=== PATIENT | male | born 1950 | race Caucasian/White ===

== ENCOUNTER 2021-01-26 03:56 | Inpatient (IN) | payer MEDICARE ==
[~2021-01-26] VITALS: Ht 182.9 cm; Wt 85.7 kg
[~2021-01-26 03:56] MED LIST: AMLO-187 PO; ASPI-886 PO; ASPI325T8 PO; ATOR20TA58 PO; ATOR40TA PO; CARV6.2511 PO; CLOP75TA PO; DILT120C99 PO; FLUO20CA20 PO; FURO-68 PO; FURO40TA4 PO; HYDR-2868 PO; INSU100V13 SQ; ISOS30TA19 PO; OMEP20CA16 PO; POTA10TA12 PO; TAMS0.4C97 PO
[2021-01-26 04:24] LABS: BASO % 0 % (0-3); EOS # 0.1 x10^3/uL (0.0-0.7); EOS % 1 % (0-3); HEMATOCRIT 28.5 % (39.0-53.0); HEMOGLOBIN 9.8 g/dL (13.0-17.5); LYMPH # 1.1 x10^3/uL (1.0-4.8); LYMPH % 15 % (24-48); MEAN CORPUSCULAR HEMOGLOBIN 31 pg (25-35); MEAN CORPUSCULAR HGB CONC 34 g/dL (31-37); MEAN CORPUSCULAR VOLUME 89 fL (79-100); MONO # 0.8 x10^3/uL (0.0-1.1); MONO % 11 % (0-9); NEUT # 5.4 x10^3/uL (1.8-7.7); NEUT % 73 % (31-73); PLATELET COUNT 211 x10^3/uL (140-400); RED BLOOD COUNT 3.19 x10^6/uL (4.30-5.70); RED CELL DISTRIBUTION WIDTH 13.6 % (11.5-14.5); WHITE BLOOD COUNT 7.4 x10^3/uL (4.0-11.0)
--- NOTE | 2021-01-26 04:26 | PHYS DOC ---
Past Medical History Past Medical History: Anxiety, Arrhythmia, CAD, Depression, Diabetes-Type II, GERD, High Cholesterol, Hypertension, CO, Other Additional Past Medical Histor: L BKA, DIALYSIS, PERIPHERAL NEUROPATHY, BPH, AND PULMONARY EDEMA Past Surgical History: Appendectomy, Tonsillectomy Additional Past Surgical Histo: HEART STENTS, L BKA, AND CATARACT Smoking Status: Never Smoker Alcohol Use: None Adult General Chief Complaint Chief Complaint: SHORTNESS OF BREATH HPI HPI Patient is a 70 year ol D male with an extensive past medical history which includes hypertension, hyperlipidemia, prior CO, diabetes, recent removal of a cranial skin tumor now presents emergency department complaining of new onset of shortness of breath. Patient states he woke this morning and felt that he was feeling like he had fluid to the lungs and today he was having difficulty ca tching his breath. States this is resolved before ambulance arrived. Denies any recent fever, chills, dizziness or lightheadedness. Review of Systems Review of Systems Constitutional: Denies fever or chills [] Eyes: Denies change in visual acuity, redness, or eye pain [] HENT: Denies nasal congestion or sore throat [] Respiratory: Denies cough or shortness of breath [] Cardiovascular: No additional information not addressed in HPI [] GI: Denies abdominal pain, nausea, vomiting, bloody stools or diarrhea [] : Denies dysuria or hematuria [] Musculoskeletal: Denies back pain or joint pain [] Integument: Denies rash or skin lesions [] Neurologic: Denies headache, focal weakness or sensory changes [] Endocrine: Denies polyuria or polydipsia [] All other systems were reviewed and found to be within normal limits, except as documented in this note. Current Medications Current Medications Current Medications Medications (Trade) Dose Ordered Sig/Ruddy Start Time Stop Time Status Last Admin Dose Admin Furosemide (Lasix) 80 mg 1X ONCE 01/26/21 06:15 01/26/21 06:18 DC Ondansetron HCl (Zofran) 4 mg PRN Q8HRS PRN 01/26/21 06:15 01/27/21 06:14 Allergies Allergies Allergies Coded Allergies Type Severity Reaction Last Updated Verified No Known Drug Allergies 06/28/20 No Physical Exam Physical Exam Constitutional: Well developed, well nourished, no acute distress, non-toxic appearance. [] HENT: Normocephalic, atraumatic, bilateral external ears normal, oropharynx moist, no oral exudates, nose normal. [] Eyes: PERRLA, EOMI, conjunctiva normal, no discharge. [] Neck: Normal range of motion, no tenderness, supple, no stridor. [] Cardiovascular:Heart rate regular rhythm, no murmur [] Lungs & Thorax: Bilateral breath sounds clear to auscultation [] Abdomen: Bowel sounds normal, soft, no tenderness, no masses, no pulsatile masses. [] Skin: Warm, dry, no erythema, no rash. [] Back: No tenderness, no CVA tenderness. [] Extremities: No tenderness, no cyanosis, no clubbing, ROM intact, no edema. [] Neurologic: Alert and oriented X 3, normal motor function, normal sensory function, no focal deficits noted. [] Psychologic: Affect normal, judgement normal, mood normal. [] Current Patient Data Vital Signs Vital Signs Date Time Temp Pulse Resp B/P (MAP) Pulse Ox O2 Delivery O2 Flow Rate FiO2 01/26/21 05:35 64 14 140/68 (92) 94 Nasal Cannula 2.0 01/26/21 03:57 97.9 97.9 Lab Values Laboratory Tests Test 01/26/21 04:15 01/26/21 04:30 White Blood Count 7.4 x10^3/uL (4.0-11.0) Red Blood Count 3.19 x10^6/uL (4.30-5.70) L Hemoglobin 9.8 g/dL (13.0-17.5) L Hematocrit 28.5 % (39.0-53.0) L Mean Corpuscular Volume 89 fL (79-100) Mean Corpuscular Hemoglobin 31 pg (25-35) Mean Corpuscular Hemoglobin Concent 34 g/dL (31-37) Red Cell Distribution Width 13.6 % (11.5-14.5) Platelet Count 211 x10^3/uL (140-400) Neutrophils (%) (Auto) 73 % (31-73) Lymphocytes (%) (Auto) 15 % (24-48) L Monocytes (%) (Auto) 11 % (0-9) H Eosinophils (%) (Auto) 1 % (0-3) Basophils (%) (Auto) 0 % (0-3) Neutrophils # (Auto) 5.4 x10^3/uL (1.8-7.7) Lymphocytes # (Auto) 1.1 x10^3/uL (1.0-4.8) Monocytes # (Auto) 0.8 x10^3/uL (0.0-1.1) Eosinophils # (Auto) 0.1 x10^3/uL (0.0-0.7) Basophils # (Auto) 0.0 x10^3/uL (0.0-0.2) Sodium Level 139 mmol/L (136-145) Potassium Level 3.7 mmol/L (3.5-5.1) Chloride Level 103 mmol/L (98-107) Carbon Dioxide Level 31 mmol/L (21-32) Anion Gap 5 (6-14) L Blood Urea Nitrogen 39 mg/dL (8-26) H Creatinine 2.0 mg/dL (0.7-1.3) H Estimated GFR (Cockcroft-Gault) 33.1 BUN/Creatinine Ratio 20 (6-20) Glucose Level 141 mg/dL (70-99) H Calcium Level 8.4 mg/dL (8.5-10.1) L Total Bilirubin 0.5 mg/dL (0.2-1.0) Aspartate Amino Transferase (AST) 43 U/L (15-37) H Alanine Aminotransferase (ALT) 18 U/L (16-63) Alkaline Phosphatase 86 U/L (46-116) Creatine Kinase 187 U/L (39-308) OO-Kmu-B-Type Natriuretic Peptide 04549 pg/mL (0-124) H Total Protein 6.5 g/dL (6.4-8.2) Albumin 2.7 g/dL (3.4-5.0) L Albumin/Globulin Ratio 0.7 (1.0-1.7) L Influenza Type A Antigen Negative (NEGATIVE) Influenza Type B Antigen Negative (NEGATIVE) SARS-CoV-2 Antigen (Rapid) Negative (NEGATIVE) Laboratory Tests 01/26/21 04:15 Laboratory Tests 01/26/21 04:15 EKG EKG [] Radiology/Procedures Radiology/Procedures [] Course & Med Decision Making Course & Med Decision Making Pertinent Labs and Imaging studies reviewed. (See chart for details) 70M emergency department complaining new onset of shortness of breath most consistent with acute CHF exacerbation. Labs were obtained which demonstrates an extremely elevated BNP consistent with this diagnosis. Will provide the patient Lasix and plan for admission to the inpatient service with cardiology consultation for Amrik Disclaimer Amrik Disclaimer This electronic medical record was generated, in whole or in part, using a voice recognition dictation system. Departure Departure Impression: Primary Impression: CHF exacerbation Disposition: ADMITTED INPATIENT Condition: GUARDED Referrals: YANNICK BAR MD (PCP) SHARONA IRWIN MD Jan 26, 2021 04:26
--- NOTE | 2021-01-26 04:28 | RAD ---
XR CHEST 1V Clinical History: Reason: sob / Spl. Instructions: / History: Technique: AP view of the chest was obtained at 01/26/2021 4:11 AM. Comparison: December 15, 2020. Findings: The heart is mildly enlarged. The pulmonary vessels are somewhat cephalized. There is mild patchy opa city in the left lung base and blunting of left costophrenic angle. Impression: Mild left effusion and left basal infiltrate likely secondary to CHF. Electronically signed by: Iban Moctezuma III, MD (01/26/2021 4:25 AM) [facility]ENTERJAMES
[2021-01-26 04:33] LABS: CALCIUM 8.4 mg/dL (8.5-10.1); GFR 33.1; POTASSIUM 3.7 mmol/L (3.5-5.1)
[2021-01-26 04:40] LABS: ALBUMIN 2.7 g/dL (3.4-5.0); ALBUMIN/GLOBULIN RATIO 0.7 (1.0-1.7); TOTAL BILIRUBIN 0.5 mg/dL (0.2-1.0); TOTAL PROTEIN 6.5 g/dL (6.4-8.2)
--- NOTE | 2021-01-26 04:51 | EKG ---
[facility] [address] [place] [address] Test Date: 2021-01-26 Test Time: 04:07:49 Pat Name: JOVANNI SOLIS Department: Room: Gender: M Programming Manager: : 1950 Requested By: SHARONA IRWIN Order Number: [id number] Reading MD: Measurements Intervals [place] Rate: 71 P: -67 LA: 230 QRS: -25 QRSD: 102 T: 57 QT: 398 QTc: 437 Interpretive Statements SINUS RHYTHM VENTRICULAR PREMATURE COMPLEX(ES) PROLONGED LA INTERVAL LEFTWARD AXIS R-S TRANSITION ZONE IN V LEADS DISPLACED TO THE LEFT LOW LIMB LEAD VOLTAGE ABNORMAL ECG RI6.02 No previous ECG available for comparison
[2021-01-26 05:00] LABS: INFLUENZA A PATIENT NEGATIVE (NEGATIVE); INFLUENZA B PATIENT NEGATIVE (NEGATIVE)
[2021-01-26] MEDS ORDERED: FUROSEMIDE 40 MG/4 ML VIAL. IVP ONE (06:15)
[2021-01-26] MEDS ORDERED: FUROSEMIDE 40 MG TABLET. PO ONE (06:15)
[2021-01-26] MEDS ORDERED: ONDANSETRON PF 4 MG/2 ML VIAL. IV PRN (06:15)
[2021-01-26] MEDS ORDERED: FUROSEMIDE 40 MG TABLET. PO SCH (07:30)
[2021-01-26] MEDS ORDERED: MAG HYDROX/ALUMINUM HYD/SIMETH 30 ML ORAL.SUSP PO PRN (07:45)
[2021-01-26] MEDS ORDERED: MAGNESIUM HYDROXIDE 2,400 MG/30 ML ORAL.SUSP. PO PRN (07:45)
[2021-01-26] MEDS ORDERED: BISACODYL 10 MG SUPP.RECT. PR PRN (07:45)
[2021-01-26] MEDS ORDERED: ACETAMINOPHEN 325 MG TABLET. PO PRN (07:45)
[2021-01-26] MEDS ORDERED: HYDROcodone/APAP 5/325MG 1 TAB TABLET PO PRN (07:45)
[2021-01-26] MEDS ORDERED: ONDANSETRON PF 4 MG/2 ML VIAL. IVP PRN (07:45)
[2021-01-26] MEDS ORDERED: CALCIUM CARBONATE 500 MG TAB.CHEW PO PRN (07:45)
[2021-01-26] MEDS ORDERED: DEXTROSE 50% 25 GM / 50ML DISP.SYRIN. IV PRN (08:00)
[2021-01-26] MEDS ORDERED: IV DEXTROSE 5% 250 ML BAG. IV PRN (08:00)
--- NOTE | 2021-01-26 08:12 | PDOC1 ---
History and Physical Date of Admission Date of Admission DATE: 01/26/21 TIME: 07:52 Identification/Chief Complaint Chief Complaint Shortness of breath Source Source: Chart review, Patient History of Present Illness History of Present Illness Patient is 70-year-old male with past medical history CHF, DM 2, skin cancer with recent surgical removal, who presents to the ED with complaints of worsening shortness of breath that began this morning. Patient states he woke up feeling like "it's my CHF". Upon EMS arrival he was saturating 70% on 2 L O2, he was placed on 6 L nasal cannula with improvement to 94%. He received Lasix diuresis in ED with improvement. States he has been taking his Lasix as prescribed and denies missing any doses. Will admit patient for further medical management. Past Medical History Cardiovascular: CAD, HTN, Hyperlipidemia Pulmonary: Other CENTRAL NERVOUS SYSTEM: Periperal neuropathy GI: GERD Heme/Onc: No pertinent hx Hepatobiliary: No pertinent hx Psych: Depression Rheumatologic: No pertinent hx Infectious disease: Other Renal/: Benign prostatic enlarg. Endocrine: Diabetes Past Surgical History Past Surgical History: Cataract Removal, Tonsillectomy, Other Family History Family History: Diabetes Social History Smoke: No ALCOHOL: none Drugs: None Current Problem List Problem List Problems Medical Problems: (1) CHF exacerbation Status: Acute Current Medications Current Medications Current Medications Furosemide (Lasix) 40 mg 1X ONCE PO Last administered on 01/26/21at 06:32; Start 01/26/21 at 06:15; Stop 01/26/21 at 06:16; Status DC Ondansetron HCl (Zofran) 4 mg PRN Q8HRS PRN IV NAUSEA/VOMITING; Start 01/26/21 at 06:15; Stop 01/27/21 at 06:14 Furosemide (Lasix) 80 mg 1X ONCE IVP Last administered on 01/26/21at 06:33; Start 01/26/21 at 06:15; Stop 01/26/21 at 06:18; Status DC Amlodipine Besylate (Norvasc) 10 mg DAILY PO ; Start 01/26/21 at 09:00; Status UNV Aspirin (Ecotrin) 81 mg DAILY PO ; Start 01/26/21 at 09:00; Status UNV Atorvastatin Calcium (Lipitor) 40 mg QHS PO ; Start 01/26/21 at 21:00; Status UNV Carvedilol (Coreg) 6.25 mg BIDWMEALS PO ; Start 01/26/21 at 08:00; Status UNV Clopidogrel Bisulfate (Plavix) 75 mg DAILY PO ; Start 01/26/21 at 09:00; Status UNV Furosemide (Lasix) 40 mg QD PO ; Start 01/26/21 at 07:30; Status UNV Hydralazine HCl (Apresoline) 75 mg BID PO ; Start 01/26/21 at 09:00; Status UNV Potassium Chloride (Klor-Con) 10 meq DAILY PO ; Start 01/26/21 at 09:00; Status UNV Tamsulosin HCl (Flomax) 0.4 mg DAILY PO ; Start 01/26/21 at 09:00; Status UNV Active Scripts Active Furosemide 40 Mg Tablet 40 Mg PO QD Hydralazine Hcl 25 Mg Tablet 75 Mg PO BID 30 Days Klor-Con 10 (Potassium Chloride) 10 Meq Tablet.er 1 Tab PO DAILY 30 Days Lipitor (Atorvastatin Calcium) 40 Mg Tablet 1 Tab PO QHS 30 Days Fluoxetine Hcl 20 Mg Capsule 20 Mg PO DAILY 30 Days Carvedilol (Carvedilol) 6.25 Mg Tablet 6.25 Mg PO BIDWMEALS 30 Days Clopidogrel (Clopidogrel Bisulfate) 75 Mg Tablet 1 Tab PO DAILY 30 Days Reported Levemir (Insulin Detemir) 100 Unit/1 Ml Vial 10 Unit SQ BID Isosorbide Dinitrate 30 Mg Tablet 2 Tab PO DAILY 30 Days Amlodipine Besylate 10 Mg Tablet 10 Mg PO DAILY Aspirin Ec (Aspirin) 81 Mg Tablet.dr 1 Tab PO DAILY Omeprazole 20 Mg Capsule.dr 20 Mg PO DAILY Flomax (Tamsulosin Hcl) 0.4 Mg Cap.er.24h 0.4 Mg PO DAILY Allergies Allergies: Coded Allergies: No Known Drug Allergies (Unverified , 06/28/20) ROS Review of System GENERAL: No history of weight change, weakness or fevers. SKIN: No bruising, hair changes or rashes. EYES: No blurred, double or loss of vision. NOSE AND THROAT: No history of nosebleeds, hoarseness or sore throat. HEART: Denies chest pain, denies palpitations. LUNGS: Shortness of breath. Denies cough, hemoptysis, or wheezing. GASTROINTESTINAL: Denies nausea, vomiting, abdominal pain. GENITOURINARY: Denies dysuria, frequency, urgency, hematuria. NEUROLOGIC: Denies history of numbness, tingling, tremor or weakness. PSYCHIATRIC: Denies anxiety, denies depression. ENDOCRINE: No history of heat or cold intolerance, polyuria or polydipsia. EXTREMITIES: Denies muscle weakness, joint pain, pain on walking or stiffness. Physical Exam Physical Exam General: Alert, Oriented X3, Cooperative, mild distress HEENT: Head is wrapped and bandaged. PERRLA, EOMI Lungs: Bibasilar Rales, Normal air movement Heart: RRR, no murmurs Cardiovascular: S1, S2 Abdomen: Normal bowel sounds, Soft, No tenderness Extremities: Left BKA. No clubbing, No cyanosis Skin: No rashes, No significant lesion Neuro: Normal speech, Normal tone, Sensation intact Psych/Mental Status: Mental status NL, Mood NL Vitals Vitals Vital Signs Date Time Temp Pulse Resp B/P (MAP) Pulse Ox O2 Delivery O2 Flow Rate FiO2 01/26/21 05:35 64 14 140/68 (92) 94 Nasal Cannula 2.0 01/26/21 03:57 97.9 97.9 Labs Labs Laboratory Tests Test 01/26/21 04:15 01/26/21 04:30 White Blood Count 7.4 x10^3/uL (4.0-11.0) Red Blood Count 3.19 x10^6/uL (4.30-5.70) Hemoglobin 9.8 g/dL (13.0-17.5) Hematocrit 28.5 % (39.0-53.0) Mean Corpuscular Volume 89 fL (79-100) Mean Corpuscular Hemoglobin 31 pg (25-35) Mean Corpuscular Hemoglobin Concent 34 g/dL (31-37) Red Cell Distribution Width 13.6 % (11.5-14.5) Platelet Count 211 x10^3/uL (140-400) Neutrophils (%) (Auto) 73 % (31-73) Lymphocytes (%) (Auto) 15 % (24-48) Monocytes (%) (Auto) 11 % (0-9) Eosinophils (%) (Auto) 1 % (0-3) Basophils (%) (Auto) 0 % (0-3) Neutrophils # (Auto) 5.4 x10^3/uL (1.8-7.7) Lymphocytes # (Auto) 1.1 x10^3/uL (1.0-4.8) Monocytes # (Auto) 0.8 x10^3/uL (0.0-1.1) Eosinophils # (Auto) 0.1 x10^3/uL (0.0-0.7) Basophils # (Auto) 0.0 x10^3/uL (0.0-0.2) Sodium Level 139 mmol/L (136-145) Potassium Level 3.7 mmol/L (3.5-5.1) Chloride Level 103 mmol/L (98-107) Carbon Dioxide Level 31 mmol/L (21-32) Anion Gap 5 (6-14) Blood Urea Nitrogen 39 mg/dL (8-26) Creatinine 2.0 mg/dL (0.7-1.3) Estimated GFR (Cockcroft-Gault) 33.1 BUN/Creatinine Ratio 20 (6-20) Glucose Level 141 mg/dL (70-99) Calcium Level 8.4 mg/dL (8.5-10.1) Total Bilirubin 0.5 mg/dL (0.2-1.0) Aspartate Amino Transf (AST/SGOT) 43 U/L (15-37) Alanine Aminotransferase (ALT/SGPT) 18 U/L (16-63) Alkaline Phosphatase 86 U/L (46-116) Creatine Kinase 187 U/L (39-308) OX-Qfm-L-Type Natriuretic Peptide 89203 pg/mL (0-124) Total Protein 6.5 g/dL (6.4-8.2) Albumin 2.7 g/dL (3.4-5.0) Albumin/Globulin Ratio 0.7 (1.0-1.7) Influenza Type A Antigen Negative (NEGATIVE) Influenza Type B Antigen Negative (NEGATIVE) SARS-CoV-2 Antigen (Rapid) Negative (NEGATIVE) Laboratory Tests Test 01/26/21 04:15 01/26/21 04:30 White Blood Count 7.4 x10^3/uL (4.0-11.0) Red Blood Count 3.19 x10^6/uL (4.30-5.70) Hemoglobin 9.8 g/dL (13.0-17.5) Hematocrit 28.5 % (39.0-53.0) Mean Corpuscular Volume 89 fL (79-100) Mean Corpuscular Hemoglobin 31 pg (25-35) Mean Corpuscular Hemoglobin Concent 34 g/dL (31-37) Red Cell Distribution Width 13.6 % (11.5-14.5) Platelet Count 211 x10^3/uL (140-400) Neutrophils (%) (Auto) 73 % (31-73) Lymphocytes (%) (Auto) 15 % (24-48) Monocytes (%) (Auto) 11 % (0-9) Eosinophils (%) (Auto) 1 % (0-3) Basophils (%) (Auto) 0 % (0-3) Neutrophils # (Auto) 5.4 x10^3/uL (1.8-7.7) Lymphocytes # (Auto) 1.1 x10^3/uL (1.0-4.8) Monocytes # (Auto) 0.8 x10^3/uL (0.0-1.1) Eosinophils # (Auto) 0.1 x10^3/uL (0.0-0.7) Basophils # (Auto) 0.0 x10^3/uL (0.0-0.2) Sodium Level 139 mmol/L (136-145) Potassium Level 3.7 mmol/L (3.5-5.1) Chloride Level 103 mmol/L (98-107) Carbon Dioxide Level 31 mmol/L (21-32) Anion Gap 5 (6-14) Blood Urea Nitrogen 39 mg/dL (8-26) Creatinine 2.0 mg/dL (0.7-1.3) Estimated GFR (Cockcroft-Gault) 33.1 BUN/Creatinine Ratio 20 (6-20) Glucose Level 141 mg/dL (70-99) Calcium Level 8.4 mg/dL (8.5-10.1) Total Bilirubin 0.5 mg/dL (0.2-1.0) Aspartate Amino Transf (AST/SGOT) 43 U/L (15-37) Alanine Aminotransferase (ALT/SGPT) 18 U/L (16-63) Alkaline Phosphatase 86 U/L (46-116) Creatine Kinase 187 U/L (39-308) ZU-Dee-W-Type Natriuretic Peptide 51533 pg/mL (0-124) Total Protein 6.5 g/dL (6.4-8.2) Albumin 2.7 g/dL (3.4-5.0) Albumin/Globulin Ratio 0.7 (1.0-1.7) Influenza Type A Antigen Negative (NEGATIVE) Influenza Type B Antigen Negative (NEGATIVE) SARS-CoV-2 Antigen (Rapid) Negative (NEGATIVE) Images Images PORTABLE CHEST 1V XR CHEST 1V Clinical History: Reason: sob / Spl. Instructions: / History: Technique: AP view of the chest was obtained at 01/26/2021 4:11 AM. Comparison: December 15, 2020. Findings: The heart is mildly enlarged. The pulmonary vessels are somewhat cephalized. There is mild patchy opacity in the left lung base and blunting of left costophrenic angle. Impression: Mild left effusion and left basal infiltrate likely secondary to CHF. VTE Prophylaxis Ordered VTE Prophylaxis Devices: No VTE Pharmacological Prophylaxi: Yes Assessment/Plan Assessment/Plan Acute respiratory failure with hypoxia Acute CHF exacerbation CKD DM2 Skin cancer Severe malnutrition Plan: Consult cardiology Received Lasix diuresis in the ED with improvement Continue diuresis with home Lasix Will monitor kidney function Consult placed to wound care for skin cancer removal site on scalp Resume home medications FEN - Cardiac diet PPX - Heparin FULL CODE Dispo - inpatient for above; patient names daughter as surrogate decision-maker. Justifications for Admission Other Justification Acute hypoxic respiratory failure, acute CHF exacerbation SARAH COLLINS MD Jan 26, 2021 08:12
[2021-01-26] MEDS: CARVEDILOL 6.25 MG TABLET. PO SCH ×2 (08:55→17:20)
[2021-01-26] MEDS: HEPARIN for SUB-Q USE 5,000 UNIT/ML VIAL. SQ SCH ×3 (08:57→21:31)
[2021-01-26] MEDS: INSULIN LISPRO 300 UNITS/3 ML VIAL. SQ SCH ×3 (09:12→17:00)
[2021-01-26] MEDS: INSULIN GLARGINE SYRINGE. SQ SCH ×2 (09:13→21:30)
[2021-01-26] MEDS: hydrALAZINE 25 MG TABLET PO SCH ×2 (09:44→21:26)
[2021-01-26] MEDS: amLODIPine BESYLATE 10 MG TABLET PO SCH (09:45)
[2021-01-26] MEDS: CLOPIDOGREL BISULFATE 75 MG TABLET PO SCH (09:45)
[2021-01-26] MEDS: ASPIRIN ENTERIC COATED 81 MG TABLET.DR. PO SCH (09:45)
[2021-01-26] MEDS: TAMSULOSIN 0.4 MG CAP.ER.24H. PO SCH (09:46)
[2021-01-26] MEDS: POTASSIUM CHLORIDE 10 MEQ TABLET.ER. PO SCH (09:46)
--- NOTE | 2021-01-26 09:50 | PDOC2 ---
CHAVA BUCHANAN DIGESTER OPERATOR 01/26/21 0950: CARDIAC CONSULT DATE OF CONSULT Date of Consult DATE: 01/26/21 TIME: 09:42 REASON FOR CONSULT Reason for Consult: CHF Exacerbation REFERRING PHYSICIAN Referring Physician: Dr. Hidalgo SOURCE Source: Chart review, Patient HISTORY OF PRESENT ILLNESS HISTORY OF PRESENT ILLNESS This is a 70 yo male who presented secondary to shortness of breath. Patient reports he has been short of breath since yesterday morning. Worsened throughout the day and night so he came to the ED for further evaluation and treatment. He denies any chest pain, palpitations, dizziness, diaphoresis, or nausea/vomiting. No recent illness/fevers. Reports compliance with meds including diuretic ther apy PAST MEDICAL HISTORY Past Medical History Cardiovascular: HTN, Hyperlipidemia, CAD Pulmonary: Other (CHERISE), COPD CENTRAL NERVOUS SYSTEM: Peripheral neuropathy GI: GERD Heme/Onc: anemia Hepatobiliary: No pertinent hx Psych: Depression Musculoskeletal: Osteoarthritis Rheumatologic: No pertinent hx Infectious disease: Other (MRSA) ENT: Other (cataract) Renal/: Chronic renal insuff (past HD), Benign prostatic enlarg. Endocrine: Diabetes (2) Dermatology: No pertinent hx PAST SURGICAL HISTORY Past Surgical History Cataract Removal, Tonsillectomy, Other (LBKA due to gangrene) FAMILY HISTORY Family History: Diabetes SOCIAL HISTORY Social History Smoke: No ALCOHOL: none Drugs: None Lives: with Family CURRENT MEDICATIONS CURRENT MEDICATIONS Current Medications Medications (Trade) Dose Ordered Sig/Ruddy Route PRN Reason Start Time Stop Time Status Last Admin Dose Admin Furosemide (Lasix) 40 mg 1X ONCE PO 01/26/21 06:15 01/26/21 06:16 DC 01/26/21 06:32 Furosemide (Lasix) 80 mg 1X ONCE IVP 01/26/21 06:15 01/26/21 06:18 DC 01/26/21 06:33 Carvedilol (Coreg) 6.25 mg BIDWMEALS PO 01/26/21 08:00 01/26/21 08:55 Heparin Sodium (Porcine) (Heparin Sodium) 5,000 unit Q8HRS SQ 01/26/21 08:15 01/26/21 08:57 Insulin Glargine (Lantus Syringe) 10 unit BID SQ 01/26/21 09:00 01/26/21 09:13 Insulin Human Lispro (HumaLOG) 0-7 UNITS TIDWMEALS SQ 01/26/21 08:00 01/26/21 09:12 ALLERGIES ALLERGIES: Coded Allergies: No Known Drug Allergies (Unverified , 06/28/20) ROS Review of System 14 point ROS conducted with pertinent positives noted above in HPI PHYSICAL EXAM PHYSICAL EXAM General: Alert, Oriented X3, Cooperative, No acute distress HEENT: Atraumatic, Mucous membr. moist/pink Lungs: Other (diminished bases) Heart: Regular rate (SR), Normal S1, Normal S2, No murmurs Abdomen: Soft, No tenderness Extremities: No cyanosis, Other (1+ RLE edema, LBKA Skin: No breakdown, No significant lesion Neuro: Normal speech, Sensation intact Psych/Mental Status: Mental status NL, Mood NL MUSCULOSKELETAL: Osteoarthritic changes both hands VITALS/I&O VITALS/I&O: Vital Signs Date Time Temp Pulse Resp B/P (MAP) Pulse Ox O2 Delivery O2 Flow Rate FiO2 01/26/21 09:06 74 20 98 Nasal Cannula 4.0 01/26/21 03:57 97.9 97.9 LABS Lab: Laboratory Tests Test 01/26/21 04:15 01/26/21 04:30 01/26/21 08:28 White Blood Count 7.4 x10^3/uL (4.0-11.0) Red Blood Count 3.19 x10^6/uL (4.30-5.70) L Hemoglobin 9.8 g/dL (13.0-17.5) L Hematocrit 28.5 % (39.0-53.0) L Mean Corpuscular Volume 89 fL (79-100) Mean Corpuscular Hemoglobin 31 pg (25-35) Mean Corpuscular Hemoglobin Concent 34 g/dL (31-37) Red Cell Distribution Width 13.6 % (11.5-14.5) Platelet Count 211 x10^3/uL (140-400) Neutrophils (%) (Auto) 73 % (31-73) Lymphocytes (%) (Auto) 15 % (24-48) L Monocytes (%) (Auto) 11 % (0-9) H Eosinophils (%) (Auto) 1 % (0-3) Basophils (%) (Auto) 0 % (0-3) Neutrophils # (Auto) 5.4 x10^3/uL (1.8-7.7) Lymphocytes # (Auto) 1.1 x10^3/uL (1.0-4.8) Monocytes # (Auto) 0.8 x10^3/uL (0.0-1.1) Eosinophils # (Auto) 0.1 x10^3/uL (0.0-0.7) Basophils # (Auto) 0.0 x10^3/uL (0.0-0.2) Sodium Level 139 mmol/L (136-145) Potassium Level 3.7 mmol/L (3.5-5.1) Chloride Level 103 mmol/L (98-107) Carbon Dioxide Level 31 mmol/L (21-32) Anion Gap 5 (6-14) L Blood Urea Nitrogen 39 mg/dL (8-26) H Creatinine 2.0 mg/dL (0.7-1.3) H Estimated GFR (Cockcroft-Gault) 33.1 BUN/Creatinine Ratio 20 (6-20) Glucose Level 141 mg/dL (70-99) H Calcium Level 8.4 mg/dL (8.5-10.1) L Total Bilirubin 0.5 mg/dL (0.2-1.0) Aspartate Amino Transferase (AST) 43 U/L (15-37) H Alanine Aminotransferase (ALT) 18 U/L (16-63) Alkaline Phosphatase 86 U/L (46-116) Creatine Kinase 187 U/L (39-308) XS-Luc-A-Type Natriuretic Peptide 89417 pg/mL (0-124) H Total Protein 6.5 g/dL (6.4-8.2) Albumin 2.7 g/dL (3.4-5.0) L Albumin/Globulin Ratio 0.7 (1.0-1.7) L Influenza Type A Antigen Negative (NEGATIVE) Influenza Type B Antigen Negative (NEGATIVE) SARS-CoV-2 RNA (CAITY) Negative (Negative) SARS-CoV-2 Antigen (Rapid) Negative (NEGATIVE) Glucose (Fingerstick) 156 mg/dL (70-99) H Laboratory Tests 01/26/21 04:15 Laboratory Tests 01/26/21 04:15 ECHOCARDIOGRAM ECHOCARDIOGRAM <Conclusion> The left ventricular systolic function is normal. The Ejection Fraction is 55-60%. There is normal LV segmental wall motion. Trace tricuspid valve regurgitation. There is no evidence of significant pericardial effusion. DATE: 06/29/20 1525 HEART CATH HEART CATH Conclusion 1. Severe three-vessel coronary artery disease without any significant changes from previous angiogram 2. Widely patent proximal LAD and proximal RCA stents 3. Known 50% stenosis in the mid LAD stented due to underexpansion from heavy calcific disease and external compression despite prior orbital atherectomy. Poor distal LAD flow due to known severe small vessel disease. Recommendations 1. Continue current medical therapy. DATE: 07/10/20 1522 Conclusion 1. Mildly elevated left-sided filling pressures with an LVEDP of 18 2. Severe three-vessel calcific coronary artery disease 3. Successful PCI of the LAD with implantation of a 3.0 x 38 mm resolute drug- eluting stent in the proximal segment, and the distal LAD was stented with a 2.5 x 38 mm drug-eluting stent. Recommendations 1. Aspirin 81 mg daily 2. Plavix 75 mg daily 3. Continue aggressive risk factor modification. Supportive care. DATE: 07/03/20 1509 ASSESSMENT/PLAN ASSESSMENT/PLAN 1. Acute on chronic diastolic CHF; Echo 07/02 with preserved LV systolic function. improved with diuresis 2. SOPHIE on CKD 3. CAD: 3VD, recent PCI/ELLEN to the proximal and distal LAD, clinically stable 4. Hypertension; controlled 5. Diabetes, II 6 CHERISE 6. BPH Recommendations Diuresis with monitoring or renal function Continue secondary prevention measures; ASA/plavix, statin, and antianginals 2Gm Na diet. 2000cc FR Monitor I and O Supportive care PEARL CARDOZA MD 01/27/21 0805: CARDIAC CONSULT ASSESSMENT/PLAN ASSESSMENT/PLAN Late entry for 01/26/21 Pt. seen and examined. 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 He was completely flat on his back in bed w/o dyspnea, he has no leg edema. I have low suspicion for sign HF. Diuresis overnight and anticipate DC in a.m, if having significant trouble will consider RHC on friday. CHAVA BCUHANAN APRN Jan 26, 2021 09:50 PEARL CARDOZA MD Jan 27, 2021 08:05
[2021-01-26 11:37] VITALS: BP 141/97
[2021-01-26 14:34] VITALS: BP 144/76
[2021-01-26 17:16] VITALS: BP 124/63
--- NOTE | 2021-01-26 17:19 | NUR ---
Wound Care: Patient seen per wound care consult for a left ear. There is no open wound to left ear. patient has incision with sutures to left lateral head that is very well approximated and clean. Wound care will sign off at this time. Please re consult regarding any changes per wound care.
[2021-01-26 19:00] VITALS: BP 124/65
[2021-01-26] MEDS: ATORVASTATIN CALCIUM 40 MG TABLET. PO SCH (21:26)
[2021-01-26 23:13] VITALS: BP 123/69
[2021-01-27 03:14] VITALS: BP 138/64
[2021-01-27] MEDS: HEPARIN for SUB-Q USE 5,000 UNIT/ML VIAL. SQ SCH ×3 (06:29→23:09)
[2021-01-27 07:00] VITALS: BP 161/78
[2021-01-27 07:54] LABS: BASO # 0.1 x10^3/uL (0.0-0.2); BASO % 1 % (0-3); EOS # 0.1 x10^3/uL (0.0-0.7); EOS % 2 % (0-3); HEMATOCRIT 30.7 % (39.0-53.0); HEMOGLOBIN 10.5 g/dL (13.0-17.5); LYMPH % 27 % (24-48); MEAN CORPUSCULAR HEMOGLOBIN 31 pg (25-35); MEAN CORPUSCULAR HGB CONC 34 g/dL (31-37); MEAN CORPUSCULAR VOLUME 90 fL (79-100); MONO # 0.7 x10^3/uL (0.0-1.1); MONO % 9 % (0-9); NEUT # 4.5 x10^3/uL (1.8-7.7); NEUT % 61 % (31-73); PLATELET COUNT 259 x10^3/uL (140-400); RED CELL DISTRIBUTION WIDTH 13.7 % (11.5-14.5); WHITE BLOOD COUNT 7.3 x10^3/uL (4.0-11.0)
[2021-01-27] MEDS: FUROSEMIDE 40 MG/4 ML VIAL. IVP SCH (07:58)
[2021-01-27] MEDS: INSULIN LISPRO 300 UNITS/3 ML VIAL. SQ SCH ×3 (08:00→17:00)
[2021-01-27] MEDS: IPRATRPIUM/ALBUTEROL 0.5/2.5MG 3 ML NEBU. NEB SCH ×4 (08:10→20:30)
[2021-01-27 08:22] LABS: CALCIUM 8.7 mg/dL (8.5-10.1); CREATININE 1.9 mg/dL (0.7-1.3); GFR 35.1; POTASSIUM 3.5 mmol/L (3.5-5.1)
--- NOTE | 2021-01-27 09:05 | PDOC ---
PROGRESS NOTES Date of Service: DATE: 01/27/21 TIME: 09:04 Chief Complaint Chief Complaint VTE Prophylaxis Ordered VTE Prophylaxis Devices: No VTE Pharmacological Prophylaxi: Yes Assessment/Plan Assessment/Plan Acute respiratory failure with hypoxia Acute CHF exacerbation CKD DM2 Skin cancer Severe malnutrition Acute COPD exacerbation: Wheezing and bilateral expiratory rhonchi consistent with acute COPD exacerbation. Consider nebulizers. Plan: Consult cardiology Received Lasix diuresis in the ED with improvement Continue diuresis with home Lasix Will monitor kidney function Consult placed to wound care for skin cancer removal site on scalp Resume home medications FEN - Cardiac diet CONSULT PULMONARY PPX - Heparin FULL CODE Dispo - inpatient for above; patient names daughter as surrogate decision-maker. D/W FAMILY IN ROOM Justifications for Admission Justifications for Admission Other Justification Acute hypoxic respiratory failure, acute CHF exacerbation History of Present Illness History of Present Illness Identification/Chief Complaint Chief Complaint Shortness of breath Source Source: Chart review, Patient History of Present Illness History of Present Illness Patient is 70-year-old male with past medical history CHF, DM 2, skin cancer with recent surgical removal, who presents to the ED with complaints of worsening shortness of breath that began this morning. Patient states he woke up feeling like "it's my CHF". Upon EMS arrival he was saturating 70% on 2 L O2, he was placed on 6 L nasal cannula with improvement to 94%. He received La six diuresis in ED with improvement. States he has been taking his Lasix as prescribed and denies missing any doses. Will admit patient for further medical management. Past Medical History Cardiovascular: CAD, HTN, Hyperlipidemia Pulmonary: Other CENTRAL NERVOUS SYSTEM: Periperal neuropathy GI: GERD Heme/Onc: No pertinent hx Hepatobiliary: No pertinent hx Psych: Depression Rheumatologic: No pertinent hx Infectious disease: Other Renal/: Benign prostatic enlarg. Endocrine: Diabetes Past Surgical History Past Surgical History: Cataract Removal, Tonsillectomy, Other Family History Family History: Diabetes Social History Smoke: No ALCOHOL: none Drugs: None Current Problem List Problem List Problems Medical Problems: (1) CHF exacerbation Status: Acute Current Medications Current Medications Current Medications Furosemide (Lasix) 40 mg 1X ONCE PO Last administered on 01/26/21at 06:32; Start 01/26/21 at 06:15; Stop 01/26/21 at 06:16; Status DC Ondansetron HCl (Zofran) 4 mg PRN Q8HRS PRN IV NAUSEA/VOMITING; Start 01/26/21 at 06:15; Stop 01/27/21 at 06:14 Furosemide (Lasix) 80 mg 1X ONCE IVP Last administered on 01/26/21at 06:33; Start 01/26/21 at 06:15; Stop 01/26/21 at 06:18; Status DC Amlodipine Besylate (Norvasc) 10 mg DAILY PO ; Start 01/26/21 at 09:00; Status UNV Aspirin (Ecotrin) 81 mg DAILY PO ; Start 01/26/21 at 09:00; Status UNV Atorvastatin Calcium (Lipitor) 40 mg QHS PO ; Start 01/26/21 at 21:00; Status UNV Carvedilol (Coreg) 6.25 mg BIDWMEALS PO ; Start 01/26/21 at 08:00; Status UNV Clopidogrel Bisulfate (Plavix) 75 mg DAILY PO ; Start 01/26/21 at 09:00; Status UNV Furosemide (Lasix) 40 mg QD PO ; Start 01/26/21 at 07:30; Status UNV Hydralazine HCl (Apresoline) 75 mg BID PO ; Start 01/26/21 at 09:00; Status UNV Potassium Chloride (Klor-Con) 10 meq DAILY PO ; Start 01/26/21 at 09:00; Status UNV Tamsulosin HCl (Flomax) 0.4 mg DAILY PO ; Start 01/26/21 at 09:00; Status UNV Active Scripts Active Furosemide 40 Mg Tablet 40 Mg PO QD Hydralazine Hcl 25 Mg Tablet 75 Mg PO BID 30 Days Klor-Con 10 (Potassium Chloride) 10 Meq Tablet.er 1 Tab PO DAILY 30 Days Lipitor (Atorvastatin Calcium) 40 Mg Tablet 1 Tab PO QHS 30 Days Fluoxetine Hcl 20 Mg Capsule 20 Mg PO DAILY 30 Days Carvedilol (Carvedilol) 6.25 Mg Tablet 6.25 Mg PO BIDWMEALS 30 Days Clopidogrel (Clopidogrel Bisulfate) 75 Mg Tablet 1 Tab PO DAILY 30 Days Reported Levemir (Insulin Detemir) 100 Unit/1 Ml Vial 10 Unit SQ BID Isosorbide Dinitrate 30 Mg Tablet 2 Tab PO DAILY 30 Days Amlodipine Besylate 10 Mg Tablet 10 Mg PO DAILY Aspirin Ec (Aspirin) 81 Mg Tablet.dr 1 Tab PO DAILY Omeprazole 20 Mg Capsule.dr 20 Mg PO DAILY Flomax (Tamsulosin Hcl) 0.4 Mg Cap.er.24h 0.4 Mg PO DAILY Allergies Allergies: Coded Allergies: No Known Drug Allergies (Unverified , 06/28/20) ROS Review of System GENERAL: No history of weight change, weakness or fevers. SKIN: No bruising, hair changes or rashes. EYES: No blurred, double or loss of vision. NOSE AND THROAT: No history of nosebleeds, hoarseness or sore throat. HEART: Denies chest pain, denies palpitations. LUNGS: Shortness of breath. Denies cough, hemoptysis, or wheezing. GASTROINTESTINAL: Denies nausea, vomiting, abdominal pain. GENITOURINARY: Denies dysuria, frequency, urgency, hematuria. NEUROLOGIC: Denies history of numbness, tingling, tremor or weakness. PSYCHIATRIC: Denies anxiety, denies depression. ENDOCRINE: No history of heat or cold intolerance, polyuria or polydipsia. EXTREMITIES: Denies muscle weakness, joint pain, pain on walking or stiffness. Vitals Vitals Vital Signs Date Time Temp Pulse Resp B/P (MAP) Pulse Ox O2 Delivery O2 Flow Rate FiO2 01/27/21 08:11 83 Venturi Mask 15.0 01/27/21 07:00 97.8 101 17 161/78 (105) 97.8 Physical Exam Physical Exam Physical Exam Physical Exam General: Alert, Oriented X3, Cooperative, mild distress HEENT: Head is wrapped and bandaged. PERRLA, EOMI Lungs: Bibasilar Rales, Normal air movement Heart: RRR, no murmurs Cardiovascular: S1, S2 Abdomen: Normal bowel sounds, Soft, No tenderness Extremities: Left BKA. No clubbing, No cyanosis Skin: No rashes, No significant lesion Neuro: Normal speech, Normal tone, Sensation intact Psych/Mental Status: Mental status NL, Mood NL General: Alert, Oriented X3, Cooperative, No acute distress Heart: Regular rate Lungs: Clear, Wheezing Abdomen: Normal bowel sounds, Soft, No tenderness Extremities: No cyanosis Labs LABS Laboratory Tests Test 01/26/21 11:20 01/26/21 16:14 01/26/21 20:18 01/27/21 07:20 Glucose (Fingerstick) 125 mg/dL (70-99) 106 mg/dL (70-99) 188 mg/dL (70-99) White Blood Count 7.3 x10^3/uL (4.0-11.0) Red Blood Count 3.40 x10^6/uL (4.30-5.70) Hemoglobin 10.5 g/dL (13.0-17.5) Hematocrit 30.7 % (39.0-53.0) Mean Corpuscular Volume 90 fL (79-100) Mean Corpuscular Hemoglobin 31 pg (25-35) Mean Corpuscular Hemoglobin Concent 34 g/dL (31-37) Red Cell Distribution Width 13.7 % (11.5-14.5) Platelet Count 259 x10^3/uL (140-400) Neutrophils (%) (Auto) 61 % (31-73) Lymphocytes (%) (Auto) 27 % (24-48) Monocytes (%) (Auto) 9 % (0-9) Eosinophils (%) (Auto) 2 % (0-3) Basophils (%) (Auto) 1 % (0-3) Neutrophils # (Auto) 4.5 x10^3/uL (1.8-7.7) Lymphocytes # (Auto) 2.0 x10^3/uL (1.0-4.8) Monocytes # (Auto) 0.7 x10^3/uL (0.0-1.1) Eosinophils # (Auto) 0.1 x10^3/uL (0.0-0.7) Basophils # (Auto) 0.1 x10^3/uL (0.0-0.2) Sodium Level 144 mmol/L (136-145) Potassium Level 3.5 mmol/L (3.5-5.1) Chloride Level 103 mmol/L (98-107) Carbon Dioxide Level 30 mmol/L (21-32) Anion Gap 11 (6-14) Blood Urea Nitrogen 38 mg/dL (8-26) Creatinine 1.9 mg/dL (0.7-1.3) Estimated GFR (Cockcroft-Gault) 35.1 Glucose Level 92 mg/dL (70-99) Calcium Level 8.7 mg/dL (8.5-10.1) Test 01/27/21 07:42 Glucose (Fingerstick) 123 mg/dL (70-99) Assessment and Plan Assessmemt and Plan Problems Medical Problems: (1) CHF exacerbation Status: Acute Comment Review of Relevant I have reviewed the following items coral (where applicable) has been applied. Labs Laboratory Tests Test 01/26/21 04:15 01/26/21 04:30 01/26/21 08:28 01/26/21 11:20 White Blood Count 7.4 x10^3/uL (4.0-11.0) Red Blood Count 3.19 x10^6/uL (4.30-5.70) Hemoglobin 9.8 g/dL (13.0-17.5) Hematocrit 28.5 % (39.0-53.0) Mean Corpuscular Volume 89 fL (79-100) Mean Corpuscular Hemoglobin 31 pg (25-35) Mean Corpuscular Hemoglobin Concent 34 g/dL (31-37) Red Cell Distribution Width 13.6 % (11.5-14.5) Platelet Count 211 x10^3/uL (140-400) Neutrophils (%) (Auto) 73 % (31-73) Lymphocytes (%) (Auto) 15 % (24-48) Monocytes (%) (Auto) 11 % (0-9) Eosinophils (%) (Auto) 1 % (0-3) Basophils (%) (Auto) 0 % (0-3) Neutrophils # (Auto) 5.4 x10^3/uL (1.8-7.7) Lymphocytes # (Auto) 1.1 x10^3/uL (1.0-4.8) Monocytes # (Auto) 0.8 x10^3/uL (0.0-1.1) Eosinophils # (Auto) 0.1 x10^3/uL (0.0-0.7) Basophils # (Auto) 0.0 x10^3/uL (0.0-0.2) Sodium Level 139 mmol/L (136-145) Potassium Level 3.7 mmol/L (3.5-5.1) Chloride Level 103 mmol/L (98-107) Carbon Dioxide Level 31 mmol/L (21-32) Anion Gap 5 (6-14) Blood Urea Nitrogen 39 mg/dL (8-26) Creatinine 2.0 mg/dL (0.7-1.3) Estimated GFR (Cockcroft-Gault) 33.1 BUN/Creatinine Ratio 20 (6-20) Glucose Level 141 mg/dL (70-99) Calcium Level 8.4 mg/dL (8.5-10.1) Total Bilirubin 0.5 mg/dL (0.2-1.0) Aspartate Amino Transf (AST/SGOT) 43 U/L (15-37) Alanine Aminotransferase (ALT/SGPT) 18 U/L (16-63) Alkaline Phosphatase 86 U/L (46-116) Creatine Kinase 187 U/L (39-308) CE-Rug-O-Type Natriuretic Peptide 87379 pg/mL (0-124) Total Protein 6.5 g/dL (6.4-8.2) Albumin 2.7 g/dL (3.4-5.0) Albumin/Globulin Ratio 0.7 (1.0-1.7) Influenza Type A Antigen Negative (NEGATIVE) Influenza Type B Antigen Negative (NEGATIVE) SARS-CoV-2 RNA (CAITY) Negative (Negative) SARS-CoV-2 Antigen (Rapid) Negative (NEGATIVE) Glucose (Fingerstick) 156 mg/dL (70-99) 125 mg/dL (70-99) Test 01/26/21 16:14 01/26/21 20:18 01/27/21 07:20 01/27/21 07:42 Glucose (Fingerstick) 106 mg/dL (70-99) 188 mg/dL (70-99) 123 mg/dL (70-99) White Blood Count 7.3 x10^3/uL (4.0-11.0) Red Blood Count 3.40 x10^6/uL (4.30-5.70) Hemoglobin 10.5 g/dL (13.0-17.5) Hematocrit 30.7 % (39.0-53.0) Mean Corpuscular Volume 90 fL (79-100) Mean Corpuscular Hemoglobin 31 pg (25-35) Mean Corpuscular Hemoglobin Concent 34 g/dL (31-37) Red Cell Distribution Width 13.7 % (11.5-14.5) Platelet Count 259 x10^3/uL (140-400) Neutrophils (%) (Auto) 61 % (31-73) Lymphocytes (%) (Auto) 27 % (24-48) Monocytes (%) (Auto) 9 % (0-9) Eosinophils (%) (Auto) 2 % (0-3) Basophils (%) (Auto) 1 % (0-3) Neutrophils # (Auto) 4.5 x10^3/uL (1.8-7.7) Lymphocytes # (Auto) 2.0 x10^3/uL (1.0-4.8) Monocytes # (Auto) 0.7 x10^3/uL (0.0-1.1) Eosinophils # (Auto) 0.1 x10^3/uL (0.0-0.7) Basophils # (Auto) 0.1 x10^3/uL (0.0-0.2) Sodium Level 144 mmol/L (136-145) Potassium Level 3.5 mmol/L (3.5-5.1) Chloride Level 103 mmol/L (98-107) Carbon Dioxide Level 30 mmol/L (21-32) Anion Gap 11 (6-14) Blood Urea Nitrogen 38 mg/dL (8-26) Creatinine 1.9 mg/dL (0.7-1.3) Estimated GFR (Cockcroft-Gault) 35.1 Glucose Level 92 mg/dL (70-99) Calcium Level 8.7 mg/dL (8.5-10.1) Laboratory Tests Test 01/26/21 11:20 01/26/21 16:14 01/26/21 20:18 01/27/21 07:20 Glucose (Fingerstick) 125 mg/dL (70-99) 106 mg/dL (70-99) 188 mg/dL (70-99) White Blood Count 7.3 x10^3/uL (4.0-11.0) Red Blood Count 3.40 x10^6/uL (4.30-5.70) Hemoglobin 10.5 g/dL (13.0-17.5) Hematocrit 30.7 % (39.0-53.0) Mean Corpuscular Volume 90 fL (79-100) Mean Corpuscular Hemoglobin 31 pg (25-35) Mean Corpuscular Hemoglobin Concent 34 g/dL (31-37) Red Cell Distribution Width 13.7 % (11.5-14.5) Platelet Count 259 x10^3/uL (140-400) Neutrophils (%) (Auto) 61 % (31-73) Lymphocytes (%) (Auto) 27 % (24-48) Monocytes (%) (Auto) 9 % (0-9) Eosinophils (%) (Auto) 2 % (0-3) Basophils (%) (Auto) 1 % (0-3) Neutrophils # (Auto) 4.5 x10^3/uL (1.8-7.7) Lymphocytes # (Auto) 2.0 x10^3/uL (1.0-4.8) Monocytes # (Auto) 0.7 x10^3/uL (0.0-1.1) Eosinophils # (Auto) 0.1 x10^3/uL (0.0-0.7) Basophils # (Auto) 0.1 x10^3/uL (0.0-0.2) Sodium Level 144 mmol/L (136-145) Potassium Level 3.5 mmol/L (3.5-5.1) Chloride Level 103 mmol/L (98-107) Carbon Dioxide Level 30 mmol/L (21-32) Anion Gap 11 (6-14) Blood Urea Nitrogen 38 mg/dL (8-26) Creatinine 1.9 mg/dL (0.7-1.3) Estimated GFR (Cockcroft-Gault) 35.1 Glucose Level 92 mg/dL (70-99) Calcium Level 8.7 mg/dL (8.5-10.1) Test 01/27/21 07:42 Glucose (Fingerstick) 123 mg/dL (70-99) Medications Current Medications Furosemide (Lasix) 40 mg 1X ONCE PO Last administered on 01/26/21at 06:32; Start 01/26/21 at 06:15; Stop 01/26/21 at 06:16; Status DC Ondansetron HCl (Zofran) 4 mg PRN Q8HRS PRN IV NAUSEA/VOMITING; Start 01/26/21 at 06:15; Stop 01/27/21 at 06:14; Status DC Furosemide (Lasix) 80 mg 1X ONCE IVP Last administered on 01/26/21at 06:33; Start 01/26/21 at 06:15; Stop 01/26/21 at 06:18; Status DC Amlodipine Besylate (Norvasc) 10 mg DAILY PO Last administered on 01/26/21at 09:45; Start 01/26/21 at 09:00 Aspirin (Ecotrin) 81 mg DAILY PO Last administered on 01/26/21 09:45; Start 01/26/21 at 09:00 Atorvastatin Calcium (Lipitor) 40 mg QHS PO Last administered on 01/26/21 21:26; Start 01/26/21 at 21:00 Carvedilol (Coreg) 6.25 mg BIDWMEALS PO Last administered on 01/26/21 17:20; Start 01/26/21 at 08:00 Clopidogrel Bisulfate (Plavix) 75 mg DAILY PO Last administered on 01/26/21 09:45; Start 01/26/21 at 09:00 Furosemide (Lasix) 40 mg DAILY PO ; Start 01/26/21 at 07:30; Stop 01/26/21 at 08:16; Status DC Hydralazine HCl (Apresoline) 75 mg BID PO Last administered on 01/26/21 21:26; Start 01/26/21 at 09:00 Potassium Chloride (Klor-Con) 10 meq DAILY PO Last administered on 01/26/21at 09:46; Start 01/26/21 at 09:00 Tamsulosin HCl (Flomax) 0.4 mg DAILY PO Last administered on 01/26/21 09:46; Start 01/26/21 at 09:00 Ondansetron HCl (Zofran) 4 mg PRN Q6HRS PRN IVP NAUSEA/VOMITING; Start 01/26/21 at 07:45 Al Hydroxide/Mg Hydroxide (Mylanta Plus Xs) 30 ml PRN Q3HRS PRN PO HEARTBURN / GAS; Start 01/26/21 at 07:45 Calcium Carbonate/ Glycine (Tums) 500 mg PRN Q3HRS PRN PO UPSET STOMACH; Start 01/26/21 at 07:45 Acetaminophen/ Hydrocodone Bitart (Lortab 5/325) 1 tab PRN Q4HRS PRN PO MILD PAIN 1-3; Start 01/26/21 at 07:45 Acetaminophen (Tylenol) 650 mg PRN Q6HRS PRN PO Headaches, Temp > 101.5F; Start 01/26/21 at 07:45 Magnesium Hydroxide (Milk Of Magnesia) 2,400 mg PRN Q12HR PRN PO CONSTIPATION; Start 01/26/21 at 07:45 Bisacodyl (Dulcolax Supp) 10 mg PRN DAILY PRN [place] CONSTIPATION; Start 01/26/21 at 07:45 Heparin Sodium (Porcine) (Heparin Sodium) 5,000 unit Q8HRS SQ Last administered on 01/27/21at 06:29; Start 01/26/21 at 08:15 Insulin Glargine (Lantus Syringe) 10 unit BID SQ Last administered on 01/26/21at 21:30; Start 01/26/21 at 09:00 Insulin Human Lispro (HumaLOG) 0-7 UNITS TIDWMEALS SQ Last administered on 01/26/21at 09:12; Start 01/26/21 at 08:00 Dextrose (Dextrose 50%-Water Syringe) 12.5 gm PRN Q15MIN PRN IV SEE COMMENTS; Start 01/26/21 at 08:00 Dextrose (Iv Dextrose 5%) 250 ml PRN Q15MIN PRN IV SEE COMMENTS; Start 01/26/21 at 08:00 Furosemide (Lasix) 40 mg DAILY IVP Last administered on 01/27/21at 07:58; Start 01/27/21 at 09:00 Albuterol/ Ipratropium (Duoneb) 3 ml RTQID NEB Last administered on 01/27/21at 08:10; Start 01/27/21 at 08:00 Active Scripts Active Furosemide 40 Mg Tablet 40 Mg PO QD Hydralazine Hcl 25 Mg Tablet 75 Mg PO BID 30 Days Klor-Con 10 (Potassium Chloride) 10 Meq Tablet.er 1 Tab PO DAILY 30 Days Lipitor (Atorvastatin Calcium) 40 Mg Tablet 1 Tab PO QHS 30 Days Fluoxetine Hcl 20 Mg Capsule 20 Mg PO DAILY 30 Days Carvedilol (Carvedilol) 6.25 Mg Tablet 6.25 Mg PO BIDWMEALS 30 Days Clopidogrel (Clopidogrel Bisulfate) 75 Mg Tablet 1 Tab PO DAILY 30 Days Reported Levemir (Insulin Detemir) 100 Unit/1 Ml Vial 12 Unit SQ BID Isosorbide Dinitrate 30 Mg Tablet 2 Tab PO DAILY 30 Days Amlodipine Besylate 10 Mg Tablet 10 Mg PO DAILY Aspirin Ec (Aspirin) 81 Mg Tablet.dr 1 Tab PO DAILY Omeprazole 20 Mg Capsule.dr 20 Mg PO DAILY Flomax (Tamsulosin Hcl) 0.4 Mg Cap.er.24h 0.4 Mg PO DAILY Vitals/I & O Vital Sign - Last 24 Hours 01/26/21 01/26/21 01/26/21 01/26/21 09:06 09:30 09:44 09:45 Pulse 74 71 70 Resp 20 18 B/P (MAP) 140/71 (94) 140/71 140/71 Pulse Ox 98 97 O2 Delivery Nasal Cannula Nasal Cannula O2 Flow Rate 4.0 3.0 01/26/21 01/26/21 01/26/21 01/26/21 10:00 11:30 11:37 14:34 Temp 97.9 98.3 97.9 98.3 Pulse 70 65 79 Resp 18 18 B/P (MAP) 141/97 (112) 144/76 (98) Pulse Ox 99 93 96 O2 Delivery Nasal Cannula Nasal Cannula Room Air Room Air O2 Flow Rate 3.0 2.0 01/26/21 01/26/21 01/26/21 01/26/21 17:16 17:20 19:00 19:16 Temp 97.8 97.8 Pulse 86 86 67 Resp 17 B/P (MAP) 124/63 (83) 124/63 124/65 (84) Pulse Ox 94 96 O2 Delivery Nasal Cannula Room Air Nasal Cannula O2 Flow Rate 3.0 3.0 01/26/21 01/26/21 01/27/21 01/27/21 21:26 23:13 03:14 07:00 Temp 98.0 97.7 97.8 98.0 97.7 97.8 Pulse 67 70 70 101 Resp 17 17 17 B/P (MAP) 124/65 123/69 (87) 138/64 (88) 161/78 (105) Pulse Ox 97 92 86 O2 Delivery Room Air Nasal Cannula Nasal Cannula O2 Flow Rate 3.0 3.0 01/27/21 08:11 Pulse Ox 83 O2 Delivery Venturi Mask O2 Flow Rate 15.0 Intake and Output 01/26/21 01/26/21 01/27/21 15:00 23:00 07:00 Intake Total 0 ml 100 ml 200 ml Output Total 150 ml 300 ml Balance -150 ml 100 ml -100 ml Justicifation of Admission Dx: Justifications for Admission: Justification of Admission Dx: Yes MARGARITO CABEZAS MD Jan 27, 2021 09:05
--- NOTE | 2021-01-27 09:33 | PDOC ---
PROGRESS NOTES Date of Service: DATE: 01/27/21 TIME: 09:30 Subjective Subjective Patient complained of shortness of breath Objective Objective Vital Signs Date Time Temp Pulse Resp B/P (MAP) Pulse Ox O2 Delivery O2 Flow Rate FiO2 01/27/21 08:11 83 Venturi Mask 15.0 01/27/21 07:00 97.8 101 17 161/78 (105) 97.8 Intake and Output 01/27/21 07:00 Intake Total 300 ml Output Total 450 ml Balance -150 ml Intake Oral 300 ml Output Urine Total 450 ml # Voids 1 Physical Exam Abdomen: Soft Heart: Regular rate, No murmurs Extremities: No edema General: mild distress Lungs: Other (Bilateral expiratory rhonchi) Neck: Supple Psych/Mental Status: Mood NL Assessment Assessment 1. Acute on chronic diastolic CHF; Echo 07/02 with preserved LV systolic function. improved with diuresis 2. SOPHIE on CKD. Monitor BUNs/creatinine closely 3. CAD: 3VD, recent PCI/ELLEN to the proximal and distal LAD, clinically stable and chest pain-free. Continue current secondary prevention measures. 4. Hypertension; well controlled overall with elevated blood pressure this morning probably secondary to respiratory distress. Continue to monitor 5. Diabetes, II: Per IM 6. Acute COPD exacerbation: Wheezing and bilateral expiratory rhonchi consistent with acute COPD exacerbation. Consider nebulizers. Plan Plan of Care Problems Medical Problems: (1) CHF exacerbation Status: Acute Comment Review of Relevant I have reviewed the following items coral (where applicable) has been applied. Labs Laboratory Tests Test 01/26/21 11:20 01/26/21 16:14 01/26/21 20:18 01/27/21 07:20 Glucose (Fingerstick) 125 mg/dL (70-99) 106 mg/dL (70-99) 188 mg/dL (70-99) White Blood Count 7.3 x10^3/uL (4.0-11.0) Red Blood Count 3.40 x10^6/uL (4.30-5.70) Hemoglobin 10.5 g/dL (13.0-17.5) Hematocrit 30.7 % (39.0-53.0) Mean Corpuscular Volume 90 fL (79-100) Mean Corpuscular Hemoglobin 31 pg (25-35) Mean Corpuscular Hemoglobin Concent 34 g/dL (31-37) Red Cell Distribution Width 13.7 % (11.5-14.5) Platelet Count 259 x10^3/uL (140-400) Neutrophils (%) (Auto) 61 % (31-73) Lymphocytes (%) (Auto) 27 % (24-48) Monocytes (%) (Auto) 9 % (0-9) Eosinophils (%) (Auto) 2 % (0-3) Basophils (%) (Auto) 1 % (0-3) Neutrophils # (Auto) 4.5 x10^3/uL (1.8-7.7) Lymphocytes # (Auto) 2.0 x10^3/uL (1.0-4.8) Monocytes # (Auto) 0.7 x10^3/uL (0.0-1.1) Eosinophils # (Auto) 0.1 x10^3/uL (0.0-0.7) Basophils # (Auto) 0.1 x10^3/uL (0.0-0.2) Sodium Level 144 mmol/L (136-145) Potassium Level 3.5 mmol/L (3.5-5.1) Chloride Level 103 mmol/L (98-107) Carbon Dioxide Level 30 mmol/L (21-32) Anion Gap 11 (6-14) Blood Urea Nitrogen 38 mg/dL (8-26) Creatinine 1.9 mg/dL (0.7-1.3) Estimated GFR (Cockcroft-Gault) 35.1 Glucose Level 92 mg/dL (70-99) Calcium Level 8.7 mg/dL (8.5-10.1) Test 01/27/21 07:42 Glucose (Fingerstick) 123 mg/dL (70-99) Medications Current Medications Albuterol/ Ipratropium (Duoneb) 3 ml RTQID NEB Last administered on 01/27/21at 08:10; Start 01/27/21 at 08:00 Atorvastatin Calcium (Lipitor) 40 mg QHS PO Last administered on 01/26/21at 21:26; Start 01/26/21 at 21:00 Furosemide (Lasix) 40 mg DAILY IVP Last administered on 01/27/21at 07:58; Start 01/27/21 at 09:00 Vitals/I & O Vital Sign - Last 24 Hours 401/26/21 01/26/21 01/26/21 09:44 09:45 10:00 11:30 Pulse 71 70 70 B/P (MAP) 140/71 140/71 Pulse Ox 99 O2 Delivery Nasal Cannula Nasal Cannula O2 Flow Rate 3.0 2.0 01/26/21 01/26/21 01/26/21 01/26/21 11:37 14:34 17:16 17:20 Temp 97.9 98.3 97.9 98.3 Pulse 65 79 86 86 Resp 18 18 B/P (MAP) 141/97 (112) 144/76 (98) 124/63 (83) 124/63 Pulse Ox 93 96 94 O2 Delivery Room Air Room Air Nasal Cannula O2 Flow Rate 3.0 01/26/21 01/26/21 01/26/21 01/26/21 19:00 19:16 21:26 23:13 Temp 97.8 98.0 97.8 98.0 Pulse 67 67 70 Resp 17 B/P (MAP) 124/65 (84) 124/65 123/69 (87) Pulse Ox 96 97 O2 Delivery Room Air Nasal Cannula Room Air O2 Flow Rate 3.0 01/27/21 01/27/21 01/27/21 03:14 07:00 08:11 Temp 97.7 97.8 97.7 97.8 Pulse 70 101 Resp 17 B/P (MAP) 138/64 (88) 161/78 (105) Pulse Ox 92 86 83 O2 Delivery Nasal Cannula Nasal Cannula Venturi Mask O2 Flow Rate 3.0 3.0 15.0 Intake and Output 01/26/21 01/26/21 01/27/21 15:00 23:00 07:00 Intake Total 0 ml 100 ml 200 ml Output Total 150 ml 300 ml Balance -150 ml 100 ml -100 ml BARBRA EVANS MD Jan 27, 2021 09:33
[2021-01-27] MEDS: TAMSULOSIN 0.4 MG CAP.ER.24H. PO SCH (10:06)
[2021-01-27] MEDS: POTASSIUM CHLORIDE 10 MEQ TABLET.ER. PO SCH (10:06)
[2021-01-27] MEDS: amLODIPine BESYLATE 10 MG TABLET PO SCH (10:06)
[2021-01-27] MEDS: CARVEDILOL 6.25 MG TABLET. PO SCH ×2 (10:07→17:28)
[2021-01-27] MEDS: ASPIRIN ENTERIC COATED 81 MG TABLET.DR. PO SCH (10:07)
[2021-01-27] MEDS: hydrALAZINE 25 MG TABLET PO SCH ×2 (10:07→23:01)
[2021-01-27] MEDS: CLOPIDOGREL BISULFATE 75 MG TABLET PO SCH (10:07)
[2021-01-27] MEDS: INSULIN GLARGINE SYRINGE. SQ SCH ×2 (10:15→23:10)
[2021-01-27 11:38] VITALS: BP 118/88
--- NOTE | 2021-01-27 11:40 | CONS ---
DATE OF CONSULTATION: 01/27/2021 I was asked to see this 70-year-old gentleman for acute on chronic respiratory failure. HISTORY OF PRESENT ILLNESS: The patient is a lifelong nonsmoker, but has asthma and COPD. He does have snoring and excessive daytime sleepiness and was told and he says sleep study has never been done. He is on oxygen 2 liters per minute via nasal cannula. He presented to the Emergency Room for increased shortness of breath. He denies cough or sputum production, fever or chills. He denies chest pain. Earlier this morning his O2 saturation was in 70s and he was put on 15 liters of oxygen. Currently, his O2 saturation is 99%. I changed him back to 2 liters per minute and his oxygen saturation now is 96%. PAST MEDICAL HISTORY: COPD, 3-vessel coronary artery disease, status post PCI/ELLEN to the proximal and distal LAD; diastolic congestive heart failure; diabetes mellitus and hypertension. 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 ALLERGIES: No known drug allergies. MEDICATIONS: Currently, he is on Lasix 40 mg IV daily, DuoNeb, Lipitor, insulin, Flomax, KCl, hydralazine, Plavix, aspirin, Norvasc, heparin subQ 5000 units every 8 hours, Coreg. SOCIAL HISTORY: He is a lifelong nonsmoker. FAMILY HISTORY: Hypertension. REVIEW OF SYSTEMS: As mentioned as above, other systems otherwise negative. PHYSICAL EXAMINATION: GENERAL: This is an overweight gentleman. VITAL SIGNS: His O2 saturation on 2 liters of oxygen now is 96%, respiratory rate 18, heart rate 100, blood pressure 161/78, temperature 97.8. HEENT: Normocephalic, atraumatic. Pupils equal, round, reactive to light. Nose is clear. There is shallow oropharynx. NECK: Short and thick. There is no lymphadenopathy or thyromegaly. CARDIOVASCULAR: Regular rate and rhythm. Distant heart sounds. CHEST: Inspection is normal. LUNGS: There is bilateral diminished breath sounds. ABDOMEN: Soft and obese. Bowel sounds are good. EXTREMITIES: There is a left below-knee amputation. There is no edema. LYMPHATICS: There is no lymphadenopathy. NEUROLOGIC: Alert and oriented. LABORATORY DATA: I reviewed the following lab data: Chest x-ray shows increased vascular marking, blunting of left costophrenic angle. WBC 7.3, hemoglobin 10.5, platelets 259. Influenza A and B and COVID-19 negative. Sodium 144, potassium 3.5, chloride 103, CO2 of 30, BUN 38, creatinine 1.9. BNP 18,359. IMPRESSION: 1. Acute on chronic respiratory failure secondary to acute diastolic congestive heart failure, chronic obstructive pulmonary disease with mild exacerbation, untreated veronika. 2. Abnormal chest x-ray. 3. Obesity and snoring and excessive daytime sleepiness and highly suspect he has obstructive sleep apnea-hypopnea syndrome. 4. Acute diastolic congestive heart failure. 5. Chronic obstructive pulmonary disease with mild acute exacerbation. 6. Diabetes mellitus. 7. Hypertension. 8. Chronic kidney disease. PLAN AND RECOMMENDATIONS: 1. Titrate FiO2 to keep O2 saturation 90%. 2. I suspect his hypoxemia earlier this morning was secondary to his sleep apnea, now his oxygen saturation on 2 liters of oxygen is 96%. 3. Continue Lasix. Monitor potassium and creatinine. 4. 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 He would require a sleep study as an outpatient. 5. Heparin for DVT prophylaxis. 6. Advised him to lose weight and exercise. 7. I will start incentive spirometer to use multiple times an hour. The findings and recommendations were discussed with the patient and RN. I have answered all of the patient's questions. He understood and agreed to proceed with the plan. JORGE JAMES M.D. DR: MURIEL/saurav JOB#: [id number] / [id number] CARLOS MANUEL
[2021-01-27 15:00] VITALS: BP 130/64
--- NOTE | 2021-01-27 16:42 | NUR ---
This AM, I was called to this patient's room at approximately 0745 while TREMAYNE Case was taking his vitals. Upon entering the room, the patient's SpO2 was 77% on 4 L NC and on auscultation, patient's lung sounds were very crackly and wheezy. This RN turned the patient's O2 up to 6L NC and got his scheduled lasix while FLORIDALMA Pastrana went to get a venturi mask. Patient was placed on 15L venturi mask and given 40 mg lasix IVP. Pulmonology consulted, O2 titrated down to 2L NC as pt tolerated. Now, Patient on room air satting 96%. Patient says he feels a lot better.
[2021-01-27 19:17] VITALS: BP 135/66
[2021-01-27 22:53] VITALS: BP 127/62
[2021-01-27] MEDS: ATORVASTATIN CALCIUM 40 MG TABLET. PO SCH (23:01)
[2021-01-28 03:18] VITALS: BP 147/51
[2021-01-28 07:00] VITALS: BP 148/80
[2021-01-28] MEDS: HEPARIN for SUB-Q USE 5,000 UNIT/ML VIAL. SQ SCH ×3 (07:48→21:17)
[2021-01-28] MEDS: INSULIN LISPRO 300 UNITS/3 ML VIAL. SQ SCH ×3 (08:00→17:00)
[2021-01-28] MEDS: IPRATRPIUM/ALBUTEROL 0.5/2.5MG 3 ML NEBU. NEB SCH ×4 (08:01→19:57)
--- NOTE | 2021-01-28 08:09 | PDOC ---
PULMONARY PROGRESS NOTES DATE: 01/28/21 TIME: 08:08 Subjective on 02 sob better, has occ cough Vitals Vital Signs Date Time Temp Pulse Resp B/P (MAP) Pulse Ox O2 Delivery O2 Flow Rate FiO2 01/28/21 08:02 94 Nasal Cannula 2.0 01/28/21 03:18 98.1 66 22 147/51 (83) 98.1 ROS: No Nausea General: Alert, Oriented X4 Lungs: Crackles Cardiovascular: S1, S2 Abdomen: Soft, Non-tender Neuro Exam: Alert Extremities: No Edema, Other (l bka) Skin: Warm Labs Laboratory Tests Test 01/26/21 08:28 01/26/21 11:20 01/26/21 16:14 01/26/21 20:18 Glucose (Fingerstick) 156 mg/dL (70-99) 125 mg/dL (70-99) 106 mg/dL (70-99) 188 mg/dL (70-99) Test 01/27/21 07:20 01/27/21 07:42 01/27/21 11:15 01/27/21 17:01 White Blood Count 7.3 x10^3/uL (4.0-11.0) Red Blood Count 3.40 x10^6/uL (4.30-5.70) Hemoglobin 10.5 g/dL (13.0-17.5) Hematocrit 30.7 % (39.0-53.0) Mean Corpuscular Volume 90 fL (79-100) Mean Corpuscular Hemoglobin 31 pg (25-35) Mean Corpuscular Hemoglobin Concent 34 g/dL (31-37) Red Cell Distribution Width 13.7 % (11.5-14.5) Platelet Count 259 x10^3/uL (140-400) Neutrophils (%) (Auto) 61 % (31-73) Lymphocytes (%) (Auto) 27 % (24-48) Monocytes (%) (Auto) 9 % (0-9) Eosinophils (%) (Auto) 2 % (0-3) Basophils (%) (Auto) 1 % (0-3) Neutrophils # (Auto) 4.5 x10^3/uL (1.8-7.7) Lymphocytes # (Auto) 2.0 x10^3/uL (1.0-4.8) Monocytes # (Auto) 0.7 x10^3/uL (0.0-1.1) Eosinophils # (Auto) 0.1 x10^3/uL (0.0-0.7) Basophils # (Auto) 0.1 x10^3/uL (0.0-0.2) Sodium Level 144 mmol/L (136-145) Potassium Level 3.5 mmol/L (3.5-5.1) Chloride Level 103 mmol/L (98-107) Carbon Dioxide Level 30 mmol/L (21-32) Anion Gap 11 (6-14) Blood Urea Nitrogen 38 mg/dL (8-26) Creatinine 1.9 mg/dL (0.7-1.3) Estimated GFR (Cockcroft-Gault) 35.1 Glucose Level 92 mg/dL (70-99) Calcium Level 8.7 mg/dL (8.5-10.1) Glucose (Fingerstick) 123 mg/dL (70-99) 112 mg/dL (70-99) 110 mg/dL (70-99) Test 01/27/21 20:19 01/28/21 07:59 Glucose (Fingerstick) 143 mg/dL (70-99) 97 mg/dL (70-99) Laboratory Tests Test 01/27/21 11:15 01/27/21 17:01 01/27/21 20:19 01/28/21 07:59 Glucose (Fingerstick) 112 mg/dL (70-99) 110 mg/dL (70-99) 143 mg/dL (70-99) 97 mg/dL (70-99) Medications Active Scripts Medications Dose Route/Sig Max Daily Dose Days Date Category Furosemide 40 Mg Tablet 40 Mg PO QD 12/17/20 Rx Levemir (Insulin Detemir) 100 Unit/1 Ml Vial 12 Unit SQ BID 07/18/20 Reported Hydralazine Hcl 25 Mg Tablet 75 Mg PO BID 30 07/17/20 Rx Klor-Con 10 (Potassium Chloride) 10 Meq Tablet.er 1 Tab PO DAILY 07/11/20 Rx Lipitor (Atorvastatin Calcium) 40 Mg Tablet 1 Tab PO QHS 30 07/04/20 Rx Fluoxetine Hcl 20 Mg Capsule 20 Mg PO DAILY 30 07/04/20 Rx Carvedilol (Carvedilol) 6.25 Mg Tablet 6.25 Mg PO BIDWMEALS 30 07/04/20 Rx Clopidogrel (Clopidogrel Bisulfate) 75 Mg Tablet 1 Tab PO DAILY 30 07/04/20 Rx Isosorbide Dinitrate 30 Mg Tablet 2 Tab PO DAILY 30 07/04/20 Reported Amlodipine Besylate 10 Mg Tablet 10 Mg PO DAILY 07/04/20 Reported Aspirin Ec (Aspirin) 81 Mg Tablet.dr 1 Tab PO DAILY 07/04/20 Reported Omeprazole 20 Mg Capsule.dr 20 Mg PO DAILY 06/28/20 Reported Flomax (Tamsulosin Hcl) 0.4 Mg Cap.er.24h 0.4 Mg PO DAILY 06/28/20 Reported Impression . IMPRESSION: 1. Acute on chronic respiratory failure secondary to acute diastolic congestive heart failure, chronic obstructive pulmonary disease with mild exacerbation, untreated veronika. 2. Abnormal chest x-ray. 3. Obesity and snoring and excessive daytime sleepiness and highly suspect he has obstructive sleep apnea-hypopnea syndrome. 4. Acute diastolic congestive heart failure. 5. Chronic obstructive pulmonary disease with mild acute exacerbation. 6. Diabetes mellitus. 7. Hypertension. 8. Chronic kidney disease. Plan . PLAN AND RECOMMENDATIONS: 1. Titrate FiO2 to keep O2 saturation 90%. 2. IS, BD ICS 3. Continue Lasix. Monitor potassium and creatinine. 4. 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 He would require a sleep study as an outpatient. 5. Heparin for DVT prophylaxis. 6. Advised him to lose weight and exercise. 7. discussed w JORGE Smyth pt, MD Jan 28, 2021 08:09
[2021-01-28] MEDS: hydrALAZINE 25 MG TABLET PO SCH ×2 (08:28→21:16)
[2021-01-28] MEDS: CLOPIDOGREL BISULFATE 75 MG TABLET PO SCH (08:28)
--- NOTE | 2021-01-28 08:28 | PDOC ---
PROGRESS NOTES Date of Service: DATE: 01/28/21 TIME: 08:28 Subjective Subjective Dyspnea improved after initiating nebulizers Objective Objective Vital Signs Date Time Temp Pulse Resp B/P (MAP) Pulse Ox O2 Delivery O2 Flow Rate FiO2 01/28/21 08:02 94 Nasal Cannula 2.0 01/28/21 03:18 98.1 66 22 147/51 (83) 98.1 Intake and Output 01/28/21 07:00 Intake Total 620 ml Output Total 1900 ml Balance -1280 ml Intake Oral 620 ml Output Urine Total 1900 ml # Bowel Movements 1 Physical Exam Abdomen: Normal bowel sounds, Soft, No tenderness Heart: Regular rate Extremities: No cyanosis General: Alert, Cooperative, No acute distress Lungs: Clear to auscultation Neck: Supple Psych/Mental Status: Mood NL Assessment Assessment 1. Acute on chronic diastolic CHF; Echo 07/02 with preserved LV systolic function. improved with diuresis. Change Lasix to p.o. 2. SOPHIE on CKD. Monitor BUN/creatinine closely 3. CAD: 3VD, recent PCI/ELLEN to the proximal and distal LAD, clinically stable and chest pain-free. Continue current secondary prevention measures. 4. Hypertension; better controlled 5. Diabetes, II: Per IM 6. Acute COPD exacerbation: Improved after initiating nebulizers Plan Plan of Care Problems Medical Problems: (1) CHF exacerbation Status: Acute Comment Review of Relevant I have reviewed the following items coral (where applicable) has been applied. Labs Laboratory Tests Test 01/27/21 11:15 01/27/21 17:01 01/27/21 20:19 01/28/21 07:59 Glucose (Fingerstick) 112 mg/dL (70-99) 110 mg/dL (70-99) 143 mg/dL (70-99) 97 mg/dL (70-99) Medications Current Medications Furosemide (Lasix) 40 mg DAILY IVP Last administered on 01/27/21at 07:58; Start 01/27/21 at 09:00 Vitals/I & O Vital Sign - Last 24 Hours 01/27/21 01/27/21 01/27/21 01/27/21 10:06 10:07 10:07 11:38 Temp 97.7 97.7 Pulse 101 101 101 77 B/P (MAP) 161/78 161/78 161/78 118/88 (98) Pulse Ox 95 O2 Delivery Nasal Cannula O2 Flow Rate 3.0 01/27/21 01/27/21 01/27/21 01/27/21 12:29 15:00 16:02 17:28 Temp 97.6 97.6 Pulse 79 79 B/P (MAP) 130/64 (86) 130/64 Pulse Ox 96 94 96 O2 Delivery Nasal Cannula Nasal Cannula Nasal Cannula O2 Flow Rate 2.0 3.0 2.0 01/27/21 01/27/21 01/27/21 01/27/21 19:17 20:00 20:31 22:53 Temp 98.2 98.9 98.2 98.9 Pulse 73 70 Resp 16 20 B/P (MAP) 135/66 (89) 127/62 (83) Pulse Ox 94 92 93 O2 Delivery Nasal Cannula Nasal Cannula Nasal Cannula Nasal Cannula O2 Flow Rate 3.0 2.0 2.0 3.0 01/27/21 01/28/21 01/28/21 23:01 03:18 08:02 Temp 98.1 98.1 Pulse 70 66 Resp 22 B/P (MAP) 127/62 147/51 (83) Pulse Ox 96 94 O2 Delivery Nasal Cannula Nasal Cannula O2 Flow Rate 3.0 2.0 Intake and Output 01/27/21 01/27/21 01/28/21 15:00 23:00 07:00 Intake Total 120 ml 500 ml 0 ml Output Total 100 ml 1800 ml Balance 20 ml -1300 ml 0 ml BARBRA EVANS MD Jan 28, 2021 08:28
[2021-01-28] MEDS: ASPIRIN ENTERIC COATED 81 MG TABLET.DR. PO SCH (08:29)
[2021-01-28] MEDS: amLODIPine BESYLATE 10 MG TABLET PO SCH (08:29)
[2021-01-28] MEDS: TAMSULOSIN 0.4 MG CAP.ER.24H. PO SCH (08:29)
[2021-01-28] MEDS: CARVEDILOL 6.25 MG TABLET. PO SCH ×2 (08:30→17:39)
[2021-01-28] MEDS: POTASSIUM CHLORIDE 10 MEQ TABLET.ER. PO SCH (08:33)
[2021-01-28] MEDS: FUROSEMIDE 40 MG/4 ML VIAL. IVP SCH (08:34)
[2021-01-28] MEDS: INSULIN GLARGINE SYRINGE. SQ SCH ×2 (08:42→21:17)
[2021-01-28 11:00] VITALS: BP 144/72
--- NOTE | 2021-01-28 11:11 | PDOC ---
PROGRESS NOTES Date of Service: DATE: 01/28/21 TIME: 11:11 Chief Complaint Chief Complaint VTE Prophylaxis Ordered VTE Prophylaxis Devices: No VTE Pharmacological Prophylaxi: Yes Assessment/Plan Assessment/Plan Acute respiratory failure with hypoxia Acute CHF exacerbation 07-02 ECHO Ejection Fraction is 55-60%. CKD DM2 Skin cancer Severe malnutrition Acute COPD exacerbation: Wheezing and bilateral expiratory rhonchi consistent with acute COPD exacerbation. CONT nebulizers. Successful PCI of the LAD with implantation of a 3.0 x 38 mm resolute drug- eluting stent in the proximal segment, and the distal LAD was stented with a 2.5 x 38 mm drug-eluting stent. 07-02 Plan: CVC BED Consult cardiology Received Lasix diuresis in the ED with improvement Continue diuresis with home Lasix Heparin for DVT prophylaxis. Will monitor kidney function Consult placed to wound care for skin cancer removal site on scalp Resume home medications FEN - Cardiac diet CONSULT PULMONARY PPX - Heparin FULL CODE Dispo - inpatient for above; patient names daughter as surrogate decision-maker. D/W FAMILY IN ROOM Justifications for Admission Justifications for Admission Other Justification Acute hypoxic respiratory failure, acute CHF exacerbation History of Present Illness History of Present Illness Identification/Chief Complaint Chief Complaint Shortness of breath Source Source: Chart review, Patient History of Present Illness History of Present Illness Patient is 70-year-old male with past medical history CHF, DM 2, skin cancer with recent surgical removal, who presents to the ED with complaints of worsening shortness of breath that began this morning. Patient states he woke up feeling like "it's my CHF". Upon EMS arrival he was saturating 70% on 2 L O2, he was placed on 6 L nasal cannula with improvement to 94%. He received Lasix diuresis in ED with improvement. States he has been taking his Lasix as prescribed and denies missing any doses. Will admit patient for further medical management. Past Medical History Cardiovascular: CAD, HTN, Hyperlipidemia Pulmonary: Other CENTRAL NERVOUS SYSTEM: Periperal neuropathy GI: GERD Heme/Onc: No pertinent hx Hepatobiliary: No pertinent hx Psych: Depression Rheumatologic: No pertinent hx Infectious disease: Other Renal/: Benign prostatic enlarg. Endocrine: Diabetes Past Surgical History Past Surgical History: Cataract Removal, Tonsillectomy, Other Family History Family History: Diabetes Social History Smoke: No ALCOHOL: none Drugs: None Current Problem List Problem List Problems Medical Problems: (1) CHF exacerbation Status: Acute Current Medications Current Medications Current Medications Furosemide (Lasix) 40 mg 1X ONCE PO Last administered on 01/26/21at 06:32; Start 01/26/21 at 06:15; Stop 01/26/21 at 06:16; Status DC Ondansetron HCl (Zofran) 4 mg PRN Q8HRS PRN IV NAUSEA/VOMITING; Start 01/26/21 at 06:15; Stop 01/27/21 at 06:14 Furosemide (Lasix) 80 mg 1X ONCE IVP Last administered on 01/26/21at 06:33; Start 01/26/21 at 06:15; Stop 01/26/21 at 06:18; Status DC Amlodipine Besylate (Norvasc) 10 mg DAILY PO ; Start 01/26/21 at 09:00; Status UNV Aspirin (Ecotrin) 81 mg DAILY PO ; Start 01/26/21 at 09:00; Status UNV Atorvastatin Calcium (Lipitor) 40 mg QHS PO ; Start 01/26/21 at 21:00; Status UNV Carvedilol (Coreg) 6.25 mg BIDWMEALS PO ; Start 01/26/21 at 08:00; Status UNV Clopidogrel Bisulfate (Plavix) 75 mg DAILY PO ; Start 01/26/21 at 09:00; Status UNV Furosemide (Lasix) 40 mg QD PO ; Start 01/26/21 at 07:30; Status UNV Hydralazine HCl (Apresoline) 75 mg BID PO ; Start 01/26/21 at 09:00; Status UNV Potassium Chloride (Klor-Con) 10 meq DAILY PO ; Start 01/26/21 at 09:00; Status UNV Tamsulosin HCl (Flomax) 0.4 mg DAILY PO ; Start 01/26/21 at 09:00; Status UNV Active Scripts Active Furosemide 40 Mg Tablet 40 Mg PO QD Hydralazine Hcl 25 Mg Tablet 75 Mg PO BID 30 Days Klor-Con 10 (Potassium Chloride) 10 Meq Tablet.er 1 Tab PO DAILY 30 Days Lipitor (Atorvastatin Calcium) 40 Mg Tablet 1 Tab PO QHS 30 Days Fluoxetine Hcl 20 Mg Capsule 20 Mg PO DAILY 30 Days Carvedilol (Carvedilol) 6.25 Mg Tablet 6.25 Mg PO BIDWMEALS 30 Days Clopidogrel (Clopidogrel Bisulfate) 75 Mg Tablet 1 Tab PO DAILY 30 Days Reported Levemir (Insulin Detemir) 100 Unit/1 Ml Vial 10 Unit SQ BID Isosorbide Dinitrate 30 Mg Tablet 2 Tab PO DAILY 30 Days Amlodipine Besylate 10 Mg Tablet 10 Mg PO DAILY Aspirin Ec (Aspirin) 81 Mg Tablet.dr 1 Tab PO DAILY Omeprazole 20 Mg Capsule.dr 20 Mg PO DAILY Flomax (Tamsulosin Hcl) 0.4 Mg Cap.er.24h 0.4 Mg PO DAILY Allergies Allergies: Coded Allergies: No Known Drug Allergies (Unverified , 06/28/20) ROS Review of System GENERAL: No history of weight change, weakness or fevers. SKIN: No bruising, hair changes or rashes. EYES: No blurred, double or loss of vision. NOSE AND THROAT: No history of nosebleeds, hoarseness or sore throat. HEART: Denies chest pain, denies palpitations. LUNGS: Shortness of breath. Denies cough, hemoptysis, or wheezing. GASTROINTESTINAL: Denies nausea, vomiting, abdominal pain. GENITOURINARY: Denies dysuria, frequency, urgency, hematuria. NEUROLOGIC: Denies history of numbness, tingling, tremor or weakness. PSYCHIATRIC: Denies anxiety, denies depression. ENDOCRINE: No history of heat or cold intolerance, polyuria or polydipsia. EXTREMITIES: Denies muscle weakness, joint pain, pain on walking or stiffness. 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 Cont nebulizers. CR 1.9 CONSULT NEPHROLOGY , AM LABS Successful PCI of the LAD with implantation of a 3.0 x 38 mm resolute drug- eluting stent in the proximal segment, and the distal LAD was stented with a 2.5 x 38 mm drug-eluting stent. 920 Vitals Vitals Vital Signs Date Time Temp Pulse Resp B/P (MAP) Pulse Ox O2 Delivery O2 Flow Rate FiO2 01/28/21 08:30 82 148/80 01/28/21 08:02 94 Nasal Cannula 2.0 01/28/21 07:00 98.0 22 98.0 Physical Exam Physical Exam Physical Exam Physical Exam General: Alert, Oriented X3, Cooperative, mild distress HEENT: Head is wrapped and bandaged. PERRLA, EOMI Lungs: Bibasilar Rales, Normal air movement Heart: RRR, no murmurs Cardiovascular: S1, S2 Abdomen: Normal bowel sounds, Soft, No tenderness Extremities: Left BKA. No clubbing, No cyanosis Skin: No rashes, No significant lesion Neuro: Normal speech, Normal tone, Sensation intact Psych/Mental Status: Mental status NL, Mood NL General: Alert, Oriented X3, Cooperative, No acute distress Heart: Regular rate, Normal S1, Normal S2 Lungs: Clear, Wheezing Abdomen: Normal bowel sounds, Soft, No tenderness Extremities: No cyanosis Labs LABS Aortic Valve AoV Peak Lazaro. 120.1cm/s AoV VTI 21.8cm AO Peak GR. 5.8mmHg LVOT VTI 15.89cm AO Mean GR. 3mmHg KWESI (VTI) 3.10cm2 Mitral Valve MV E Velocity 108.4cm/s MV DECEL TIME 149ms MV A Velocity 102.9cm/s E/A Ratio 1.1 TDI Lateral E' P. V 6.11cm/s Medial E' P. V 6.11cm/s E/Lateral E' 17.7 E/Medial E' 17.7 LEFT VENTRICLE The left ventricle is normal size. There is normal left ventricular wall thickness. The left ventricular systolic function is normal. The Ejection Fraction is 55-60%. There is normal LV segmental wall motion. Transmitral Doppler flow pattern is Grade I-abnormal relaxation pattern. RIGHT VENTRICLE The right ventricle is normal size. The right ventricular systolic function is normal. ATRIA The left atrium is moderately dilated. The right atrium size is normal. The interatrial septum is intact with no evidence for an atrial septal defect or patent foramen ovale as noted on 2-D or Doppler imaging. AORTIC VALVE The aortic valve is calcified but opens well. Doppler and Color Flow revealed trace aortic regurgitation. There is no significant aortic valvular stenosis. MITRAL VALVE The mitral valve is calcified but opens well. There is no evidence of mitral valve prolapse. There is no mitral valve stenosis. Doppler and Color Flow revealed no mitral valve regurgitation noted. TRICUSPID VALVE The tricuspid valve is normal in structure and function. Doppler and Color Flow revealed trace tricuspid valve regurgitation. There is no tricuspid valve stenosis. PULMONIC VALVE The pulmonic valve is not well visualized. Doppler and Color Flow revealed no pulmonic valvular regurgitation. There is no pulmonic valvular stenosis. GREAT VESSELS The aortic root is normal in size. The ascending aorta is not well seen. The IVC is normal in size and collapses >50% with inspiration. PERICARDIAL EFFUSION There is small pleural effusion. There is no evidence of significant pericardial effusion. Critical Notification Critical Value: No <Conclusion> The left ventricular systolic function is normal. The Ejection Fraction is 55-60%. Aortic Valve AoV Peak Lazaro. 120.1cm/s AoV VTI 21.8cm AO Peak GR. 5.8mmHg LVOT VTI 15.89cm AO Mean GR. 3mmHg KWESI (VTI) 3.10cm2 Mitral Valve MV E Velocity 108.4cm/s MV DECEL TIME 149ms MV A Velocity 102.9cm/s E/A Ratio 1.1 TDI Lateral E' P. V 6.11cm/s Medial E' P. V 6.11cm/s E/Lateral E' 17.7 E/Medial E' 17.7 LEFT VENTRICLE The left ventricle is normal size. There is normal left ventricular wall thickness. The left ventricular systolic function is normal. The Ejection Fraction is 55-60%. There is normal LV segmental wall motion. Transmitral Dopp ler flow pattern is Grade I-abnormal relaxation pattern. RIGHT VENTRICLE The right ventricle is normal size. The right ventricular systolic function is normal. ATRIA The left atrium is moderately dilated. The right atrium size is normal. The interatrial septum is intact with no evidence for an atrial septal defect or patent foramen ovale as noted on 2-D or Doppler imaging. AORTIC VALVE The aortic valve is calcified but opens well. Doppler and Color Flow revealed trace aortic regurgitation. There is no significant aortic valvular stenosis. MITRAL VALVE The mitral valve is calcified but opens well. There is no evidence of mitral valve prolapse. There is no mitral valve stenosis. Doppler and Color Flow revealed no mitral valve regurgitation noted. TRICUSPID VALVE The tricuspid valve is normal in structure and function. Doppler and Color Flow revealed trace tricuspid valve regurgitation. There is no tricuspid valve stenosis. PULMONIC VALVE The pulmonic valve is not well visualized. Doppler and Color Flow revealed no pulmonic valvular regurgitation. There is no pulmonic valvular stenosis. GREAT VESSELS The aortic root is normal in size. The ascending aorta is not well seen. The IVC is normal in size and collapses >50% with inspiration. PERICARDIAL EFFUSION There is small pleural effusion. There is no evidence of significant pericardial effusion. Critical Notification Critical Value: No <Conclusion> The left ventricular systolic function is normal. The Ejection Fraction is 55-60%. There is normal LV segmental wall motion. Trace tricuspid valve regurgitation. There is no evidence of significant pericardial effusion. Signed by : Barbra Ruano, Electronically Approved : 06/30/2020 09:15:17 DICTATED and SIGNED BY: BARBRA RUANO MD DATE: 06/29/201524 There is normal LV segmental wall motion. Trace tricuspid valve regurgitation. There is no evidence of significant pericardial effusion. Signed by : Barbra Ruano, Electronically Approved : 06/30/2020 09:15:17 DICTATED and SIGNED BY: BARBRA RUANO MD DATE: 06/29/201524 Examination: Ultrasound kidneys HISTORY: History of renal failure COMPARISON: None available. FINDINGS: The right kidney measures 12.1 x 5.5 x 5.0 cm. The left kidney measures 13.2 x 5.7 x 5.9 cm. Urinary bladder is mildly distended. Partially visualized left pleural effusion. IMPRESSION: 1. No evidence of hydronephrosis. Electronically signed by: El Fagan MD (06/30/2020 2:24 AM) [id number] DICTATED and SIGNED BY: EL FAGAN MD DATE: 06/30/20 0224 Laboratory Tests Test 01/27/21 11:15 01/27/21 17:01 01/27/21 20:19 01/28/21 07:59 Glucose (Fingerstick) 112 mg/dL (70-99) 110 mg/dL (70-99) 143 mg/dL (70-99) 97 mg/dL (70-99) Assessment and Plan Assessmemt and Plan Problems Medical Problems: (1) CHF exacerbation Status: Acute Comment Review of Relevant I have reviewed the following items coral (where applicable) has been applied. Labs Laboratory Tests Test 01/26/21 11:20 01/26/21 16:14 01/26/21 20:18 01/27/21 07:20 Glucose (Fingerstick) 125 mg/dL (70-99) 106 mg/dL (70-99) 188 mg/dL (70-99) White Blood Count 7.3 x10^3/uL (4.0-11.0) Red Blood Count 3.40 x10^6/uL (4.30-5.70) Hemoglobin 10.5 g/dL (13.0-17.5) Hematocrit 30.7 % (39.0-53.0) Mean Corpuscular Volume 90 fL (79-100) Mean Corpuscular Hemoglobin 31 pg (25-35) Mean Corpuscular Hemoglobin Concent 34 g/dL (31-37) Red Cell Distribution Width 13.7 % (11.5-14.5) Platelet Count 259 x10^3/uL (140-400) Neutrophils (%) (Auto) 61 % (31-73) Lymphocytes (%) (Auto) 27 % (24-48) Monocytes (%) (Auto) 9 % (0-9) Eosinophils (%) (Auto) 2 % (0-3) Basophils (%) (Auto) 1 % (0-3) Neutrophils # (Auto) 4.5 x10^3/uL (1.8-7.7) Lymphocytes # (Auto) 2.0 x10^3/uL (1.0-4.8) Monocytes # (Auto) 0.7 x10^3/uL (0.0-1.1) Eosinophils # (Auto) 0.1 x10^3/uL (0.0-0.7) Basophils # (Auto) 0.1 x10^3/uL (0.0-0.2) Sodium Level 144 mmol/L (136-145) Potassium Level 3.5 mmol/L (3.5-5.1) Chloride Level 103 mmol/L (98-107) Carbon Dioxide Level 30 mmol/L (21-32) Anion Gap 11 (6-14) Blood Urea Nitrogen 38 mg/dL (8-26) Creatinine 1.9 mg/dL (0.7-1.3) Estimated GFR (Cockcroft-Gault) 35.1 Glucose Level 92 mg/dL (70-99) Calcium Level 8.7 mg/dL (8.5-10.1) Test 01/27/21 07:42 01/27/21 11:15 01/27/21 17:01 01/27/21 20:19 Glucose (Fingerstick) 123 mg/dL (70-99) 112 mg/dL (70-99) 110 mg/dL (70-99) 143 mg/dL (70-99) Test 01/28/21 07:59 Glucose (Fingerstick) 97 mg/dL (70-99) Laboratory Tests Test 01/27/21 11:15 01/27/21 17:01 01/27/21 20:19 01/28/21 07:59 Glucose (Fingerstick) 112 mg/dL (70-99) 110 mg/dL (70-99) 143 mg/dL (70-99) 97 mg/dL (70-99) Medications Current Medications Furosemide (Lasix) 40 mg 1X ONCE PO Last administered on 01/26/21at 06:32; Start 01/26/21 at 06:15; Stop 01/26/21 at 06:16; Status DC Ondansetron HCl (Zofran) 4 mg PRN Q8HRS PRN IV NAUSEA/VOMITING; Start 01/26/21 at 06:15; Stop 01/27/21 at 06:14; Status DC Furosemide (Lasix) 80 mg 1X ONCE IVP Last administered on 01/26/21at 06:33; Start 01/26/21 at 06:15; Stop 01/26/21 at 06:18; Status DC Amlodipine Besylate (Norvasc) 10 mg DAILY PO Last administered on 01/28/21at 08:29; Start 01/26/21 at 09:00 Aspirin (Ecotrin) 81 mg DAILY PO Last administered on 01/28/21at 08:29; Start 01/26/21 at 09:00 Atorvastatin Calcium (Lipitor) 40 mg QHS PO Last administered on 01/27/21at 23:01; Start 01/26/21 at 21:00 Carvedilol (Coreg) 6.25 mg BIDWMEALS PO Last administered on 01/28/21at 08:30; Start 01/26/21 at 08:00 Clopidogrel Bisulfate (Plavix) 75 mg DAILY PO Last administered on 01/28/21at 08 :28; Start 01/26/21 at 09:00 Furosemide (Lasix) 40 mg DAILY PO ; Start 01/26/21 at 07:30; Stop 01/26/21 at 08:16; Status DC Hydralazine HCl (Apresoline) 75 mg BID PO Last administered on 01/28/21at 08:28; Start 01/26/21 at 09:00 Potassium Chloride (Klor-Con) 10 meq DAILY PO Last administered on 01/28/21at 08:33; Start 01/26/21 at 09:00 Tamsulosin HCl (Flomax) 0.4 mg DAILY PO Last administered on 01/28/21at 08:29; Start 01/26/21 at 09:00 Ondansetron HCl (Zofran) 4 mg PRN Q6HRS PRN IVP NAUSEA/VOMITING; Start 01/26/21 at 07:45 Al Hydroxide/Mg Hydroxide (Mylanta Plus Xs) 30 ml PRN Q3HRS PRN PO HEARTBURN / GAS; Start 01/26/21 at 07:45 Calcium Carbonate/ Glycine (Tums) 500 mg PRN Q3HRS PRN PO UPSET STOMACH; Start 01/26/21 at 07:45 Acetaminophen/ Hydrocodone Bitart (Lortab 5/325) 1 tab PRN Q4HRS PRN PO MILD PAIN 1-3; Start 01/26/21 at 07:45 Acetaminophen (Tylenol) 650 mg PRN Q6HRS PRN PO Headaches, Temp > 101.5F; Start 01/26/21 at 07:45 Magnesium Hydroxide (Milk Of Magnesia) 2,400 mg PRN Q12HR PRN PO CONSTIPATION; Start 01/26/21 at 07:45 Bisacodyl (Dulcolax Supp) 10 mg PRN DAILY PRN [place] CONSTIPATION; Start 01/26/21 at 07:45 Heparin Sodium (Porcine) (Heparin Sodium) 5,000 unit Q8HRS SQ Last administered on 01/28/21at 07:48; Start 01/26/21 at 08:15 Insulin Glargine (Lantus Syringe) 10 unit BID SQ Last administered on 01/28/21at 08:42; Start 01/26/21 at 09:00 Insulin Human Lispro (HumaLOG) 0-7 UNITS TIDWMEALS SQ Last administered on 01/26/21at 09:12; Start 01/26/21 at 08:00 Dextrose (Dextrose 50%-Water Syringe) 12.5 gm PRN Q15MIN PRN IV SEE COMMENTS; Start 01/26/21 at 08:00 Dextrose (Iv Dextrose 5%) 250 ml PRN Q15MIN PRN IV SEE COMMENTS; Start 01/26/21 at 08:00; Stop 01/27/21 at 09:59; Status DC Furosemide (Lasix) 40 mg DAILY IVP Last administered on 01/28/21at 08:34; Start 01/27/21 at 09:00; Stop 01/28/21 at 09:47; Status DC Albuterol/ Ipratropium (Duoneb) 3 ml RTQID NEB Last administered on 01/28/21at 08:01; Start 01/27/21 at 08:00 Furosemide (Lasix) 40 mg DAILY PO ; Start 01/29/21 at 09:00 Active Scripts Active Furosemide 40 Mg Tablet 40 Mg PO QD Hydralazine Hcl 25 Mg Tablet 75 Mg PO BID 30 Days Klor-Con 10 (Potassium Chloride) 10 Meq Tablet.er 1 Tab PO DAILY 30 Days Lipitor (Atorvastatin Calcium) 40 Mg Tablet 1 Tab PO QHS 30 Days Fluoxetine Hcl 20 Mg Capsule 20 Mg PO DAILY 30 Days Carvedilol (Carvedilol) 6.25 Mg Tablet 6.25 Mg PO BIDWMEALS 30 Days Clopidogrel (Clopidogrel Bisulfate) 75 Mg Tablet 1 Tab PO DAILY 30 Days Reported Levemir (Insulin Detemir) 100 Unit/1 Ml Vial 12 Unit SQ BID Isosorbide Dinitrate 30 Mg Tablet 2 Tab PO DAILY 30 Days Amlodipine Besylate 10 Mg Tablet 10 Mg PO DAILY Aspirin Ec (Aspirin) 81 Mg Tablet.dr 1 Tab PO DAILY Omeprazole 20 Mg Capsule.dr 20 Mg PO DAILY Flomax (Tamsulosin Hcl) 0.4 Mg Cap.er.24h 0.4 Mg PO DAILY Vitals/I & O Vital Sign - Last 24 Hours 01/27/21 01/27/21 01/27/21 01/27/21 11:38 12:29 15:00 16:02 Temp 97.7 97.6 97.7 97.6 Pulse 77 79 B/P (MAP) 118/88 (98) 130/64 (86) Pulse Ox 95 96 94 96 O2 Delivery Nasal Cannula Nasal Cannula Nasal Cannula Nasal Cannula O2 Flow Rate 3.0 2.0 3.0 2.0 01/27/21 01/27/21 01/27/21 01/27/21 17:28 19:17 20:00 20:31 Temp 98.2 98.2 Pulse 79 73 Resp 16 B/P (MAP) 130/64 135/66 (89) Pulse Ox 94 92 O2 Delivery Nasal Cannula Nasal Cannula Nasal Cannula O2 Flow Rate 3.0 2.0 2.0 01/27/21 01/27/21 01/28/21 01/28/21 22:53 23:01 03:18 07:00 Temp 98.9 98.1 98.0 98.9 98.1 98.0 Pulse 70 70 66 82 Resp 20 22 22 B/P (MAP) 127/62 (83) 127/62 147/51 (83) 148/80 (102) Pulse Ox 93 96 93 O2 Delivery Nasal Cannula Nasal Cannula Nasal Cannula O2 Flow Rate 3.0 3.0 3.0 01/28/21 01/28/21 01/28/21 01/28/21 08:00 08:02 08:28 08:29 Pulse 82 82 B/P (MAP) 148/80 148/80 Pulse Ox 94 O2 Delivery Nasal Cannula Nasal Cannula O2 Flow Rate 2.0 2.0 01/28/21 08:30 Pulse 82 B/P (MAP) 148/80 Intake and Output 01/27/21 01/27/21 01/28/21 15:00 23:00 07:00 Intake Total 120 ml 500 ml 0 ml Output Total 100 ml 1800 ml Balance 20 ml -1300 ml 0 ml Justicifation of Admission Dx: Justifications for Admission: Justification of Admission Dx: Yes MARGARITO CABEZAS MD Jan 28, 2021 11:11
[2021-01-28 15:00] VITALS: BP 135/67
[2021-01-28 18:55] VITALS: BP 124/69
[2021-01-28] MEDS: ATORVASTATIN CALCIUM 40 MG TABLET. PO SCH (21:15)
[2021-01-28 23:56] VITALS: BP 118/48
[2021-01-29 03:12] VITALS: BP 115/60
[2021-01-29] MEDS: HEPARIN for SUB-Q USE 5,000 UNIT/ML VIAL. SQ SCH ×3 (06:49→21:15)
[2021-01-29] MEDS: IPRATRPIUM/ALBUTEROL 0.5/2.5MG 3 ML NEBU. NEB SCH ×4 (07:30→20:18)
[2021-01-29 07:42] LABS: CALCIUM 8.3 mg/dL (8.5-10.1); CREATININE 1.8 mg/dL (0.7-1.3); GFR 37.4; POTASSIUM 3.2 mmol/L (3.5-5.1)
[2021-01-29 07:48] LABS: BASO % 1 % (0-3); EOS # 0.2 x10^3/uL (0.0-0.7); EOS % 3 % (0-3); HEMATOCRIT 26.4 % (39.0-53.0); HEMOGLOBIN 9.1 g/dL (13.0-17.5); LYMPH % 17 % (24-48); MEAN CORPUSCULAR HEMOGLOBIN 31 pg (25-35); MEAN CORPUSCULAR HGB CONC 35 g/dL (31-37); MEAN CORPUSCULAR VOLUME 89 fL (79-100); MONO # 0.7 x10^3/uL (0.0-1.1); MONO % 12 % (0-9); NEUT # 4.1 x10^3/uL (1.8-7.7); NEUT % 68 % (31-73); PLATELET COUNT 241 x10^3/uL (140-400); RED BLOOD COUNT 2.96 x10^6/uL (4.30-5.70)
[2021-01-29 07:56] VITALS: BP 130/58
[2021-01-29] MEDS: INSULIN LISPRO 300 UNITS/3 ML VIAL. SQ SCH ×3 (08:00→17:00)
--- NOTE | 2021-01-29 08:29 | PDOC ---
PULMONARY PROGRESS NOTES DATE: 01/29/21 TIME: 08:29 Subjective Patient now more short of air, weak, normally utilizes a wheelchair secondary to previous BKA Vitals Vital Signs Date Time Temp Pulse Resp B/P (MAP) Pulse Ox O2 Delivery O2 Flow Rate FiO2 01/29/21 07:56 97.9 72 18 130/58 (82) 96 Nasal Cannula 2.0 97.9 ROS: No Nausea General: Alert, Oriented X4 Lungs: Crackles Cardiovascular: S1, S2 Abdomen: Soft, Non-tender Neuro Exam: Alert Extremities: No Edema, Other (l bka) Skin: Warm Labs Laboratory Tests Test 01/27/21 11:15 01/27/21 17:01 01/27/21 20:19 01/28/21 07:59 Glucose (Fingerstick) 112 mg/dL (70-99) 110 mg/dL (70-99) 143 mg/dL (70-99) 97 mg/dL (70-99) Test 01/28/21 11:39 01/28/21 16:47 01/28/21 20:37 01/29/21 05:05 Glucose (Fingerstick) 123 mg/dL (70-99) 125 mg/dL (70-99) 193 mg/dL (70-99) White Blood Count 6.0 x10^3/uL (4.0-11.0) Red Blood Count 2.96 x10^6/uL (4.30-5.70) Hemoglobin 9.1 g/dL (13.0-17.5) Hematocrit 26.4 % (39.0-53.0) Mean Corpuscular Volume 89 fL (79-100) Mean Corpuscular Hemoglobin 31 pg (25-35) Mean Corpuscular Hemoglobin Concent 35 g/dL (31-37) Red Cell Distribution Width 14.0 % (11.5-14.5) Platelet Count 241 x10^3/uL (140-400) Neutrophils (%) (Auto) 68 % (31-73) Lymphocytes (%) (Auto) 17 % (24-48) Monocytes (%) (Auto) 12 % (0-9) Eosinophils (%) (Auto) 3 % (0-3) Basophils (%) (Auto) 1 % (0-3) Neutrophils # (Auto) 4.1 x10^3/uL (1.8-7.7) Lymphocytes # (Auto) 1.0 x10^3/uL (1.0-4.8) Monocytes # (Auto) 0.7 x10^3/uL (0.0-1.1) Eosinophils # (Auto) 0.2 x10^3/uL (0.0-0.7) Basophils # (Auto) 0.0 x10^3/uL (0.0-0.2) Sodium Level 141 mmol/L (136-145) Potassium Level 3.2 mmol/L (3.5-5.1) Chloride Level 104 mmol/L (98-107) Carbon Dioxide Level 29 mmol/L (21-32) Anion Gap 8 (6-14) Blood Urea Nitrogen 36 mg/dL (8-26) Creatinine 1.8 mg/dL (0.7-1.3) Estimated GFR (Cockcroft-Gault) 37.4 Glucose Level 110 mg/dL (70-99) Calcium Level 8.3 mg/dL (8.5-10.1) Test 01/29/21 08:20 Glucose (Fingerstick) 107 mg/dL (70-99) Laboratory Tests Test 01/28/21 11:39 01/28/21 16:47 01/28/21 20:37 01/29/21 05:05 Glucose (Fingerstick) 123 mg/dL (70-99) 125 mg/dL (70-99) 193 mg/dL (70-99) White Blood Count 6.0 x10^3/uL (4.0-11.0) Red Blood Count 2.96 x10^6/uL (4.30-5.70) Hemoglobin 9.1 g/dL (13.0-17.5) Hematocrit 26.4 % (39.0-53.0) Mean Corpuscular Volume 89 fL (79-100) Mean Corpuscular Hemoglobin 31 pg (25-35) Mean Corpuscular Hemoglobin Concent 35 g/dL (31-37) Red Cell Distribution Width 14.0 % (11.5-14.5) Platelet Count 241 x10^3/uL (140-400) Neutrophils (%) (Auto) 68 % (31-73) Lymphocytes (%) (Auto) 17 % (24-48) Monocytes (%) (Auto) 12 % (0-9) Eosinophils (%) (Auto) 3 % (0-3) Basophils (%) (Auto) 1 % (0-3) Neutrophils # (Auto) 4.1 x10^3/uL (1.8-7.7) Lymphocytes # (Auto) 1.0 x10^3/uL (1.0-4.8) Monocytes # (Auto) 0.7 x10^3/uL (0.0-1.1) Eosinophils # (Auto) 0.2 x10^3/uL (0.0-0.7) Basophils # (Auto) 0.0 x10^3/uL (0.0-0.2) Sodium Level 141 mmol/L (136-145) Potassium Level 3.2 mmol/L (3.5-5.1) Chloride Level 104 mmol/L (98-107) Carbon Dioxide Level 29 mmol/L (21-32) Anion Gap 8 (6-14) Blood Urea Nitrogen 36 mg/dL (8-26) Creatinine 1.8 mg/dL (0.7-1.3) Estimated GFR (Cockcroft-Gault) 37.4 Glucose Level 110 mg/dL (70-99) Calcium Level 8.3 mg/dL (8.5-10.1) Test 01/29/21 08:20 Glucose (Fingerstick) 107 mg/dL (70-99) Medications Active Scripts Medications Dose Route/Sig Max Daily Dose Days Date Category Furosemide 40 Mg Tablet 40 Mg PO QD 12/17/20 Rx Levemir (Insulin Detemir) 100 Unit/1 Ml Vial 12 Unit SQ BID 07/18/20 Reported Hydralazine Hcl 25 Mg Tablet 75 Mg PO BID 30 07/17/20 Rx Klor-Con 10 (Potassium Chloride) 10 Meq Tablet.er 1 Tab PO DAILY 30 07/11/20 Rx Lipitor (Atorvastatin Calcium) 40 Mg Tablet 1 Tab PO QHS 07/04/20 Rx Fluoxetine Hcl 20 Mg Capsule 20 Mg PO DAILY 07/04/20 Rx Carvedilol (Carvedilol) 6.25 Mg Tablet 6.25 Mg PO BIDWMEALS 07/04/20 Rx Clopidogrel (Clopidogrel Bisulfate) 75 Mg Tablet 1 Tab PO DAILY 30 07/04/20 Rx Isosorbide Dinitrate 30 Mg Tablet 2 Tab PO DAILY 30 07/04/20 Reported Amlodipine Besylate 10 Mg Tablet 10 Mg PO DAILY 07/04/20 Reported Aspirin Ec (Aspirin) 81 Mg Tablet.dr 1 Tab PO DAILY 07/04/20 Reported Omeprazole 20 Mg Capsule.dr 20 Mg PO DAILY 06/28/20 Reported Flomax (Tamsulosin Hcl) 0.4 Mg Cap.er.24h 0.4 Mg PO DAILY 06/28/20 Reported Impression . IMPRESSION: 1. Acute on chronic respiratory failure secondary to acute diastolic congestive heart failure, chronic obstructive pulmonary disease with mild exacerbation, untreated veronika. 2. Abnormal chest x-ray. 3. Obesity and snoring and excessive daytime sleepiness and highly suspect he has obstructive sleep apnea-hypopnea syndrome. 4. Acute diastolic congestive heart failure. 5. Chronic obstructive pulmonary disease with mild acute exacerbation. 6. Diabetes mellitus. 7. Hypertension. 8. Chronic kidney disease. 9. Status post left BKA Plan . Updated 01/29 Continue to diuresis PT OT Oxygen supplementation Possible outpatient polysomnogram PLAN AND RECOMMENDATIONS: 1. Titrate FiO2 to keep O2 saturation 90%. 2. IS, BD ICS 3. Continue Lasix. Monitor potassium and creatinine. 4. I have discussed obstructive sleep apnea-hypopnea syndrome, the importance of diagnosis and treatment, if untreated increased cardiovascular and [employer] morbidity or mortality. He would require a sleep study as an outpatient. 5. Heparin for DVT prophylaxis. 6. Advised him to lose weight and exercise. 7. discussed w rn pt CAMILA MONTANO MD Jan 29, 2021 08:29
[2021-01-29] MEDS: TAMSULOSIN 0.4 MG CAP.ER.24H. PO SCH (08:49)
[2021-01-29] MEDS: ASPIRIN ENTERIC COATED 81 MG TABLET.DR. PO SCH (08:49)
[2021-01-29] MEDS: hydrALAZINE 25 MG TABLET PO SCH ×2 (08:49→21:13)
[2021-01-29] MEDS: POTASSIUM CHLORIDE 10 MEQ TABLET.ER. PO SCH (08:50)
[2021-01-29] MEDS: FUROSEMIDE 40 MG TABLET. PO SCH (08:50)
[2021-01-29] MEDS: CLOPIDOGREL BISULFATE 75 MG TABLET PO SCH (08:51)
[2021-01-29] MEDS: CARVEDILOL 6.25 MG TABLET. PO SCH ×2 (08:51→17:18)
[2021-01-29] MEDS: amLODIPine BESYLATE 10 MG TABLET PO SCH (08:51)
[2021-01-29] MEDS: INSULIN GLARGINE SYRINGE. SQ SCH ×2 (09:00→21:14)
--- NOTE | 2021-01-29 09:27 | PDOC2 ---
CONSULT Date of Consult Date of Consult DATE: 01/29/21 TIME: 09:27 Reason for Consult Reason for Consult: CKD Referring Physician Referring Physician: Dr. Rea Identification/Chief Complaint Chief Complaint Poor historian Source Source: Chart review History of Present Illness Reason for Visit: Patient is 70-year-old CM with past medical history CHF, DM 2, skin cancer with recent surgical removal, who presents to the ED with complaints of worsening shortness of breath that began on the morning of admission Patient states he woke up feeling like "it's my CHF". Upon EMS arrival he was saturating 70% on 2 L O2, he was placed on 6 L nasal cannula with improvement to 94%. He received Lasix diuresis in ED with improvement. States he has been taking his Lasix as prescribed and denies missing any doses. Currently he denies any complaints. No N/V/D. No F/C. No CP. Denies any urinary complaints. States has not seen Nephrology (recommended at his last hospitalization) Past Medical History Cardiovascular: CAD, HTN, Hyperlipidemia Pulmonary: Other CENTRAL NERVOUS SYSTEM: Periperal neuropathy GI: GERD Heme/Onc: No pertinent hx Hepatobiliary: No pertinent hx Psych: Depression Rheumatologic: No pertinent hx Infectious disease: Other Renal/: Benign prostatic enlarg. Endocrine: Diabetes Past Surgical History Past Surgical History: Cataract Removal, Tonsillectomy, Other Family History Family History: Diabetes Social History No ALCOHOL: none Drugs: None Lives: with Family Current Problem List Problem List Problems Medical Problems: (1) CHF exacerbation Status: Acute Current Medications Current Medications Current Medications Furosemide (Lasix) 40 mg 1X ONCE PO Last administered on 01/26/21at 06:32; Start 01/26/21 at 06:15; Stop 01/26/21 at 06:16; Status DC Ondansetron HCl (Zofran) 4 mg PRN Q8HRS PRN IV NAUSEA/VOMITING; Start 01/26/21 at 06:15; Stop 01/27/21 at 06:14; Status DC Furosemide (Lasix) 80 mg 1X ONCE IVP Last administered on 01/26/21at 06:33; Start 01/26/21 at 06:15; Stop 01/26/21 at 06:18; Status DC Amlodipine Besylate (Norvasc) 10 mg DAILY PO Last administered on 01/29/21at 08:51; Start 01/26/21 at 09:00 Aspirin (Ecotrin) 81 mg DAILY PO Last administered on 01/29/21at 08:49; Start 01/26/21 at 09:00 Atorvastatin Calcium (Lipitor) 40 mg QHS PO Last administered on 01/28/21at 21:15; Start 01/26/21 at 21:00 Carvedilol (Coreg) 6.25 mg BIDWMEALS PO Last administered on 01/29/21at 08:51; Start 01/26/21 at 08:00 Clopidogrel Bisulfate (Plavix) 75 mg DAILY PO Last administered on 01/29/21at 08:51; Start 01/26/21 at 09:00 Furosemide (Lasix) 40 mg DAILY PO ; Start 01/26/21 at 07:30; Stop 01/26/21 at 08:16; Status DC Hydralazine HCl (Apresoline) 75 mg BID PO Last administered on 01/29/21at 08:49; Start 01/26/21 at 09:00 Potassium Chloride (Klor-Con) 10 meq DAILY PO Last administered on 01/29/21at 08:50; Start 01/26/21 at 09:00 Tamsulosin HCl (Flomax) 0.4 mg DAILY PO Last administered on 01/29/21at 08:49; Start 01/26/21 at 09:00 Ondansetron HCl (Zofran) 4 mg PRN Q6HRS PRN IVP NAUSEA/VOMITING; Start 01/26/21 at 07:45 Al Hydroxide/Mg Hydroxide (Mylanta Plus Xs) 30 ml PRN Q3HRS PRN PO HEARTBURN / GAS; Start 01/26/21 at 07:45 Calcium Carbonate/ Glycine (Tums) 500 mg PRN Q3HRS PRN PO UPSET STOMACH; Start 01/26/21 at 07:45 Acetaminophen/ Hydrocodone Bitart (Lortab 5/325) 1 tab PRN Q4HRS PRN PO MILD PAIN 1-3; Start 01/26/21 at 07:45 Acetaminophen (Tylenol) 650 mg PRN Q6HRS PRN PO Headaches, Temp > 101.5F; Start 01/26/21 at 07:45 Magnesium Hydroxide (Milk Of Magnesia) 2,400 mg PRN Q12HR PRN PO CONSTIPATION; Start 01/26/21 at 07:45 Bisacodyl (Dulcolax Supp) 10 mg PRN DAILY PRN [place] CONSTIPATION; Start 01/26/21 at 07:45 Heparin Sodium (Porcine) (Heparin Sodium) 5,000 unit Q8HRS SQ Last administered on 01/29/21at 06:49; Start 01/26/21 at 08:15 Insulin Glargine (Lantus Syringe) 10 unit BID SQ Last administered on 01/29/21at 09:00; Start 01/26/21 at 09:00 Insulin Human Lispro (HumaLOG) 0-7 UNITS TIDWMEALS SQ Last administered on 01/26/21at 09:12; Start 01/26/21 at 08:00 Dextrose (Dextrose 50%-Water Syringe) 12.5 gm PRN Q15MIN PRN IV SEE COMMENTS; Start 01/26/21 at 08:00 Dextrose (Iv Dextrose 5%) 250 ml PRN Q15MIN PRN IV SEE COMMENTS; Start 01/26/21 at 08:00; Stop 01/27/21 at 09:59; Status DC Furosemide (Lasix) 40 mg DAILY IVP Last administered on 01/28/21at 08:34; Start 01/27/21 at 09:00; Stop 01/28/21 at 09:47; Status DC Albuterol/ Ipratropium (Duoneb) 3 ml RTQID NEB Last administered on 01/29/21at 07:30; Start 01/27/21 at 08:00 Furosemide (Lasix) 40 mg DAILY PO Last administered on 01/29/21at 08:50; Start 01/29/21 at 09:00 Active Scripts Active Furosemide 40 Mg Tablet 40 Mg PO QD Hydralazine Hcl 25 Mg Tablet 75 Mg PO BID 30 Days Klor-Con 10 (Potassium Chloride) 10 Meq Tablet.er 1 Tab PO DAILY 30 Days Lipitor (Atorvastatin Calcium) 40 Mg Tablet 1 Tab PO QHS 30 Days Fluoxetine Hcl 20 Mg Capsule 20 Mg PO DAILY 30 Days Carvedilol (Carvedilol) 6.25 Mg Tablet 6.25 Mg PO BIDWMEALS 30 Days Clopidogrel (Clopidogrel Bisulfate) 75 Mg Tablet 1 Tab PO DAILY 30 Days Reported Levemir (Insulin Detemir) 100 Unit/1 Ml Vial 12 Unit SQ BID Isosorbide Dinitrate 30 Mg Tablet 2 Tab PO DAILY 30 Days Amlodipine Besylate 10 Mg Tablet 10 Mg PO DAILY Aspirin Ec (Aspirin) 81 Mg Tablet.dr 1 Tab PO DAILY Omeprazole 20 Mg Capsule.dr 20 Mg PO DAILY Flomax (Tamsulosin Hcl) 0.4 Mg Cap.er.24h 0.4 Mg PO DAILY Allergies Allergies: Coded Allergies: No Known Drug Allergies (Unverified , 06/28/20) ROS Review of System As per HPI, rest of the ros is negative Physical Exam Physical Exam General: Alert, Oriented X3, Cooperative, No acute distress HEENT: OM moist, Neck supple Lungs: Clear to auscultation,decreased at bases, Non labored Heart: Regular rate Abdomen: Normal bowel sounds, Soft, No tenderness Extremities: No cyanosis, no edema , Lt BKA Skin: No breakdown , no rash Neuro: Normal speech, Cranial nerves 3-12 NL No pope . No SP or CVA tenderness Psych Mood stable Vital Signs Vital Signs Date Time Temp Pulse Resp B/P (MAP) Pulse Ox O2 Delivery O2 Flow Rate FiO2 01/29/21 08:51 72 130/58 01/29/21 07:56 97.9 18 96 Nasal Cannula 2.0 97.9 Assessment & Plan SOPHIE cardiorenal, mild increase in Cr from his baseline at presentation, Improved close to his baseline .Supportive care, avoid nephrotoxins CKD stage 3- Baseline Cr 1.7-2.1 , Renal US 06/2020 unremarkable ,Pt reported at his previous hospitalization that he required dialysis in the past (has been many years), No fu with Renal, he is followed by Dr. Jha, his pcp Supportive care, avoid nephrotoxins Acute on chronic diastolic CHF; Echo 07/02 with preserved LV systolic function. improved with diuresis. appears compensated CAD: 3VD, recent PCI/ELLEN to the proximal and distal LAD, clinically stable and chest pain-free. Hypertension; controlled Diabetes, II Acute COPD exacerbation: Improved after initiating nebulizers Arrhythmia; 14-beat NSVT noted this am on tele Proteinuria , Non Nephrotic, 1.7 gm (in 06/2020)No micr hematuria. Likely 2/2 DM /HTN Labs Labs Laboratory Tests Test 01/27/21 11:15 01/27/21 17:01 01/27/21 20:19 01/28/21 07:59 Glucose (Fingerstick) 112 mg/dL (70-99) 110 mg/dL (70-99) 143 mg/dL (70-99) 97 mg/dL (70-99) Test 01/28/21 11:39 01/28/21 16:47 01/28/21 20:37 01/29/21 05:05 Glucose (Fingerstick) 123 mg/dL (70-99) 125 mg/dL (70-99) 193 mg/dL (70-99) White Blood Count 6.0 x10^3/uL (4.0-11.0) Red Blood Count 2.96 x10^6/uL (4.30-5.70) Hemoglobin 9.1 g/dL (13.0-17.5) Hematocrit 26.4 % (39.0-53.0) Mean Corpuscular Volume 89 fL (79-100) Mean Corpuscular Hemoglobin 31 pg (25-35) Mean Corpuscular Hemoglobin Concent 35 g/dL (31-37) Red Cell Distribution Width 14.0 % (11.5-14.5) Platelet Count 241 x10^3/uL (140-400) Neutrophils (%) (Auto) 68 % (31-73) Lymphocytes (%) (Auto) 17 % (24-48) Monocytes (%) (Auto) 12 % (0-9) Eosinophils (%) (Auto) 3 % (0-3) Basophils (%) (Auto) 1 % (0-3) Neutrophils # (Auto) 4.1 x10^3/uL (1.8-7.7) Lymphocytes # (Auto) 1.0 x10^3/uL (1.0-4.8) Monocytes # (Auto) 0.7 x10^3/uL (0.0-1.1) Eosinophils # (Auto) 0.2 x10^3/uL (0.0-0.7) Basophils # (Auto) 0.0 x10^3/uL (0.0-0.2) Sodium Level 141 mmol/L (136-145) Potassium Level 3.2 mmol/L (3.5-5.1) Chloride Level 104 mmol/L (98-107) Carbon Dioxide Level 29 mmol/L (21-32) Anion Gap 8 (6-14) Blood Urea Nitrogen 36 mg/dL (8-26) Creatinine 1.8 mg/dL (0.7-1.3) Estimated GFR (Cockcroft-Gault) 37.4 Glucose Level 110 mg/dL (70-99) Calcium Level 8.3 mg/dL (8.5-10.1) Test 01/29/21 08:20 Glucose (Fingerstick) 107 mg/dL (70-99) Laboratory Tests Test 01/28/21 11:39 01/28/21 16:47 01/28/21 20:37 01/29/21 05:05 Glucose (Fingerstick) 123 mg/dL (70-99) 125 mg/dL (70-99) 193 mg/dL (70-99) White Blood Count 6.0 x10^3/uL (4.0-11.0) Red Blood Count 2.96 x10^6/uL (4.30-5.70) Hemoglobin 9.1 g/dL (13.0-17.5) Hematocrit 26.4 % (39.0-53.0) Mean Corpuscular Volume 89 fL (79-100) Mean Corpuscular Hemoglobin 31 pg (25-35) Mean Corpuscular Hemoglobin Concent 35 g/dL (31-37) Red Cell Distribution Width 14.0 % (11.5-14.5) Platelet Count 241 x10^3/uL (140-400) Neutrophils (%) (Auto) 68 % (31-73) Lymphocytes (%) (Auto) 17 % (24-48) Monocytes (%) (Auto) 12 % (0-9) Eosinophils (%) (Auto) 3 % (0-3) Basophils (%) (Auto) 1 % (0-3) Neutrophils # (Auto) 4.1 x10^3/uL (1.8-7.7) Lymphocytes # (Auto) 1.0 x10^3/uL (1.0-4.8) Monocytes # (Auto) 0.7 x10^3/uL (0.0-1.1) Eosinophils # (Auto) 0.2 x10^3/uL (0.0-0.7) Basophils # (Auto) 0.0 x10^3/uL (0.0-0.2) Sodium Level 141 mmol/L (136-145) Potassium Level 3.2 mmol/L (3.5-5.1) Chloride Level 104 mmol/L (98-107) Carbon Dioxide Level 29 mmol/L (21-32) Anion Gap 8 (6-14) Blood Urea Nitrogen 36 mg/dL (8-26) Creatinine 1.8 mg/dL (0.7-1.3) Estimated GFR (Cockcroft-Gault) 37.4 Glucose Level 110 mg/dL (70-99) Calcium Level 8.3 mg/dL (8.5-10.1) Test 01/29/21 08:20 Glucose (Fingerstick) 107 mg/dL (70-99) Review All relevant outside records, renal labs, imaging studies, telemetry/EKG's were reviewed. Images Images Cxr The heart is mildly enlarged. The pulmonary vessels are somewhat cephalized. There is mild patchy opacity in the left lung base and blunting of left costophrenic angle. Impression: Mild left effusion and left basal infiltrate likely secondary to CHF. ELLIOTT SANDERS MD Jan 29, 2021 09:27
[2021-01-29 10:31] VITALS: BP 131/65
--- NOTE | 2021-01-29 12:10 | PDOC ---
[employer] PROGRESS NOTE Date of Service DOS: DATE: 01/29/21 TIME: 12:04 Chief Complaint Chief Complaint Shortness of breath History of Present Illness History of Present Illness 01/29 Patient seen and examined. Spoke with nursing and caseworker protective services. He is doing okay and does not feel like his belly has fluid in it, which was a concern raised by nursing. He showed me the incision on his head for removal of a skin lesion. History of Present Illness Patient is 70-year-old male with past medical history CHF, DM 2, skin cancer with recent surgical removal, who presents to the ED with complaints of worsening shortness of breath that began this morning. Patient states he woke up feeling like "it's my CHF". Upon EMS arrival he was saturating 70% on 2 L O2, he was placed on 6 L nasal cannula with improvement to 94%. He received Lasix diuresis in ED with improvement. States he has been taking his Lasix as prescribed and denies missing any doses. Will admit patient for further medical management. Vitals/I&O Vitals/I&O: Vital Signs Date Time Temp Pulse Resp B/P (MAP) Pulse Ox O2 Delivery O2 Flow Rate FiO2 01/29/21 11:29 Nasal Cannula 2.0 01/29/21 10:31 98.2 73 18 131/65 (87) 97 98.2 I & O 01/28/21 01/28/21 01/29/21 15:00 23:00 07:00 Intake Total 180 ml 200 ml Output Total 200 ml 100 ml Balance -20 ml 100 ml Physical Exam Physical Exam: Physical Exam Physical Exam General: Alert, Oriented X3, Cooperative, mild distress HEENT: Head is wrapped and bandaged. PERRLA, EOMI Lungs: Bibasilar Rales, Normal air movement Heart: RRR, no murmurs Cardiovascular: S1, S2 Abdomen: Normal bowel sounds, Soft, No tenderness Extremities: Left BKA. No clubbing, No cyanosis Skin: No rashes, No significant lesion Neuro: Normal speech, Normal tone, Sensation intact Psych/Mental Status: Mental status NL, Mood NL General: Alert, Oriented X3, Cooperative, No acute distress Heart: Regular rate Lungs: Crackles Abdomen: Soft, No tenderness Extremities: No cyanosis, Other (Left below knee amputation) Skin: Other (Scalp: Large, clean, dry, closed incision on scalp. ) Labs Labs: Laboratory Tests Test 01/28/21 16:47 01/28/21 20:37 01/29/21 05:05 01/29/21 08:20 Glucose (Fingerstick) 125 mg/dL (70-99) 193 mg/dL (70-99) 107 mg/dL (70-99) White Blood Count 6.0 x10^3/uL (4.0-11.0) Red Blood Count 2.96 x10^6/uL (4.30-5.70) Hemoglobin 9.1 g/dL (13.0-17.5) Hematocrit 26.4 % (39.0-53.0) Mean Corpuscular Volume 89 fL (79-100) Mean Corpuscular Hemoglobin 31 pg (25-35) Mean Corpuscular Hemoglobin Concent 35 g/dL (31-37) Red Cell Distribution Width 14.0 % (11.5-14.5) Platelet Count 241 x10^3/uL (140-400) Neutrophils (%) (Auto) 68 % (31-73) Lymphocytes (%) (Auto) 17 % (24-48) Monocytes (%) (Auto) 12 % (0-9) Eosinophils (%) (Auto) 3 % (0-3) Basophils (%) (Auto) 1 % (0-3) Neutrophils # (Auto) 4.1 x10^3/uL (1.8-7.7) Lymphocytes # (Auto) 1.0 x10^3/uL (1.0-4.8) Monocytes # (Auto) 0.7 x10^3/uL (0.0-1.1) Eosinophils # (Auto) 0.2 x10^3/uL (0.0-0.7) Basophils # (Auto) 0.0 x10^3/uL (0.0-0.2) Sodium Level 141 mmol/L (136-145) Potassium Level 3.2 mmol/L (3.5-5.1) Chloride Level 104 mmol/L (98-107) Carbon Dioxide Level 29 mmol/L (21-32) Anion Gap 8 (6-14) Blood Urea Nitrogen 36 mg/dL (8-26) Creatinine 1.8 mg/dL (0.7-1.3) Estimated GFR (Cockcroft-Gault) 37.4 Glucose Level 110 mg/dL (70-99) Calcium Level 8.3 mg/dL (8.5-10.1) Assessment and Plan Assessmemt and Plan Problems Medical Problems: (1) CHF exacerbation Status: Acute Assessment Ventricular tachycardia Acute respiratory failure with hypoxia Acute CHF exacerbation CKD DM2 Skin cancer Hypokalemia Plan: Order new vitals today Trend labs, replace potassium if hypokalemia worsens Continue diuresis per cardiology Heparin for DVT prophylaxis. PT/OT Home meds Continue monitoring kidney function Wound care taking care of incision on scalp Full code Goals of Care: Advance Care Planning: Total time spent [id number] with patient greater than 16 minutes in discussion with goals of care, comfort care, end-of-life care, pain management, code status Comment Review of Relevant I have reviewed the following items coral (where applicable) has been applied. Medications: Current Medications Medications (Trade) Dose Ordered Sig/Ruddy Route PRN Reason Start Time Stop Time Status Last Admin Dose Admin Furosemide (Lasix) 40 mg DAILY PO 01/29/21 09:00 01/29/21 08:50 Justifications for Admission Other Justification Acute hypoxic respiratory failure, acute CHF exacerbation KING DYKES III DO Jan 29, 2021 12:10
--- NOTE | 2021-01-29 12:41 | PDOC ---
CHAVA BUCHANAN [employer] 01/29/21 1241: CARDIO Progress Notes Date and Time Date of Service 01/29/21 Time of Evaluation 1230 Subjective Subjective: No Chest Pain, No shortness of breath, No Palpitations Vitals Vitals Vital Signs Date Time Temp Pulse Resp B/P (MAP) Pulse Ox O2 Delivery O2 Flow Rate FiO2 01/29/21 11:29 Nasal Cannula 2.0 01/29/21 10:31 98.2 73 18 131/65 (87) 97 98.2 Weight Weight [ ] Input and Output Intake and Output Intake and Output 01/29/21 07:00 Intake Total 380 ml Output Total 300 ml Balance 80 ml Intake Oral 380 ml Output Urine Total 300 ml Laboratory Labs Laboratory Tests Test 01/28/21 16:47 01/28/21 20:37 01/29/21 05:05 01/29/21 08:20 Glucose (Fingerstick) 125 mg/dL (70-99) 193 mg/dL (70-99) 107 mg/dL (70-99) White Blood Count 6.0 x10^3/uL (4.0-11.0) Red Blood Count 2.96 x10^6/uL (4.30-5.70) Hemoglobin 9.1 g/dL (13.0-17.5) Hematocrit 26.4 % (39.0-53.0) Mean Corpuscular Volume 89 fL (79-100) Mean Corpuscular Hemoglobin 31 pg (25-35) Mean Corpuscular Hemoglobin Concent 35 g/dL (31-37) Red Cell Distribution Width 14.0 % (11.5-14.5) Platelet Count 241 x10^3/uL (140-400) Neutrophils (%) (Auto) 68 % (31-73) Lymphocytes (%) (Auto) 17 % (24-48) Monocytes (%) (Auto) 12 % (0-9) Eosinophils (%) (Auto) 3 % (0-3) Basophils (%) (Auto) 1 % (0-3) Neutrophils # (Auto) 4.1 x10^3/uL (1.8-7.7) Lymphocytes # (Auto) 1.0 x10^3/uL (1.0-4.8) Monocytes # (Auto) 0.7 x10^3/uL (0.0-1.1) Eosinophils # (Auto) 0.2 x10^3/uL (0.0-0.7) Basophils # (Auto) 0.0 x10^3/uL (0.0-0.2) Sodium Level 141 mmol/L (136-145) Potassium Level 3.2 mmol/L (3.5-5.1) Chloride Level 104 mmol/L (98-107) Carbon Dioxide Level 29 mmol/L (21-32) Anion Gap 8 (6-14) Blood Urea Nitrogen 36 mg/dL (8-26) Creatinine 1.8 mg/dL (0.7-1.3) Estimated GFR (Cockcroft-Gault) 37.4 Glucose Level 110 mg/dL (70-99) Calcium Level 8.3 mg/dL (8.5-10.1) Test 01/29/21 12:28 Glucose (Fingerstick) 119 mg/dL (70-99) Physical Exam HEENT: Neck Supple W Full Motion Chest: Symmetric LUNGS: Clear to Auscultation Heart: RRR Abdomen: Soft N/T Extremities: No Edema, Other (left BKA) Neurology: alert, oriented, follow commands Assessment Assessment 1. Acute on chronic diastolic CHF; Echo 07/02 with preserved LV systolic function. improved with diuresis. appears compensated 2. SOPHIE on CKD. Cr stable 3. CAD: 3VD, recent PCI/ELLEN to the proximal and distal LAD, clinically stable and chest pain-free. 4. Hypertension; controlled 5. Diabetes, II 6. Acute COPD exacerbation: Improved after initiating nebulizers 7. Arrhythmia; 14-beat NSVT noted this am on tele 8. Hypokalemia Recommendations Oral Lasix Replace K Check Mg and replace as warranted Continue BB Secondary prevention measures. Supportive care Justicifation of Admission Dx: Justifications for Admission: Justification of Admission Dx: Yes PEARL CARDOZA MD 01/30/21 0831: CARDIO Progress Notes Plan Plan Late entry for 01/29/2021 Patient seen and examined. Agree with above nurse practitioner note. Plan for a right heart catheterization to determine his volume status to help plan for diuretic therapy on an outpatient basis. CHAVA BUCHANAN APRN Jan 29, 2021 12:41 PEARL CARDOZA MD Jan 30, 2021 08:31
[2021-01-29] MEDS ORDERED: POTASSIUM CHLORIDE 20 MEQ TABLET.ER. PO ONE (13:15)
[2021-01-29 14:28] LABS: BILIRUBIN,URINE NEGATIVE (NEG); CLARITY,URINE CLEAR; COLOR,URINE YELLOW; NITRITE,URINE NEGATIVE (NEG); PROTEIN,URINE >=300 mg/dL (NEG-TRACE)
[2021-01-29 14:39] LABS: BACTERIA,URINE 0 /HPF (0-FEW); GRANULAR CASTS,URINE FEW /HPF; HYALINE CASTS, URINE FEW /HPF
[2021-01-29 15:16] VITALS: BP 121/61
--- NOTE | 2021-01-29 15:29 | NUR ---
SS following for discharge planning. SS reviewed pt chart and discussed with pt RN. Pt is from home and is currently requiring oxygen at two liters nasal canula. Pt has home oxygen. Potassium low today. COVID19 negative. Discharge plan is to home when medically ready. SS will continue to follow for discharge planning.
[2021-01-29 19:50] VITALS: BP 138/60
[2021-01-29] MEDS: ATORVASTATIN CALCIUM 40 MG TABLET. PO SCH (21:11)
[2021-01-29 23:00] VITALS: BP 132/70
[2021-01-30] VITALS (16 sets, daily range): BP systolic 101–159; BP diastolic 56–86
[2021-01-30 07:53] LABS: CALCIUM 8.4 mg/dL (8.5-10.1); CREATININE 1.7 mg/dL (0.7-1.3); GFR 39.9; POTASSIUM 3.8 mmol/L (3.5-5.1)
[2021-01-30] MEDS: INSULIN LISPRO 300 UNITS/3 ML VIAL. SQ SCH ×3 (07:55→17:29)
[2021-01-30] MEDS: IPRATRPIUM/ALBUTEROL 0.5/2.5MG 3 ML NEBU. NEB SCH ×4 (08:03→19:54)
[2021-01-30] MEDS: INSULIN GLARGINE SYRINGE. SQ SCH ×2 (09:00→22:12)
--- NOTE | 2021-01-30 09:16 | PDOC ---
PULMONARY PROGRESS NOTES DATE: 01/30/21 TIME: 09:16 Subjective Patient remains on 2 liters NC now S/P RHC Vitals Vital Signs Date Time Temp Pulse Resp B/P (MAP) Pulse Ox O2 Delivery O2 Flow Rate FiO2 01/30/21 08:03 100 Nasal Cannula 2.0 01/30/21 07:00 98.1 67 18 149/56 (87) 98.1 General: Alert, Oriented X4 Lungs: Crackles Cardiovascular: S1, S2 Abdomen: Soft, Non-tender Neuro Exam: Alert Extremities: No Edema, Other (left BKA ) Skin: Warm, Dry Labs Laboratory Tests Test 01/28/21 11:39 01/28/21 16:47 01/28/21 20:37 01/29/21 05:05 Glucose (Fingerstick) 123 mg/dL (70-99) 125 mg/dL (70-99) 193 mg/dL (70-99) White Blood Count 6.0 x10^3/uL (4.0-11.0) Red Blood Count 2.96 x10^6/uL (4.30-5.70) Hemoglobin 9.1 g/dL (13.0-17.5) Hematocrit 26.4 % (39.0-53.0) Mean Corpuscular Volume 89 fL (79-100) Mean Corpuscular Hemoglobin 31 pg (25-35) Mean Corpuscular Hemoglobin Concent 35 g/dL (31-37) Red Cell Distribution Width 14.0 % (11.5-14.5) Platelet Count 241 x10^3/uL (140-400) Neutrophils (%) (Auto) 68 % (31-73) Lymphocytes (%) (Auto) 17 % (24-48) Monocytes (%) (Auto) 12 % (0-9) Eosinophils (%) (Auto) 3 % (0-3) Basophils (%) (Auto) 1 % (0-3) Neutrophils # (Auto) 4.1 x10^3/uL (1.8-7.7) Lymphocytes # (Auto) 1.0 x10^3/uL (1.0-4.8) Monocytes # (Auto) 0.7 x10^3/uL (0.0-1.1) Eosinophils # (Auto) 0.2 x10^3/uL (0.0-0.7) Basophils # (Auto) 0.0 x10^3/uL (0.0-0.2) Sodium Level 141 mmol/L (136-145) Potassium Level 3.2 mmol/L (3.5-5.1) Chloride Level 104 mmol/L (98-107) Carbon Dioxide Level 29 mmol/L (21-32) Anion Gap 8 (6-14) Blood Urea Nitrogen 36 mg/dL (8-26) Creatinine 1.8 mg/dL (0.7-1.3) Estimated GFR (Cockcroft-Gault) 37.4 Glucose Level 110 mg/dL (70-99) Calcium Level 8.3 mg/dL (8.5-10.1) Magnesium Level 1.7 mg/dL (1.8-2.4) Test 01/29/21 08:20 01/29/21 12:28 01/29/21 14:10 01/29/21 20:53 Glucose (Fingerstick) 107 mg/dL (70-99) 119 mg/dL (70-99) 140 mg/dL (70-99) Urine Collection Type Unknown Urine Color Yellow Urine Clarity Clear Urine pH 6.0 (<5.0-8.0) Urine Specific [place] 1.015 (1.000-1.030) Urine Protein >=300 mg/dL (NEG-TRACE) Urine Glucose (UA) Negative mg/dL (NEG) Urine Ketones (Stick) Negative mg/dL (NEG) Urine Blood Negative (NEG) Urine Nitrite Negative (NEG) Urine Bilirubin Negative (NEG) Urine Urobilinogen Dipstick 1.0 mg/dL (0.2 mg/dL) Urine Leukocyte Esterase Negative (NEG) Urine RBC 1-2 /HPF (0-2) Urine WBC 1-4 /HPF (0-4) Urine Squamous Epithelial Cells Few /LPF Urine Bacteria 0 /HPF (0-FEW) Urine Hyaline Casts Few /HPF Urine Granular Casts Few /HPF Test 01/30/21 06:15 01/30/21 07:20 Sodium Level 141 mmol/L (136-145) Potassium Level 3.8 mmol/L (3.5-5.1) Chloride Level 105 mmol/L (98-107) Carbon Dioxide Level 29 mmol/L (21-32) Anion Gap 7 (6-14) Blood Urea Nitrogen 31 mg/dL (8-26) Creatinine 1.7 mg/dL (0.7-1.3) Estimated GFR (Cockcroft-Gault) 39.9 Glucose Level 110 mg/dL (70-99) Calcium Level 8.4 mg/dL (8.5-10.1) Glucose (Fingerstick) 112 mg/dL (70-99) Laboratory Tests Test 01/29/21 12:28 01/29/21 14:10 01/29/21 20:53 01/30/21 06:15 Glucose (Fingerstick) 119 mg/dL (70-99) 140 mg/dL (70-99) Urine Collection Type Unknown Urine Color Yellow Urine Clarity Clear Urine pH 6.0 (<5.0-8.0) Urine Specific [place] 1.015 (1.000-1.030) Urine Protein >=300 mg/dL (NEG-TRACE) Urine Glucose (UA) Negative mg/dL (NEG) Urine Ketones (Stick) Negative mg/dL (NEG) Urine Blood Negative (NEG) Urine Nitrite Negative (NEG) Urine Bilirubin Negative (NEG) Urine Urobilinogen Dipstick 1.0 mg/dL (0.2 mg/dL) Urine Leukocyte Esterase Negative (NEG) Urine RBC 1-2 /HPF (0-2) Urine WBC 1-4 /HPF (0-4) Urine Squamous Epithelial Cells Few /LPF Urine Bacteria 0 /HPF (0-FEW) Urine Hyaline Casts Few /HPF Urine Granular Casts Few /HPF Sodium Level 141 mmol/L (136-145) Potassium Level 3.8 mmol/L (3.5-5.1) Chloride Level 105 mmol/L (98-107) Carbon Dioxide Level 29 mmol/L (21-32) Anion Gap 7 (6-14) Blood Urea Nitrogen 31 mg/dL (8-26) Creatinine 1.7 mg/dL (0.7-1.3) Estimated GFR (Cockcroft-Gault) 39.9 Glucose Level 110 mg/dL (70-99) Calcium Level 8.4 mg/dL (8.5-10.1) Test 01/30/21 07:20 Glucose (Fingerstick) 112 mg/dL (70-99) Medications Active Scripts Medications Dose Route/Sig Max Daily Dose Days Date Category Furosemide 40 Mg Tablet 40 Mg PO QD 12/17/20 Rx Levemir (Insulin Detemir) 100 Unit/1 Ml Vial 12 Unit SQ BID 07/18/20 Reported Hydralazine Hcl 25 Mg Tablet 75 Mg PO BID 30 07/17/20 Rx Klor-Con 10 (Potassium Chloride) 10 Meq Tablet.er 1 Tab PO DAILY 30 07/11/20 Rx Lipitor (Atorvastatin Calcium) 40 Mg Tablet 1 Tab PO QHS 30 07/04/20 Rx Fluoxetine Hcl 20 Mg Capsule 20 Mg PO DAILY 30 07/04/20 Rx Carvedilol (Carvedilol) 6.25 Mg Tablet 6.25 Mg PO BIDWMEALS 30 07/04/20 Rx Clopidogrel (Clopidogrel Bisulfate) 75 Mg Tablet 1 Tab PO DAILY 30 07/04/20 Rx Isosorbide Dinitrate 30 Mg Tablet 2 Tab PO DAILY 30 07/04/20 Reported Amlodipine Besylate 10 Mg Tablet 10 Mg PO DAILY 07/04/20 Reported Aspirin Ec (Aspirin) 81 Mg Tablet.dr 1 Tab PO DAILY 07/04/20 Reported Omeprazole 20 Mg Capsule.dr 20 Mg PO DAILY 06/28/20 Reported Flomax (Tamsulosin Hcl) 0.4 Mg Cap.er.24h 0.4 Mg PO DAILY 06/28/20 Reported Comments CXR Impression: Mild left effusion and left basal infiltrate likely secondary to CHF. Impression . IMPRESSION: 1. Acute on chronic respiratory failure secondary to acute diastolic congestive heart failure, chronic obstructive pulmonary disease with mild exacerbation, untreated veronika. 2. Abnormal chest x-ray. 3. Obesity and snoring and excessive daytime sleepiness and highly suspect he has obstructive sleep apnea-hypopnea syndrome. 4. Acute diastolic congestive heart failure. 5. Chronic obstructive pulmonary disease with mild acute exacerbation. 6. Diabetes mellitus. 7. Hypertension. 8. Chronic kidney disease. 9. Status post left BKA Plan . Updated 01/30 Continue oxygen supplemental as needed, currently on 2 liters NC Continue to diuresis Follow cardiology recs-- now S/P RHC- awaiting report Follow Nephrology recs Previous ECHO 07/02-- LV preserved PT OT Possible outpatient polysomnogram DVT/GI PPX D/W RN Updated 01/29 Continue to diuresis PT OT Oxygen supplementation Possible outpatient polysomnogram PLAN AND RECOMMENDATIONS: 1. Titrate FiO2 to keep O2 saturation 90%. 2. IS, BD ICS 3. Continue Lasix. Monitor potassium and creatinine. 4. 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 He would require a sleep study as an outpatient. 5. Heparin for DVT prophylaxis. 6. Advised him to lose weight and exercise. 7. discussed w rn pt CAMILA MONTANO MD Jan 30, 2021 09:16
[2021-01-30] MEDS: CLOPIDOGREL BISULFATE 75 MG TABLET PO SCH (09:30)
[2021-01-30] MEDS: hydrALAZINE 25 MG TABLET PO SCH ×2 (09:30→22:11)
[2021-01-30] MEDS: CARVEDILOL 6.25 MG TABLET. PO SCH ×2 (09:31→17:21)
[2021-01-30] MEDS: amLODIPine BESYLATE 10 MG TABLET PO SCH (09:32)
[2021-01-30] MEDS: ASPIRIN ENTERIC COATED 81 MG TABLET.DR. PO SCH (09:34)
--- NOTE | 2021-01-30 09:43 | PDOC ---
DATE OF SERVICE DATE: 01/30/21 TIME: 09:41 SUBJECTIVE ROS states feeling much better. Reports breathing is better, he is n 2 Lt o2 by NC at home OBJECTIVE Vital Signs Vital Signs Date Time Temp Pulse Resp B/P (MAP) Pulse Ox O2 Delivery O2 Flow Rate FiO2 01/30/21 09:32 67 149/56 01/30/21 08:03 100 Nasal Cannula 2.0 01/30/21 07:00 98.1 18 98.1 I & 0 Intake and Output 01/30/21 07:00 Intake Total 1000 ml Output Total 250 ml Balance 750 ml Intake Oral 1000 ml Output Urine Total 250 ml PHYSICAL EXAM Physical Exam General: Alert, Oriented X3, Cooperative, No acute distress HEENT: OM moist, Neck supple Lungs: Clear to auscultation,decreased at bases, Non labored Heart: Regular rate Abdomen: Normal bowel sounds, Soft, No tenderness Extremities: No cyanosis, no edema , Lt BKA Skin: No breakdown , no rash Neuro: Normal speech, Cranial nerves 3-12 NL No pope . No SP or CVA tenderness DIAGNOSIS/ASSESSMENT Assessment & Plan SOPHIE cardiorenal, mild increase in Cr from his baseline at presentation, renal function back to his baseline .Supportive care, avoid nephrotoxins CKD stage 3- Baseline Cr 1.7-2.1 , Renal US 06/2020 unremarkable ,Pt reported at his previous hospitalization that he required dialysis in the past (has been many years), No fu with Renal, he is followed by Dr. Jha, his pcp Supportive care, avoid nephrotoxins Acute on chronic diastolic CHF; Echo 07/02 with preserved LV systolic function. improved with diuresis. appears compensated CAD: 3VD, recent PCI/ELLEN to the proximal and distal LAD, clinically stable and chest pain-free. Hypertension; controlled Diabetes, II Acute COPD exacerbation: Improved after initiating nebulizers Arrhythmia; 14-beat NSVT noted this am on tele Proteinuria , Non Nephrotic, 1.7 gm (in 06/2020)No micr hematuria. Likely 2/2 DM /HTN COMMENT/RELEVANT DATA Meds Current Medications Medications (Trade) Dose Ordered Sig/Ruddy Start Time Stop Time Status Last Admin Dose Admin Acetaminophen (Tylenol) 650 mg PRN Q6HRS PRN 01/26/21 07:45 Acetaminophen/ Hydrocodone Bitart (Lortab 5/325) 1 tab PRN Q4HRS PRN 01/26/21 07:45 Al Hydroxide/Mg Hydroxide (Mylanta Plus Xs) 30 ml PRN Q3HRS PRN 01/26/21 07:45 Albuterol/ Ipratropium (Duoneb) 3 ml RTQID 01/27/21 08:00 01/30/21 08:03 3 ML Amlodipine Besylate (Norvasc) 10 mg DAILY 01/26/21 09:00 01/30/21 09:32 10 MG Aspirin (Ecotrin) 81 mg DAILY 01/26/21 09:00 01/30/21 09:34 81 MG Atorvastatin Calcium (Lipitor) 40 mg QHS 01/26/21 21:00 01/29/21 21:11 40 MG Bisacodyl (Dulcolax Supp) 10 mg PRN DAILY PRN 01/26/21 07:45 Calcium Carbonate/ Glycine (Tums) 500 mg PRN Q3HRS PRN 01/26/21 07:45 Carvedilol (Coreg) 6.25 mg BIDWMEALS 01/26/21 08:00 01/30/21 09:31 6.25 MG Clopidogrel Bisulfate (Plavix) 75 mg DAILY 01/26/21 09:00 01/30/21 09:30 75 MG Dextrose (Dextrose 50%-Water Syringe) 12.5 gm PRN Q15MIN PRN 01/26/21 08:00 Dextrose (Iv Dextrose 5%) 250 ml PRN Q15MIN PRN 01/26/21 08:00 01/27/21 09:59 DC Fluoxetine HCl (PROzac) 20 mg DAILY 01/31/21 09:00 UNV Furosemide (Lasix) 40 mg DAILY 01/29/21 09:00 01/29/21 08:50 40 MG Heparin Sodium (Porcine) (Heparin Sodium) 5,000 unit Q8HRS 01/26/21 08:15 01/29/21 21:15 5,000 UNIT Hydralazine HCl (Apresoline) 75 mg BID 01/26/21 09:00 01/30/21 09:30 75 MG Insulin Glargine (Lantus Syringe) 10 unit BID 01/26/21 09:00 01/29/21 21:14 10 UNIT Insulin Human Lispro (HumaLOG) 0-7 UNITS TIDWMEALS 01/26/21 08:00 01/26/21 09:12 3 UNITS Magnesium Hydroxide (Milk Of Magnesia) 2,400 mg PRN Q12HR PRN 01/26/21 07:45 Ondansetron HCl (Zofran) 4 mg PRN Q6HRS PRN 01/26/21 07:45 Potassium Chloride (Klor-Con) 40 meq 1X ONCE 01/29/21 13:15 01/29/21 13:16 DC 01/29/21 15:32 40 MEQ Tamsulosin HCl (Flomax) 0.4 mg DAILY 01/26/21 09:00 01/29/21 08:49 0.4 MG Lab Laboratory Tests Test 01/29/21 12:28 01/29/21 14:10 01/29/21 20:53 01/30/21 06:15 Glucose (Fingerstick) 119 mg/dL (70-99) 140 mg/dL (70-99) Urine Collection Type Unknown Urine Color Yellow Urine Clarity Clear Urine pH 6.0 (<5.0-8.0) Urine Specific [place] 1.015 (1.000-1.030) Urine Protein >=300 mg/dL (NEG-TRACE) Urine Glucose (UA) Negative mg/dL (NEG) Urine Ketones (Stick) Negative mg/dL (NEG) Urine Blood Negative (NEG) Urine Nitrite Negative (NEG) Urine Bilirubin Negative (NEG) Urine Urobilinogen Dipstick 1.0 mg/dL (0.2 mg/dL) Urine Leukocyte Esterase Negative (NEG) Urine RBC 1-2 /HPF (0-2) Urine WBC 1-4 /HPF (0-4) Urine Squamous Epithelial Cells Few /LPF Urine Bacteria 0 /HPF (0-FEW) Urine Hyaline Casts Few /HPF Urine Granular Casts Few /HPF Sodium Level 141 mmol/L (136-145) Potassium Level 3.8 mmol/L (3.5-5.1) Chloride Level 105 mmol/L (98-107) Carbon Dioxide Level 29 mmol/L (21-32) Anion Gap 7 (6-14) Blood Urea Nitrogen 31 mg/dL (8-26) Creatinine 1.7 mg/dL (0.7-1.3) Estimated GFR (Cockcroft-Gault) 39.9 Glucose Level 110 mg/dL (70-99) Calcium Level 8.4 mg/dL (8.5-10.1) Test 01/30/21 07:20 Glucose (Fingerstick) 112 mg/dL (70-99) Results All relevant outside records, renal labs, imaging studies, telemetry/EKG's were reviewed. Justicifation of Admission Dx: Justifications for Admission: Justification of Admission Dx: Yes ELLIOTT SANDERS MD Jan 30, 2021 09:43
[2021-01-30] MEDS ORDERED: LIDOCAINE 1% Multi-Dose 20 ML VIAL. ONE (11:20)
[2021-01-30] MEDS ORDERED: fentaNYL PF VIAL 100 MCG/2 ML VIAL ONE (11:26)
[2021-01-30] MEDS ORDERED: MIDAZOLAM HCL/PF 2 MG/2 ML VIAL. ONE (11:27)
[2021-01-30] MEDS ORDERED: fentaNYL PF VIAL 100 MCG/2 ML VIAL IV ONE (12:00)
[2021-01-30] MEDS ORDERED: LIDOCAINE 1% Multi-Dose 20 ML VIAL. INJ ONE (12:00)
[2021-01-30] MEDS ORDERED: MIDAZOLAM HCL/PF 2 MG/2 ML VIAL. IV ONE (12:00)
[2021-01-30] MEDS ORDERED: IODIXANOL 320 MG/ML 100 ML VIAL. IART ONE (12:00)
--- NOTE | 2021-01-30 12:21 | PDOC ---
[facility] PROGRESS NOTE Date of Service DOS: DATE: 01/30/21 TIME: 12:17 Chief Complaint Chief Complaint Shortness of breath History of Present Illness History of Present Illness 01/31/20 Patient seen and examined. Spoke with nursing and director of casework. Patient was talkative today and seems to be doing well. I spoke with nursing to make sure he is still taking his duloxetine while in the hospital. 01/30/20 Patient seen and examined. Spoke with nursing and director of casework. He is doing okay and does not feel like his belly has fluid in it, which was a concern raised by nursing. He showed me the incision on his head for removal of a skin lesion. History of Present Illness Patient is 70-year-old male with past medical history CHF, DM 2, skin cancer with recent surgical removal, who presents to the ED with complaints of worsening shortness of breath that began this morning. Patient states he woke up feeling like "it's my CHF". Upon EMS arrival he was saturating 70% on 2 L O2, he was placed on 6 L nasal cannula with improvement to 94%. He received Lasix diuresis in ED with improvement. States he has been taking his Lasix as prescribed and denies missing any doses. Will admit patient for further medical management. Vitals/I&O Vitals/I&O: Vital Signs Date Time Temp Pulse Resp B/P (MAP) Pulse Ox O2 Delivery O2 Flow Rate FiO2 01/30/21 10:34 98.2 67 18 147/61 (89) 97 Nasal Cannula 2.0 98.2 I & O 01/29/21 01/29/21 01/30/21 15:00 23:00 07:00 Intake Total 600 ml 400 ml Output Total 250 ml Balance 600 ml 400 ml -250 ml Physical Exam Physical Exam: Physical Exam Physical Exam General: Alert, Oriented X3, Cooperative, mild distress HEENT: Head is wrapped and bandaged. PERRLA, EOMI Lungs: Bibasilar Rales, Normal air movement Heart: RRR, no murmurs Cardiovascular: S1, S2 Abdomen: Normal bowel sounds, Soft, No tenderness Extremities: Left BKA. No clubbing, No cyanosis Skin: No rashes, No significant lesion Neuro: Normal speech, Normal tone, Sensation intact Psych/Mental Status: Mental status NL, Mood NL General: Alert, Oriented X3, Cooperative, No acute distress Heart: Regular rate Lungs: Crackles Abdomen: Soft, No tenderness Extremities: No cyanosis, Other (Left below knee amputation) Skin: Other (Scalp: Large, clean, dry, closed incision on scalp. ) Labs Labs: Laboratory Tests Test 01/29/21 12:28 01/29/21 14:10 01/29/21 20:53 01/30/21 06:15 Glucose (Fingerstick) 119 mg/dL (70-99) 140 mg/dL (70-99) Urine Collection Type Unknown Urine Color Yellow Urine Clarity Clear Urine pH 6.0 (<5.0-8.0) Urine Specific [place] 1.015 (1.000-1.030) Urine Protein >=300 mg/dL (NEG-TRACE) Urine Glucose (UA) Negative mg/dL (NEG) Urine Ketones (Stick) Negative mg/dL (NEG) Urine Blood Negative (NEG) Urine Nitrite Negative (NEG) Urine Bilirubin Negative (NEG) Urine Urobilinogen Dipstick 1.0 mg/dL (0.2 mg/dL) Urine Leukocyte Esterase Negative (NEG) Urine RBC 1-2 /HPF (0-2) Urine WBC 1-4 /HPF (0-4) Urine Squamous Epithelial Cells Few /LPF Urine Bacteria 0 /HPF (0-FEW) Urine Hyaline Casts Few /HPF Urine Granular Casts Few /HPF Sodium Level 141 mmol/L (136-145) Potassium Level 3.8 mmol/L (3.5-5.1) Chloride Level 105 mmol/L (98-107) Carbon Dioxide Level 29 mmol/L (21-32) Anion Gap 7 (6-14) Blood Urea Nitrogen 31 mg/dL (8-26) Creatinine 1.7 mg/dL (0.7-1.3) Estimated GFR (Cockcroft-Gault) 39.9 Glucose Level 110 mg/dL (70-99) Calcium Level 8.4 mg/dL (8.5-10.1) Test 01/30/21 07:20 01/30/21 11:16 Glucose (Fingerstick) 112 mg/dL (70-99) 107 mg/dL (70-99) Assessment and Plan Assessmemt and Plan Problems Medical Problems: (1) CHF exacerbation Status: Acute Assessment Ventricular tachycardia Acute respiratory failure with hypoxia Acute CHF exacerbation CKD DM2 Skin cancer Hypokalemia - resolved Plan: Cardiac cath today. Continue diuresis per cardiology Heparin for DVT prophylaxis. PT/OT Home meds Continue monitoring kidney function Wound care taking care of incision on scalp Full code Hope to discharge to home health tomorrow morning Comment Review of Relevant I have reviewed the following items coral (where applicable) has been applied. Medications: Current Medications Medications (Trade) Dose Ordered Sig/Ruddy Route PRN Reason Start Time Stop Time Status Last Admin Dose Admin Potassium Chloride (Klor-Con) 40 meq 1X ONCE PO 01/29/21 13:15 01/29/21 13:16 DC 01/29/21 15:32 Justifications for Admission Other Justification Acute hypoxic respiratory failure, acute CHF exacerbation KING DYKES III DO Jan 30, 2021 12:21
[2021-01-30] MEDS: FUROSEMIDE 40 MG TABLET. PO SCH (13:33)
[2021-01-30] MEDS: POTASSIUM CHLORIDE 10 MEQ TABLET.ER. PO SCH (13:33)
[2021-01-30] MEDS: FLUoxetine HCL 20 MG CAPSULE PO SCH (13:33)
[2021-01-30] MEDS: TAMSULOSIN 0.4 MG CAP.ER.24H. PO SCH (13:36)
--- NOTE | 2021-01-30 13:41 | NUR ---
SS following up with discharge planning. SS reviewed pt chart and discussed with pt RN. Pt is currently requiring oxygen at two liters nasal canula. COVID19 negative. Pt had right heart cath today. Pt has home oxygen. PT/OT recommended home. SS will continue to follow for discharge planning.
[2021-01-30] MEDS: HEPARIN for SUB-Q USE 5,000 UNIT/ML VIAL. SQ SCH ×2 (15:06→22:13)
[2021-01-30] MEDS ORDERED: MAGNESIUM SULFATE 2GM 50 ML IV ONE (15:45)
--- NOTE | 2021-01-30 17:34 | CARD ---
MR#: [id number] Date of Study: 01/30/2021 Ordering Physician: PEARL MELO, Referring Physician: PEARL MELO, Tech: RT Carlos(R) APPROVED REPORT Technologist: Leeanna Joy RT(R) Nurse: Gretta Mistry RN Procedure(s) performed: Sedation Time: 14 Minutes Fluoro Time: 0.1 Minutes Dose: 0.13 Gycm2 RHC CASE TECHNIQUE IV conscious sedation was used throughout procedure with appropriate monitoring and was performed in the presence of a registered nurse who was an independent trained observer other than the physician p erforming the procedure. During this case, Fluoroscopy and no contrast were used for imaging. Specime n(s) Removed: N/A Estimated Blood loss: 15 cc's. PROCEDURE NARRATIVE After appropriate informed consent the right neck was prepped and draped in usual sterile fashion. U nder 1% lidocaine local anesthesia a 5 [place] sheath was placed in the right internal jugular vein vi a ultrasound guidance. Next, a 5 [place] PA catheter was advanced to the right heart chambers and pre ssures and saturations were obtained. At case completion the PA catheter was removed and hemostasis was achieved with manual compression. Findings: RA 3 RV 41/0/3 PA 39/12/23 [place] 11 [place] cardiac output 6.5 L/min PA saturation 67, FA saturation 96% Conclusion 1. Normal biventricular filling pressures 2. No evidence of pulmonary hypertension 3. Normal cardiac output Recommendations 1. No further aggressive diuresis needed. Maintain current weight. Continue treatment of pulmonary issues. Supportive care. Signed by : Pearl Melo, Electronically Approved : 01/30/2021 17:33:58
[2021-01-30] MEDS: ATORVASTATIN CALCIUM 40 MG TABLET. PO SCH (22:11)
[2021-01-31 02:49] VITALS: BP 136/70
[2021-01-31] MEDS: HEPARIN for SUB-Q USE 5,000 UNIT/ML VIAL. SQ SCH (06:08)
[2021-01-31 07:32] VITALS: BP 148/75
[2021-01-31] MEDS: IPRATRPIUM/ALBUTEROL 0.5/2.5MG 3 ML NEBU. NEB SCH ×2 (07:41→11:15)
[2021-01-31] MEDS: hydrALAZINE 25 MG TABLET PO SCH (08:36)
[2021-01-31] MEDS: TAMSULOSIN 0.4 MG CAP.ER.24H. PO SCH (08:36)
[2021-01-31] MEDS: FLUoxetine HCL 20 MG CAPSULE PO SCH (08:37)
[2021-01-31] MEDS: POTASSIUM CHLORIDE 10 MEQ TABLET.ER. PO SCH (08:37)
[2021-01-31] MEDS: amLODIPine BESYLATE 10 MG TABLET PO SCH (08:37)
[2021-01-31] MEDS: FUROSEMIDE 40 MG TABLET. PO SCH (08:37)
[2021-01-31] MEDS: CLOPIDOGREL BISULFATE 75 MG TABLET PO SCH (08:37)
[2021-01-31] MEDS: ASPIRIN ENTERIC COATED 81 MG TABLET.DR. PO SCH (08:37)
[2021-01-31] MEDS: CARVEDILOL 6.25 MG TABLET. PO SCH (08:38)
[2021-01-31] MEDS: INSULIN GLARGINE SYRINGE. SQ SCH (08:42)
[2021-01-31] MEDS: INSULIN LISPRO 300 UNITS/3 ML VIAL. SQ SCH ×2 (08:43→12:00)
--- NOTE | 2021-01-31 09:18 | PDOC ---
PULMONARY PROGRESS NOTES DATE: 01/31/21 TIME: 09:18 Subjective 2 L of oxygen supplementation Vitals Vital Signs Date Time Temp Pulse Resp B/P (MAP) Pulse Ox O2 Delivery O2 Flow Rate FiO2 01/31/21 08:38 80 148/75 01/31/21 07:43 97 Nasal Cannula 2.0 01/31/21 07:32 98.1 20 98.1 General: Alert, Oriented X4 Lungs: Crackles Cardiovascular: S1, S2 Abdomen: Soft, Non-tender Neuro Exam: Alert Extremities: No Edema, Other Skin: Warm, Dry Labs Laboratory Tests Test 01/29/21 12:28 01/29/21 14:10 01/29/21 20:53 01/30/21 06:15 Glucose (Fingerstick) 119 mg/dL (70-99) 140 mg/dL (70-99) Urine Collection Type Unknown Urine Color Yellow Urine Clarity Clear Urine pH 6.0 (<5.0-8.0) Urine Specific [place] 1.015 (1.000-1.030) Urine Protein >=300 mg/dL (NEG-TRACE) Urine Glucose (UA) Negative mg/dL (NEG) Urine Ketones (Stick) Negative mg/dL (NEG) Urine Blood Negative (NEG) Urine Nitrite Negative (NEG) Urine Bilirubin Negative (NEG) Urine Urobilinogen Dipstick 1.0 mg/dL (0.2 mg/dL) Urine Leukocyte Esterase Negative (NEG) Urine RBC 1-2 /HPF (0-2) Urine WBC 1-4 /HPF (0-4) Urine Squamous Epithelial Cells Few /LPF Urine Bacteria 0 /HPF (0-FEW) Urine Hyaline Casts Few /HPF Urine Granular Casts Few /HPF Sodium Level 141 mmol/L (136-145) Potassium Level 3.8 mmol/L (3.5-5.1) Chloride Level 105 mmol/L (98-107) Carbon Dioxide Level 29 mmol/L (21-32) Anion Gap 7 (6-14) Blood Urea Nitrogen 31 mg/dL (8-26) Creatinine 1.7 mg/dL (0.7-1.3) Estimated GFR (Cockcroft-Gault) 39.9 Glucose Level 110 mg/dL (70-99) Calcium Level 8.4 mg/dL (8.5-10.1) Test 01/30/21 07:20 01/30/21 11:16 01/30/21 16:15 01/30/21 20:35 Glucose (Fingerstick) 112 mg/dL (70-99) 107 mg/dL (70-99) 179 mg/dL (70-99) 193 mg/dL (70-99) Test 01/31/21 07:05 Glucose (Fingerstick) 186 mg/dL (70-99) Laboratory Tests Test 01/30/21 11:16 01/30/21 16:15 01/30/21 20:35 01/31/21 07:05 Glucose (Fingerstick) 107 mg/dL (70-99) 179 mg/dL (70-99) 193 mg/dL (70-99) 186 mg/dL (70-99) Medications Active Scripts Medications Dose Route/Sig Max Daily Dose Days Date Category Furosemide 40 Mg Tablet 40 Mg PO QD 12/17/20 Rx Levemir (Insulin Detemir) 100 Unit/1 Ml Vial 12 Unit SQ BID 07/18/20 Reported Hydralazine Hcl 25 Mg Tablet 75 Mg PO BID 30 07/17/20 Rx Klor-Con 10 (Potassium Chloride) 10 Meq Tablet.er 1 Tab PO DAILY 30 07/11/20 Rx Lipitor (Atorvastatin Calcium) 40 Mg Tablet 1 Tab PO QHS 30 07/04/20 Rx Fluoxetine Hcl 20 Mg Capsule 20 Mg PO DAILY 30 07/04/20 Rx Carvedilol (Carvedilol) 6.25 Mg Tablet 6.25 Mg PO BIDWMEALS 07/04/20 Rx Clopidogrel (Clopidogrel Bisulfate) 75 Mg Tablet 1 Tab PO DAILY 30 07/04/20 Rx Isosorbide Dinitrate 30 Mg Tablet 2 Tab PO DAILY 30 07/04/20 Reported Amlodipine Besylate 10 Mg Tablet 10 Mg PO DAILY 07/04/20 Reported Aspirin Ec (Aspirin) 81 Mg Tablet.dr 1 Tab PO DAILY 07/04/20 Reported Omeprazole 20 Mg Capsule.dr 20 Mg PO DAILY 06/28/20 Reported Flomax (Tamsulosin Hcl) 0.4 Mg Cap.er.24h 0.4 Mg PO DAILY 06/28/20 Reported Comments CXR Impression: Mild left effusion and left basal infiltrate likely secondary to CHF. Impression . IMPRESSION: 1. Acute on chronic respiratory failure secondary to acute diastolic congestive heart failure, chronic obstructive pulmonary disease with mild exacerbation, untreated veronika. 2. Abnormal chest x-ray. 3. Obesity and snoring and excessive daytime sleepiness and highly suspect he has obstructive sleep apnea-hypopnea syndrome. 4. Acute diastolic congestive heart failure. 5. Chronic obstructive pulmonary disease with mild acute exacerbation. 6. Diabetes mellitus. 7. Hypertension. 8. Chronic kidney disease. 9. Status post left BKA Findings: RA 3 RV 41/0/3 PA 39/12/23 Wedge 11 [place] cardiac output 6.5 L/min PA saturation 67, FA saturation 96% Conclusion 1. Normal biventricular filling pressures 2. No evidence of pulmonary hypertension 3. Normal cardiac output Recommendations 1. No further aggressive diuresis needed. Maintain current weight. Continue treatment of pulmonary issues. Supportive care. Plan . Updated 01/31 Reviewed findings of right heart catheterization normal filling pressures Proceed with aggressive treatment of COPD Outpatient pulmonary function testing Discussed with daughters at the bedside, patient is to walk on a daily basis he does have a prosthesis Updated 01/30 Continue oxygen supplemental as needed, currently on 2 liters NC Continue to diuresis Follow cardiology recs-- now S/P RHC- awaiting report Follow Nephrology recs Previous ECHO 07/02-- LV preserved PT OT Possible outpatient polysomnogram DVT/GI PPX D/W CAMILA ALSTON MD Jan 31, 2021 09:18
--- NOTE | 2021-01-31 09:56 | PDOC ---
DATE OF SERVICE DATE: 01/31/21 TIME: 09:55 SUBJECTIVE ROS Stable, No complaints OBJECTIVE Vital Signs Vital Signs Date Time Temp Pulse Resp B/P (MAP) Pulse Ox O2 Delivery O2 Flow Rate FiO2 01/31/21 08:38 80 148/75 01/31/21 07:43 97 Nasal Cannula 2.0 01/31/21 07:32 98.1 20 98.1 I & 0 Intake and Output 01/31/21 07:00 Intake Total 250 ml Output Total 450 ml Balance -200 ml Intake Oral 250 ml Output Urine Total 450 ml PHYSICAL EXAM Physical Exam General: Alert, Oriented X3, Cooperative, No acute distress HEENT: OM moist, Neck supple Lungs: Clear to auscultation,decreased at bases, Non labored Heart: Regular rate Abdomen: Normal bowel sounds, Soft, No tenderness Extremities: No cyanosis, no edema , Lt BKA Skin: No breakdown , no rash Neuro: Normal speech, Cranial nerves 3-12 NL No pope . No SP or CVA tenderness DIAGNOSIS/ASSESSMENT Assessment & Plan SOPHIE cardiorenal, mild increase in Cr from his baseline at presentation, renal function back to his baseline .Supportive care, avoid nephrotoxins CKD stage 3- Baseline Cr 1.7-2.1 , Renal US 06/2020 unremarkable ,Pt reported at his previous hospitalization that he required dialysis in the past (has been many years), Doesnt follow with nephrology , he is followed by Dr. Jha, his pcp Recommend follow up with me as OP (Non Urgent ) , dw Pt and nursing Acute on chronic diastolic CHF; Echo 07/02 with preserved LV systolic function. improved with diuresis. appears compensated CAD: 3VD, recent PCI/ELLEN to the proximal and distal LAD, clinically stable and chest pain-free. Hypertension; controlled Diabetes, II Acute COPD exacerbation: Improved after initiating nebulizers Arrhythmia; 14-beat NSVT noted this am on tele Proteinuria , Non Nephrotic, 1.7 gm (in 06/2020)No micr hematuria. Likely 2/2 DM /HTN COMMENT/RELEVANT DATA Meds Current Medications Medications (Trade) Dose Ordered Sig/Ruddy Start Time Stop Time Status Last Admin Dose Admin Acetaminophen (Tylenol) 650 mg PRN Q6HRS PRN 01/26/21 07:45 Acetaminophen/ Hydrocodone Bitart (Lortab 5/325) 1 tab PRN Q4HRS PRN 01/26/21 07:45 Al Hydroxide/Mg Hydroxide (Mylanta Plus Xs) 30 ml PRN Q3HRS PRN 01/26/21 07:45 Albuterol/ Ipratropium (Duoneb) 3 ml RTQID 01/27/21 08:00 01/31/21 07:41 3 ML Amlodipine Besylate (Norvasc) 10 mg DAILY 01/26/21 09:00 01/31/21 08:37 10 MG Aspirin (Ecotrin) 81 mg DAILY 01/26/21 09:00 01/31/21 08:37 81 MG Atorvastatin Calcium (Lipitor) 40 mg QHS 01/26/21 21:00 01/30/21 22:11 40 MG Bisacodyl (Dulcolax Supp) 10 mg PRN DAILY PRN 01/26/21 07:45 Calcium Carbonate/ Glycine (Tums) 500 mg PRN Q3HRS PRN 01/26/21 07:45 Carvedilol (Coreg) 6.25 mg BIDWMEALS 01/26/21 08:00 01/31/21 08:38 6.25 MG Clopidogrel Bisulfate (Plavix) 75 mg DAILY 01/26/21 09:00 01/31/21 08:37 75 MG Dextrose (Dextrose 50%-Water Syringe) 12.5 gm PRN Q15MIN PRN 01/26/21 08:00 Dextrose (Iv Dextrose 5%) 250 ml PRN Q15MIN PRN 01/26/21 08:00 01/27/21 09:59 DC Fentanyl Citrate (Fentanyl 2ml Vial) 100 mcg 1X ONCE 01/30/21 12:00 01/30/21 12:03 DC 01/30/21 12:10 50 MCG Fluoxetine HCl (PROzac) 20 mg DAILY 01/30/21 10:00 01/31/21 08:37 20 MG Furosemide (Lasix) 40 mg DAILY 01/29/21 09:00 01/31/21 08:37 40 MG Heparin Sodium (Porcine) (Heparin Sodium) 5,000 unit Q8HRS 01/26/21 08:15 01/31/21 06:08 5,000 UNIT Heparin Sodium/ Sodium Chloride (HEPARIN for ARTERIAL LINE FLUSH) 1,000 unit 1X ONCE 01/30/21 12:00 01/30/21 12:03 DC 01/30/21 12:00 1,000 UNIT Hydralazine HCl (Apresoline) 75 mg BID 01/26/21 09:00 01/31/21 08:36 75 MG Insulin Glargine (Lantus Syringe) 10 unit BID 01/26/21 09:00 01/31/21 08:42 10 UNIT Insulin Human Lispro (HumaLOG) 0-7 UNITS TIDWMEALS 01/26/21 08:00 01/31/21 08:43 3 UNITS Iodixanol (Visipaque 320) 100 ml 1X ONCE 01/30/21 12:00 01/30/21 12:03 DC Lidocaine HCl (Lidocaine 1% 20ml Vial) 20 ml 1X ONCE 01/30/21 12:00 01/30/21 12:03 DC 01/30/21 12:00 8 ML Magnesium Hydroxide (Milk Of Magnesia) 2,400 mg PRN Q12HR PRN 01/26/21 07:45 Magnesium Sulfate 50 ml @ 25 mls/hr 1X ONCE 01/30/21 15:45 01/30/21 17:44 DC 01/30/21 17:20 25 MLS/HR Midazolam HCl (Versed) 2 mg 1X ONCE 01/30/21 12:00 01/30/21 12:03 DC 01/30/21 12:00 1 MG Ondansetron HCl (Zofran) 4 mg PRN Q6HRS PRN 01/26/21 07:45 Potassium Chloride (Klor-Con) 40 meq 1X ONCE 01/29/21 13:15 01/29/21 13:16 DC 01/29/21 15:32 40 MEQ Tamsulosin HCl (Flomax) 0.4 mg DAILY 01/26/21 09:00 01/31/21 08:36 0.4 MG Lab Laboratory Tests Test 01/30/21 11:16 01/30/21 16:15 01/30/21 20:35 01/31/21 07:05 Glucose (Fingerstick) 107 mg/dL (70-99) 179 mg/dL (70-99) 193 mg/dL (70-99) 186 mg/dL (70-99) Results All relevant outside records, renal labs, imaging studies, telemetry/EKG's were reviewed. Justicifation of Admission Dx: Justifications for Admission: Justification of Admission Dx: Yes ELLIOTT SANDERS MD Jan 31, 2021 09:55
--- NOTE | 2021-01-31 10:00 | PDOC ---
[facility] [facility] PROGRESS NOTE Date of Service DOS: DATE: 01/31/21 TIME: 09:59 Chief Complaint Chief Complaint Shortness of breath History of Present Illness History of Present Illness 01/31/21 Patient seen and examined. Spoke with nursing and heel caser. Cardiac cath unremarkable per cardiology 01/30/21 Patient seen and examined. Spoke with nursing and heel caser. Patient was talkative today and seems to be doing well. I spoke with nursing to make sure he is still taking his duloxetine while in the hospital. 01/29/21 Patient seen and examined. Spoke with nursing and heel caser. He is doing okay and does not feel like his belly has fluid in it, which was a concern raised by nursing. He showed me the incision on his head for removal of a skin lesion. History of Present Illness Patient is 70-year-old male with past medical history CHF, DM 2, skin cancer with recent surgical removal, who presents to the ED with complaints of worsening shortness of breath that began this morning. Patient states he woke up feeling like "it's my CHF". Upon EMS arrival he was saturating 70% on 2 L O2, he was placed on 6 L nasal cannula with improvement to 94%. He received Lasix diuresis in ED with improvement. States he has been taking his Lasix as prescribed and denies missing any doses. Will admit patient for further medical management. Vitals/I&O Vitals/I&O: Vital Signs Date Time Temp Pulse Resp B/P (MAP) Pulse Ox O2 Delivery O2 Flow Rate FiO2 01/31/21 08:38 80 148/75 01/31/21 07:43 97 Nasal Cannula 2.0 01/31/21 07:32 98.1 20 98.1 I & O 01/30/21 01/30/21 01/31/21 15:00 23:00 07:00 Intake Total 250 ml Output Total 450 ml Balance -450 ml 250 ml Physical Exam Physical Exam: Physical Exam Physical Exam General: Alert, Oriented X3, Cooperative, mild distress HEENT: Head is wrapped and bandaged. PERRLA, EOMI Lungs: Bibasilar Rales, Normal air movement Heart: RRR, no murmurs Cardiovascular: S1, S2 Abdomen: Normal bowel sounds, Soft, No tenderness Extremities: Left BKA. No clubbing, No cyanosis Skin: No rashes, No significant lesion Neuro: Normal speech, Normal tone, Sensation intact Psych/Mental Status: Mental status NL, Mood NL General: Alert, Oriented X3, Cooperative, No acute distress Heart: Regular rate Lungs: Clear Abdomen: Soft, No tenderness Extremities: No cyanosis, Other (Left below knee amputation) Skin: Other (Scalp: Large, clean, dry, closed incision on scalp. ) Labs Labs: Laboratory Tests Test 01/30/21 11:16 01/30/21 16:15 01/30/21 20:35 01/31/21 07:05 Glucose (Fingerstick) 107 mg/dL (70-99) 179 mg/dL (70-99) 193 mg/dL (70-99) 186 mg/dL (70-99) Assessment and Plan Assessmemt and Plan Problems Medical Problems: (1) CHF exacerbation Status: Acute Assessment Ventricular tachycardia Acute respiratory failure with hypoxia Acute CHF exacerbation CKD DM2 Skin cancer Plan: Discharge today to self-care or home health, pending heel caser conversation with patient. In the meantime: DVT prophylaxis. PT/OT Home meds Full code Comment Review of Relevant I have reviewed the following items coral (where applicable) has been applied. Medications: Current Medications Medications (Trade) Dose Ordered Sig/Ruddy Route PRN Reason Start Time Stop Time Status Last Admin Dose Admin Fluoxetine HCl (PROzac) 20 mg DAILY PO 01/30/21 10:00 01/31/21 08:37 Heparin Sodium/ Sodium Chloride (HEPARIN for ARTERIAL LINE FLUSH) 1,000 unit 1X ONCE IART 01/30/21 12:00 01/30/21 12:03 DC 01/30/21 12:00 Midazolam HCl (Versed) 2 mg 1X ONCE IV 01/30/21 12:00 01/30/21 12:03 DC 01/30/21 12:00 Fentanyl Citrate (Fentanyl 2ml Vial) 100 mcg 1X ONCE IV 01/30/21 12:00 01/30/21 12:03 DC 01/30/21 12:10 Lidocaine HCl (Lidocaine 1% 20ml Vial) 20 ml 1X ONCE INJ 01/30/21 12:00 01/30/21 12:03 DC 01/30/21 12:00 Magnesium Sulfate 50 ml @ 25 mls/hr 1X ONCE IV 01/30/21 15:45 01/30/21 17:44 DC 01/30/21 17:20 Justifications for Admission Other Justification Acute hypoxic respiratory failure, acute CHF exacerbation KING DYKES III DO Jan 31, 2021 10:00
[2021-01-31 10:42] VITALS: BP 146/68
--- NOTE | 2021-01-31 11:52 | PDOC ---
CARDIO Progress Notes Date and Time Date of Service 01/31/21 Time of Evaluation 1120 Subjective Subjective: No Chest Pain, No shortness of breath, No Palpitations Vitals Vitals Vital Signs Date Time Temp Pulse Resp B/P (MAP) Pulse Ox O2 Delivery O2 Flow Rate FiO2 01/31/21 11:16 100 Nasal Cannula 2.0 01/31/21 10:42 97.9 67 20 146/68 (94) 97.9 Weight Weight [ ] Input and Output Intake and Output Intake and Output 01/31/21 07:00 Intake Total 250 ml Output Total 450 ml Balance -200 ml Intake Oral 250 ml Output Urine Total 450 ml Laboratory Labs Laboratory Tests Test 01/30/21 16:15 01/30/21 20:35 01/31/21 07:05 01/31/21 11:09 Glucose (Fingerstick) 179 mg/dL (70-99) 193 mg/dL (70-99) 186 mg/dL (70-99) 134 mg/dL (70-99) Physical Exam HEENT: Neck Supple W Full Motion Chest: Symmetric LUNGS: Clear to Auscultation Heart: RRR Abdomen: Soft N/T Extremities: No Edema, Other (left BKA) Neurology: alert, oriented, follow commands Assessment Assessment 1. Acute on chronic diastolic CHF; Echo 07/02 with preserved LV systolic function. improved with diuresis. RHC with normal biventricular filling pressures and CO 2. SOPHIE on CKD. Cr stable 3. CAD: 3VD, recent PCI/ELLEN to the proximal and distal LAD, clinically stable and chest pain-free. 4. Hypertension; controlled 5. Diabetes, II 6. Acute COPD exacerbation: Improved after initiating nebulizers 7. Arrhythmia; 14-beat NSVT noted this am on tele 8. Hypokalemia Recommendations Continue oral Lasix therapy Daily weight monitor 2Gma Na diet and 2000cc FR Continue BB Secondary prevention measures. Supportive care Okay to discharge from a CV standpoint Follow up in our office with Dr. Melo as scheduled Justicifation of Admission Dx: Justifications for Admission: Justification of Admission Dx: Yes CHAVA BUCHANAN APRN Jan 31, 2021 11:52
[2021-01-31] MEDS ORDERED: ISOS60TA55 PO (12:08)
--- NOTE | 2021-01-31 12:15 | SNU/HH DC ---
DISCHARGE WITH HOME HEALTH DISCHARGE INFORMATION: Final Diagnosis: Problems Medical Problems: (1) CHF exacerbation Status: Acute Condition on Discharge: Stable CODE STATUS: Code Status: Full HOME HEALTH: Face to Face: I certify this patient is under my care and that I, or a nurse practitioner or physician's nursing assistant working with me, had a face to face encounter that meets the physician face to face encounter requirements with this patient on []. Medical Complications: CHF Senior Living For: Assess Cardiopulm Status RN For Eval/Treatment: Yes Physical Therapy For: Evalulation/Treatment Occupational Therapy For: Evaluation/Treatment Home Health Aide For: Self-care WAFER FABRICATION OPERATOR For: Community Resources Pt Meets Homebound Status: Poor coordination w/ amb. POST DISCHARGE ORDERS: Activity Instructions for Disc: Activity as tolerated Weight Bearing Status after Di: No restrictions Bathing Instructions: No Tub Bath until see Dr. PATEL AFTER DISCHARGE: Cardiac Wound/Incision Care: No wound care needed CHECKS AFTER DISCHARGE: Checks after discharge: Check blood press - daily, Check blood sugar, ac/hs, Check your Temp as needed, Weigh Yourself Daily TREATMENT/EQUIPMENT ORDERS: Adaptive Equipment Issued: Cane, Commode, Walker Discharge Respiratory Equipmen: Oxygen CERTIFICATION STATEMENT: Certification Statement: Certification Statement: Based on the above finding, I certify that this patient is confined to the home and needs intermittent fci care, physical therapy and/or speech therapy, or continues to need occupational therapy.~ This patient is under my care, and I have initiated the establishment of the plan of care.~ This patient will be followed by myself or a community physician who will periodically review the plan of care. Home Meds Active Scripts Isosorbide Mononitrate (ISOSORBIDE MONONITRATE ER) 60 Mg Tab.er.24h, 1 TAB PO DAILY for coronary artery disease for 30 Days, #30 TAB 2 Refills Prov:CHAVA BUCHANAN APRN 01/31/21 Furosemide (FUROSEMIDE) 40 Mg Tablet, 40 MG PO QD for diuretic, #30 TAB 1 Refill Prov:SARAH COLLINS MD 12/17/20 Hydralazine Hcl (HYDRALAZINE HCL) 25 Mg Tablet, 75 MG PO BID for BLOOD PRESSURE for 30 Days, #180 TAB Prov:MARGARITO CABEZAS MD 07/17/20 Potassium Chloride (KLOR-CON 10) 10 Meq Tablet.er, 1 TAB PO DAILY for potassium supplement for 30 Days, #30 TAB 2 Refills Prov:SARAH COLLINS MD 07/11/20 Atorvastatin Calcium (LIPITOR) 40 Mg Tablet, 1 TAB PO QHS for cholesterol, CAD for 30 Days, #30 TAB 2 Refills Prov:CHAVA BUCHANAN DISMANTLER 07/04/20 Fluoxetine Hcl (FLUOXETINE HCL) 20 Mg Capsule, 20 MG PO DAILY for depression for 30 Days, #30 CAP Prov:RENETTA DUTTON MD 07/04/20 Carvedilol (CARVEDILOL ) 6.25 Mg Tablet, 6.25 MG PO BIDWMEALS for chf for 30 Days, #60 TAB Prov:RENETTA DUTTON MD 07/04/20 Clopidogrel Bisulfate (CLOPIDOGREL) 75 Mg Tablet, 1 TAB PO DAILY for blood thinner for 30 Days, #30 TAB 1 Refill Prov:RENETTA DUTTON MD 07/04/20 Reported Medications Insulin Detemir (LEVEMIR) 100 Unit/1 Ml Vial, 12 UNIT SQ BID for blood sugar, VIAL 07/18/20 Isosorbide Dinitrate (ISOSORBIDE DINITRATE) 30 Mg Tablet, 2 TAB PO DAILY for chest pain for 30 Days, #60 TAB 0 Refills 07/04/20 Amlodipine Besylate (AMLODIPINE BESYLATE) 10 Mg Tablet, 10 MG PO DAILY for heart/blood pressure, TAB 07/04/20 Aspirin (ASPIRIN EC) 81 Mg Tablet.dr, 1 TAB PO DAILY for blood thinner, #30 TAB 3 Refills 07/04/20 Omeprazole (OMEPRAZOLE) 20 Mg Capsule.dr, 20 MG PO DAILY for gerd, CAP 06/28/20 Tamsulosin Hcl (FLOMAX) 0.4 Mg Cap.er.24h, 0.4 MG PO DAILY for retention, TAB 06/28/20 KING DYKES III DO Jan 31, 2021 12:15
--- NOTE | 2021-01-31 13:55 | NUR ---
Discharge Note: JOVANNI SOLIS Discharge instructions and discharge home medications reviewed with Patient and a copy given. All questions have been answered and understanding verbalized. The following instructions and handouts were given: discharge instructions, follow up appointment, nebulizer instructions, Discontinued lines and drains: Peripheral IV intact. Patient discharged to home with home health with Family Member via Wheelchair
== END 2021-01-31 13:45 | disposition home health service (06) | DRG 286 ==
LOC: ER 03:56 → ED HOLD 07:38 → 2 NORTH 11:02
PROVIDERS: ADMIT Family Medicine; ATTEND Family Medicine
PROC: 4A023N6 Measurement of Cardiac Sampling and Pressure, Right Heart, Percutaneous Approach (ICD-10-PCS; principal; 2021-01-30)
DX: I13.0 Hypertensive heart and chronic kidney disease with heart failure and stage 1 through stage 4 chronic kidney disease, or unspecified chronic kidney disease (principal); I50.33 Acute on chronic diastolic (congestive) heart failure; J96.21 Acute and chronic respiratory failure with hypoxia; E43 Unspecified severe protein-calorie malnutrition; J44.1 Chronic obstructive pulmonary disease with (acute) exacerbation; N17.9 Acute kidney failure, unspecified; I47.2 Ventricular tachycardia; E87.6 Hypokalemia; Z20.822 Contact with and (suspected) exposure to COVID-19; E11.22 Type 2 diabetes mellitus with diabetic chronic kidney disease; E66.9 Obesity, unspecified; E78.00 Pure hypercholesterolemia, unspecified; G47.33 Obstructive sleep apnea (adult) (pediatric); I25.10 Atherosclerotic heart disease of native coronary artery without angina pectoris; F32.9 Major depressive disorder, single episode, unspecified; F41.9 Anxiety disorder, unspecified; E11.42 Type 2 diabetes mellitus with diabetic polyneuropathy; N18.9 Chronic kidney disease, unspecified; K21.9 Gastro-esophageal reflux disease without esophagitis; I07.1 Rheumatic tricuspid insufficiency; M19.90 Unspecified osteoarthritis, unspecified site; N40.0 Benign prostatic hyperplasia without lower urinary tract symptoms; E78.5 Hyperlipidemia, unspecified; I25.2 Old myocardial infarction; Z68.25 Body mass index [BMI] 25.0-25.9, adult; Z79.02 Long term (current) use of antithrombotics/antiplatelets; Z79.4 Long term (current) use of insulin; Z79.82 Long term (current) use of aspirin; Z79.899 Other long term (current) drug therapy; Z82.49 Family history of ischemic heart disease and other diseases of the circulatory system; Z83.3 Family history of diabetes mellitus; Z85.828 Personal history of other malignant neoplasm of skin; Z90.49 Acquired absence of other specified parts of digestive tract; Z95.5 Presence of coronary angioplasty implant and graft; Z89.512 Acquired absence of left leg below knee; Z98.49 Cataract extraction status, unspecified eye; Z86.018 Personal history of other benign neoplasm
CPT/HCPCS: 36415; 71045; 80048; 80053; 81001; 82550; 82962; 83735; 83880; 85025; 87426; 87804; 93005; 93451; 94640; 94760; 96374; 99152; 99285; C1773; C1892; J1644; J1815; J1940; J2250; J3010; J3475; J3490; U0003; U0005; G0378

== ENCOUNTER 2021-02-02 09:58 | Inpatient (IN) | payer MEDICARE ==
[~2021-02-02] VITALS: Ht 182.9 cm; Wt 82.1 kg
[~2021-02-02 09:58] MED LIST changes: +ISOS60TA55 PO
--- NOTE | 2021-02-02 10:33 | ED.ADGEN ---
Past Medical History Past Medical History: Anxiety, Arrhythmia, CAD, Depression, Diabetes-Type II, GERD, High Cholesterol, Hypertension, DE, Other Additional Past Medical Histor: L BKA, DIALYSIS, PERIPHERAL NEUROPATHY, BPH, AND PULMONARY EDEMA Past Surgical History: Appendectomy, Tonsillectomy Additional Past Surgical Histo: HEART STENTS, L BKA, AND CATARACT Smoking Status: Never Smoker Alcohol Use: None General Adult EDM: Chief Complaint: SHORTNESS OF BREATH HPI: HPI: Patient is a 70-year-old male who arrives via EMS with reported difficulty breathing. Patient has a known history of congestive heart failure was evaluated in this hospital 2 days previously and offered admission for symptoms. At that time the patient declined admission and decided to go home. Since that time the patient has experienced increased difficulty breathing. Patient reports considerable effort with breathing at this time despite taking his medications. He denies chest pain. He further denies any fevers. He further states he has not had the coronavirus vaccine series yet. He is awake, alert and in significant respiratory distress. Review of Systems: Review of Systems: Constitutional: Denies fever or chills. [] Eyes: Denies change in visual acuity. [] HENT: Denies nasal congestion or sore throat. [] Respiratory: Reports shortness of air. Denies cough. [] Cardiovascular: Denies chest pain or edema. [] GI: Denies abdominal pain, nausea, vomiting, bloody stools or diarrhea. [] : Denies dysuria. [] Musculoskeletal: Denies back pain or joint pain. [] Integument: Denies rash. [] Neurologic: Denies headache, focal weakness or sensory changes. [] Endocrine: Denies polyuria or polydipsia. [] Lymphatic: Denies swollen glands. [] Psychiatric: Denies depression or anxiety. [] Current Medications: Current Medications Medications (Trade) Dose Ordered Sig/Ruddy Start Time Stop Time Status Last Admin Dose Admin Furosemide (Lasix) 40 mg 1X ONCE 02/02/21 11:30 02/02/21 11:31 Ondansetron HCl (Zofran) 4 mg PRN Q8HRS PRN 02/02/21 11:15 02/03/21 11:14 Allergies: Allergies: Allergies Coded Allergies Type Severity Reaction Last Updated Verified No Known Drug Allergies 06/28/20 No Physical Exam: PE: Constitutional: Uncomfortable appearing. Well developed, well nourished, non- toxic appearance. [] HENT: Normocephalic, atraumatic, bilateral external ears normal, oropharynx moist, no oral exudates, nose normal. [] Eyes: PERRLA, EOMI, conjunctiva normal, no discharge. [] Neck: Normal range of motion, no tenderness, supple, no stridor. [] Cardiovascular:Heart rate regular rhythm, no murmur [] Lungs & Thorax: Patient has rhonchi bilaterally with moderate respiratory distress. [] Abdomen: Bowel sounds normal, soft, no tenderness, no masses, no pulsatile masses. [] Skin: Warm, dry, no erythema, no rash. [] Back: No tenderness, no CVA tenderness. [] Extremities: No tenderness, no cyanosis, no clubbing, ROM intact, no edema. [] Neurologic: Alert and oriented X 3, normal motor function, normal sensory function, no focal deficits noted. [] Psychologic: Affect normal, judgement normal, mood normal. [] Current Patient Data: Labs: Laboratory Tests Test 02/02/21 10:20 White Blood Count 8.1 x10^3/uL (4.0-11.0) Red Blood Count 2.84 x10^6/uL (4.30-5.70) L Hemoglobin 8.9 g/dL (13.0-17.5) L Hematocrit 25.5 % (39.0-53.0) L Mean Corpuscular Volume 90 fL (79-100) Mean Corpuscular Hemoglobin 31 pg (25-35) Mean Corpuscular Hemoglobin Concent 35 g/dL (31-37) Red Cell Distribution Width 13.9 % (11.5-14.5) Platelet Count 301 x10^3/uL (140-400) Neutrophils (%) (Auto) 84 % (31-73) H Lymphocytes (%) (Auto) 8 % (24-48) L Monocytes (%) (Auto) 6 % (0-9) Eosinophils (%) (Auto) 1 % (0-3) Basophils (%) (Auto) 1 % (0-3) Neutrophils # (Auto) 6.8 x10^3/uL (1.8-7.7) Lymphocytes # (Auto) 0.6 x10^3/uL (1.0-4.8) L Monocytes # (Auto) 0.5 x10^3/uL (0.0-1.1) Eosinophils # (Auto) 0.1 x10^3/uL (0.0-0.7) Basophils # (Auto) 0.1 x10^3/uL (0.0-0.2) Sodium Level 141 mmol/L (136-145) Potassium Level 4.6 mmol/L (3.5-5.1) Chloride Level 104 mmol/L (98-107) Carbon Dioxide Level 27 mmol/L (21-32) Anion Gap 10 (6-14) Blood Urea Nitrogen 39 mg/dL (8-26) H Creatinine 1.9 mg/dL (0.7-1.3) H Estimated GFR (Cockcroft-Gault) 35.1 BUN/Creatinine Ratio 21 (6-20) H Glucose Level 191 mg/dL (70-99) H Lactic Acid Level 0.8 mmol/L (0.4-2.0) Calcium Level 8.4 mg/dL (8.5-10.1) L Total Bilirubin 0.4 mg/dL (0.2-1.0) Aspartate Amino Transferase (AST) 22 U/L (15-37) Alanine Aminotransferase (ALT) 22 U/L (16-63) Alkaline Phosphatase 93 U/L (46-116) Troponin I Quantitative 1.607 ng/mL (0.000-0.055) JB-Kcg-C-Type Natriuretic Peptide 63470 pg/mL (0-124) H Total Protein 6.6 g/dL (6.4-8.2) Albumin 2.7 g/dL (3.4-5.0) L Albumin/Globulin Ratio 0.7 (1.0-1.7) L Laboratory Tests 02/02/21 10:20 Laboratory Tests 02/02/21 10:20 Vital Signs: Vital Signs Date Time Temp Pulse Resp B/P (MAP) Pulse Ox O2 Delivery O2 Flow Rate FiO2 02/02/21 10:31 97.4 74 32 139/80 (99) 97 NonRebreather Mask 15.0 97.4 EKG: EKG: [] EKG was obtained at 10:06 AM and revealed a normal sinus rhythm with a ventricular rate of 74 bpm. The patient demonstrates left axis deviation without acute ST/T wave changes to denote ischemia. Heart Score: C/O Chest Pain: No Risk Factors: Risk Factors: DM, Current or recent (<one month) smoker, HTN, HLP, family history of CAD, obesity. Risk Scores: Score 0 - 3: 2.5% MACE over next 6 weeks - Discharge Home Score 4 - 6: 20.3% MACE over next 6 weeks - Admit for Clinical Observation Score 7 - 10: 72.7% MACE over next 6 weeks - Early Invasive Strategies Radiology/Procedures: Radiology/Procedures: [] Impression: [facility] [address] [place] [address] IMAGING REPORT Signed PATIENT: JOVANNI SOLIS ACCOUNT: [id number] : 1950 LOCATION: ER AGE: 70 SEX: M EXAM STATUS: PRE ER ORD. PHYSICIAN: STEPHANIE LOO DO REASON: Shortness of air PROCEDURE: PORTABLE CHEST 1V EXAM: Chest, single view. HISTORY: Shortness of air. COMPARISON: 01/26/2021 FINDINGS: A frontal view of the chest is obtained. There is slight increased diffuse central predominant interstitial infiltrate. There is a stable small left pleural effusion. There is a stable prominent cardiac silhouette. There is no pneumothorax. IMPRESSION: Slight interval increase in diffuse central predominant interstitial infiltrate. Stable small left pleural effusion and prominent cardiac silhouette. Electronically signed by: Kristan Holcomb MD (02/02/2021 10:30 AM) [id number] DICTATED and SIGNED BY: KRISTAN HOLCOMB MD DATE: 02/02/21 [id number] Course & Med Decision Making: Course & Med Decision Making Pertinent Labs and Imaging studies reviewed. (See chart for details) [] Dragon Disclaimer: Dragon Disclaimer: This electronic medical record was generated, in whole or in part, using a voice recognition dictation system. Departure Departure Impression: Primary Impression: CHF (congestive heart failure) Additional Impressions: Elevated troponin I level Renal insufficiency Disposition: ADMITTED INPATIENT Admitting Physician: TRUDI Condition: GUARDED Referrals: YANNICK BAR MD (PCP) Problem Qualifiers STEPHANIE LOO DO Feb 02, 2021 10:33
--- NOTE | 2021-02-02 10:33 | RAD ---
EXAM: Chest, single view. HISTORY: Shortness of air. COMPARISON: 01/26/2021 FINDINGS: A frontal view of the chest is obtained. There is slight increased diffuse central predomin ant interstitial infiltrate. There is a stable small left pleural effusion. There is a stable promine nt cardiac silhouette. There is no pneumothorax. IMPRESSION: Slight interval increase in diffuse central predominant interstitial infiltrate. Stable s mall left pleural effusion and prominent cardiac silhouette. Electronically signed by: Kristan John MD (02/02/2021 10:30 AM) [id number]
[2021-02-02 10:44] LABS: BASO # 0.1 x10^3/uL (0.0-0.2); BASO % 1 % (0-3); EOS # 0.1 x10^3/uL (0.0-0.7); EOS % 1 % (0-3); HEMATOCRIT 25.5 % (39.0-53.0); HEMOGLOBIN 8.9 g/dL (13.0-17.5); LYMPH # 0.6 x10^3/uL (1.0-4.8); LYMPH % 8 % (24-48); MEAN CORPUSCULAR HEMOGLOBIN 31 pg (25-35); MEAN CORPUSCULAR HGB CONC 35 g/dL (31-37); MEAN CORPUSCULAR VOLUME 90 fL (79-100); MONO # 0.5 x10^3/uL (0.0-1.1); MONO % 6 % (0-9); NEUT # 6.8 x10^3/uL (1.8-7.7); NEUT % 84 % (31-73); PLATELET COUNT 301 x10^3/uL (140-400); RED BLOOD COUNT 2.84 x10^6/uL (4.30-5.70); RED CELL DISTRIBUTION WIDTH 13.9 % (11.5-14.5); WHITE BLOOD COUNT 8.1 x10^3/uL (4.0-11.0)
--- NOTE | 2021-02-02 10:46 | EKG ---
[facility] [address] [place] [address] Test Date: 2021-02-02 Test Time: 10:06:19 Pat Name: JOVANNI SOLIS Department: Room: Gender: M Building Code Inspector: : 1950 Requested By: STEPHANIE LOO Order Number: [id number] Reading MD: Derrek Melo MD Measurements Intervals [place] Rate: 74 P: 40 [place]: 302 QRS: 0 QRSD: 88 T: 59 QT: 392 QTc: 440 Interpretive Statements SINUS RHYTHM 1st DEGREE AVB NON-SPECIFIC ST/T CHANGES Electronically Signed On 02-03-2021 10:29:22 CDT by Derrek Melo MD
[2021-02-02 10:47] LABS: CALCIUM 8.4 mg/dL (8.5-10.1); CREATININE 1.9 mg/dL (0.7-1.3); GFR 35.1; POTASSIUM 4.6 mmol/L (3.5-5.1)
[2021-02-02 10:53] LABS: ALBUMIN 2.7 g/dL (3.4-5.0); ALBUMIN/GLOBULIN RATIO 0.7 (1.0-1.7); TOTAL BILIRUBIN 0.4 mg/dL (0.2-1.0); TOTAL PROTEIN 6.6 g/dL (6.4-8.2)
[2021-02-02] MEDS ORDERED: ONDANSETRON PF 4 MG/2 ML VIAL. IV PRN (11:15)
[2021-02-02] MEDS ORDERED: FUROSEMIDE 40 MG/4 ML VIAL. IVP ONE (11:30)
--- NOTE | 2021-02-02 12:01 | HP ---
ADMIT DATE: 02/02/2021 CHIEF COMPLAINT: Shortness of breath. HISTORY OF PRESENT ILLNESS: The patient is a pleasant elderly male who was just sent home a few days ago. Once again, he presents with heart failure. He is short of breath. He was hypoxic with a sat in the 88% range. He states he has been following his diet and he increased his home meds but that did not work. His symptoms are worse with moving, better with sitting still, rated at 9/10. It makes him very anxious. I discussed the case with ER physician. We have placed him on BiPAP. We have also given him 40 of IV Lasix. We are also consulting Cardiology. The patient is quite ill. PAST MEDICAL HISTORY: CHF, arrhythmia, anxiety, depression, CAD, diabetes, hypertension, hyperlipidemia, myocardial infarction, left BKA, BPH, pulmonary edema, neuropathy. PAST SURGICAL HISTORY: Tonsillectomy, coronary stents, cataract surgery. ALLERGIES: None. FAMILY HISTORY: Diabetes. SOCIAL HISTORY: He does not drink, smoke or take drugs. He is . He is very depressed over that. MEDICATIONS: Reviewed. Please refer to the MRAD. REVIEW OF SYSTEMS: GENERAL: He complains of weakness. SKIN: No bruising, hair changes or rashes. EYES: No blurred, double or loss of vision. NOSE AND THROAT: No history of nosebleeds, hoarseness or sore throat. HEART: No history of palpitations, chest pain or shortness of breath on exertion. LUNGS: He complains of shortness of breath. GASTROINTESTINAL: Denies changes in appetite, nausea, vomiting, diarrhea or constipation. GENITOURINARY: No history of frequency, urgency, hesitancy or nocturia. neurologic: Denies history of numbness, tingling, tremor or weakness. PSYCHIATRIC: He complains of depression. ENDOCRINE: No history of heat or cold intolerance, polyuria or polydipsia. EXTREMITIES: Denies muscle weakness, joint pain, pain on walking or stiffness. PHYSICAL EXAMINATION: VITAL SIGNS: Within normal limits and are stable. GENERAL: He is depressed. HEENT: He has BiPAP on. EYES: Extraocular muscles are intact, pupils are equally round and reactive to light and accommodation. MUSCULOSKELETAL: Well developed, well nourished, good range of motion. ENDOCRINE: No thyromegaly was palpated. LYMPHATICS: No cervical chain or axillary nodes were noted. HEMATOPOIETIC: No bruising. NECK: Supple, no JVD, no thyromegaly was noted. LUNGS: He has bibasilar crackles. HEART: RRR, S1, S2 present. Peripheral pulses intact, no obvious murmurs were noted. ABDOMEN: Soft, nontender. Positive bowel sounds no organomegaly, normal bowel sounds. EXTREMITIES: Without any cyanosis, clubbing, or edema. Pedal pulses intact, Homans sign is negative. NEUROLOGIC: Normal speech, normal tone. A and O x 3, moves all extremities, no obvious focal deficits. PSYCHIATRIC: He is depressed. SKIN: No ulcerations or rashes, good skin turgor, no jaundice. VASCULAR: Good capillary refill, neurovascular bundle appears to be intact. LABORATORY DATA: Electrolytes are normal except for a BUN of 39, creatinine 1.9, glucose is 191. BNP 12,794. Troponin 1.6.: White count 8, hemoglobin 8.9, platelets 301. Chest x-ray shows vascular congestion. Albumin 2.7. ASSESSMENT AND PLAN: Respiratory failure with acute on chronic systolic, diastolic heart failure, elevated troponin, suspect possible acute myocardial infarction, anemia, azotemia and severe protein-calorie malnutrition. The patient has been admitted. We will check serial enzymes, serial EKGs. Continue BiPAP, home meds. DVT prophylaxis. Consult Cardiology. We will give him a dose of IV Lasix, suspect he will need more, p.r.n. Zofran. Prognosis extremely guarded. CC time 31 minutes. REAL/[facility] [place] DR: REAL/saurav TID: [id number]
[2021-02-02 12:15] VITALS: BP 140/65
[2021-02-02 15:00] VITALS: BP 126/59
[2021-02-02] MEDS ORDERED: HYDROcodone/APAP 5/325MG 1 TAB TABLET PO PRN (19:15)
[2021-02-02 19:40] VITALS: BP 136/63
[2021-02-02] MEDS: ATORVASTATIN CALCIUM 40 MG TABLET. PO SCH (20:07)
[2021-02-02] MEDS: hydrALAZINE 25 MG TABLET PO SCH (20:07)
[2021-02-02] MEDS: INSULIN GLARGINE SYRINGE. SQ SCH (21:00)
[2021-02-02 22:45] VITALS: BP 125/60
[2021-02-03 03:35] VITALS: BP 132/63
[2021-02-03 07:00] VITALS: BP 156/73
[2021-02-03] MEDS: IPRATRPIUM/ALBUTEROL 0.5/2.5MG 3 ML NEBU. NEB SCH ×4 (08:30→20:30)
[2021-02-03] MEDS ORDERED: FUROSEMIDE 40 MG/4 ML VIAL. IVP ONE (09:00)
[2021-02-03] MEDS: INSULIN GLARGINE SYRINGE. SQ SCH ×2 (09:00→21:11)
--- NOTE | 2021-02-03 09:30 | PDOC ---
CARDIOLOGY PROGRESS NOTE SUBJECTIVE: Simone is a 70 yo male on day 1 of admission in hospital for SOB. Pt was discharged from [facility] on after 5 day admission for SOB. Pt is alert but distressed on visit with him this morning. Pt says breathing is worse today. Interview was limited due to his difficulty communicating under current health condition. OBJECTIVE: Vital Signs/I&O: Vital Signs Date Time Temp Pulse Resp B/P (MAP) Pulse Ox O2 Delivery O2 Flow Rate FiO2 02/03/21 07:00 98.0 84 22 156/73 (100) 94 Nasal Cannula 3.0 98.0 I & O 02/02/21 02/02/21 02/03/21 15:00 23:00 07:00 Intake Total 100 ml 100 ml Balance 100 ml 100 ml Objective: Gen: appears stated age, diaphoretic Heart: Regular rate, sinus rhythm, no murmur. +2/4 radial pulses b/l Lungs: Tachypnic. Rales ausculated at anterior lung posts b/l MSK: no LE edema b/l CURRENT MEDICATIONS: Current Medications Medications (Trade) Dose Ordered Sig/Ruddy Route PRN Reason Start Time Stop Time Status Last Admin Dose Admin Furosemide (Lasix) 40 mg 1X ONCE IVP 02/02/21 11:30 02/02/21 11:31 DC 02/02/21 11:55 Atorvastatin Calcium (Lipitor) 40 mg QHS PO 02/02/21 21:00 02/02/21 20:07 Hydralazine HCl (Apresoline) 75 mg BID PO 02/02/21 21:00 02/02/21 20:07 Insulin Glargine (Lantus Syringe) 12 unit BID SQ 02/02/21 21:00 02/02/21 21:00 Furosemide (Lasix) 40 mg 1X ONCE IVP 02/03/21 09:00 02/03/21 09:01 DC 02/03/21 08:35 DIAGNOSTIC TESTING: Labs: Laboratory Tests 02/02/21 10:20 Laboratory Tests Test 02/02/21 10:20 02/02/21 20:55 02/03/21 07:47 White Blood Count 8.1 x10^3/uL (4.0-11.0) Red Blood Count 2.84 x10^6/uL (4.30-5.70) L Hemoglobin 8.9 g/dL (13.0-17.5) L Hematocrit 25.5 % (39.0-53.0) L Mean Corpuscular Volume 90 fL (79-100) Mean Corpuscular Hemoglobin 31 pg (25-35) Mean Corpuscular Hemoglobin Concent 35 g/dL (31-37) Red Cell Distribution Width 13.9 % (11.5-14.5) Platelet Count 301 x10^3/uL (140-400) Neutrophils (%) (Auto) 84 % (31-73) H Lymphocytes (%) (Auto) 8 % (24-48) L Monocytes (%) (Auto) 6 % (0-9) Eosinophils (%) (Auto) 1 % (0-3) Basophils (%) (Auto) 1 % (0-3) Neutrophils # (Auto) 6.8 x10^3/uL (1.8-7.7) Lymphocytes # (Auto) 0.6 x10^3/uL (1.0-4.8) L Monocytes # (Auto) 0.5 x10^3/uL (0.0-1.1) Eosinophils # (Auto) 0.1 x10^3/uL (0.0-0.7) Basophils # (Auto) 0.1 x10^3/uL (0.0-0.2) Sodium Level 141 mmol/L (136-145) Potassium Level 4.6 mmol/L (3.5-5.1) Chloride Level 104 mmol/L (98-107) Carbon Dioxide Level 27 mmol/L (21-32) Anion Gap 10 (6-14) Blood Urea Nitrogen 39 mg/dL (8-26) H Creatinine 1.9 mg/dL (0.7-1.3) H Estimated GFR (Cockcroft-Gault) 35.1 BUN/Creatinine Ratio 21 (6-20) H Glucose Level 191 mg/dL (70-99) H Lactic Acid Level 0.8 mmol/L (0.4-2.0) Calcium Level 8.4 mg/dL (8.5-10.1) L Total Bilirubin 0.4 mg/dL (0.2-1.0) Aspartate Amino Transf (AST/SGOT) 22 U/L (15-37) Alkaline Phosphatase 93 U/L (46-116) Total Protein 6.6 g/dL (6.4-8.2) Albumin 2.7 g/dL (3.4-5.0) L Albumin/Globulin Ratio 0.7 (1.0-1.7) L Glucose (Fingerstick) 130 mg/dL (70-99) H 131 mg/dL (70-99) H ASSESSMENT: 1. Acute on chronic resp failure - Etiology of resp failure is unclear. Patient's CXR does not demonstrate any clear PNA or heart failure. He was hypoxic per nursing reports. He did not have significant HTN to account for any acute diastolic load. His recent RHC prior to DC revealed normal filling pressures and cardiac output. 2. Acute on chronic systolic and diastolic HF 3. 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 4. HTN 5. Dyslipidemia Problems: (1) Pulmonary edema (2) Acute respiratory failure with hypoxia (3) CHF (congestive heart failure) (4) Renal insufficiency PLAN: 1. Continue lasix. 2. Continue home BP meds. 3. BiPAP for support and will discuss with family regarding repeat left heart catheterization to evaluate coronary anatomy but I suspect this is more related to COPD. Check ABG. Will follow along with you on this complex case. Justicifation of Admission Dx: Justifications for Admission: Justification of Admission Dx: Yes PEARL CARDOZA MD Feb 03, 2021 09:30
--- NOTE | 2021-02-03 10:48 | PDOC ---
[facility] [facility] PROGRESS NOTE Date of Service DOS: DATE: 02/03/21 TIME: 10:40 Chief Complaint Chief Complaint Acute hypoxic respiratory failure Acute on chronic CHF exacerbation Acute volume overload SOPHIE due to vasomotor nephropathy, possible cardiorenal syndrome Elevated troponins suggestive of demand ischemia History of pulmonary arterial hypertension Anemia of chronic disease Severe protein malnutrition Admit to medicine for further management Continue BiPAP as needed Cardiology consult appreciated recommendationsLasix IV twice daily continue BiPAP Strict I's and O's Salt and fluid restriction to less than 2 g and less than 2 L/day, respectively History of Present Illness History of Present Illness 02/03/2021 No acute events overnight. Patient was placed on BiPAP. Lasix IV was given. Evaluated by cardiology and will increase his IV Lasix to 40 mg twice daily. Patient's chart, labs, images were reviewed and discussed with RN A total of 33 minutes of critical care time was spent in reviewing chart, labs, and images. Discussed with RN and SW. elderly male who was just sent home a few days ago. Once again, he presents with heart failure. He is short of breath. He was hypoxic with a sat in the 88% range. He states he has been following his diet and he increased his home meds but that did not work. His symptoms are worse with moving, better with sitting still, rated at 9/10. It makes him very anxious. I discussed the case with ER physician. We have placed him on BiPAP. We have also given him 40 of IV Lasix. We are also consulting Cardiology. The patient is quite ill. Vitals/I&O Vitals/I&O: Vital Signs Date Time Temp Pulse Resp B/P (MAP) Pulse Ox O2 Delivery O2 Flow Rate FiO2 02/03/21 08:30 97 BiPAP/CPAP 02/03/21 07:00 98.0 84 22 156/73 (100) 3.0 98.0 I & O 02/02/21 02/02/21 02/03/21 15:00 23:00 07:00 Intake Total 100 ml 100 ml Balance 100 ml 100 ml Physical Exam General: Alert, Oriented X3 Heart: No murmurs Lungs: Clear Abdomen: No tenderness Extremities: Other (Pedal edema) Labs Labs: Laboratory Tests Test 02/02/21 20:55 02/03/21 07:47 Glucose (Fingerstick) 130 mg/dL (70-99) 131 mg/dL (70-99) Assessment and Plan Assessmemt and Plan Problems Medical Problems: (1) CHF (congestive heart failure) Status: Acute (2) Elevated troponin I level Status: Acute (3) Renal insufficiency Status: Acute Comment Review of Relevant I have reviewed the following items coral (where applicable) has been applied. Medications: Current Medications Medications (Trade) Dose Ordered Sig/Ruddy Route PRN Reason Start Time Stop Time Status Last Admin Dose Admin Furosemide (Lasix) 40 mg 1X ONCE IVP 02/02/21 11:30 02/02/21 11:31 DC 02/02/21 11:55 Atorvastatin Calcium (Lipitor) 40 mg QHS PO 02/02/21 21:00 02/02/21 20:07 Hydralazine HCl (Apresoline) 75 mg BID PO 02/02/21 21:00 02/02/21 20:07 Insulin Glargine (Lantus Syringe) 12 unit BID SQ 02/02/21 21:00 02/02/21 21:00 Furosemide (Lasix) 40 mg 1X ONCE IVP 02/03/21 09:00 02/03/21 09:01 DC 02/03/21 08:35 Justifications for Admission Other Justification Acute hypoxic respiratory failure, acute CHF exacerbation RENETTA DUTTON MD Feb 03, 2021 10:48
[2021-02-03] MEDS: ALPRAZolam 0.25 MG TABLET PO PRN ×2 (10:54→21:08)
[2021-02-03] MEDS: ASPIRIN ENTERIC COATED 81 MG TABLET.DR. PO SCH (10:54)
[2021-02-03] MEDS: PANTOPRAZOLE 40 MG TABLET.DR. PO SCH (10:54)
[2021-02-03] MEDS: ISOSORBIDE MONONITRATE ER 30 MG TAB.ER.24H PO SCH (10:55)
[2021-02-03] MEDS: TAMSULOSIN 0.4 MG CAP.ER.24H. PO SCH (10:55)
[2021-02-03] MEDS: FUROSEMIDE 40 MG TABLET. PO SCH (10:55)
[2021-02-03] MEDS: CLOPIDOGREL BISULFATE 75 MG TABLET PO SCH (10:55)
[2021-02-03] MEDS: hydrALAZINE 25 MG TABLET PO SCH ×2 (10:56→21:05)
[2021-02-03] MEDS: POTASSIUM CHLORIDE 10 MEQ TABLET.ER. PO SCH (10:56)
[2021-02-03] MEDS: CARVEDILOL 6.25 MG TABLET. PO SCH ×2 (10:57→17:38)
[2021-02-03] MEDS: FLUoxetine HCL 20 MG CAPSULE PO SCH (10:59)
[2021-02-03 11:00] VITALS: BP 151/72
--- NOTE | 2021-02-03 11:06 | RAD ---
EXAM: Chest, single view. HISTORY: Congestive heart failure. COMPARISON: 02/02/2021 FINDINGS: A frontal view of the chest is obtained. There is stable diffuse central and lower lobe pre dominant interstitial infiltrate with small pleural effusions. There is a stable cardiac silhouette. There is no pneumothorax. IMPRESSION: Stable central and lower lobe predominant infiltrate and small pleural effusions. Electronically signed by: Kristan John MD (02/03/2021 11:04 AM) [id number]
[2021-02-03 15:00] VITALS: BP 115/59
[2021-02-03 20:00] VITALS: BP 117/60
[2021-02-03] MEDS: ATORVASTATIN CALCIUM 40 MG TABLET. PO SCH (21:05)
[2021-02-03 23:04] VITALS: BP 123/58
[2021-02-04 03:30] VITALS: BP 125/64
[2021-02-04 07:00] VITALS: BP 127/67
[2021-02-04] MEDS: IPRATRPIUM/ALBUTEROL 0.5/2.5MG 3 ML NEBU. NEB SCH ×4 (07:41→20:28)
[2021-02-04] MEDS: CLOPIDOGREL BISULFATE 75 MG TABLET PO SCH (09:22)
[2021-02-04] MEDS: FUROSEMIDE 40 MG TABLET. PO SCH (09:22)
[2021-02-04] MEDS: ASPIRIN ENTERIC COATED 81 MG TABLET.DR. PO SCH (09:22)
[2021-02-04] MEDS: PANTOPRAZOLE 40 MG TABLET.DR. PO SCH (09:22)
[2021-02-04] MEDS: TAMSULOSIN 0.4 MG CAP.ER.24H. PO SCH (09:22)
[2021-02-04] MEDS: POTASSIUM CHLORIDE 10 MEQ TABLET.ER. PO SCH (09:22)
[2021-02-04] MEDS: ALPRAZolam 0.25 MG TABLET PO PRN ×2 (09:22→21:05)
[2021-02-04] MEDS: FLUoxetine HCL 20 MG CAPSULE PO SCH (09:22)
[2021-02-04] MEDS: ISOSORBIDE MONONITRATE ER 30 MG TAB.ER.24H PO SCH (09:23)
[2021-02-04] MEDS: hydrALAZINE 25 MG TABLET PO SCH ×2 (09:24→21:05)
[2021-02-04] MEDS: CARVEDILOL 6.25 MG TABLET. PO SCH ×2 (09:24→17:40)
[2021-02-04] MEDS: INSULIN GLARGINE SYRINGE. SQ SCH ×2 (09:38→21:11)
[2021-02-04 09:50] LABS: BASE EXCESS ABG 4 mmol/L (-3-3); HCO3 ABG 29 mmol/L (21-28); PCO2 ABG 43 mmHg (35-46); PO2 ABG 59 mmHg (65-108); SAT O2 ABG 90 % (92-99)
[2021-02-04 09:54] LABS: FIO2 ABG 32/3L NC
[2021-02-04 10:49] LABS: CALCIUM 8.6 mg/dL (8.5-10.1); CREATININE 2.2 mg/dL (0.7-1.3); GFR 29.7; MAGNESIUM 1.7 mg/dL (1.8-2.4); POTASSIUM 4.2 mmol/L (3.5-5.1)
--- NOTE | 2021-02-04 10:51 | PDOC ---
[facility] [facility] PROGRESS NOTE Date of Service DOS: DATE: 02/04/21 TIME: 10:50 Chief Complaint Chief Complaint Acute hypoxic respiratory failure Acute on chronic CHF exacerbation Acute volume overload SOPHIE due to vasomotor nephropathy, possible cardiorenal syndrome Elevated troponins suggestive of demand ischemia History of pulmonary arterial hypertension Anemia of chronic disease Severe protein malnutrition Admit to medicine for further management Continue BiPAP as needed Cardiology consult appreciated recommendationsLasix IV daily continue BiPAP Strict I's and O's Salt and fluid restriction to less than 2 g and less than 2 L/day, respectively History of Present Illness History of Present Illness 02/04/2021 No acute events overnight. Patient currently saturating 97% on 3 L nasal cannula. Taken off of BiPAP. We will continue BiPAP as needed. Appreciate cardiology recommendation for possible left heart cath. Patient's chart, labs, images were reviewed and discussed with RN 02/03/2021 No acute events overnight. Patient was placed on BiPAP. Lasix IV was given. Evaluated by cardiology and will increase his IV Lasix to 40 mg twice daily. Patient's chart, labs, images were reviewed and discussed with RN A total of 33 minutes of critical care time was spent in reviewing chart, labs, and images. Discussed with RN and SW. elderly male who was just sent home a few days ago. Once again, he presents with heart failure. He is short of breath. He was hypoxic with a sat in the 88% range. He states he has been following his diet and he increased his home meds but that did not work. His symptoms are worse with moving, better with sitting still, rated at 9/10. It makes him very anxious. I discussed the case with ER physician. We have placed him on BiPAP. We have also given him 40 of IV Lasix. We are also consulting Cardiology. The patient is quite ill. Vitals/I&O Vitals/I&O: Vital Signs Date Time Temp Pulse Resp B/P (MAP) Pulse Ox O2 Delivery O2 Flow Rate FiO2 02/04/21 09:24 64 127/67 02/04/21 07:38 94 BiPAP/CPAP 02/04/21 07:00 97.6 18 3.0 97.6 I & O 02/03/21 02/03/21 02/04/21 15:00 23:00 07:00 Intake Total 200 ml 400 ml 0 ml Output Total 300 ml 450 ml Balance 200 ml 100 ml -450 ml Physical Exam General: Alert, Oriented X3 Heart: No murmurs Lungs: Clear Abdomen: No tenderness Extremities: Other (Pedal edema) Labs Labs: Laboratory Tests Test 02/03/21 13:11 02/03/21 14:25 02/03/21 17:14 02/03/21 21:14 Glucose (Fingerstick) 146 mg/dL (70-99) 149 mg/dL (70-99) 194 mg/dL (70-99) Troponin I Quantitative 1.143 ng/mL (0.000-0.055) Test 02/04/21 08:27 02/04/21 09:40 Glucose (Fingerstick) 144 mg/dL (70-99) O2 Saturation 90 % (92-99) Arterial Blood pH 7.44 (7.35-7.45) Arterial Blood pCO2 at Patient Temp 43 mmHg (35-46) Arterial Blood pO2 at Patient Temp 59 mmHg (65-108) Arterial Blood HCO3 29 mmol/L (21-28) Arterial Blood Base Excess 4 mmol/L (-3-3) FiO2 32/3l id Assessment and Plan Assessmemt and Plan Problems Medical Problems: (1) CHF (congestive heart failure) Status: Acute (2) Elevated troponin I level Status: Acute (3) Renal insufficiency Status: Acute Comment Review of Relevant I have reviewed the following items coral (where applicable) has been applied. Justifications for Admission Other Justification Acute hypoxic respiratory failure, acute CHF exacerbation RENETTA DUTTON MD Feb 04, 2021 10:51
[2021-02-04 11:00] VITALS: BP 119/56
[2021-02-04 11:09] LABS: BASO % 1 % (0-3); EOS # 0.1 x10^3/uL (0.0-0.7); EOS % 1 % (0-3); HEMATOCRIT 27.1 % (39.0-53.0); HEMOGLOBIN 9.3 g/dL (13.0-17.5); LYMPH # 1.1 x10^3/uL (1.0-4.8); LYMPH % 14 % (24-48); MEAN CORPUSCULAR HEMOGLOBIN 31 pg (25-35); MEAN CORPUSCULAR HGB CONC 34 g/dL (31-37); MEAN CORPUSCULAR VOLUME 90 fL (79-100); MONO # 0.7 x10^3/uL (0.0-1.1); MONO % 9 % (0-9); NEUT # 5.7 x10^3/uL (1.8-7.7); NEUT % 75 % (31-73); PLATELET COUNT 314 x10^3/uL (140-400); RED CELL DISTRIBUTION WIDTH 14.1 % (11.5-14.5); WHITE BLOOD COUNT 7.6 x10^3/uL (4.0-11.0)
--- NOTE | 2021-02-04 11:31 | PDOC ---
CARDIOLOGY PROGRESS NOTE SUBJECTIVE: No new events. OBJECTIVE: Vital Signs/I&O: Vital Signs Date Time Temp Pulse Resp B/P (MAP) Pulse Ox O2 Delivery O2 Flow Rate FiO2 02/04/21 09:24 64 127/67 02/04/21 07:38 94 BiPAP/CPAP 02/04/21 07:00 97.6 18 3.0 97.6 I & O 02/03/21 02/03/21 02/04/21 14:52 22:52 06:52 Intake Total 200 ml 400 ml 0 ml Output Total 300 ml 450 ml Balance 200 ml 100 ml -450 ml Objective: No new changes. CURRENT MEDICATIONS: as noted above. DIAGNOSTIC TESTING: labs reviewed. ABG reviewed Labs: Laboratory Tests 02/04/21 10:10 Laboratory Tests Test 02/03/21 13:11 02/03/21 17:14 02/03/21 21:14 02/04/21 08:27 Glucose (Fingerstick) 146 mg/dL (70-99) H 149 mg/dL (70-99) H 194 mg/dL (70-99) H 144 mg/dL (70-99) H Test 02/04/21 09:40 02/04/21 10:10 O2 Saturation 90 % (92-99) L Arterial Blood pH 7.44 (7.35-7.45) Arterial Blood pCO2 at Patient Temp 43 mmHg (35-46) Arterial Blood pO2 at Patient Temp 59 mmHg (65-108) L Arterial Blood HCO3 29 mmol/L (21-28) H Arterial Blood Base Excess 4 mmol/L (-3-3) H FiO2 32/3l nc White Blood Count 7.6 x10^3/uL (4.0-11.0) Red Blood Count 3.00 x10^6/uL (4.30-5.70) L Hemoglobin 9.3 g/dL (13.0-17.5) L Hematocrit 27.1 % (39.0-53.0) L Mean Corpuscular Volume 90 fL (79-100) Mean Corpuscular Hemoglobin 31 pg (25-35) Mean Corpuscular Hemoglobin Concent 34 g/dL (31-37) Red Cell Distribution Width 14.1 % (11.5-14.5) Platelet Count 314 x10^3/uL (140-400) Neutrophils (%) (Auto) 75 % (31-73) H Lymphocytes (%) (Auto) 14 % (24-48) L Monocytes (%) (Auto) 9 % (0-9) Eosinophils (%) (Auto) 1 % (0-3) Basophils (%) (Auto) 1 % (0-3) Neutrophils # (Auto) 5.7 x10^3/uL (1.8-7.7) Lymphocytes # (Auto) 1.1 x10^3/uL (1.0-4.8) Monocytes # (Auto) 0.7 x10^3/uL (0.0-1.1) Eosinophils # (Auto) 0.1 x10^3/uL (0.0-0.7) Basophils # (Auto) 0.0 x10^3/uL (0.0-0.2) Sodium Level 139 mmol/L (136-145) Potassium Level 4.2 mmol/L (3.5-5.1) Chloride Level 102 mmol/L (98-107) Carbon Dioxide Level 30 mmol/L (21-32) Anion Gap 7 (6-14) Blood Urea Nitrogen 43 mg/dL (8-26) H Creatinine 2.2 mg/dL (0.7-1.3) H Estimated GFR (Cockcroft-Gault) 29.7 Glucose Level 172 mg/dL (70-99) H Calcium Level 8.6 mg/dL (8.5-10.1) ASSESSMENT: 1. Acute on chronic hypoxic resp failure. 2. Acute on chronic systolic and diastolic HF 3. CKD 4. Anxiety 5. Probable COPD. PLAN: 1. RHC last week revealed normal filling pressures. At this time, no clear indication for another RHC 2. His Cr has increased with diuresis and his dyspnea has improved with O2 and bipap. ABG suggestive of hypoxic resp failure, therefore would consult pulmonary and discuss further evaluation. 3. Troponin elevation likely type 2. W/o active angina and EKG changes, given his known severe diffuse disease and CKD, risk of cath outweights benefits at this time. Continue excellent medical therapy with ASA, Plavix, Imdur, Coreg, Hydralazine, Atorvastatin and daily furosemide. Justicifation of Admission Dx: Justifications for Admission: Justification of Admission Dx: Yes PEARL CARDOZA MD Feb 04, 2021 11:31
[2021-02-04] MEDS ORDERED: MAGNESIUM SULFATE 2GM 50 ML IV ONE (14:00)
[2021-02-04 15:00] VITALS: BP 129/65
[2021-02-04 19:49] VITALS: BP 140/69
[2021-02-04] MEDS: ATORVASTATIN CALCIUM 40 MG TABLET. PO SCH (21:05)
[2021-02-04 23:17] VITALS: BP 124/64
--- NOTE | 2021-02-04 23:47 | CARD ---
MR#: [id number] Date of Study: 02/04/2021 Ordering Physician: PEARL CARDOZA, Referring Physician: PEARL CARDOZA, Tech: Ca Burgos RDCS APPROVED REPORT EXAM: LIMITED Two-dimensional echocardiogram. Evaluation of Ejection Fraction only. Other Information Quality : GoodHR: 63bpm Rhythm : NSR INDICATION Congestive Heart Failure 2D DIMENSIONS IVSd1.2 (0.7-1.1cm)LVDd4.6 (3.9-5.9cm) PWd1.2 (0.7-1.1cm)LVDs3.8 (2.5-4.0cm) FS (%) 18.0 %SV36.3 ml LVEF(%)37.4 (>50%) LEFT VENTRICLE The left ventricle is normal size. There is borderline to mild concentric left ventricular hypertroph y. Left ventricle systolic function is severely impaired. The Ejection Fraction is 25%. The mid to di stal half of the LV is severely hypokinetic. GREAT VESSELS The aortic root is normal in size. PERICARDIAL EFFUSION There is no evidence of significant pericardial effusion. Critical Notification Critical Value: No <Conclusion> Left ventricle systolic function is severely impaired. The Ejection Fraction is 25%. The mid to distal half of the LV is severely hypokinetic. Limited TTE for EF only. Signed by : Pearl Cardoza, Electronically Approved : 02/04/2021 23:46:57
[2021-02-05] VITALS (17 sets, daily range): BP systolic 116–151; BP diastolic 55–78
--- NOTE | 2021-02-05 07:13 | PDOC ---
[facility] PROGRESS NOTE Date of Service DOS: DATE: 02/05/21 TIME: 07:05 Chief Complaint Chief Complaint Acute hypoxic respiratory failure Acute on chronic CHF exacerbation Acute volume overload SOPHIE due to vasomotor nephropathy, possible cardiorenal syndrome Elevated troponins suggestive of demand ischemia History of pulmonary arterial hypertension Anemia of chronic disease Severe protein malnutrition Admit to medicine for further management Continue BiPAP as needed Cardiology consult appreciated recommendationsLasix IV daily continue BiPAP Strict I's and O's Salt and fluid restriction to less than 2 g and less than 2 L/day, respectively History of Present Illness History of Present Illness 02/05/2021 Afebrile, currently breathing on BiPAP. Weight fluctuating, but roughly 565 mL urine off overnight. Pulmonology has been consulted due to probable COPD. Continue duo nebs and Lasix. Continue to monitor kidney function. 02/04/2021 No acute events overnight. Patient currently saturating 97% on 3 L nasal cannula. Taken off of BiPAP. We will continue BiPAP as needed. Appreciate cardiology recommendation for possible left heart cath. Patient's chart, labs, images were reviewed and discussed with RN 02/03/2021 No acute events overnight. Patient was placed on BiPAP. Lasix IV was given. Evaluated by cardiology and will increase his IV Lasix to 40 mg twice daily. Patient's chart, labs, images were reviewed and discussed with RN A total of 33 minutes of critical care time was spent in reviewing chart, labs, and images. Discussed with RN and SW. elderly male who was just sent home a few days ago. Once again, he presents with heart failure. He is short of breath. He was hypoxic with a sat in the 88% range. He states he has been following his diet and he increased his home meds but that did not work. His symptoms are worse with moving, better with sitting still, rated at 9/10. It makes him very anxious. I discussed the case with ER physician. We have placed him on BiPAP. We have also given him 40 of IV Lasix. We are also consulting Cardiology. The patient is quite ill. Vitals/I&O Vitals/I&O: Vital Signs Date Time Temp Pulse Resp B/P (MAP) Pulse Ox O2 Delivery O2 Flow Rate FiO2 02/05/21 05:23 99 BiPAP/CPAP 02/05/21 03:07 98.2 60 16 127/64 (85) 3.0 98.2 I & O 02/04/21 02/04/21 02/05/21 15:00 23:00 07:00 Intake Total 460 ml 200 ml 0 ml Output Total 775 ml 450 ml Balance 460 ml -575 ml -450 ml Physical Exam General: Alert, Oriented X3 Heart: No murmurs Lungs: Clear Abdomen: No tenderness Extremities: Other (Pedal edema) Skin: No rashes, No breakdown Labs Labs: Laboratory Tests Test 02/04/21 08:27 02/04/21 09:40 02/04/21 10:10 02/04/21 12:33 Glucose (Fingerstick) 144 mg/dL (70-99) 146 mg/dL (70-99) O2 Saturation 90 % (92-99) Arterial Blood pH 7.44 (7.35-7.45) Arterial Blood pCO2 at Patient Temp 43 mmHg (35-46) Arterial Blood pO2 at Patient Temp 59 mmHg (65-108) Arterial Blood HCO3 29 mmol/L (21-28) Arterial Blood Base Excess 4 mmol/L (-3-3) FiO2 32/3l nc White Blood Count 7.6 x10^3/uL (4.0-11.0) Red Blood Count 3.00 x10^6/uL (4.30-5.70) Hemoglobin 9.3 g/dL (13.0-17.5) Hematocrit 27.1 % (39.0-53.0) Mean Corpuscular Volume 90 fL (79-100) Mean Corpuscular Hemoglobin 31 pg (25-35) Mean Corpuscular Hemoglobin Concent 34 g/dL (31-37) Red Cell Distribution Width 14.1 % (11.5-14.5) Platelet Count 314 x10^3/uL (140-400) Neutrophils (%) (Auto) 75 % (31-73) Lymphocytes (%) (Auto) 14 % (24-48) Monocytes (%) (Auto) 9 % (0-9) Eosinophils (%) (Auto) 1 % (0-3) Basophils (%) (Auto) 1 % (0-3) Neutrophils # (Auto) 5.7 x10^3/uL (1.8-7.7) Lymphocytes # (Auto) 1.1 x10^3/uL (1.0-4.8) Monocytes # (Auto) 0.7 x10^3/uL (0.0-1.1) Eosinophils # (Auto) 0.1 x10^3/uL (0.0-0.7) Basophils # (Auto) 0.0 x10^3/uL (0.0-0.2) Sodium Level 139 mmol/L (136-145) Potassium Level 4.2 mmol/L (3.5-5.1) Chloride Level 102 mmol/L (98-107) Carbon Dioxide Level 30 mmol/L (21-32) Anion Gap 7 (6-14) Blood Urea Nitrogen 43 mg/dL (8-26) Creatinine 2.2 mg/dL (0.7-1.3) Estimated GFR (Cockcroft-Gault) 29.7 Glucose Level 172 mg/dL (70-99) Calcium Level 8.6 mg/dL (8.5-10.1) Magnesium Level 1.7 mg/dL (1.8-2.4) Test 02/04/21 17:20 02/04/21 20:49 Glucose (Fingerstick) 253 mg/dL (70-99) 200 mg/dL (70-99) Assessment and Plan Assessmemt and Plan Problems Medical Problems: (1) CHF (congestive heart failure) Status: Acute (2) Elevated troponin I level Status: Acute (3) Renal insufficiency Status: Acute Comment Review of Relevant I have reviewed the following items coral (where applicable) has been applied. Medications: Current Medications Medications (Trade) Dose Ordered Sig/Ruddy Route PRN Reason Start Time Stop Time Status Last Admin Dose Admin Magnesium Sulfate 50 ml @ 25 mls/hr 1X ONCE IV 02/04/21 14:00 02/04/21 15:59 DC 02/04/21 14:18 Justifications for Admission Other Justification Acute hypoxic respiratory failure, acute CHF exacerbation SARAH COLLINS MD Feb 05, 2021 07:13
[2021-02-05] MEDS: IPRATRPIUM/ALBUTEROL 0.5/2.5MG 3 ML NEBU. NEB SCH ×4 (07:42→20:19)
[2021-02-05] MEDS: PANTOPRAZOLE 40 MG TABLET.DR. PO SCH (08:51)
[2021-02-05] MEDS: TAMSULOSIN 0.4 MG CAP.ER.24H. PO SCH (08:51)
[2021-02-05] MEDS: ALPRAZolam 0.25 MG TABLET PO PRN (08:51)
[2021-02-05] MEDS: CLOPIDOGREL BISULFATE 75 MG TABLET PO SCH (08:51)
[2021-02-05] MEDS: POTASSIUM CHLORIDE 10 MEQ TABLET.ER. PO SCH (08:51)
[2021-02-05] MEDS: FLUoxetine HCL 20 MG CAPSULE PO SCH (08:51)
[2021-02-05] MEDS: ASPIRIN ENTERIC COATED 81 MG TABLET.DR. PO SCH (08:51)
[2021-02-05] MEDS: CARVEDILOL 6.25 MG TABLET. PO SCH ×2 (08:52→17:04)
[2021-02-05] MEDS: FUROSEMIDE 40 MG TABLET. PO SCH (08:52)
[2021-02-05] MEDS: hydrALAZINE 25 MG TABLET PO SCH ×2 (08:53→22:05)
[2021-02-05] MEDS: ISOSORBIDE MONONITRATE ER 30 MG TAB.ER.24H PO SCH (08:53)
[2021-02-05] MEDS: INSULIN GLARGINE SYRINGE. SQ SCH ×2 (09:02→22:11)
[2021-02-05] MEDS: BUDESONIDE 0.5 MG/2 ML NEBU. NEB SCH ×2 (12:00→20:19)
[2021-02-05 12:13] LABS: CALCIUM 8.7 mg/dL (8.5-10.1); CREATININE 2.1 mg/dL (0.7-1.3); GFR 31.3; POTASSIUM 4.1 mmol/L (3.5-5.1)
--- NOTE | 2021-02-05 12:37 | RAD ---
Single AP view of the chest. Comparison: 02/03/2021. Indication: Ingested heart failure Findings: The heart is enlarged but stable. No pneumothorax. Decreasing pulmonary vascular congestion. Possible trace left costophrenic angle effusion. Impression: 1. Resolving but persistent signs of CHF. Electronically signed by: David Dale MD (02/05/2021 12:35 PM) [id number]
--- NOTE | 2021-02-05 14:18 | CONS ---
DATE OF CONSULTATION: 02/05/2021 PULMONARY CONSULTATION ATTENDING PHYSICIAN: Dr. Song. REASON FOR CONSULTATION: Dyspnea. HISTORY OF PRESENT ILLNESS: The patient is known to us from his previous hospitalization. He is a 70-year-old male who has a history of severe 3-vessel coronary artery disease. He has an ejection fraction of 25%, suggestive of severe cardiomyopathy. The patient was last admitted a week ago and had a right heart catheterization on 01/30/1931 with normal pressures. He said he became progressively short of breath and was brought into the hospital with dyspnea. Normally uses oxygen at 2 liters, now requiring 3 liters. His chest x-rays were reviewed. There are bilateral infiltrates suggestive of congestive heart failure. His chest x-ray were reviewed from 02/02/2021 and 02/03/2021. The patient states that he does not have any history of tobacco use. No history of deep vein thrombosis or pulmonary embolism. Denies any significant cough. No fever, no chills, no chest pain. Consultation requested for further evaluation and management. PAST MEDICAL HISTORY: History of severe 3-vessel coronary artery disease, history of severe cardiomyopathy with an EF of 25%. History of depression, CAD, diabetes, hypertension, OR. PAST SURGICAL HISTORY: Tonsillectomy, left BKA, coronary stents. ALLERGIES: None. MEDICATIONS: Reviewed as listed in the MRAD and including furosemide orally and DuoNebs. REVIEW OF SYSTEMS: A of systems obtained. Pertinent positives discussed in my presence illness, otherwise noncontributory. All systems that were negative were reviewed as well. SOCIAL HISTORY: Nonsmoker. FAMILY HISTORY: Hypertension. PHYSICAL EXAMINATION: VITAL SIGNS: Reviewed. Blood pressure 149/72, pulse ox is 98% on 3 liters. NECK: Supple. LUNGS: With bilateral expiratory wheezes. HEART: With a regular rate. ABDOMEN: Soft. EXTREMITIES: With left BKA. LABORATORY DATA: Reviewed. ABG showed a pH of 7.4, pCO2 of 43 and a pO2 of 59 on 32% FIO2. BUN and creatinine 43 and 2.2. IMPRESSION: 1. Acute on chronic hypoxic respiratory failure secondary to acute on chronic systolic congestive heart failure. cxr c/w CHF 2. Severe cardiomyopathy with an EF of 25% and the previous cardiac catheterization with severe 3-vessel coronary artery disease. He has severe hypokinesis of left ventricle, based on the recent echo. 3. No significant tobacco history. 4. Bilateral wheezing, likely cardiac wheezing. 5. Left BKA. 6. SOPHIE on CKD, likely contributed by diuresis. RECOMMENDATIONS: 1. Continue present oxygen. His renal function has mildly declined with diuresis. We will continue to closely, watch his renal function while on oral Lasix. 2. Followup chest x-ray. 3. His clinical and radiographic presentation is suggestive of cardiac etiology. He has cardiac wheezing. 4. Continue DuoNeb. I will also add a steroid inhaler. 5. Follow up Cardiology recommendations. 6. May consider needing inotropic agent. 7. Discussed with PCP.and Dr Melo. Plans to repeat Cath LORA/GABRIEL DR: Pierce TID: [id number] MTDD
[2021-02-05] MEDS ORDERED: LIDOCAINE 1% Multi-Dose 20 ML VIAL. ONE (14:50)
[2021-02-05] MEDS ORDERED: IODIXANOL 320 MG/ML 100 ML VIAL. ONE ×2 (14:50→15:35)
[2021-02-05] MEDS ORDERED: fentaNYL PF VIAL 100 MCG/2 ML VIAL ONE (15:19)
[2021-02-05] MEDS ORDERED: MIDAZOLAM HCL/PF 2 MG/2 ML VIAL. ONE (15:19)
[2021-02-05] MEDS ORDERED: HEPARIN for IV BOLUS 10,000 UNIT/10 ML VIAL. ONE (15:35)
[2021-02-05] MEDS ORDERED: CONTRAST GIVEN. MC PRN (15:45)
[2021-02-05] MEDS ORDERED: HEPARIN for IV BOLUS 10,000 UNIT/10 ML VIAL. IV ONE (15:45)
[2021-02-05] MEDS ORDERED: LIDOCAINE 1% Multi-Dose 20 ML VIAL. INJ ONE (15:45)
[2021-02-05] MEDS ORDERED: fentaNYL PF VIAL 100 MCG/2 ML VIAL IV ONE (15:45)
[2021-02-05] MEDS ORDERED: MIDAZOLAM HCL/PF 2 MG/2 ML VIAL. IV ONE (15:45)
[2021-02-05] MEDS ORDERED: IODIXANOL 320 MG/ML 100 ML VIAL. IART ONE (15:45)
--- NOTE | 2021-02-05 15:53 | NUR ---
SW following. Discussed with RN, pt from home with family, has home oxygen, ada diet. PT/OT recommending home. Pulmonology following. RN advised no SW needs at this time. SW will continue to follow.
[2021-02-05] MEDS ORDERED: NITROGLYCERIN 200 MCG/2 ML SYRINGE FOR CATH/VASC LAB. ONE (15:58)
[2021-02-05] MEDS ORDERED: CLOPIDOGREL BISULFATE 75 MG TABLET ONE (16:10)
[2021-02-05] MEDS ORDERED: NITROGLYCERIN 200 MCG/2 ML SYRINGE FOR CATH/VASC LAB. ICAR ONE (16:15)
[2021-02-05] MEDS ORDERED: CLOPIDOGREL BISULFATE 75 MG TABLET PO ONE (16:15)
--- NOTE | 2021-02-05 16:55 | CARD ---
MR#: [id number] Date of Study: 02/05/2021 Ordering Physician: PEARL MELO, Referring Physician: PEARL MELO, Tech: RT Carlos(R) APPROVED REPORT Technologist: Leeanna Joy RT(R) Nurse: Erika Moore RN Procedure(s) performed: MODERATE SEDATION TIME: 64 MINS FLUORO TIME: 11.5 MIN DOSE: 91.3 GYCM2 CONTRAST: 120CC VISI C, Coronary angiography, PCI of the LAD [facility] Clinical Frailty Scale [facility] Clinical Frailty Scale: Severely Frail Heart Failure Heart Failure: Yes If Yes, Newly Diagnosed: No If Yes, HF Type: Diastolic Systolic If Yes, NYHA Class: Class III CASE TECHNIQUE IV conscious sedation was used throughout procedure with appropriate monitoring and was performed in the presence of a registered nurse who was an independent trained observer other than the physician p erforming the procedure. During this case, Fluoroscopy and low osmolar contrast were used for imaging . Specimen(s) Removed: N/A Estimated Blood loss: 15 cc's. PROCEDURE NARRATIVE Clinical information: 70-year-old man who presents to the hospital in the setting of recurrent shortness of breath and ches t pain with heart failure symptoms. Recent right heart catheterization revealed normal filling press ures. Therefore he was brought to the catheterization laboratory for further evaluation of his coron valentin anatomy. Procedure details: After appropriate informed consent the right groin was prepped and draped in usual sterile fashion. A 5 Turkmen sheath was inserted in the right common femoral artery via the modified Seldinger techniqu e. Next, diagnostic angiography was performed with a 5 Turkmen JR4 and JL4 catheters. Left ventricul ar end-diastolic pressure was obtained with a JR4 catheter and a pullback was performed. Findings: Aorta 150/80 LVEDP 25 mmHg at peak end expiration, otherwise 12 mmHg No LV to aortic pullback gradient Coronary angiography: Left main is a large-caliber vessel with a distal 10% stenosis LAD is a moderate caliber heavily calcified severely diffusely diseased vessel. There is a 90% in-st ent restenosis involving the proximal LAD stent. There is a 95% in-stent restenosis involving the di stal LAD stent. The apical distal LAD is heavily calcified and severely diffusely diseased and is of less than 1.5 mm in caliber Circumflex is a moderate caliber nondominant vessel with a proximal 30% stenosis. RCA is a large caliber dominant vessel with a mid 60% stenosis unchanged from prior. Interventional technique: Heparin was used for anticoagulation. Through a 6 Turkmen EBU 4 guide catheter a 0.014 inch Prowater wire was placed in the distal LAD. Balloon angioplasty was performed of the proximal LAD with a 3 mm noncompliant balloon at 18 gema in the distal LAD with a 2.5 mm noncompliant balloon at 14 gema. Harriett l angiography demonstrated 0% residual stenosis in the proximal LAD stent and approximately 30% in-st ent restenosis involving the distal LAD stent. Of note the distal AV stent despite prior atherectomy had significant recoil at initial deployment. No acute guidewire related complications noted. At bronson e completion hemostasis was achieved with an Angio-Seal device. No acute complications noted JESSICA Flow JESSICA Flow (Pre-Intervention): JESSICA-3 JESSICA Flow (Post-Intervention): JESSICA-3 Conclusion 1. Acute on chronic systolic and diastolic heart failure. LVEDP 25 at end expiration, 12 mean 2. Two-vessel coronary artery disease with severe in-stent restenosis of the proximal LAD and distal LAD stents 3. Successful balloon angioplasty of the proximal and distal LAD stents Recommendations 1. Aspirin 81 g daily 2. Plavix 75 mg daily 3. Withhold further diuresis given contrast load today and near normal mean left ventricular end-benny stolic pressure. 4. Aggressive medical therapy including cardiac rehabilitation as tolerated. Signed by : Pearl Melo, Electronically Approved : 02/05/2021 16:55:27
[2021-02-05] MEDS: ATORVASTATIN CALCIUM 40 MG TABLET. PO SCH (22:04)
[2021-02-06 03:10] VITALS: BP 128/58
[2021-02-06 05:47] LABS: BASO # 0.1 x10^3/uL (0.0-0.2); BASO % 1 % (0-3); EOS # 0.2 x10^3/uL (0.0-0.7); EOS % 3 % (0-3); HEMATOCRIT 25.3 % (39.0-53.0); HEMOGLOBIN 8.6 g/dL (13.0-17.5); LYMPH # 0.9 x10^3/uL (1.0-4.8); LYMPH % 16 % (24-48); MEAN CORPUSCULAR HEMOGLOBIN 31 pg (25-35); MEAN CORPUSCULAR HGB CONC 34 g/dL (31-37); MEAN CORPUSCULAR VOLUME 91 fL (79-100); MONO # 0.6 x10^3/uL (0.0-1.1); MONO % 10 % (0-9); NEUT # 4.1 x10^3/uL (1.8-7.7); NEUT % 70 % (31-73); PLATELET COUNT 302 x10^3/uL (140-400); RED CELL DISTRIBUTION WIDTH 14.1 % (11.5-14.5); WHITE BLOOD COUNT 5.9 x10^3/uL (4.0-11.0)
[2021-02-06] MEDS: PANTOPRAZOLE 40 MG TABLET.DR. PO SCH (06:10)
[2021-02-06 06:13] LABS: CALCIUM 8.5 mg/dL (8.5-10.1); CREATININE 1.9 mg/dL (0.7-1.3); GFR 35.1; POTASSIUM 3.6 mmol/L (3.5-5.1)
[2021-02-06 07:00] VITALS: BP 146/67
--- NOTE | 2021-02-06 07:35 | PDOC ---
[facility] PROGRESS NOTE Date of Service DOS: DATE: 02/06/21 TIME: 07:25 Chief Complaint Chief Complaint Acute hypoxic respiratory failure Acute on chronic CHF exacerbation Acute volume overload SOPHIE due to vasomotor nephropathy, possible cardiorenal syndrome Elevated troponins suggestive of demand ischemia History of pulmonary arterial hypertension Anemia of chronic disease Severe protein malnutrition Admit to medicine for further management Continue BiPAP as needed Cardiology consult appreciated recommendationsLasix IV daily continue BiPAP Strict I's and O's Salt and fluid restriction to less than 2 g and less than 2 L/day, respectively History of Present Illness History of Present Illness 02/06/2021 Afebrile. Breathing on BiPAP overnight, currently on 3 L nasal cannula. States BiPAP really helps him at night. 1120 mL net fluid output overnight. Kidney function slightly improved today, still consistent with CKD 3b. Left heart cath yesterday with findings of acute on chronic systolic and diastolic heart failure, two-vessel coronary artery disease with severe in-stent restenosis of the proximal LAD and distal LAD stents, and successful balloon angioplasty of the proximal and distal LAD stents. Recommended to continue aspirin and Plavix. Continue to DuoNebs as needed and inhaled steroid. 02/05/2021 Afebrile, currently breathing on BiPAP. Weight fluctuating, but roughly 565 mL urine off overnight. Pulmonology has been consulted due to probable COPD. Continue duo nebs and Lasix. Continue to monitor kidney function. 02/04/2021 No acute events overnight. Patient currently saturating 97% on 3 L nasal cannula. Taken off of BiPAP. We will continue BiPAP as needed. Appreciate cardiology recommendation for possible left heart cath. Patient's chart, labs, images were reviewed and discussed with RN 02/03/2021 No acute events overnight. Patient was placed on BiPAP. Lasix IV was given. Evaluated by cardiology and will increase his IV Lasix to 40 mg twice daily. Patient's chart, labs, images were reviewed and discussed with RN A total of 33 minutes of critical care time was spent in reviewing chart, labs, and images. Discussed with RN and HERACLIO. elderly male who was just sent home a few days ago. Once again, he presents with heart failure. He is short of breath. He was hypoxic with a sat in the 88% range. He states he has been following his diet and he increased his home meds but that did not work. His symptoms are worse with moving, better with sitting still, rated at 9/10. It makes him very anxious. I discussed the case with ER physician. We have placed him on BiPAP. We have also given him 40 of IV Lasix. We are also consulting Cardiology. The patient is quite ill. Vitals/I&O Vitals/I&O: Vital Signs Date Time Temp Pulse Resp B/P (MAP) Pulse Ox O2 Delivery O2 Flow Rate FiO2 02/06/21 05:02 99 BiPAP/CPAP 02/06/21 03:10 98.2 55 18 128/58 (81) 3.0 98.2 I & O 02/05/21 02/05/21 02/06/21 15:00 23:00 07:00 Intake Total 180 ml 100 ml 0 ml Output Total 800 ml 600 ml Balance 180 ml -700 ml -600 ml Physical Exam General: Alert, Oriented X3 Heart: No murmurs Lungs: Clear Abdomen: No tenderness Extremities: Other (Pedal edema) Skin: No rashes, No breakdown Labs Labs: Laboratory Tests Test 02/05/21 07:48 02/05/21 10:50 02/05/21 11:36 02/05/21 11:40 Glucose (Fingerstick) 130 mg/dL (70-99) 175 mg/dL (70-99) SARS-CoV-2 RNA (CAITY) Negative (Negative) Sodium Level 140 mmol/L (136-145) Potassium Level 4.1 mmol/L (3.5-5.1) Chloride Level 102 mmol/L (98-107) Carbon Dioxide Level 30 mmol/L (21-32) Anion Gap 8 (6-14) Blood Urea Nitrogen 46 mg/dL (8-26) Creatinine 2.1 mg/dL (0.7-1.3) Estimated GFR (Cockcroft-Gault) 31.3 Glucose Level 176 mg/dL (70-99) Calcium Level 8.7 mg/dL (8.5-10.1) Test 02/05/21 17:00 02/05/21 20:51 02/06/21 03:40 Glucose (Fingerstick) 137 mg/dL (70-99) 126 mg/dL (70-99) White Blood Count 5.9 x10^3/uL (4.0-11.0) Red Blood Count 2.80 x10^6/uL (4.30-5.70) Hemoglobin 8.6 g/dL (13.0-17.5) Hematocrit 25.3 % (39.0-53.0) Mean Corpuscular Volume 91 fL (79-100) Mean Corpuscular Hemoglobin 31 pg (25-35) Mean Corpuscular Hemoglobin Concent 34 g/dL (31-37) Red Cell Distribution Width 14.1 % (11.5-14.5) Platelet Count 302 x10^3/uL (140-400) Neutrophils (%) (Auto) 70 % (31-73) Lymphocytes (%) (Auto) 16 % (24-48) Monocytes (%) (Auto) 10 % (0-9) Eosinophils (%) (Auto) 3 % (0-3) Basophils (%) (Auto) 1 % (0-3) Neutrophils # (Auto) 4.1 x10^3/uL (1.8-7.7) Lymphocytes # (Auto) 0.9 x10^3/uL (1.0-4.8) Monocytes # (Auto) 0.6 x10^3/uL (0.0-1.1) Eosinophils # (Auto) 0.2 x10^3/uL (0.0-0.7) Basophils # (Auto) 0.1 x10^3/uL (0.0-0.2) Sodium Level 144 mmol/L (136-145) Potassium Level 3.6 mmol/L (3.5-5.1) Chloride Level 105 mmol/L (98-107) Carbon Dioxide Level 30 mmol/L (21-32) Anion Gap 9 (6-14) Blood Urea Nitrogen 46 mg/dL (8-26) Creatinine 1.9 mg/dL (0.7-1.3) Estimated GFR (Cockcroft-Gault) 35.1 Glucose Level 80 mg/dL (70-99) Calcium Level 8.5 mg/dL (8.5-10.1) Assessment and Plan Assessmemt and Plan Problems Medical Problems: (1) CHF (congestive heart failure) Status: Acute (2) Elevated troponin I level Status: Acute (3) Renal insufficiency Status: Acute Comment Review of Relevant I have reviewed the following items coral (where applicable) has been applied. Medications: Current Medications Medications (Trade) Dose Ordered Sig/Ruddy Route PRN Reason Start Time Stop Time Status Last Admin Dose Admin Budesonide (Pulmicort) 0.5 mg RTBID NEB 02/05/21 12:00 02/05/21 20:19 Heparin Sodium/ Sodium Chloride (HEPARIN for ARTERIAL LINE FLUSH) 1,000 unit 1X ONCE IART 02/05/21 15:45 02/05/21 15:46 DC 02/05/21 16:18 Heparin Sodium/ Sodium Chloride (HEPARIN for ARTERIAL LINE FLUSH) 1,000 unit 1X ONCE IART 02/05/21 15:45 02/05/21 15:46 DC 02/05/21 16:19 Midazolam HCl (Versed) 2 mg 1X ONCE IV 02/05/21 15:45 02/05/21 15:46 DC 02/05/21 16:19 Fentanyl Citrate (Fentanyl 2ml Vial) 100 mcg 1X ONCE IV 02/05/21 15:45 02/05/21 15:46 DC 02/05/21 16:20 Iodixanol (Visipaque 320) 100 ml 1X ONCE IART 02/05/21 15:45 02/05/21 15:46 DC 02/05/21 16:20 Heparin Sodium (Porcine) (Heparin Sodium) 5,000 unit 1X ONCE IV 02/05/21 15:45 02/05/21 15:46 DC 02/05/21 16:28 Lidocaine HCl (Lidocaine 1% 20ml Vial) 20 ml 1X ONCE INJ 02/05/21 15:45 02/05/21 15:46 DC 02/05/21 16:20 Nitroglycerin (Nitroglycerin) 200 mcg 1X ONCE ICAR 02/05/21 16:15 02/05/21 16:16 DC 02/05/21 16:19 Clopidogrel Bisulfate (Plavix) 300 mg 1X ONCE PO 02/05/21 16:15 02/05/21 16:16 DC 02/05/21 16:21 Justifications for Admission Other Justification Acute hypoxic respiratory failure, acute CHF exacerbation SARAH COLLINS MD Feb 06, 2021 07:35
[2021-02-06] MEDS: BUDESONIDE 0.5 MG/2 ML NEBU. NEB SCH ×2 (08:42→20:12)
[2021-02-06] MEDS: IPRATRPIUM/ALBUTEROL 0.5/2.5MG 3 ML NEBU. NEB SCH ×4 (08:42→20:12)
[2021-02-06] MEDS: TAMSULOSIN 0.4 MG CAP.ER.24H. PO SCH (09:01)
[2021-02-06] MEDS: ISOSORBIDE MONONITRATE ER 30 MG TAB.ER.24H PO SCH (09:01)
[2021-02-06] MEDS: hydrALAZINE 25 MG TABLET PO SCH ×2 (09:01→21:32)
[2021-02-06] MEDS: FLUoxetine HCL 20 MG CAPSULE PO SCH (09:01)
[2021-02-06] MEDS: CLOPIDOGREL BISULFATE 75 MG TABLET PO SCH (09:01)
[2021-02-06] MEDS: FUROSEMIDE 40 MG TABLET. PO SCH (09:01)
[2021-02-06] MEDS: ASPIRIN ENTERIC COATED 81 MG TABLET.DR. PO SCH (09:01)
[2021-02-06] MEDS: POTASSIUM CHLORIDE 10 MEQ TABLET.ER. PO SCH (09:02)
[2021-02-06] MEDS: CARVEDILOL 6.25 MG TABLET. PO SCH ×2 (09:02→17:15)
[2021-02-06] MEDS: INSULIN GLARGINE SYRINGE. SQ SCH ×2 (09:08→21:34)
[2021-02-06 11:00] VITALS: BP 115/59
--- NOTE | 2021-02-06 12:06 | PDOC ---
PULMONARY PROGRESS NOTES DATE: 02/06/21 TIME: 12:00 Subjective feels better s/p left heart cath Vitals Vital Signs Date Time Temp Pulse Resp B/P (MAP) Pulse Ox O2 Delivery O2 Flow Rate FiO2 02/06/21 09:02 66 146/67 02/06/21 08:44 100 Nasal Cannula 3.0 02/06/21 07:00 96.7 18 96.7 General: Alert, Oriented X4 Lungs: Clear, Wheezing (resolved) Cardiovascular: S1, S2 Abdomen: Soft, Non-tender Neuro Exam: Alert Extremities: No Edema, Other Labs Laboratory Tests Test 02/04/21 12:33 02/04/21 17:20 02/04/21 20:49 02/05/21 07:48 Glucose (Fingerstick) 146 mg/dL (70-99) 253 mg/dL (70-99) 200 mg/dL (70-99) 130 mg/dL (70-99) Test 02/05/21 10:50 02/05/21 11:36 02/05/21 11:40 02/05/21 17:00 SARS-CoV-2 RNA (CAITY) Negative (Negative) Glucose (Fingerstick) 175 mg/dL (70-99) 137 mg/dL (70-99) Sodium Level 140 mmol/L (136-145) Potassium Level 4.1 mmol/L (3.5-5.1) Chloride Level 102 mmol/L (98-107) Carbon Dioxide Level 30 mmol/L (21-32) Anion Gap 8 (6-14) Blood Urea Nitrogen 46 mg/dL (8-26) Creatinine 2.1 mg/dL (0.7-1.3) Estimated GFR (Cockcroft-Gault) 31.3 Glucose Level 176 mg/dL (70-99) Calcium Level 8.7 mg/dL (8.5-10.1) Test 02/05/21 20:51 02/06/21 03:40 02/06/21 07:27 Glucose (Fingerstick) 126 mg/dL (70-99) 105 mg/dL (70-99) White Blood Count 5.9 x10^3/uL (4.0-11.0) Red Blood Count 2.80 x10^6/uL (4.30-5.70) Hemoglobin 8.6 g/dL (13.0-17.5) Hematocrit 25.3 % (39.0-53.0) Mean Corpuscular Volume 91 fL (79-100) Mean Corpuscular Hemoglobin 31 pg (25-35) Mean Corpuscular Hemoglobin Concent 34 g/dL (31-37) Red Cell Distribution Width 14.1 % (11.5-14.5) Platelet Count 302 x10^3/uL (140-400) Neutrophils (%) (Auto) 70 % (31-73) Lymphocytes (%) (Auto) 16 % (24-48) Monocytes (%) (Auto) 10 % (0-9) Eosinophils (%) (Auto) 3 % (0-3) Basophils (%) (Auto) 1 % (0-3) Neutrophils # (Auto) 4.1 x10^3/uL (1.8-7.7) Lymphocytes # (Auto) 0.9 x10^3/uL (1.0-4.8) Monocytes # (Auto) 0.6 x10^3/uL (0.0-1.1) Eosinophils # (Auto) 0.2 x10^3/uL (0.0-0.7) Basophils # (Auto) 0.1 x10^3/uL (0.0-0.2) Sodium Level 144 mmol/L (136-145) Potassium Level 3.6 mmol/L (3.5-5.1) Chloride Level 105 mmol/L (98-107) Carbon Dioxide Level 30 mmol/L (21-32) Anion Gap 9 (6-14) Blood Urea Nitrogen 46 mg/dL (8-26) Creatinine 1.9 mg/dL (0.7-1.3) Estimated GFR (Cockcroft-Gault) 35.1 Glucose Level 80 mg/dL (70-99) Calcium Level 8.5 mg/dL (8.5-10.1) Laboratory Tests Test 02/05/21 17:00 02/05/21 20:51 02/06/21 03:40 02/06/21 07:27 Glucose (Fingerstick) 137 mg/dL (70-99) 126 mg/dL (70-99) 105 mg/dL (70-99) White Blood Count 5.9 x10^3/uL (4.0-11.0) Red Blood Count 2.80 x10^6/uL (4.30-5.70) Hemoglobin 8.6 g/dL (13.0-17.5) Hematocrit 25.3 % (39.0-53.0) Mean Corpuscular Volume 91 fL (79-100) Mean Corpuscular Hemoglobin 31 pg (25-35) Mean Corpuscular Hemoglobin Concent 34 g/dL (31-37) Red Cell Distribution Width 14.1 % (11.5-14.5) Platelet Count 302 x10^3/uL (140-400) Neutrophils (%) (Auto) 70 % (31-73) Lymphocytes (%) (Auto) 16 % (24-48) Monocytes (%) (Auto) 10 % (0-9) Eosinophils (%) (Auto) 3 % (0-3) Basophils (%) (Auto) 1 % (0-3) Neutrophils # (Auto) 4.1 x10^3/uL (1.8-7.7) Lymphocytes # (Auto) 0.9 x10^3/uL (1.0-4.8) Monocytes # (Auto) 0.6 x10^3/uL (0.0-1.1) Eosinophils # (Auto) 0.2 x10^3/uL (0.0-0.7) Basophils # (Auto) 0.1 x10^3/uL (0.0-0.2) Sodium Level 144 mmol/L (136-145) Potassium Level 3.6 mmol/L (3.5-5.1) Chloride Level 105 mmol/L (98-107) Carbon Dioxide Level 30 mmol/L (21-32) Anion Gap 9 (6-14) Blood Urea Nitrogen 46 mg/dL (8-26) Creatinine 1.9 mg/dL (0.7-1.3) Estimated GFR (Cockcroft-Gault) 35.1 Glucose Level 80 mg/dL (70-99) Calcium Level 8.5 mg/dL (8.5-10.1) Medications Active Scripts Medications Dose Route/Sig Max Daily Dose Days Date Category Isosorbide Mononitrate Er (Isosorbide Mononitrate) 60 Mg Tab.er.24h 1 Tab PO DAILY 30 01/31/21 Rx Furosemide 40 Mg Tablet 40 Mg PO QD 12/17/20 Rx Levemir (Insulin Detemir) 100 Unit/1 Ml Vial 12 Unit SQ BID 07/18/20 Reported Hydralazine Hcl 25 Mg Tablet 75 Mg PO BID 07/17/20 Rx Klor-Con 10 (Potassium Chloride) 10 Meq Tablet.er 1 Tab PO DAILY 07/11/20 Rx Lipitor (Atorvastatin Calcium) 40 Mg Tablet 1 Tab PO QHS 07/04/20 Rx Fluoxetine Hcl 20 Mg Capsule 20 Mg PO DAILY 07/04/20 Rx Carvedilol (Carvedilol) 6.25 Mg Tablet 6.25 Mg PO BIDWMEALS 07/04/20 Rx Clopidogrel (Clopidogrel Bisulfate) 75 Mg Tablet 1 Tab PO DAILY 30 07/04/20 Rx Amlodipine Besylate 10 Mg Tablet 10 Mg PO DAILY 07/04/20 Reported Aspirin Ec (Aspirin) 81 Mg Tablet.dr 1 Tab PO DAILY 07/04/20 Reported Omeprazole 20 Mg Capsule.dr 20 Mg PO DAILY 06/28/20 Reported Flomax (Tamsulosin Hcl) 0.4 Mg Cap.er.24h 0.4 Mg PO DAILY 06/28/20 Reported Comments CATH Conclusion 1. Acute on chronic systolic and diastolic heart failure. LVEDP 25 at end expiration, 12 mean 2. Two-vessel coronary artery disease with severe in-stent restenosis of the proximal LAD and distal LAD stents 3. Successful balloon angioplasty of the proximal and distal LAD stents Recommendations 1. Aspirin 81 g daily 2. Plavix 75 mg daily 3. Withhold further diuresis given contrast load today and near normal mean left ventricular end-diastolic pressure. 4. Aggressive medical therapy including cardiac rehabilitation as tolerated. Impression . 1. Acute on chronic hypoxic respiratory failure secondary to acute on chronic systolic congestive heart failure. 2. Severe cardiomyopathy with an EF of 25% and the previous cardiac catheterization with severe 3-vessel coronary artery disease. He has severe hypokinesis of left ventricle, based on the recent echo. 3. No significant tobacco history. 4. Bilateral wheezing, likely cardiac wheezing.,RESOLVED 5. Left BKA. 6. SOPHIE on CKD, likely contributed by diuresis. 7. CATH LVEDP 25 at end expiration, 12 mean 2. Two-vessel coronary artery disease with severe in-stent restenosis of the proximal LAD and distal LAD stents Plan . 1. Continue present oxygen. 2. Followup chest x-ray.as needed 3. His clinical and radiographic presentation is suggestive of cardiac etiology. cath findings support that LVEDP 25. s/p balloon angioplasty 4. Continue DuoNeb. steroid inhaler. 5. Follow up Cardiology recommendations. EREN BRICEÑO MD Feb 06, 2021 12:06
--- NOTE | 2021-02-06 12:41 | NUR ---
SS following for discharge planning. SS reviewed pt chart and discussed with pt RN. Pt is from home and is currently requiring oxygen at two liters nasal canula. Pt used BIPAP HS. Pt has home oxygen and home nebulizer. COVID19 negative. Pt had services with [facility], ; fax [phone]. PT recommended home. Pulmonology following. SS will continue to follow for discharge planning.
--- NOTE | 2021-02-06 12:44 | PDOC ---
CHAVA BUCHANAN DEMURRAGE MAN 02/06/21 1244: CARDIO Progress Notes Date and Time Date of Service 02/06/21 Time of Evaluation 1210 Subjective Subjective: No Chest Pain, No shortness of breath, No Palpitations Vitals Vitals Vital Signs Date Time Temp Pulse Resp B/P (MAP) Pulse Ox O2 Delivery O2 Flow Rate FiO2 02/06/21 12:03 99 Nasal Cannula 2.0 02/06/21 09:02 66 146/67 02/06/21 07:00 96.7 18 96.7 Weight Weight [ ] Input and Output Intake and Output Intake and Output 02/06/21 07:00 Intake Total 280 ml Output Total 1400 ml Balance -1120 ml Intake Oral 280 ml Output Urine Total 1400 ml Laboratory Labs Laboratory Tests Test 02/05/21 17:00 02/05/21 20:51 02/06/21 03:40 02/06/21 07:27 Glucose (Fingerstick) 137 mg/dL (70-99) 126 mg/dL (70-99) 105 mg/dL (70-99) White Blood Count 5.9 x10^3/uL (4.0-11.0) Red Blood Count 2.80 x10^6/uL (4.30-5.70) Hemoglobin 8.6 g/dL (13.0-17.5) Hematocrit 25.3 % (39.0-53.0) Mean Corpuscular Volume 91 fL (79-100) Mean Corpuscular Hemoglobin 31 pg (25-35) Mean Corpuscular Hemoglobin Concent 34 g/dL (31-37) Red Cell Distribution Width 14.1 % (11.5-14.5) Platelet Count 302 x10^3/uL (140-400) Neutrophils (%) (Auto) 70 % (31-73) Lymphocytes (%) (Auto) 16 % (24-48) Monocytes (%) (Auto) 10 % (0-9) Eosinophils (%) (Auto) 3 % (0-3) Basophils (%) (Auto) 1 % (0-3) Neutrophils # (Auto) 4.1 x10^3/uL (1.8-7.7) Lymphocytes # (Auto) 0.9 x10^3/uL (1.0-4.8) Monocytes # (Auto) 0.6 x10^3/uL (0.0-1.1) Eosinophils # (Auto) 0.2 x10^3/uL (0.0-0.7) Basophils # (Auto) 0.1 x10^3/uL (0.0-0.2) Sodium Level 144 mmol/L (136-145) Potassium Level 3.6 mmol/L (3.5-5.1) Chloride Level 105 mmol/L (98-107) Carbon Dioxide Level 30 mmol/L (21-32) Anion Gap 9 (6-14) Blood Urea Nitrogen 46 mg/dL (8-26) Creatinine 1.9 mg/dL (0.7-1.3) Estimated GFR (Cockcroft-Gault) 35.1 Glucose Level 80 mg/dL (70-99) Calcium Level 8.5 mg/dL (8.5-10.1) Test 02/06/21 12:10 Glucose (Fingerstick) 164 mg/dL (70-99) Microbiology Micro Microbiology 02/02/21 Blood Culture - Preliminary, Resulted NO GROWTH AFTER 4 DAYS Physical Exam HEENT: Neck Supple W Full Motion Chest: Symmetric LUNGS: Clear to Auscultation Heart: RRR Abdomen: Soft N/T Extremities: No Edema, Other (left BKA) Neurology: alert, oriented, follow commands Assessment Assessment 1. Acute on chronic respiratory failure with acute on chronic systolic CHF with ICM; Echo 07/02 with preserved LV systolic function. Repeat echo showed LVEF 25%. now compensated. Cath with near normal LVEDP 2. SOPHIE on CKD. Cr stable 3. NSTEMIl; trop peak 1.6. 4. CAD; cath showed two-vessel disease with severe in-stent restenosis of the proximal LAD and distal LAD stents. S/p successful balloon angioplasty of the proximal and distal LAD stents 5. Hypertension; controlled 6. Diabetes, II 7. Acute COPD exacerbation 8. Arrhythmia; brief burst of NSVT noted this am on tele Recommendations Secondary prevention including DAPT with ASA/Plavix High dose statin Monitor renal function Mg level Risk stratification modification Cardiac rehab referral Supportive care Justicifation of Admission Dx: Justifications for Admission: Justification of Admission Dx: Yes PEARL CARDOZA MD 02/07/21 0831: CARDIO Progress Notes Plan Plan Late entry for 02/06/21 The patient was seen and interviewed as well as examined at the bedside. The chart was reviewed. The case was discussed. Agree with the plan of care. CHAVA BUCHANAN APRN Feb 06, 2021 12:44 PEARL CARDOZA MD Feb 07, 2021 08:31
[2021-02-06 15:00] VITALS: BP 120/62
[2021-02-06 19:19] VITALS: BP 113/69
[2021-02-06] MEDS: ATORVASTATIN CALCIUM 40 MG TABLET. PO SCH (21:31)
[2021-02-06 22:50] VITALS: BP 129/60
[2021-02-07 02:28] VITALS: BP 136/64
[2021-02-07 05:38] LABS: BASO % 1 % (0-3); EOS # 0.1 x10^3/uL (0.0-0.7); EOS % 2 % (0-3); HEMATOCRIT 24.9 % (39.0-53.0); HEMOGLOBIN 8.5 g/dL (13.0-17.5); LYMPH # 0.9 x10^3/uL (1.0-4.8); LYMPH % 16 % (24-48); MEAN CORPUSCULAR HEMOGLOBIN 31 pg (25-35); MEAN CORPUSCULAR HGB CONC 34 g/dL (31-37); MEAN CORPUSCULAR VOLUME 90 fL (79-100); MONO # 0.7 x10^3/uL (0.0-1.1); MONO % 12 % (0-9); NEUT # 3.8 x10^3/uL (1.8-7.7); NEUT % 69 % (31-73); PLATELET COUNT 291 x10^3/uL (140-400); RED BLOOD COUNT 2.75 x10^6/uL (4.30-5.70); RED CELL DISTRIBUTION WIDTH 13.9 % (11.5-14.5); WHITE BLOOD COUNT 5.5 x10^3/uL (4.0-11.0)
[2021-02-07 06:06] LABS: CALCIUM 8.4 mg/dL (8.5-10.1); CREATININE 2.2 mg/dL (0.7-1.3); GFR 29.7; POTASSIUM 3.8 mmol/L (3.5-5.1)
[2021-02-07 07:00] VITALS: BP 148/70
[2021-02-07] MEDS: IPRATRPIUM/ALBUTEROL 0.5/2.5MG 3 ML NEBU. NEB SCH ×4 (08:13→20:24)
[2021-02-07] MEDS: BUDESONIDE 0.5 MG/2 ML NEBU. NEB SCH ×2 (08:14→20:24)
--- NOTE | 2021-02-07 08:54 | PDOC ---
PROGRESS NOTES Date of Service: DATE: 02/07/21 TIME: 08:54 Chief Complaint Chief Complaint Acute hypoxic respiratory failure Acute on chronic CHF exacerbation Acute volume overload SOPHIE due to vasomotor nephropathy, possible cardiorenal syndrome Pt reported he required dialysis in the past (has been many years), Elevated troponins suggestive of demand ischemia History of pulmonary arterial hypertension Anemia of chronic disease Severe protein malnutrition plan Admit to medicine for further management Continue BiPAP as needed Cardiology consult appreciated recommendationsLasix IV daily continue BiPAP nephrology consult Strict I's and O's Salt and fluid restriction to less than 2 g and less than 2 L/day, respectively History of Present Illness History of Present Illness 02/07/2021 Afebrile. Breathing on BiPAP overnight, currently on 3 L nasal cannula. States BiPAP really helps him at night. Kidney function slow to improve , still consistent with CKD 3b. Left heart cath 02-05 with findings of acute on chronic systolic and diastolic heart failure, two-vessel coronary artery disease with severe in-stent restenosis of the proximal LAD and distal LAD stents, and successful balloon angioplasty of the proximal and distal LAD stents. Recommended to continue aspirin and Plavix. Continue to DuoNebs as needed and inhaled steroid. GFR 29.7, CONSULT NEPHROLOGY, NAT RENAL FUNCTION D/W RN \ 02/06/2021 Afebrile. Breathing on BiPAP overnight, currently on 3 L nasal cannula. States BiPAP really helps him at night. 1120 mL net fluid output overnight. Kidney function slightly improved today, still consistent with CKD 3b. Left heart cath yesterday with findings of acute on chronic systolic and diastolic heart failure, two-vessel coronary artery disease with severe in-stent restenosis of the proximal LAD and distal LAD stents, and successful balloon angioplasty of the proximal and distal LAD stents. Recommended to continue aspirin and Plavix. Continue to DuoNebs as needed and inhaled steroid. 02/05/2021 Afebrile, currently breathing on BiPAP. Weight fluctuating, but roughly 565 mL urine off overnight. Pulmonology has been consulted due to probable COPD. Continue duo nebs and Lasix. Continue to monitor kidney function. 02/04/2021 No acute events overnight. Patient currently saturating 97% on 3 L nasal cannula. Taken off of BiPAP. We will continue BiPAP as needed. Appreciate cardiology recommendation for possible left heart cath. Patient's chart, labs, images were reviewed and discussed with RN 02/03/2021 No acute events overnight. Patient was placed on BiPAP. Lasix IV was given. Evaluated by cardiology and will increase his IV Lasix to 40 mg twice daily. Patient's chart, labs, images were reviewed and discussed with RN A total of 33 minutes of critical care time was spent in reviewing chart, labs, and images. Discussed with RN and SW. elderly male who was just sent home a few days ago. Once again, he presents with heart failure. He is short of breath. He was hypoxic with a sat in the 88% range. He states he has been following his diet and he increased his home meds but that did not work. His symptoms are worse with moving, better with sitting still, rated at 9/10. It makes him very anxious. I discussed the case with ER physician. We have placed him on BiPAP. We have also given him 40 of IV Lasix. We are also consulting Cardiology. The patient is quite ill. Vitals Vitals Vital Signs Date Time Temp Pulse Resp B/P (MAP) Pulse Ox O2 Delivery O2 Flow Rate FiO2 02/07/21 08:14 99 Nasal Cannula 2.0 02/07/21 02:28 98.1 53 18 136/64 (88) 98.1 Physical Exam General: Alert, Oriented X3, Cooperative Heart: Regular rate, No murmurs Lungs: Clear, Wheezing (resolved) Abdomen: No tenderness Extremities: Other (Pedal edema) Skin: No rashes, No breakdown Labs LABS Examination: Ultrasound kidneys HISTORY: History of renal failure COMPARISON: None available. FINDINGS: The right kidney measures 12.1 x 5.5 x 5.0 cm. The left kidney measures 13.2 x 5.7 x 5.9 cm. Urinary bladder is mildly distended. Partially visualized left pleural effusion. IMPRESSION: 1. No evidence of hydronephrosis. Electronically signed by: El Fagan MD (06/30/2020 2:24 AM) [id number] DICTATED and SIGNED BY: EL FAGAN MD DATE: 06/30/20 0224 Laboratory Tests Test 02/06/21 12:10 02/06/21 16:46 02/06/21 20:43 02/07/21 04:30 Glucose (Fingerstick) 164 mg/dL (70-99) 149 mg/dL (70-99) 222 mg/dL (70-99) White Blood Count 5.5 x10^3/uL (4.0-11.0) Red Blood Count 2.75 x10^6/uL (4.30-5.70) Hemoglobin 8.5 g/dL (13.0-17.5) Hematocrit 24.9 % (39.0-53.0) Mean Corpuscular Volume 90 fL (79-100) Mean Corpuscular Hemoglobin 31 pg (25-35) Mean Corpuscular Hemoglobin Concent 34 g/dL (31-37) Red Cell Distribution Width 13.9 % (11.5-14.5) Platelet Count 291 x10^3/uL (140-400) Neutrophils (%) (Auto) 69 % (31-73) Lymphocytes (%) (Auto) 16 % (24-48) Monocytes (%) (Auto) 12 % (0-9) Eosinophils (%) (Auto) 2 % (0-3) Basophils (%) (Auto) 1 % (0-3) Neutrophils # (Auto) 3.8 x10^3/uL (1.8-7.7) Lymphocytes # (Auto) 0.9 x10^3/uL (1.0-4.8) Monocytes # (Auto) 0.7 x10^3/uL (0.0-1.1) Eosinophils # (Auto) 0.1 x10^3/uL (0.0-0.7) Basophils # (Auto) 0.0 x10^3/uL (0.0-0.2) Sodium Level 140 mmol/L (136-145) Potassium Level 3.8 mmol/L (3.5-5.1) Chloride Level 102 mmol/L (98-107) Carbon Dioxide Level 29 mmol/L (21-32) Anion Gap 9 (6-14) Blood Urea Nitrogen 44 mg/dL (8-26) Creatinine 2.2 mg/dL (0.7-1.3) Estimated GFR (Cockcroft-Gault) 29.7 Glucose Level 176 mg/dL (70-99) Calcium Level 8.4 mg/dL (8.5-10.1) Test 02/07/21 07:40 Glucose (Fingerstick) 160 mg/dL (70-99) Assessment and Plan Assessmemt and Plan Problems Medical Problems: (1) CHF (congestive heart failure) Status: Acute (2) Elevated troponin I level Status: Acute (3) Renal insufficiency Status: Acute WHAT IS THE PURPOSE OF AN ADVANCE DIRECTIVE? (ALSO KNOWN A LIVING WILL OR HEALTHCARE POWER OF LINSEED OIL ORDER FILLER) To articulate and document your wishes concerning medical treatment should you lose decision-making ability. To designate an individual, known as your healthcare agent or proxy, to ensure your wishes are honored should you no longer be able to speak for yourself. This includes, among other things, making decisions about when to withhold or withdraw life-sustaining treatment. WHERE CAN I FIND AN ADVANCE DIRECTIVE FORM? The National [facility] [employer] Organization has a list of advance directive forms for every state. We also recommend checking your state governments website for the most up-to-date forms. Find quick links to all state and [facility] government websites at [email or web address]. WHAT MUST I INCLUDE IN MY ADVANCE DIRECTIVE? The name and contact information of your healthcare agent/proxy. Answers to specific questions about your preferences for care if you become unable to speak for yourself. The forms and questions asked vary a bit from state to state. A sample question: Do you want to receive artificially provided nutrition or hydration when you are close to and/or permanently unconscious? Names and signatures of individuals who witness your signing your advance directive, if required. Not all states require witness signatures. The signature and seal of a public space attendant, if required by your state. Not all states require advance directives to be notarized. [facility] has a list of all advance directive/living will requirements by state. WHAT ELSE WOULD BE GOOD TO INCLUDE IN MY ADVANCE DIRECTIVE? Detailed information about what procedures or types of care you would like to receive and what you wish to avoid at all costs that are not covered by the questions on the form. Would you want to take advantage of all life-support technologies if it would only postpone ? Would you want to use them if you were permanently unconscious? Would you want them if you were going through an advanced progressive illness? More general statements about your values regarding end-of-life care. What does a good mean and look like to you? For that matter, what defines a life worth living? Do you define life by the intake of breath and nutrients? Is it defined by consciousness? At what point do you want to prolong it and at what point do you want to preserve resources for other people? Personal desires for body disposition in essence, what you want to happen to your body when you and plans for any memorial service(s) A list of people who cannot make healthcare decisions for you. Leave no room for ambiguity, which could lead to tensions between loved ones about your care as you are dying. HOW SHOULD I GO ABOUT IDENTIFYING MY HEALTHCARE AGENT/PROXY? An ideal person for the job is someone who: Knows you well. A spouse/partner, a family member, a close friend: all are good candidates. Excels at making difficult decisions under pressure. Is diplomatic and empathetic critical traits for balancing the needs, wants, and unpredictable emotions of a patients loved ones. Isnt afraid to ask tough questions, which invariably arise when discussing a dying individuals end-of-life care. Is easily reachable by email, phone, and/or text. Is or can easily be within physical proximity of where youre likely to receive care. Once Марина identified this person, how do I talk to them about what care I want and dont want at the end of life? Have multiple conversations with your healthcare agent about your wishes. Take them out to tea, have them over for dinner, go to a bar or library. Talk about what you want, and make sure you are heard and understood. If you see fit, and if your agent doesnt already know this information, you can share a bit about the personalities of the people who will be most invested in your health outcomes, and how best to handle these folks in situations when emotions will be running high. This can be a serious conversation or it can be full of laughs. You get to decide how the conversation plays out. WHAT IF MY HEALTHCARE AGENT/PROXY IS UNAVAILABLE TO EXECUTE THEIR DUTIES WHEN I AM DYING? It is important to appoint an alternative agent/proxy for exactly this reason. Identify and inform that person as you did your main agent/proxy, and list them as an alternate on your advance directive form. WHAT ABOUT THE TWO WITNESSES? ARE THERE ANY SPECIAL REQUIREMENTS FOR WHO CAN AND CANT SERVE IN THIS ROLE? In most states, witnesses cannot be: Your healthcare agent or proxy; Any of your care providers; Related to you by blood, adoption, or marriage; Entitled to any portion of your estate upon your . dpoa review> 20 min to portal Comment Review of Relevant I have reviewed the following items coral (where applicable) has been applied. Labs Laboratory Tests Test 02/05/21 10:50 02/05/21 11:36 02/05/21 11:40 02/05/21 17:00 SARS-CoV-2 RNA (CAITY) Negative (Negative) Glucose (Fingerstick) 175 mg/dL (70-99) 137 mg/dL (70-99) Sodium Level 140 mmol/L (136-145) Potassium Level 4.1 mmol/L (3.5-5.1) Chloride Level 102 mmol/L (98-107) Carbon Dioxide Level 30 mmol/L (21-32) Anion Gap 8 (6-14) Blood Urea Nitrogen 46 mg/dL (8-26) Creatinine 2.1 mg/dL (0.7-1.3) Estimated GFR (Cockcroft-Gault) 31.3 Glucose Level 176 mg/dL (70-99) Calcium Level 8.7 mg/dL (8.5-10.1) Test 02/05/21 20:51 02/06/21 03:40 02/06/21 07:27 02/06/21 12:10 Glucose (Fingerstick) 126 mg/dL (70-99) 105 mg/dL (70-99) 164 mg/dL (70-99) White Blood Count 5.9 x10^3/uL (4.0-11.0) Red Blood Count 2.80 x10^6/uL (4.30-5.70) Hemoglobin 8.6 g/dL (13.0-17.5) Hematocrit 25.3 % (39.0-53.0) Mean Corpuscular Volume 91 fL (79-100) Mean Corpuscular Hemoglobin 31 pg (25-35) Mean Corpuscular Hemoglobin Concent 34 g/dL (31-37) Red Cell Distribution Width 14.1 % (11.5-14.5) Platelet Count 302 x10^3/uL (140-400) Neutrophils (%) (Auto) 70 % (31-73) Lymphocytes (%) (Auto) 16 % (24-48) Monocytes (%) (Auto) 10 % (0-9) Eosinophils (%) (Auto) 3 % (0-3) Basophils (%) (Auto) 1 % (0-3) Neutrophils # (Auto) 4.1 x10^3/uL (1.8-7.7) Lymphocytes # (Auto) 0.9 x10^3/uL (1.0-4.8) Monocytes # (Auto) 0.6 x10^3/uL (0.0-1.1) Eosinophils # (Auto) 0.2 x10^3/uL (0.0-0.7) Basophils # (Auto) 0.1 x10^3/uL (0.0-0.2) Sodium Level 144 mmol/L (136-145) Potassium Level 3.6 mmol/L (3.5-5.1) Chloride Level 105 mmol/L (98-107) Carbon Dioxide Level 30 mmol/L (21-32) Anion Gap 9 (6-14) Blood Urea Nitrogen 46 mg/dL (8-26) Creatinine 1.9 mg/dL (0.7-1.3) Estimated GFR (Cockcroft-Gault) 35.1 Glucose Level 80 mg/dL (70-99) Calcium Level 8.5 mg/dL (8.5-10.1) Magnesium Level 2.0 mg/dL (1.8-2.4) Test 02/06/21 16:46 02/06/21 20:43 02/07/21 04:30 02/07/21 07:40 Glucose (Fingerstick) 149 mg/dL (70-99) 222 mg/dL (70-99) 160 mg/dL (70-99) White Blood Count 5.5 x10^3/uL (4.0-11.0) Red Blood Count 2.75 x10^6/uL (4.30-5.70) Hemoglobin 8.5 g/dL (13.0-17.5) Hematocrit 24.9 % (39.0-53.0) Mean Corpuscular Volume 90 fL (79-100) Mean Corpuscular Hemoglobin 31 pg (25-35) Mean Corpuscular Hemoglobin Concent 34 g/dL (31-37) Red Cell Distribution Width 13.9 % (11.5-14.5) Platelet Count 291 x10^3/uL (140-400) Neutrophils (%) (Auto) 69 % (31-73) Lymphocytes (%) (Auto) 16 % (24-48) Monocytes (%) (Auto) 12 % (0-9) Eosinophils (%) (Auto) 2 % (0-3) Basophils (%) (Auto) 1 % (0-3) Neutrophils # (Auto) 3.8 x10^3/uL (1.8-7.7) Lymphocytes # (Auto) 0.9 x10^3/uL (1.0-4.8) Monocytes # (Auto) 0.7 x10^3/uL (0.0-1.1) Eosinophils # (Auto) 0.1 x10^3/uL (0.0-0.7) Basophils # (Auto) 0.0 x10^3/uL (0.0-0.2) Sodium Level 140 mmol/L (136-145) Potassium Level 3.8 mmol/L (3.5-5.1) Chloride Level 102 mmol/L (98-107) Carbon Dioxide Level 29 mmol/L (21-32) Anion Gap 9 (6-14) Blood Urea Nitrogen 44 mg/dL (8-26) Creatinine 2.2 mg/dL (0.7-1.3) Estimated GFR (Cockcroft-Gault) 29.7 Glucose Level 176 mg/dL (70-99) Calcium Level 8.4 mg/dL (8.5-10.1) Laboratory Tests Test 02/06/21 12:10 02/06/21 16:46 02/06/21 20:43 02/07/21 04:30 Glucose (Fingerstick) 164 mg/dL (70-99) 149 mg/dL (70-99) 222 mg/dL (70-99) White Blood Count 5.5 x10^3/uL (4.0-11.0) Red Blood Count 2.75 x10^6/uL (4.30-5.70) Hemoglobin 8.5 g/dL (13.0-17.5) Hematocrit 24.9 % (39.0-53.0) Mean Corpuscular Volume 90 fL (79-100) Mean Corpuscular Hemoglobin 31 pg (25-35) Mean Corpuscular Hemoglobin Concent 34 g/dL (31-37) Red Cell Distribution Width 13.9 % (11.5-14.5) Platelet Count 291 x10^3/uL (140-400) Neutrophils (%) (Auto) 69 % (31-73) Lymphocytes (%) (Auto) 16 % (24-48) Monocytes (%) (Auto) 12 % (0-9) Eosinophils (%) (Auto) 2 % (0-3) Basophils (%) (Auto) 1 % (0-3) Neutrophils # (Auto) 3.8 x10^3/uL (1.8-7.7) Lymphocytes # (Auto) 0.9 x10^3/uL (1.0-4.8) Monocytes # (Auto) 0.7 x10^3/uL (0.0-1.1) Eosinophils # (Auto) 0.1 x10^3/uL (0.0-0.7) Basophils # (Auto) 0.0 x10^3/uL (0.0-0.2) Sodium Level 140 mmol/L (136-145) Potassium Level 3.8 mmol/L (3.5-5.1) Chloride Level 102 mmol/L (98-107) Carbon Dioxide Level 29 mmol/L (21-32) Anion Gap 9 (6-14) Blood Urea Nitrogen 44 mg/dL (8-26) Creatinine 2.2 mg/dL (0.7-1.3) Estimated GFR (Cockcroft-Gault) 29.7 Glucose Level 176 mg/dL (70-99) Calcium Level 8.4 mg/dL (8.5-10.1) Test 02/07/21 07:40 Glucose (Fingerstick) 160 mg/dL (70-99) Microbiology 02/02/21 Blood Culture - Preliminary, Resulted NO GROWTH AFTER 4 DAYS Medications Current Medications Ondansetron HCl (Zofran) 4 mg PRN Q8HRS PRN IV NAUSEA/VOMITING; Start 02/02/21 at 11:15; Stop 02/03/21 at 11:14; Status DC Furosemide (Lasix) 40 mg 1X ONCE IVP Last administered on 02/02/21at 11:55; Start 02/02/21 at 11:30; Stop 02/02/21 at 11:31; Status DC Amlodipine Besylate (Norvasc) 10 mg DAILY PO Last administered on 02/06/21 09:02; Start 02/03/21 at 09:00 Aspirin (Ecotrin) 81 mg DAILY PO Last administered on 02/06/21 09:01; Start 02/03/21 at 09:00 Atorvastatin Calcium (Lipitor) 40 mg QHS PO Last administered on 02/06/21 21:31; Start 02/02/21 at 21:00 Carvedilol (Coreg) 6.25 mg BIDWMEALS PO Last administered on 02/06/21 17:15; Start 02/03/21 at 08:00 Clopidogrel Bisulfate (Plavix) 75 mg DAILY PO Last administered on 02/06/21 09:01; Start 02/03/21 at 09:00 Fluoxetine HCl (PROzac) 20 mg DAILY PO Last administered on 02/06/21 09:01; Start 02/03/21 at 09:00 Furosemide (Lasix) 40 mg DAILY PO Last administered on 02/06/21 09:01; Start 02/03/21 at 09:00 Hydralazine HCl (Apresoline) 75 mg BID PO Last administered on 02/06/21 21:32; Start 02/02/21 at 21:00 Potassium Chloride (Klor-Con) 10 meq DAILY PO Last administered on 02/06/21 09:02; Start 02/03/21 at 09:00 Tamsulosin HCl (Flomax) 0.4 mg DAILY PO Last administered on 02/06/21 09:01; Start 02/03/21 at 09:00 Insulin Glargine (Lantus Syringe) 12 unit BID SQ Last administered on 02/06/21 21:34; Start 02/02/21 at 21:00 Isosorbide Mononitrate (Imdur) 60 mg DAILY PO Last administered on 02/06/21 09:01; Start 02/03/21 at 09:00 Pantoprazole Sodium (Protonix) 40 mg DAILYAC PO Last administered on 02/06/21 06:10; Start 02/03/21 at 07:30 Acetaminophen/ Hydrocodone Bitart (Lortab 5/325) 1 tab PRN Q6HRS PRN PO PAIN; Start 02/02/21 at 19:15 Albuterol/ Ipratropium (Duoneb) 3 ml RTQID NEB Last administered on 02/07/21at 08:13; Start 02/03/21 at 08:30 Furosemide (Lasix) 40 mg 1X ONCE IVP Last administered on 02/03/21at 08:35; Start 02/03/21 at 09:00; Stop 02/03/21 at 09:01; Status DC Alprazolam (Xanax) 0.25 mg PRN Q8HRS PRN PO ANXIETY / AGITATION Last administered on 02/05/21at 08:51; Start 02/03/21 at 10:45 Magnesium Sulfate 50 ml @ 25 mls/hr 1X ONCE IV Last administered on 02/04/21at 14:18; Start 02/04/21 at 14:00; Stop 02/04/21 at 15:59; Status DC Budesonide (Pulmicort) 0.5 mg RTBID NEB Last administered on 02/07/21at 08:14; Start 02/05/21 at 12:00 Iodixanol (Visipaque 320) 100 ml STK-MED ONCE .ROUTE ; Start 02/05/21 at 14:50; Stop 02/05/21 at 14:50; Status DC Lidocaine HCl (Lidocaine 1% 20ml Vial) 20 ml STK-MED ONCE .ROUTE ; Start 02/05/21 at 14:50; Stop 02/05/21 at 14:50; Status DC Heparin Sodium/ Sodium Chloride 1,000 ml @ As Directed STK-MED ONCE .ROUTE ; Start 02/05/21 at 14:50; Stop 02/05/21 at 14:51; Status DC Fentanyl Citrate (Fentanyl 2ml Vial) 100 mcg STK-MED ONCE .ROUTE ; Start 02/05/21 at 15:19; Stop 02/05/21 at 15:19; Status DC Midazolam HCl (Versed) 2 mg STK-MED ONCE .ROUTE ; Start 02/05/21 at 15:19; Stop 02/05/21 at 15:19; Status DC Iodixanol (Visipaque 320) 100 ml STK-MED ONCE .ROUTE ; Start 02/05/21 at 15:35; Stop 02/05/21 at 15:35; Status DC Heparin Sodium (Porcine) (Heparin Sodium) 10,000 unit STK-MED ONCE .ROUTE ; Start 02/05/21 at 15:35; Stop 02/05/21 at 15:36; Status DC Heparin Sodium/ Sodium Chloride (HEPARIN for ARTERIAL LINE FLUSH) 1,000 unit 1X ONCE IART Last administered on 02/05/21at 16:18; Start 02/05/21 at 15:45; Stop 02/05/21 at 15:46; Status DC Heparin Sodium/ Sodium Chloride (HEPARIN for ARTERIAL LINE FLUSH) 1,000 unit 1X ONCE IART Last administered on 02/05/21at 16:19; Start 02/05/21 at 15:45; Stop 02/05/21 at 15:46; Status DC Midazolam HCl (Versed) 2 mg 1X ONCE IV Last administered on 02/05/21at 16:19; Start 02/05/21 at 15:45; Stop 02/05/21 at 15:46; Status DC Fentanyl Citrate (Fentanyl 2ml Vial) 100 mcg 1X ONCE IV Last administered on 02/05/21at 16:20; Start 02/05/21 at 15:45; Stop 02/05/21 at 15:46; Status DC Iodixanol (Visipaque 320) 100 ml 1X ONCE IART Last administered on 02/05/21at 16:20; Start 02/05/21 at 15:45; Stop 02/05/21 at 15:46; Status DC Heparin Sodium (Porcine) (Heparin Sodium) 5,000 unit 1X ONCE IV Last administered on 02/05/21at 16:28; Start 02/05/21 at 15:45; Stop 02/05/21 at 15:46; Status DC Lidocaine HCl (Lidocaine 1% 20ml Vial) 20 ml 1X ONCE INJ Last administered on 02/05/21at 16:20; Start 02/05/21 at 15:45; Stop 02/05/21 at 15:46; Status DC Info (CONTRAST GIVEN -- Rx MONITORING) 1 each PRN DAILY PRN MC SEE COMMENTS; Start 02/05/21 at 15:45; Stop 02/07/21 at 15:44 Nitroglycerin (Nitroglycerin) 200 mcg STK-MED ONCE .ROUTE ; Start 02/05/21 at 15:58; Stop 02/05/21 at 15:58; Status DC Nitroglycerin (Nitroglycerin) 200 mcg 1X ONCE ICAR Last administered on 02/05/21at 16:19; Start 02/05/21 at 16:15; Stop 02/05/21 at 16:16; Status DC Clopidogrel Bisulfate (Plavix) 300 mg 1X ONCE PO Last administered on 02/05/21at 16:21; Start 02/05/21 at 16:15; Stop 02/05/21 at 16:16; Status DC Clopidogrel Bisulfate (Plavix) 75 mg STK-MED ONCE .ROUTE ; Start 02/05/21 at 16:10; Stop 02/05/21 at 16:10; Status DC Active Scripts Active Isosorbide Mononitrate Er (Isosorbide Mononitrate) 60 Mg Tab.er.24h 1 Tab PO DAILY 30 Days Furosemide 40 Mg Tablet 40 Mg PO QD Hydralazine Hcl 25 Mg Tablet 75 Mg PO BID 30 Days Klor-Con 10 (Potassium Chloride) 10 Meq Tablet.er 1 Tab PO DAILY 30 Days Lipitor (Atorvastatin Calcium) 40 Mg Tablet 1 Tab PO QHS 30 Days Fluoxetine Hcl 20 Mg Capsule 20 Mg PO DAILY 30 Days Carvedilol (Carvedilol) 6.25 Mg Tablet 6.25 Mg PO BIDWMEALS 30 Days Clopidogrel (Clopidogrel Bisulfate) 75 Mg Tablet 1 Tab PO DAILY 30 Days Reported Levemir (Insulin Detemir) 100 Unit/1 Ml Vial 12 Unit SQ BID Amlodipine Besylate 10 Mg Tablet 10 Mg PO DAILY Aspirin Ec (Aspirin) 81 Mg Tablet.dr 1 Tab PO DAILY Omeprazole 20 Mg Capsule.dr 20 Mg PO DAILY Flomax (Tamsulosin Hcl) 0.4 Mg Cap.er.24h 0.4 Mg PO DAILY Vitals/I & O Vital Sign - Last 24 Hours 02/06/21 02/06/21 02/06/21 02/06/21 09:01 09:01 09:02 09:02 Pulse 66 65 66 66 B/P (MAP) 146/67 146/67 146/67 146/67 02/06/21 02/06/21 02/06/21 02/06/21 11:00 12:03 15:00 16:14 Temp 97.7 97.9 97.7 97.9 Pulse 64 60 Resp 18 18 B/P (MAP) 115/59 (77) 120/62 (81) Pulse Ox 99 99 100 99 O2 Delivery Nasal Cannula Nasal Cannula Nasal Cannula Nasal Cannula O2 Flow Rate 3.0 2.0 3.0 2.0 02/06/21 02/06/21 02/06/21 02/06/21 17:15 19:19 20:13 20:14 Temp 98.0 98.0 Pulse 61 67 Resp 18 B/P (MAP) 119/59 113/69 (84) Pulse Ox 98 99 99 O2 Delivery Nasal Cannula Nasal Cannula Nasal Cannula O2 Flow Rate 3.0 2.0 2.0 02/06/21 02/06/21 02/06/21 02/06/21 20:30 21:32 22:17 22:50 Temp 98.0 98.0 Pulse 67 58 Resp 18 B/P (MAP) 113/69 129/60 (83) Pulse Ox 99 97 O2 Delivery Nasal Cannula BiPAP/CPAP Nasal Cannula O2 Flow Rate 3.0 3.0 02/07/21 02/07/21 02/07/21 02/07/21 00:26 02:28 03:29 05:49 Temp 98.1 98.1 Pulse 53 Resp 18 B/P (MAP) 136/64 (88) Pulse Ox 99 99 97 97 O2 Delivery BiPAP/CPAP Nasal Cannula BiPAP/CPAP BiPAP/CPAP O2 Flow Rate 3.0 02/07/21 08:14 Pulse Ox 99 O2 Delivery Nasal Cannula O2 Flow Rate 2.0 Intake and Output 02/06/21 02/06/21 02/07/21 15:00 23:00 07:00 Intake Total 100 ml 0 ml Output Total 550 ml Balance 100 ml -550 ml Justicifation of Admission Dx: Justifications for Admission: Justification of Admission Dx: Yes MARGARITO CABEZAS MD Feb 07, 2021 08:54
[2021-02-07] MEDS: FUROSEMIDE 40 MG TABLET. PO SCH (10:00)
[2021-02-07] MEDS: PANTOPRAZOLE 40 MG TABLET.DR. PO SCH (10:01)
[2021-02-07] MEDS: CLOPIDOGREL BISULFATE 75 MG TABLET PO SCH (10:01)
[2021-02-07] MEDS: TAMSULOSIN 0.4 MG CAP.ER.24H. PO SCH (10:01)
[2021-02-07] MEDS: FLUoxetine HCL 20 MG CAPSULE PO SCH (10:01)
[2021-02-07] MEDS: ASPIRIN ENTERIC COATED 81 MG TABLET.DR. PO SCH (10:01)
[2021-02-07] MEDS: POTASSIUM CHLORIDE 10 MEQ TABLET.ER. PO SCH (10:02)
[2021-02-07] MEDS: hydrALAZINE 25 MG TABLET PO SCH ×2 (10:03→22:13)
[2021-02-07] MEDS: INSULIN GLARGINE SYRINGE. SQ SCH ×2 (10:21→22:14)
--- NOTE | 2021-02-07 10:50 | PDOC ---
CHAVA BUCHANAN HAT LINER 02/07/21 1050: CARDIO Progress Notes Date and Time Date of Service 02/07/21 Time of Evaluation 1040 Subjective Subjective: No Chest Pain, No shortness of breath, No Palpitations, Other (feels well, no complaints ) Vitals Vitals Vital Signs Date Time Temp Pulse Resp B/P (MAP) Pulse Ox O2 Delivery O2 Flow Rate FiO2 02/07/21 10:03 58 137/63 02/07/21 08:14 99 Nasal Cannula 2.0 02/07/21 07:00 97.8 18 97.8 Weight Weight [ ] Input and Output Intake and Output Intake and Output 02/07/21 07:00 Intake Total 100 ml Output Total 550 ml Balance -450 ml Intake Oral 100 ml Output Urine Total 550 ml # Bowel Movements 1 Laboratory Labs Laboratory Tests Test 02/06/21 12:10 02/06/21 16:46 02/06/21 20:43 02/07/21 04:30 Glucose (Fingerstick) 164 mg/dL (70-99) 149 mg/dL (70-99) 222 mg/dL (70-99) White Blood Count 5.5 x10^3/uL (4.0-11.0) Red Blood Count 2.75 x10^6/uL (4.30-5.70) Hemoglobin 8.5 g/dL (13.0-17.5) Hematocrit 24.9 % (39.0-53.0) Mean Corpuscular Volume 90 fL (79-100) Mean Corpuscular Hemoglobin 31 pg (25-35) Mean Corpuscular Hemoglobin Concent 34 g/dL (31-37) Red Cell Distribution Width 13.9 % (11.5-14.5) Platelet Count 291 x10^3/uL (140-400) Neutrophils (%) (Auto) 69 % (31-73) Lymphocytes (%) (Auto) 16 % (24-48) Monocytes (%) (Auto) 12 % (0-9) Eosinophils (%) (Auto) 2 % (0-3) Basophils (%) (Auto) 1 % (0-3) Neutrophils # (Auto) 3.8 x10^3/uL (1.8-7.7) Lymphocytes # (Auto) 0.9 x10^3/uL (1.0-4.8) Monocytes # (Auto) 0.7 x10^3/uL (0.0-1.1) Eosinophils # (Auto) 0.1 x10^3/uL (0.0-0.7) Basophils # (Auto) 0.0 x10^3/uL (0.0-0.2) Sodium Level 140 mmol/L (136-145) Potassium Level 3.8 mmol/L (3.5-5.1) Chloride Level 102 mmol/L (98-107) Carbon Dioxide Level 29 mmol/L (21-32) Anion Gap 9 (6-14) Blood Urea Nitrogen 44 mg/dL (8-26) Creatinine 2.2 mg/dL (0.7-1.3) Estimated GFR (Cockcroft-Gault) 29.7 Glucose Level 176 mg/dL (70-99) Calcium Level 8.4 mg/dL (8.5-10.1) Test 02/07/21 07:40 Glucose (Fingerstick) 160 mg/dL (70-99) Microbiology Micro Microbiology 02/02/21 Blood Culture - Final, Complete NO GROWTH AFTER 5 DAYS Physical Exam HEENT: Neck Supple W Full Motion Chest: Symmetric LUNGS: Clear to Auscultation Heart: RRR Abdomen: Soft N/T Extremities: No Edema, Other (left BKA) Neurology: alert, oriented, follow commands Assessment Assessment 1. Acute on chronic respiratory failure with acute on chronic systolic CHF with ICM; Echo 07/02 with preserved LV systolic function. Repeat echo showed LVEF 25%. now compensated. Cath with near normal LVEDP 2. SPOHIE on CKD. Cr stable 3. NSTEMIl; trop peak 1.6. 4. CAD; cath showed two-vessel disease with severe in-stent restenosis of the proximal LAD and distal LAD stents. S/p successful balloon angioplasty of the proximal and distal LAD stents 5. Hypertension; controlled 6. Diabetes, II 7. Acute COPD exacerbation 8. Arrhythmia; brief burst of NSVT noted this am on tele Recommendations Secondary prevention including DAPT with ASA/Plavix High dose statin Risk stratification modification Outpatient sleep study Supportive care Follow up in our office with Dr Melo as scheduled Justicifation of Admission Dx: Justifications for Admission: Justification of Admission Dx: Yes PEARL MELO MD 02/08/21 1502: CARDIO Progress Notes Plan Plan Late entry for 02/07/2021. Patient seen and examined. Agree with above nurse practitioner note. CHAVA BUCHANAN APRN Feb 07, 2021 10:50 PEARL MELO MD Feb 08, 2021 15:02
--- NOTE | 2021-02-07 10:58 | PDOC ---
PULMONARY PROGRESS NOTES DATE: 02/07/21 TIME: 10:57 Subjective feels better s/p left heart cath Vitals Vital Signs Date Time Temp Pulse Resp B/P (MAP) Pulse Ox O2 Delivery O2 Flow Rate FiO2 02/07/21 10:03 58 137/63 02/07/21 08:14 99 Nasal Cannula 2.0 02/07/21 07:00 97.8 18 97.8 General: Alert, Oriented X4 Lungs: Clear, Wheezing (resolved) Cardiovascular: S1, S2 Abdomen: Soft, Non-tender Neuro Exam: Alert Extremities: No Edema, Other Labs Laboratory Tests Test 02/05/21 11:36 02/05/21 11:40 02/05/21 17:00 02/05/21 20:51 Glucose (Fingerstick) 175 mg/dL (70-99) 137 mg/dL (70-99) 126 mg/dL (70-99) Sodium Level 140 mmol/L (136-145) Potassium Level 4.1 mmol/L (3.5-5.1) Chloride Level 102 mmol/L (98-107) Carbon Dioxide Level 30 mmol/L (21-32) Anion Gap 8 (6-14) Blood Urea Nitrogen 46 mg/dL (8-26) Creatinine 2.1 mg/dL (0.7-1.3) Estimated GFR (Cockcroft-Gault) 31.3 Glucose Level 176 mg/dL (70-99) Calcium Level 8.7 mg/dL (8.5-10.1) Test 02/06/21 03:40 02/06/21 07:27 02/06/21 12:10 02/06/21 16:46 White Blood Count 5.9 x10^3/uL (4.0-11.0) Red Blood Count 2.80 x10^6/uL (4.30-5.70) Hemoglobin 8.6 g/dL (13.0-17.5) Hematocrit 25.3 % (39.0-53.0) Mean Corpuscular Volume 91 fL (79-100) Mean Corpuscular Hemoglobin 31 pg (25-35) Mean Corpuscular Hemoglobin Concent 34 g/dL (31-37) Red Cell Distribution Width 14.1 % (11.5-14.5) Platelet Count 302 x10^3/uL (140-400) Neutrophils (%) (Auto) 70 % (31-73) Lymphocytes (%) (Auto) 16 % (24-48) Monocytes (%) (Auto) 10 % (0-9) Eosinophils (%) (Auto) 3 % (0-3) Basophils (%) (Auto) 1 % (0-3) Neutrophils # (Auto) 4.1 x10^3/uL (1.8-7.7) Lymphocytes # (Auto) 0.9 x10^3/uL (1.0-4.8) Monocytes # (Auto) 0.6 x10^3/uL (0.0-1.1) Eosinophils # (Auto) 0.2 x10^3/uL (0.0-0.7) Basophils # (Auto) 0.1 x10^3/uL (0.0-0.2) Sodium Level 144 mmol/L (136-145) Potassium Level 3.6 mmol/L (3.5-5.1) Chloride Level 105 mmol/L (98-107) Carbon Dioxide Level 30 mmol/L (21-32) Anion Gap 9 (6-14) Blood Urea Nitrogen 46 mg/dL (8-26) Creatinine 1.9 mg/dL (0.7-1.3) Estimated GFR (Cockcroft-Gault) 35.1 Glucose Level 80 mg/dL (70-99) Calcium Level 8.5 mg/dL (8.5-10.1) Magnesium Level 2.0 mg/dL (1.8-2.4) Glucose (Fingerstick) 105 mg/dL (70-99) 164 mg/dL (70-99) 149 mg/dL (70-99) Test 02/06/21 20:43 02/07/21 04:30 02/07/21 07:40 Glucose (Fingerstick) 222 mg/dL (70-99) 160 mg/dL (70-99) White Blood Count 5.5 x10^3/uL (4.0-11.0) Red Blood Count 2.75 x10^6/uL (4.30-5.70) Hemoglobin 8.5 g/dL (13.0-17.5) Hematocrit 24.9 % (39.0-53.0) Mean Corpuscular Volume 90 fL (79-100) Mean Corpuscular Hemoglobin 31 pg (25-35) Mean Corpuscular Hemoglobin Concent 34 g/dL (31-37) Red Cell Distribution Width 13.9 % (11.5-14.5) Platelet Count 291 x10^3/uL (140-400) Neutrophils (%) (Auto) 69 % (31-73) Lymphocytes (%) (Auto) 16 % (24-48) Monocytes (%) (Auto) 12 % (0-9) Eosinophils (%) (Auto) 2 % (0-3) Basophils (%) (Auto) 1 % (0-3) Neutrophils # (Auto) 3.8 x10^3/uL (1.8-7.7) Lymphocytes # (Auto) 0.9 x10^3/uL (1.0-4.8) Monocytes # (Auto) 0.7 x10^3/uL (0.0-1.1) Eosinophils # (Auto) 0.1 x10^3/uL (0.0-0.7) Basophils # (Auto) 0.0 x10^3/uL (0.0-0.2) Sodium Level 140 mmol/L (136-145) Potassium Level 3.8 mmol/L (3.5-5.1) Chloride Level 102 mmol/L (98-107) Carbon Dioxide Level 29 mmol/L (21-32) Anion Gap 9 (6-14) Blood Urea Nitrogen 44 mg/dL (8-26) Creatinine 2.2 mg/dL (0.7-1.3) Estimated GFR (Cockcroft-Gault) 29.7 Glucose Level 176 mg/dL (70-99) Calcium Level 8.4 mg/dL (8.5-10.1) Laboratory Tests Test 02/06/21 12:10 02/06/21 16:46 02/06/21 20:43 02/07/21 04:30 Glucose (Fingerstick) 164 mg/dL (70-99) 149 mg/dL (70-99) 222 mg/dL (70-99) White Blood Count 5.5 x10^3/uL (4.0-11.0) Red Blood Count 2.75 x10^6/uL (4.30-5.70) Hemoglobin 8.5 g/dL (13.0-17.5) Hematocrit 24.9 % (39.0-53.0) Mean Corpuscular Volume 90 fL (79-100) Mean Corpuscular Hemoglobin 31 pg (25-35) Mean Corpuscular Hemoglobin Concent 34 g/dL (31-37) Red Cell Distribution Width 13.9 % (11.5-14.5) Platelet Count 291 x10^3/uL (140-400) Neutrophils (%) (Auto) 69 % (31-73) Lymphocytes (%) (Auto) 16 % (24-48) Monocytes (%) (Auto) 12 % (0-9) Eosinophils (%) (Auto) 2 % (0-3) Basophils (%) (Auto) 1 % (0-3) Neutrophils # (Auto) 3.8 x10^3/uL (1.8-7.7) Lymphocytes # (Auto) 0.9 x10^3/uL (1.0-4.8) Monocytes # (Auto) 0.7 x10^3/uL (0.0-1.1) Eosinophils # (Auto) 0.1 x10^3/uL (0.0-0.7) Basophils # (Auto) 0.0 x10^3/uL (0.0-0.2) Sodium Level 140 mmol/L (136-145) Potassium Level 3.8 mmol/L (3.5-5.1) Chloride Level 102 mmol/L (98-107) Carbon Dioxide Level 29 mmol/L (21-32) Anion Gap 9 (6-14) Blood Urea Nitrogen 44 mg/dL (8-26) Creatinine 2.2 mg/dL (0.7-1.3) Estimated GFR (Cockcroft-Gault) 29.7 Glucose Level 176 mg/dL (70-99) Calcium Level 8.4 mg/dL (8.5-10.1) Test 02/07/21 07:40 Glucose (Fingerstick) 160 mg/dL (70-99) Medications Active Scripts Medications Dose Route/Sig Max Daily Dose Days Date Category Isosorbide Mononitrate Er (Isosorbide Mononitrate) 60 Mg Tab.er.24h 1 Tab PO DAILY 30 01/31/21 Rx Furosemide 40 Mg Tablet 40 Mg PO QD 12/17/20 Rx Levemir (Insulin Detemir) 100 Unit/1 Ml Vial 12 Unit SQ BID 07/18/20 Reported Hydralazine Hcl 25 Mg Tablet 75 Mg PO BID 30 07/17/20 Rx Klor-Con 10 (Potassium Chloride) 10 Meq Tablet.er 1 Tab PO DAILY 30 07/11/20 Rx Lipitor (Atorvastatin Calcium) 40 Mg Tablet 1 Tab PO QHS 07/04/20 Rx Fluoxetine Hcl 20 Mg Capsule 20 Mg PO DAILY 30 07/04/20 Rx Carvedilol (Carvedilol) 6.25 Mg Tablet 6.25 Mg PO BIDWMEALS 07/04/20 Rx Clopidogrel (Clopidogrel Bisulfate) 75 Mg Tablet 1 Tab PO DAILY 30 07/04/20 Rx Amlodipine Besylate 10 Mg Tablet 10 Mg PO DAILY 07/04/20 Reported Aspirin Ec (Aspirin) 81 Mg Tablet.dr 1 Tab PO DAILY 07/04/20 Reported Omeprazole 20 Mg Capsule.dr 20 Mg PO DAILY 06/28/20 Reported Flomax (Tamsulosin Hcl) 0.4 Mg Cap.er.24h 0.4 Mg PO DAILY 06/28/20 Reported Comments CATH Conclusion 1. Acute on chronic systolic and diastolic heart failure. LVEDP 25 at end expiration, 12 mean 2. Two-vessel coronary artery disease with severe in-stent restenosis of the proximal LAD and distal LAD stents 3. Successful balloon angioplasty of the proximal and distal LAD stents Recommendations 1. Aspirin 81 g daily 2. Plavix 75 mg daily 3. Withhold further diuresis given contrast load today and near normal mean left ventricular end-diastolic pressure. 4. Aggressive medical therapy including cardiac rehabilitation as tolerated. Impression . 1. Acute on chronic hypoxic respiratory failure secondary to acute on chronic systolic congestive heart failure. 2. Severe cardiomyopathy with an EF of 25% and the previous cardiac catheterization with severe 3-vessel coronary artery disease. He has severe hypokinesis of left ventricle, based on the recent echo. 3. No significant tobacco history. 4. Bilateral wheezing, likely cardiac wheezing.,RESOLVED 5. Left BKA. 6. SOPHIE on CKD, likely contributed by diuresis. 7. CATH LVEDP 25 at end expiration, 12 mean 2. Two-vessel coronary artery disease with severe in-stent restenosis of the proximal LAD and distal LAD stents Plan . 1. Continue present oxygen. 2. Followup chest x-ray.as needed 3. His clinical and radiographic presentation is suggestive of cardiac etiology. cath findings support that LVEDP 25. s/p balloon angioplasty 4. Continue DuoNeb. steroid inhaler. 5. Follow up Cardiology recommendations. dc plans per cardiology EREN BRICEÑO MD Feb 07, 2021 10:58
[2021-02-07 11:00] VITALS: BP 127/63
--- NOTE | 2021-02-07 13:15 | NUR ---
SS following up with discharge planning. SS reviewed pt chart and discussed with pt RN. Pt is from home and is currently requiring oxygen at two liters nasal canula. Pt has home oxygen and home nebulizer. COVID19 negative. Pt had services with [facility], ; fax [phone]. PT/OT recommended home. Pulmonology following. SS phoned and faxed clinical updates to [facility], ; fax [phone]. SS will continue to follow for discharge planning.
[2021-02-07] MEDS: CARVEDILOL 6.25 MG TABLET. PO SCH ×2 (13:23→17:28)
[2021-02-07] MEDS: ISOSORBIDE MONONITRATE ER 30 MG TAB.ER.24H PO SCH (13:23)
[2021-02-07 15:00] VITALS: BP 132/60
[2021-02-07 19:13] VITALS: BP 116/59
[2021-02-07] MEDS: ATORVASTATIN CALCIUM 40 MG TABLET. PO SCH (22:11)
[2021-02-07 22:33] VITALS: BP 125/58
[2021-02-08 02:22] VITALS: BP 129/61
[2021-02-08 04:38] LABS: BASO % 1 % (0-3); EOS # 0.1 x10^3/uL (0.0-0.7); EOS % 2 % (0-3); HEMATOCRIT 23.4 % (39.0-53.0); LYMPH # 1.2 x10^3/uL (1.0-4.8); LYMPH % 21 % (24-48); MEAN CORPUSCULAR HEMOGLOBIN 31 pg (25-35); MEAN CORPUSCULAR HGB CONC 34 g/dL (31-37); MEAN CORPUSCULAR VOLUME 90 fL (79-100); MONO # 0.7 x10^3/uL (0.0-1.1); MONO % 13 % (0-9); NEUT # 3.5 x10^3/uL (1.8-7.7); NEUT % 63 % (31-73); PLATELET COUNT 281 x10^3/uL (140-400); RED BLOOD COUNT 2.59 x10^6/uL (4.30-5.70); RED CELL DISTRIBUTION WIDTH 14.6 % (11.5-14.5); WHITE BLOOD COUNT 5.6 x10^3/uL (4.0-11.0)
[2021-02-08 04:46] LABS: CALCIUM 7.9 mg/dL (8.5-10.1); CREATININE 2.2 mg/dL (0.7-1.3); GFR 29.7; POTASSIUM 3.8 mmol/L (3.5-5.1)
[2021-02-08] MEDS: PANTOPRAZOLE 40 MG TABLET.DR. PO SCH (06:07)
[2021-02-08 07:00] VITALS: BP 141/68
--- NOTE | 2021-02-08 08:34 | PDOC ---
PROGRESS NOTES Date of Service: DATE: 02/08/21 TIME: 08:33 Chief Complaint Chief Complaint Acute hypoxic respiratory failure Acute on chronic CHF exacerbation Acute volume overload SOPHIE due to vasomotor nephropathy, possible cardiorenal syndrome Pt reported he required dialysis in the past (has been many years), Elevated troponins suggestive of demand ischemia History of pulmonary arterial hypertension Anemia of chronic disease Severe protein malnutrition plan Admit to medicine for further management Continue BiPAP as needed Cardiology consult appreciated recommendationsLasix IV daily continue BiPAP nephrology consult Strict I's and O's Salt and fluid restriction to less than 2 g and less than 2 L/day, respectively History of Present Illness History of Present Illness 02/08/2021 Afebrile. Breathing on BiPAP overnight, currently on 3 L nasal cannula. States BiPAP really helps him at night. Kidney function slow to improve , still consistent with CKD 3b. Left heart cath 02-05 with findings of acute on chronic systolic and diastolic heart failure, two-vessel coronary artery disease with severe in-stent restenosis of the proximal LAD and distal LAD stents, and successful balloon angioplasty of the proximal and distal LAD stents. Recommended to continue aspirin and Plavix. Continue to DuoNebs as needed and inhaled steroid. CR 2.2 GFR 29.7, CONSULT NEPHROLOGY TREND RENAL FUNCTION D/W RN CKD STAGE 3B WITH STABLE CR OF 2.2 ACUTE SYSTOLIC CHF WITH EF OF 25% High dose statin Risk stratification modification Outpatient sleep study Supportive care Follow up with Dr Melo as scheduled d/c planning 38 min 02/07/2021 Afebrile. Breathing on BiPAP overnight, currently on 3 L nasal cannula. States BiPAP really helps him at night. Kidney function slow to improve , still consistent with CKD 3b. Left heart cath 02-05 with findings of acute on chronic systolic and diastolic heart failure, two-vessel coronary artery disease with severe in-stent restenosis of the proximal LAD and distal LAD stents, and successful balloon angioplasty of the proximal and distal LAD stents. Recommended to continue aspirin and Plavix. Continue to DuoNebs as needed and inhaled steroid. GFR 29.7, CONSULT NEPHROLOGYNAT RENAL FUNCTION D/W RN \ 02/06/2021 Afebrile. Breathing on BiPAP overnight, currently on 3 L nasal cannula. States BiPAP really helps him at night. 1120 mL net fluid output overnight. Kidney function slightly improved today, still consistent with CKD 3b. Left heart cath yesterday with findings of acute on chronic systolic and diastolic heart failure, two-vessel coronary artery disease with severe in-stent restenosis of t he proximal LAD and distal LAD stents, and successful balloon angioplasty of the proximal and distal LAD stents. Recommended to continue aspirin and Plavix. Continue to DuoNebs as needed and inhaled steroid. 02/05/2021 Afebrile, currently breathing on BiPAP. Weight fluctuating, but roughly 565 mL urine off overnight. Pulmonology has been consulted due to probable COPD. Continue duo nebs and Lasix. Continue to monitor kidney function. 02/04/2021 No acute events overnight. Patient currently saturating 97% on 3 L nasal cannula. Taken off of BiPAP. We will continue BiPAP as needed. Appreciate cardiology recommendation for possible left heart cath. Patient's chart, labs, images were reviewed and discussed with RN 02/03/2021 No acute events overnight. Patient was placed on BiPAP. Lasix IV was given. Evaluated by cardiology and will increase his IV Lasix to 40 mg twice daily. Patient's chart, labs, images were reviewed and discussed with RN A total of 33 minutes of critical care time was spent in reviewing chart, labs, and images. Discussed with RN and SW. elderly male who was just sent home a few days ago. Once again, he presents with heart failure. He is short of breath. He was hypoxic with a sat in the 88% range. He states he has been following his diet and he increased his home meds but that did not work. His symptoms are worse with moving, better with sitting still, rated at 9/10. It makes him very anxious. I discussed the case with ER physician. We have placed him on BiPAP. We have also given him 40 of IV Lasix. We are also consulting Cardiology. The patient is quite ill. Vitals Vitals Vital Signs Date Time Temp Pulse Resp B/P (MAP) Pulse Ox O2 Delivery O2 Flow Rate FiO2 02/08/21 08:27 Nasal Cannula 2.0 02/08/21 04:35 100 02/08/21 02:22 97.9 59 19 129/61 (83) 97.9 Physical Exam General: Alert, Oriented X3, Cooperative Heart: Regular rate, Normal S1, No murmurs Lungs: Clear, Wheezing (resolved) Abdomen: No tenderness Extremities: Other (Pedal edema) Skin: No rashes, No breakdown Labs LABS Examination: Ultrasound kidneys HISTORY: History of renal failure COMPARISON: None available. FINDINGS: The right kidney measures 12.1 x 5.5 x 5.0 cm. The left kidney measures 13.2 x 5.7 x 5.9 cm. Urinary bladder is mildly distended. Partially visualized left pleural effusion. IMPRESSION: 1. No evidence of hydronephrosis. Electronically signed by: El Fagan MD (06/30/2020 2:24 AM) [id number] DICTATED and SIGNED BY: EL FAGAN MD DATE: 06/30/20223 Laboratory Tests Test 02/07/21 12:14 02/07/21 16:42 02/07/21 19:59 02/08/21 03:00 Glucose (Fingerstick) 143 mg/dL (70-99) 294 mg/dL (70-99) 250 mg/dL (70-99) White Blood Count 5.6 x10^3/uL (4.0-11.0) Red Blood Count 2.59 x10^6/uL (4.30-5.70) Hemoglobin 8.0 g/dL (13.0-17.5) Hematocrit 23.4 % (39.0-53.0) Mean Corpuscular Volume 90 fL (79-100) Mean Corpuscular Hemoglobin 31 pg (25-35) Mean Corpuscular Hemoglobin Concent 34 g/dL (31-37) Red Cell Distribution Width 14.6 % (11.5-14.5) Platelet Count 281 x10^3/uL (140-400) Neutrophils (%) (Auto) 63 % (31-73) Lymphocytes (%) (Auto) 21 % (24-48) Monocytes (%) (Auto) 13 % (0-9) Eosinophils (%) (Auto) 2 % (0-3) Basophils (%) (Auto) 1 % (0-3) Neutrophils # (Auto) 3.5 x10^3/uL (1.8-7.7) Lymphocytes # (Auto) 1.2 x10^3/uL (1.0-4.8) Monocytes # (Auto) 0.7 x10^3/uL (0.0-1.1) Eosinophils # (Auto) 0.1 x10^3/uL (0.0-0.7) Basophils # (Auto) 0.0 x10^3/uL (0.0-0.2) Sodium Level 140 mmol/L (136-145) Potassium Level 3.8 mmol/L (3.5-5.1) Chloride Level 103 mmol/L (98-107) Carbon Dioxide Level 30 mmol/L (21-32) Anion Gap 7 (6-14) Blood Urea Nitrogen 45 mg/dL (8-26) Creatinine 2.2 mg/dL (0.7-1.3) Estimated GFR (Cockcroft-Gault) 29.7 Glucose Level 122 mg/dL (70-99) Calcium Level 7.9 mg/dL (8.5-10.1) Test 02/08/21 08:24 Glucose (Fingerstick) 123 mg/dL (70-99) Assessment and Plan Assessmemt and Plan Problems Medical Problems: (1) CHF (congestive heart failure) Status: Acute (2) Elevated troponin I level Status: Acute (3) Renal insufficiency Status: Acute Comment Review of Relevant I have reviewed the following items coral (where applicable) has been applied. Labs Laboratory Tests Test 02/06/21 12:10 02/06/21 16:46 02/06/21 20:43 02/07/21 04:30 Glucose (Fingerstick) 164 mg/dL (70-99) 149 mg/dL (70-99) 222 mg/dL (70-99) White Blood Count 5.5 x10^3/uL (4.0-11.0) Red Blood Count 2.75 x10^6/uL (4.30-5.70) Hemoglobin 8.5 g/dL (13.0-17.5) Hematocrit 24.9 % (39.0-53.0) Mean Corpuscular Volume 90 fL (79-100) Mean Corpuscular Hemoglobin 31 pg (25-35) Mean Corpuscular Hemoglobin Concent 34 g/dL (31-37) Red Cell Distribution Width 13.9 % (11.5-14.5) Platelet Count 291 x10^3/uL (140-400) Neutrophils (%) (Auto) 69 % (31-73) Lymphocytes (%) (Auto) 16 % (24-48) Monocytes (%) (Auto) 12 % (0-9) Eosinophils (%) (Auto) 2 % (0-3) Basophils (%) (Auto) 1 % (0-3) Neutrophils # (Auto) 3.8 x10^3/uL (1.8-7.7) Lymphocytes # (Auto) 0.9 x10^3/uL (1.0-4.8) Monocytes # (Auto) 0.7 x10^3/uL (0.0-1.1) Eosinophils # (Auto) 0.1 x10^3/uL (0.0-0.7) Basophils # (Auto) 0.0 x10^3/uL (0.0-0.2) Sodium Level 140 mmol/L (136-145) Potassium Level 3.8 mmol/L (3.5-5.1) Chloride Level 102 mmol/L (98-107) Carbon Dioxide Level 29 mmol/L (21-32) Anion Gap 9 (6-14) Blood Urea Nitrogen 44 mg/dL (8-26) Creatinine 2.2 mg/dL (0.7-1.3) Estimated GFR (Cockcroft-Gault) 29.7 Glucose Level 176 mg/dL (70-99) Calcium Level 8.4 mg/dL (8.5-10.1) Test 02/07/21 07:40 02/07/21 12:14 02/07/21 16:42 02/07/21 19:59 Glucose (Fingerstick) 160 mg/dL (70-99) 143 mg/dL (70-99) 294 mg/dL (70-99) 250 mg/dL (70-99) Test 02/08/21 03:00 02/08/21 08:24 White Blood Count 5.6 x10^3/uL (4.0-11.0) Red Blood Count 2.59 x10^6/uL (4.30-5.70) Hemoglobin 8.0 g/dL (13.0-17.5) Hematocrit 23.4 % (39.0-53.0) Mean Corpuscular Volume 90 fL (79-100) Mean Corpuscular Hemoglobin 31 pg (25-35) Mean Corpuscular Hemoglobin Concent 34 g/dL (31-37) Red Cell Distribution Width 14.6 % (11.5-14.5) Platelet Count 281 x10^3/uL (140-400) Neutrophils (%) (Auto) 63 % (31-73) Lymphocytes (%) (Auto) 21 % (24-48) Monocytes (%) (Auto) 13 % (0-9) Eosinophils (%) (Auto) 2 % (0-3) Basophils (%) (Auto) 1 % (0-3) Neutrophils # (Auto) 3.5 x10^3/uL (1.8-7.7) Lymphocytes # (Auto) 1.2 x10^3/uL (1.0-4.8) Monocytes # (Auto) 0.7 x10^3/uL (0.0-1.1) Eosinophils # (Auto) 0.1 x10^3/uL (0.0-0.7) Basophils # (Auto) 0.0 x10^3/uL (0.0-0.2) Sodium Level 140 mmol/L (136-145) Potassium Level 3.8 mmol/L (3.5-5.1) Chloride Level 103 mmol/L (98-107) Carbon Dioxide Level 30 mmol/L (21-32) Anion Gap 7 (6-14) Blood Urea Nitrogen 45 mg/dL (8-26) Creatinine 2.2 mg/dL (0.7-1.3) Estimated GFR (Cockcroft-Gault) 29.7 Glucose Level 122 mg/dL (70-99) Calcium Level 7.9 mg/dL (8.5-10.1) Glucose (Fingerstick) 123 mg/dL (70-99) Laboratory Tests Test 02/07/21 12:14 02/07/21 16:42 02/07/21 19:59 02/08/21 03:00 Glucose (Fingerstick) 143 mg/dL (70-99) 294 mg/dL (70-99) 250 mg/dL (70-99) White Blood Count 5.6 x10^3/uL (4.0-11.0) Red Blood Count 2.59 x10^6/uL (4.30-5.70) Hemoglobin 8.0 g/dL (13.0-17.5) Hematocrit 23.4 % (39.0-53.0) Mean Corpuscular Volume 90 fL (79-100) Mean Corpuscular Hemoglobin 31 pg (25-35) Mean Corpuscular Hemoglobin Concent 34 g/dL (31-37) Red Cell Distribution Width 14.6 % (11.5-14.5) Platelet Count 281 x10^3/uL (140-400) Neutrophils (%) (Auto) 63 % (31-73) Lymphocytes (%) (Auto) 21 % (24-48) Monocytes (%) (Auto) 13 % (0-9) Eosinophils (%) (Auto) 2 % (0-3) Basophils (%) (Auto) 1 % (0-3) Neutrophils # (Auto) 3.5 x10^3/uL (1.8-7.7) Lymphocytes # (Auto) 1.2 x10^3/uL (1.0-4.8) Monocytes # (Auto) 0.7 x10^3/uL (0.0-1.1) Eosinophils # (Auto) 0.1 x10^3/uL (0.0-0.7) Basophils # (Auto) 0.0 x10^3/uL (0.0-0.2) Sodium Level 140 mmol/L (136-145) Potassium Level 3.8 mmol/L (3.5-5.1) Chloride Level 103 mmol/L (98-107) Carbon Dioxide Level 30 mmol/L (21-32) Anion Gap 7 (6-14) Blood Urea Nitrogen 45 mg/dL (8-26) Creatinine 2.2 mg/dL (0.7-1.3) Estimated GFR (Cockcroft-Gault) 29.7 Glucose Level 122 mg/dL (70-99) Calcium Level 7.9 mg/dL (8.5-10.1) Test 02/08/21 08:24 Glucose (Fingerstick) 123 mg/dL (70-99) Microbiology 02/02/21 Blood Culture - Final, Complete NO GROWTH AFTER 5 DAYS Medications Current Medications Ondansetron HCl (Zofran) 4 mg PRN Q8HRS PRN IV NAUSEA/VOMITING; Start 02/02/21 at 11:15; Stop 02/03/21 at 11:14; Status DC Furosemide (Lasix) 40 mg 1X ONCE IVP Last administered on 02/02/21 11:55; Start 02/02/21 at 11:30; Stop 02/02/21 at 11:31; Status DC Amlodipine Besylate (Norvasc) 10 mg DAILY PO Last administered on 02/07/21 10:01; Start 02/03/21 at 09:00 Aspirin (Ecotrin) 81 mg DAILY PO Last administered on 02/07/21 10:01; Start 02/03/21 at 09:00 Atorvastatin Calcium (Lipitor) 40 mg QHS PO Last administered on 02/07/21 22:11; Start 02/02/21 at 21:00 Carvedilol (Coreg) 6.25 mg BIDWMEALS PO Last administered on 02/07/21 17:28; Start 02/03/21 at 08:00 Clopidogrel Bisulfate (Plavix) 75 mg DAILY PO Last administered on 02/07/21 10:01; Start 02/03/21 at 09:00 Fluoxetine HCl (PROzac) 20 mg DAILY PO Last administered on 02/07/21 10:01; Start 02/03/21 at 09:00 Furosemide (Lasix) 40 mg DAILY PO Last administered on 02/07/21 10:00; Start 02/03/21 at 09:00 Hydralazine HCl (Apresoline) 75 mg BID PO Last administered on 02/07/21 22:13; Start 02/02/21 at 21:00 Potassium Chloride (Klor-Con) 10 meq DAILY PO Last administered on 02/07/21 10:02; Start 02/03/21 at 09:00 Tamsulosin HCl (Flomax) 0.4 mg DAILY PO Last administered on 02/07/21 10:01; Start 02/03/21 at 09:00 Insulin Glargine (Lantus Syringe) 12 unit BID SQ Last administered on 02/07/21 22:14; Start 02/02/21 at 21:00 Isosorbide Mononitrate (Imdur) 60 mg DAILY PO Last administered on 02/07/21 13:23; Start 02/03/21 at 09:00 Pantoprazole Sodium (Protonix) 40 mg DAILYAC PO Last administered on 02/08/21 06:07; Start 02/03/21 at 07:30 Acetaminophen/ Hydrocodone Bitart (Lortab 5/325) 1 tab PRN Q6HRS PRN PO PAIN; Start 02/02/21 at 19:15 Albuterol/ Ipratropium (Duoneb) 3 ml RTQID NEB Last administered on 02/07/21at 20:24; Start 02/03/21 at 08:30 Furosemide (Lasix) 40 mg 1X ONCE IVP Last administered on 02/03/21at 08:35; Start 02/03/21 at 09:00; Stop 02/03/21 at 09:01; Status DC Alprazolam (Xanax) 0.25 mg PRN Q8HRS PRN PO ANXIETY / AGITATION Last administered on 02/05/21at 08:51; Start 02/03/21 at 10:45 Magnesium Sulfate 50 ml @ 25 mls/hr 1X ONCE IV Last administered on 02/04/21at 14:18; Start 02/04/21 at 14:00; Stop 02/04/21 at 15:59; Status DC Budesonide (Pulmicort) 0.5 mg RTBID NEB Last administered on 02/07/21at 20:24; Start 02/05/21 at 12:00 Iodixanol (Visipaque 320) 100 ml STK-MED ONCE .ROUTE ; Start 02/05/21 at 14:50; Stop 02/05/21 at 14:50; Status DC Lidocaine HCl (Lidocaine 1% 20ml Vial) 20 ml STK-MED ONCE .ROUTE ; Start 02/05/21 at 14:50; Stop 02/05/21 at 14:50; Status DC Heparin Sodium/ Sodium Chloride 1,000 ml @ As Directed STK-MED ONCE .ROUTE ; Start 02/05/21 at 14:50; Stop 02/05/21 at 14:51; Status DC Fentanyl Citrate (Fentanyl 2ml Vial) 100 mcg STK-MED ONCE .ROUTE ; Start 02/05/21 at 15:19; Stop 02/05/21 at 15:19; Status DC Midazolam HCl (Versed) 2 mg STK-MED ONCE .ROUTE ; Start 02/05/21 at 15:19; Stop 02/05/21 at 15:19; Status DC Iodixanol (Visipaque 320) 100 ml STK-MED ONCE .ROUTE ; Start 02/05/21 at 15:35; Stop 02/05/21 at 15:35; Status DC Heparin Sodium (Porcine) (Heparin Sodium) 10,000 unit STK-MED ONCE .ROUTE ; Start 02/05/21 at 15:35; Stop 02/05/21 at 15:36; Status DC Heparin Sodium/ Sodium Chloride (HEPARIN for ARTERIAL LINE FLUSH) 1,000 unit 1X ONCE IART Last administered on 02/05/21at 16:18; Start 02/05/21 at 15:45; Stop 02/05/21 at 15:46; Status DC Heparin Sodium/ Sodium Chloride (HEPARIN for ARTERIAL LINE FLUSH) 1,000 unit 1X ONCE IART Last administered on 02/05/21at 16:19; Start 02/05/21 at 15:45; Stop 02/05/21 at 15:46; Status DC Midazolam HCl (Versed) 2 mg 1X ONCE IV Last administered on 02/05/21at 16:19; Start 02/05/21 at 15:45; Stop 02/05/21 at 15:46; Status DC Fentanyl Citrate (Fentanyl 2ml Vial) 100 mcg 1X ONCE IV Last administered on 02/05/21at 16:20; Start 02/05/21 at 15:45; Stop 02/05/21 at 15:46; Status DC Iodixanol (Visipaque 320) 100 ml 1X ONCE IART Last administered on 02/05/21at 16:20; Start 02/05/21 at 15:45; Stop 02/05/21 at 15:46; Status DC Heparin Sodium (Porcine) (Heparin Sodium) 5,000 unit 1X ONCE IV Last administered on 02/05/21at 16:28; Start 02/05/21 at 15:45; Stop 02/05/21 at 15:46 ; Status DC Lidocaine HCl (Lidocaine 1% 20ml Vial) 20 ml 1X ONCE INJ Last administered on 02/05/21at 16:20; Start 02/05/21 at 15:45; Stop 02/05/21 at 15:46; Status DC Info (CONTRAST GIVEN -- Rx MONITORING) 1 each PRN DAILY PRN MC SEE COMMENTS; Start 02/05/21 at 15:45; Stop 02/07/21 at 15:44; Status DC Nitroglycerin (Nitroglycerin) 200 mcg STK-MED ONCE .ROUTE ; Start 02/05/21 at 15:58; Stop 02/05/21 at 15:58; Status DC Nitroglycerin (Nitroglycerin) 200 mcg 1X ONCE ICAR Last administered on 02/05/21at 16:19; Start 02/05/21 at 16:15; Stop 02/05/21 at 16:16; Status DC Clopidogrel Bisulfate (Plavix) 300 mg 1X ONCE PO Last administered on 02/05/21at 16:21; Start 02/05/21 at 16:15; Stop 02/05/21 at 16:16; Status DC Clopidogrel Bisulfate (Plavix) 75 mg STK-MED ONCE .ROUTE ; Start 02/05/21 at 16:10; Stop 02/05/21 at 16:10; Status DC Active Scripts Active Isosorbide Mononitrate Er (Isosorbide Mononitrate) 60 Mg Tab.er.24h 1 Tab PO DAILY 30 Days Furosemide 40 Mg Tablet 40 Mg PO QD Hydralazine Hcl 25 Mg Tablet 75 Mg PO BID 30 Days Klor-Con 10 (Potassium Chloride) 10 Meq Tablet.er 1 Tab PO DAILY 30 Days Lipitor (Atorvastatin Calcium) 40 Mg Tablet 1 Tab PO QHS 30 Days Fluoxetine Hcl 20 Mg Capsule 20 Mg PO DAILY 30 Days Carvedilol (Carvedilol) 6.25 Mg Tablet 6.25 Mg PO BIDWMEALS 30 Days Clopidogrel (Clopidogrel Bisulfate) 75 Mg Tablet 1 Tab PO DAILY 30 Days Reported Levemir (Insulin Detemir) 100 Unit/1 Ml Vial 12 Unit SQ BID Amlodipine Besylate 10 Mg Tablet 10 Mg PO DAILY Aspirin Ec (Aspirin) 81 Mg Tablet.dr 1 Tab PO DAILY Omeprazole 20 Mg Capsule.dr 20 Mg PO DAILY Flomax (Tamsulosin Hcl) 0.4 Mg Cap.er.24h 0.4 Mg PO DAILY Vitals/I & O Vital Sign - Last 24 Hours 02/07/21 02/07/21 02/07/21 02/07/21 10:01 10:03 11:00 12:15 Temp 97.6 97.6 Pulse 58 58 63 Resp 18 B/P (MAP) 137/63 137/63 127/63 (84) Pulse Ox 99 O2 Delivery Nasal Cannula Nasal Cannula O2 Flow Rate 3.0 2.0 02/07/21 02/07/21 02/07/21/28/21 13:23 13:23 15:00 16:01 Temp 97.6 97.6 Pulse 66 66 66 Resp 18 B/P (MAP) 127/61 127/61 132/60 (84) Pulse Ox 97 O2 Delivery Nasal Cannula Nasal Cannula O2 Flow Rate 3.0 2.0 02/07/21 02/07/21 02/07/21 02/07/21 17:28 19:13 19:34 20:25 Temp 98.0 98.0 Pulse 61 59 Resp 18 B/P (MAP) 127/59 116/59 (78) Pulse Ox 98 99 O2 Delivery Nasal Cannula Nasal Cannula Nasal Cannula O2 Flow Rate 3.0 2.0 2.0 02/07/21 02/07/21 02/08/21 02/08/21 22:13 22:33 00:30 02:20 Temp 98.1 98.1 Pulse 59 59 Resp 19 B/P (MAP) 125/58 125/58 (80) Pulse Ox 97 93 100 O2 Delivery Nasal Cannula BiPAP/CPAP BiPAP/CPAP O2 Flow Rate 3.0 02/08/21 02/08/21 02/08/21 02:22 04:35 08:27 Temp 97.9 97.9 Pulse 59 Resp 19 B/P (MAP) 129/61 (83) Pulse Ox 99 100 O2 Delivery BiPAP/CPAP BiPAP/CPAP Nasal Cannula O2 Flow Rate 2.0 Intake and Output 02/07/21 02/07/21 02/08/21 15:00 23:00 07:00 Intake Total 300 ml 400 ml 100 ml Output Total 950 ml 800 ml Balance 300 ml -550 ml -700 ml Justicifation of Admission Dx: Justifications for Admission: Justification of Admission Dx: Yes MARGARITO CABEZAS MD Feb 08, 2021 08:34
[2021-02-08] MEDS: BUDESONIDE 0.5 MG/2 ML NEBU. NEB SCH ×2 (08:59→20:39)
[2021-02-08] MEDS: IPRATRPIUM/ALBUTEROL 0.5/2.5MG 3 ML NEBU. NEB SCH ×4 (08:59→20:39)
[2021-02-08] MEDS: ASPIRIN ENTERIC COATED 81 MG TABLET.DR. PO SCH (09:25)
[2021-02-08] MEDS: FUROSEMIDE 40 MG TABLET. PO SCH (09:25)
[2021-02-08] MEDS: FLUoxetine HCL 20 MG CAPSULE PO SCH (09:25)
[2021-02-08] MEDS: TAMSULOSIN 0.4 MG CAP.ER.24H. PO SCH (09:26)
[2021-02-08] MEDS: CLOPIDOGREL BISULFATE 75 MG TABLET PO SCH (09:26)
[2021-02-08] MEDS: POTASSIUM CHLORIDE 10 MEQ TABLET.ER. PO SCH (09:26)
[2021-02-08] MEDS: CARVEDILOL 6.25 MG TABLET. PO SCH ×2 (09:26→18:43)
[2021-02-08] MEDS: hydrALAZINE 25 MG TABLET PO SCH (09:26)
[2021-02-08] MEDS: ISOSORBIDE MONONITRATE ER 30 MG TAB.ER.24H PO SCH (09:28)
[2021-02-08] MEDS: INSULIN GLARGINE SYRINGE. SQ SCH (09:31)
--- NOTE | 2021-02-08 10:37 | PDOC ---
CHAVA BUCHANAN BARGE HAND 02/08/21 1037: CARDIO Progress Notes Date and Time Date of Service 02/08/21 Time of Evaluation 1030 Subjective Subjective: No Chest Pain, No shortness of breath, No Palpitations, Other (feels well, no complaints ) Vitals Vitals Vital Signs Date Time Temp Pulse Resp B/P (MAP) Pulse Ox O2 Delivery O2 Flow Rate FiO2 02/08/21 09:28 55 141/68 02/08/21 09:00 100 Nasal Cannula 2.0 02/08/21 07:00 97.7 24 97.7 Weight Weight [ ] Input and Output Intake and Output Intake and Output 02/08/21 07:00 Intake Total 800 ml Output Total 1750 ml Balance -950 ml Intake Oral 800 ml Output Urine Total 1750 ml Laboratory Labs Laboratory Tests Test 02/07/21 12:14 02/07/21 16:42 02/07/21 19:59 02/08/21 03:00 Glucose (Fingerstick) 143 mg/dL (70-99) 294 mg/dL (70-99) 250 mg/dL (70-99) White Blood Count 5.6 x10^3/uL (4.0-11.0) Red Blood Count 2.59 x10^6/uL (4.30-5.70) Hemoglobin 8.0 g/dL (13.0-17.5) Hematocrit 23.4 % (39.0-53.0) Mean Corpuscular Volume 90 fL (79-100) Mean Corpuscular Hemoglobin 31 pg (25-35) Mean Corpuscular Hemoglobin Concent 34 g/dL (31-37) Red Cell Distribution Width 14.6 % (11.5-14.5) Platelet Count 281 x10^3/uL (140-400) Neutrophils (%) (Auto) 63 % (31-73) Lymphocytes (%) (Auto) 21 % (24-48) Monocytes (%) (Auto) 13 % (0-9) Eosinophils (%) (Auto) 2 % (0-3) Basophils (%) (Auto) 1 % (0-3) Neutrophils # (Auto) 3.5 x10^3/uL (1.8-7.7) Lymphocytes # (Auto) 1.2 x10^3/uL (1.0-4.8) Monocytes # (Auto) 0.7 x10^3/uL (0.0-1.1) Eosinophils # (Auto) 0.1 x10^3/uL (0.0-0.7) Basophils # (Auto) 0.0 x10^3/uL (0.0-0.2) Sodium Level 140 mmol/L (136-145) Potassium Level 3.8 mmol/L (3.5-5.1) Chloride Level 103 mmol/L (98-107) Carbon Dioxide Level 30 mmol/L (21-32) Anion Gap 7 (6-14) Blood Urea Nitrogen 45 mg/dL (8-26) Creatinine 2.2 mg/dL (0.7-1.3) Estimated GFR (Cockcroft-Gault) 29.7 Glucose Level 122 mg/dL (70-99) Calcium Level 7.9 mg/dL (8.5-10.1) Test 02/08/21 08:24 Glucose (Fingerstick) 123 mg/dL (70-99) Microbiology Micro Microbiology 02/02/21 Blood Culture - Final, Complete NO GROWTH AFTER 5 DAYS Physical Exam HEENT: Neck Supple W Full Motion Chest: Symmetric LUNGS: Clear to Auscultation Heart: RRR Abdomen: Soft N/T Extremities: No Edema, Other (left BKA) Neurology: alert, oriented, follow commands Assessment Assessment 1. Acute on chronic respiratory failure with acute on chronic systolic CHF with ICM; Echo 07/02 with preserved LV systolic function. Repeat echo showed LVEF 25%. now compensated. Cath with near normal LVEDP 2. SOPHIE on CKD. Cr stable 3. NSTEMIl; trop peak 1.6. 4. CAD; cath showed two-vessel disease with severe in-stent restenosis of the proximal LAD and distal LAD stents. S/p successful balloon angioplasty of the proximal and distal LAD stents 5. Hypertension; controlled 6. Diabetes, II 7. COPD Recommendations Secondary prevention including DAPT with ASA/Plavix High dose statin Risk stratification modification Outpatient sleep study Supportive care Follow up in our office with Dr Melo as scheduled Justicifation of Admission Dx: Justifications for Admission: Justification of Admission Dx: Yes PEARL MELO MD 02/08/21 1518: CARDIO Progress Notes Plan Plan The patient was seen and interviewed as well as examined at the bedside. The chart was reviewed. The case was discussed. Agree with the plan of care. CHAVA BUCHANAN APRN Feb 08, 2021 10:37 PEARL MELO MD Feb 08, 2021 15:18
[2021-02-08 11:00] VITALS: BP 138/69
--- NOTE | 2021-02-08 11:49 | PDOC ---
PULMONARY PROGRESS NOTES DATE: 02/08/21 TIME: 11:46 Subjective remains on 2 liters no SOA or cough using BIPAP at night Vitals Vital Signs Date Time Temp Pulse Resp B/P (MAP) Pulse Ox O2 Delivery O2 Flow Rate FiO2 02/08/21 09:28 55 141/68 02/08/21 09:00 100 Nasal Cannula 2.0 02/08/21 07:00 97.7 24 97.7 ROS: No Nausea, No Chest Pain, No Abdominal Pain, No Increase Cough General: Alert, Oriented X4 Lungs: Clear Cardiovascular: S1, S2 Abdomen: Soft, Non-tender Neuro Exam: Alert Extremities: No Edema Skin: Warm, Dry Labs Laboratory Tests Test 02/06/21 12:10 02/06/21 16:46 02/06/21 20:43 02/07/21 04:30 Glucose (Fingerstick) 164 mg/dL (70-99) 149 mg/dL (70-99) 222 mg/dL (70-99) White Blood Count 5.5 x10^3/uL (4.0-11.0) Red Blood Count 2.75 x10^6/uL (4.30-5.70) Hemoglobin 8.5 g/dL (13.0-17.5) Hematocrit 24.9 % (39.0-53.0) Mean Corpuscular Volume 90 fL (79-100) Mean Corpuscular Hemoglobin 31 pg (25-35) Mean Corpuscular Hemoglobin Concent 34 g/dL (31-37) Red Cell Distribution Width 13.9 % (11.5-14.5) Platelet Count 291 x10^3/uL (140-400) Neutrophils (%) (Auto) 69 % (31-73) Lymphocytes (%) (Auto) 16 % (24-48) Monocytes (%) (Auto) 12 % (0-9) Eosinophils (%) (Auto) 2 % (0-3) Basophils (%) (Auto) 1 % (0-3) Neutrophils # (Auto) 3.8 x10^3/uL (1.8-7.7) Lymphocytes # (Auto) 0.9 x10^3/uL (1.0-4.8) Monocytes # (Auto) 0.7 x10^3/uL (0.0-1.1) Eosinophils # (Auto) 0.1 x10^3/uL (0.0-0.7) Basophils # (Auto) 0.0 x10^3/uL (0.0-0.2) Sodium Level 140 mmol/L (136-145) Potassium Level 3.8 mmol/L (3.5-5.1) Chloride Level 102 mmol/L (98-107) Carbon Dioxide Level 29 mmol/L (21-32) Anion Gap 9 (6-14) Blood Urea Nitrogen 44 mg/dL (8-26) Creatinine 2.2 mg/dL (0.7-1.3) Estimated GFR (Cockcroft-Gault) 29.7 Glucose Level 176 mg/dL (70-99) Calcium Level 8.4 mg/dL (8.5-10.1) Test 02/07/21 07:40 02/07/21 12:14 02/07/21 16:42 02/07/21 19:59 Glucose (Fingerstick) 160 mg/dL (70-99) 143 mg/dL (70-99) 294 mg/dL (70-99) 250 mg/dL (70-99) Test 02/08/21 03:00 02/08/21 08:24 White Blood Count 5.6 x10^3/uL (4.0-11.0) Red Blood Count 2.59 x10^6/uL (4.30-5.70) Hemoglobin 8.0 g/dL (13.0-17.5) Hematocrit 23.4 % (39.0-53.0) Mean Corpuscular Volume 90 fL (79-100) Mean Corpuscular Hemoglobin 31 pg (25-35) Mean Corpuscular Hemoglobin Concent 34 g/dL (31-37) Red Cell Distribution Width 14.6 % (11.5-14.5) Platelet Count 281 x10^3/uL (140-400) Neutrophils (%) (Auto) 63 % (31-73) Lymphocytes (%) (Auto) 21 % (24-48) Monocytes (%) (Auto) 13 % (0-9) Eosinophils (%) (Auto) 2 % (0-3) Basophils (%) (Auto) 1 % (0-3) Neutrophils # (Auto) 3.5 x10^3/uL (1.8-7.7) Lymphocytes # (Auto) 1.2 x10^3/uL (1.0-4.8) Monocytes # (Auto) 0.7 x10^3/uL (0.0-1.1) Eosinophils # (Auto) 0.1 x10^3/uL (0.0-0.7) Basophils # (Auto) 0.0 x10^3/uL (0.0-0.2) Sodium Level 140 mmol/L (136-145) Potassium Level 3.8 mmol/L (3.5-5.1) Chloride Level 103 mmol/L (98-107) Carbon Dioxide Level 30 mmol/L (21-32) Anion Gap 7 (6-14) Blood Urea Nitrogen 45 mg/dL (8-26) Creatinine 2.2 mg/dL (0.7-1.3) Estimated GFR (Cockcroft-Gault) 29.7 Glucose Level 122 mg/dL (70-99) Calcium Level 7.9 mg/dL (8.5-10.1) Glucose (Fingerstick) 123 mg/dL (70-99) Laboratory Tests Test 02/07/21 12:14 02/07/21 16:42 02/07/21 19:59 02/08/21 03:00 Glucose (Fingerstick) 143 mg/dL (70-99) 294 mg/dL (70-99) 250 mg/dL (70-99) White Blood Count 5.6 x10^3/uL (4.0-11.0) Red Blood Count 2.59 x10^6/uL (4.30-5.70) Hemoglobin 8.0 g/dL (13.0-17.5) Hematocrit 23.4 % (39.0-53.0) Mean Corpuscular Volume 90 fL (79-100) Mean Corpuscular Hemoglobin 31 pg (25-35) Mean Corpuscular Hemoglobin Concent 34 g/dL (31-37) Red Cell Distribution Width 14.6 % (11.5-14.5) Platelet Count 281 x10^3/uL (140-400) Neutrophils (%) (Auto) 63 % (31-73) Lymphocytes (%) (Auto) 21 % (24-48) Monocytes (%) (Auto) 13 % (0-9) Eosinophils (%) (Auto) 2 % (0-3) Basophils (%) (Auto) 1 % (0-3) Neutrophils # (Auto) 3.5 x10^3/uL (1.8-7.7) Lymphocytes # (Auto) 1.2 x10^3/uL (1.0-4.8) Monocytes # (Auto) 0.7 x10^3/uL (0.0-1.1) Eosinophils # (Auto) 0.1 x10^3/uL (0.0-0.7) Basophils # (Auto) 0.0 x10^3/uL (0.0-0.2) Sodium Level 140 mmol/L (136-145) Potassium Level 3.8 mmol/L (3.5-5.1) Chloride Level 103 mmol/L (98-107) Carbon Dioxide Level 30 mmol/L (21-32) Anion Gap 7 (6-14) Blood Urea Nitrogen 45 mg/dL (8-26) Creatinine 2.2 mg/dL (0.7-1.3) Estimated GFR (Cockcroft-Gault) 29.7 Glucose Level 122 mg/dL (70-99) Calcium Level 7.9 mg/dL (8.5-10.1) Test 02/08/21 08:24 Glucose (Fingerstick) 123 mg/dL (70-99) Medications Active Scripts Medications Dose Route/Sig Max Daily Dose Days Date Category Isosorbide Mononitrate Er (Isosorbide Mononitrate) 60 Mg Tab.er.24h 1 Tab PO DAILY 30 01/31/21 Rx Furosemide 40 Mg Tablet 40 Mg PO QD 12/17/20 Rx Levemir (Insulin Detemir) 100 Unit/1 Ml Vial 12 Unit SQ BID 07/18/20 Reported Hydralazine Hcl 25 Mg Tablet 75 Mg PO BID 30 07/17/20 Rx Klor-Con 10 (Potassium Chloride) 10 Meq Tablet.er 1 Tab PO DAILY 30 07/11/20 Rx Lipitor (Atorvastatin Calcium) 40 Mg Tablet 1 Tab PO QHS 07/04/20 Rx Fluoxetine Hcl 20 Mg Capsule 20 Mg PO DAILY 30 07/04/20 Rx Carvedilol (Carvedilol) 6.25 Mg Tablet 6.25 Mg PO BIDWMEALS 07/04/20 Rx Clopidogrel (Clopidogrel Bisulfate) 75 Mg Tablet 1 Tab PO DAILY 30 07/04/20 Rx Amlodipine Besylate 10 Mg Tablet 10 Mg PO DAILY 07/04/20 Reported Aspirin Ec (Aspirin) 81 Mg Tablet.dr 1 Tab PO DAILY 07/04/20 Reported Omeprazole 20 Mg Capsule.dr 20 Mg PO DAILY 06/28/20 Reported Flomax (Tamsulosin Hcl) 0.4 Mg Cap.er.24h 0.4 Mg PO DAILY 06/28/20 Reported Comments CATH Conclusion 1. Acute on chronic systolic and diastolic heart failure. LVEDP 25 at end expiration, 12 mean 2. Two-vessel coronary artery disease with severe in-stent restenosis of the proximal LAD and distal LAD stents 3. Successful balloon angioplasty of the proximal and distal LAD stents Recommendations 1. Aspirin 81 g daily 2. Plavix 75 mg daily 3. Withhold further diuresis given contrast load today and near normal mean left ventricular end-diastolic pressure. 4. Aggressive medical therapy including cardiac rehabilitation as tolerated. Impression . 1. Acute on chronic hypoxic respiratory failure secondary to acute on chronic systolic congestive heart failure. 2. Severe cardiomyopathy with an EF of 25% and the previous cardiac catheterization with severe 3-vessel coronary artery disease. He has severe hypokinesis of left ventricle, based on the recent echo. 3. No significant tobacco history. 4. Bilateral wheezing, likely cardiac wheezing.,RESOLVED 5. Left BKA. 6. SOPHIE on CKD, likely contributed by diuresis. 7. CATH LVEDP 25 at end expiration, 12 mean 2. Two-vessel coronary artery disease with severe in-stent restenosis of the proximal LAD and distal LAD stents Plan . Continue present oxygen., wean as tolerated Follow cardiology recs Cath findings support that LVEDP 25. s/p balloon angioplasty Continue DuoNeb and steroid inhaler. await renal U/S results Follow outpatient for sleep study PT/OT DVT/GI PPX D/W EREN SERRANO MD Feb 08, 2021 11:49
--- NOTE | 2021-02-08 12:19 | RAD ---
Examination: Ultrasound bilateral kidneys HISTORY: History of acute renal insufficiency COMPARISON: None available. FINDINGS: The right kidney measures 10.3 x 5.4 x 5.6 cm. The left kidney measures 13.7 x 5.4 x 5.6 cm. Lobulate d appearing bilateral kidneys. No evidence of hydronephrosis. Partially visualized right pleural effu mo. IMPRESSION: 1. No evidence of hydronephrosis. 2. Partially visualized right pleural effusion. Electronically signed by: El Fagan MD (02/08/2021 12:17 PM) [id number]
--- NOTE | 2021-02-08 12:24 | PDOC2 ---
CONSULT Date of Consult Date of Consult DATE: 02/08/21 TIME: 12:17 Reason for Consult Reason for Consult: RENAL FAILURE Referring Physician Referring Physician: DONIS Identification/Chief Complaint Chief Complaint SOB Source Source: Chart review History of Present Illness Reason for Visit: THIS IS A 70 YR OLD WITH SOB. UNDERGOING CARDIOLOGY AND PULM EVAL. HAS NEW DX CM WITH EF OF 25%. HAS HAD SOB WHICH PRECIPITATED ADMIT. HAD RECENT RIGHT HEART CATH WITH NL PRESSURES. CR OF 2.2 AND RENAL CONSULT REQUESTED DUE TO THIS. HAS REMOTE HX OF SOPHIE NEEDING HD BUT RECOVERED AND HAS CKD STAGE 3B. CR OF 2.2 IS BASELINE. HAD A RENAL SONO IN Jun WHICH INDICATED NORMAL RENAL MORPHOL OGY. HAS BPH AND HAS BEEN ON FLOMAX FOR THIS. CURRENTLY GETTING DIURETICS FOR HIS CHF. NO NEPHROTOXINS OR HEMODYNAMIC INSTABILITY NOTED. CKD IS DUE TO HTN AND DM II. Past Medical History Cardiovascular: CAD, HTN, Hyperlipidemia Pulmonary: Other CENTRAL NERVOUS SYSTEM: Periperal neuropathy GI: GERD Heme/Onc: No pertinent hx Hepatobiliary: No pertinent hx Psych: Depression Rheumatologic: No pertinent hx Infectious disease: Other Renal/: Benign prostatic enlarg. Endocrine: Diabetes Past Surgical History Past Surgical History: Cataract Removal, Tonsillectomy, Other Family History Family History: Diabetes Social History ALCOHOL: none Drugs: None Lives: with Family Current Problem List Problem List Problems Medical Problems: (1) CHF (congestive heart failure) Status: Acute (2) Elevated troponin I level Status: Acute (3) Renal insufficiency Status: Acute Current Medications Current Medications Current Medications Ondansetron HCl (Zofran) 4 mg PRN Q8HRS PRN IV NAUSEA/VOMITING; Start 02/02/21 at 11:15; Stop 02/03/21 at 11:14; Status DC Furosemide (Lasix) 40 mg 1X ONCE IVP Last administered on 02/02/21at 11:55; Start 02/02/21 at 11:30; Stop 02/02/21 at 11:31; Status DC Amlodipine Besylate (Norvasc) 10 mg DAILY PO Last administered on 02/08/21at 09:25; Start 02/03/21 at 09:00 Aspirin (Ecotrin) 81 mg DAILY PO Last administered on 02/08/21at 09:25; Start 02/03/21 at 09:00 Atorvastatin Calcium (Lipitor) 40 mg QHS PO Last administered on 02/07/21 22:11; Start 02/02/21 at 21:00 Carvedilol (Coreg) 6.25 mg BIDWMEALS PO Last administered on 02/08/21 09:26; Start 02/03/21 at 08:00 Clopidogrel Bisulfate (Plavix) 75 mg DAILY PO Last administered on 02/08/21 09:26; Start 02/03/21 at 09:00 Fluoxetine HCl (PROzac) 20 mg DAILY PO Last administered on 02/08/21 09:25; Start 02/03/21 at 09:00 Furosemide (Lasix) 40 mg DAILY PO Last administered on 02/08/21 09:25; Start 02/03/21 at 09:00 Hydralazine HCl (Apresoline) 75 mg BID PO Last administered on 02/08/21 09:26; Start 02/02/21 at 21:00 Potassium Chloride (Klor-Con) 10 meq DAILY PO Last administered on 02/08/21 09:26; Start 02/03/21 at 09:00 Tamsulosin HCl (Flomax) 0.4 mg DAILY PO Last administered on 02/08/21 09:26; Start 02/03/21 at 09:00 Insulin Glargine (Lantus Syringe) 12 unit BID SQ Last administered on 02/08/21 09:31; Start 02/02/21 at 21:00 Isosorbide Mononitrate (Imdur) 60 mg DAILY PO Last administered on 02/08/21 09:28; Start 02/03/21 at 09:00 Pantoprazole Sodium (Protonix) 40 mg DAILYAC PO Last administered on 02/08/21 06:07; Start 02/03/21 at 07:30 Acetaminophen/ Hydrocodone Bitart (Lortab 5/325) 1 tab PRN Q6HRS PRN PO PAIN; Start 02/02/21 at 19:15 Albuterol/ Ipratropium (Duoneb) 3 ml RTQID NEB Last administered on 02/08/21 11:47; Start 02/03/21 at 08:30 Furosemide (Lasix) 40 mg 1X ONCE IVP Last administered on 02/03/21 08:35; Start 02/03/21 at 09:00; Stop 02/03/21 at 09:01; Status DC Alprazolam (Xanax) 0.25 mg PRN Q8HRS PRN PO ANXIETY / AGITATION Last administered on 02/05/21at 08:51; Start 02/03/21 at 10:45 Magnesium Sulfate 50 ml @ 25 mls/hr 1X ONCE IV Last administered on 02/04/21at 14:18; Start 02/04/21 at 14:00; Stop 02/04/21 at 15:59; Status DC Budesonide (Pulmicort) 0.5 mg RTBID NEB Last administered on 02/08/21at 08:59; Start 02/05/21 at 12:00 Iodixanol (Visipaque 320) 100 ml STK-MED ONCE .ROUTE ; Start 02/05/21 at 14:50; Stop 02/05/21 at 14:50; Status DC Lidocaine HCl (Lidocaine 1% 20ml Vial) 20 ml STK-MED ONCE .ROUTE ; Start 02/05/21 at 14:50; Stop 02/05/21 at 14:50; Status DC Heparin Sodium/ Sodium Chloride 1,000 ml @ As Directed STK-MED ONCE .ROUTE ; Start 02/05/21 at 14:50; Stop 02/05/21 at 14:51; Status DC Fentanyl Citrate (Fentanyl 2ml Vial) 100 mcg STK-MED ONCE .ROUTE ; Start 02/05/21 at 15:19; Stop 02/05/21 at 15:19; Status DC Midazolam HCl (Versed) 2 mg STK-MED ONCE .ROUTE ; Start 02/05/21 at 15:19; Stop 02/05/21 at 15:19; Status DC Iodixanol (Visipaque 320) 100 ml STK-MED ONCE .ROUTE ; Start 02/05/21 at 15:35; Stop 02/05/21 at 15:35; Status DC Heparin Sodium (Porcine) (Heparin Sodium) 10,000 unit STK-MED ONCE .ROUTE ; Start 02/05/21 at 15:35; Stop 02/05/21 at 15:36; Status DC Heparin Sodium/ Sodium Chloride (HEPARIN for ARTERIAL LINE FLUSH) 1,000 unit 1X ONCE IART Last administered on 02/05/21at 16:18; Start 02/05/21 at 15:45; Stop 02/05/21 at 15:46; Status DC Heparin Sodium/ Sodium Chloride (HEPARIN for ARTERIAL LINE FLUSH) 1,000 unit 1X ONCE IART Last administered on 02/05/21at 16:19; Start 02/05/21 at 15:45; Stop 02/05/21 at 15:46; Status DC Midazolam HCl (Versed) 2 mg 1X ONCE IV Last administered on 02/05/21at 16:19; Start 02/05/21 at 15:45; Stop 02/05/21 at 15:46; Status DC Fentanyl Citrate (Fentanyl 2ml Vial) 100 mcg 1X ONCE IV Last administered on 02/05/21at 16:20; Start 02/05/21 at 15:45; Stop 02/05/21 at 15:46; Status DC Iodixanol (Visipaque 320) 100 ml 1X ONCE IART Last administered on 02/05/21at 16:20; Start 02/05/21 at 15:45; Stop 02/05/21 at 15:46; Status DC Heparin Sodium (Porcine) (Heparin Sodium) 5,000 unit 1X ONCE IV Last administered on 02/05/21at 16:28; Start 02/05/21 at 15:45; Stop 02/05/21 at 15:46; Status DC Lidocaine HCl (Lidocaine 1% 20ml Vial) 20 ml 1X ONCE INJ Last administered on 02/05/21at 16:20; Start 02/05/21 at 15:45; Stop 02/05/21 at 15:46; Status DC Info (CONTRAST GIVEN -- Rx MONITORING) 1 each PRN DAILY PRN MC SEE COMMENTS; Start 02/05/21 at 15:45; Stop 02/07/21 at 15:44; Status DC Nitroglycerin (Nitroglycerin) 200 mcg STK-MED ONCE .ROUTE ; Start 02/05/21 at 15:58; Stop 02/05/21 at 15:58; Status DC Nitroglycerin (Nitroglycerin) 200 mcg 1X ONCE ICAR Last administered on at 16:19; Start 02/05/21 at 16:15; Stop 02/05/21 at 16:16; Status DC Clopidogrel Bisulfate (Plavix) 300 mg 1X ONCE PO Last administered on 02/05/21at 16:21; Start 02/05/21 at 16:15; Stop 02/05/21 at 16:16; Status DC Clopidogrel Bisulfate (Plavix) 75 mg STK-MED ONCE .ROUTE ; Start 02/05/21 at 16:10; Stop 02/05/21 at 16:10; Status DC Active Scripts Active Isosorbide Mononitrate Er (Isosorbide Mononitrate) 60 Mg Tab.er.24h 1 Tab PO DAILY 30 Days Furosemide 40 Mg Tablet 40 Mg PO QD Hydralazine Hcl 25 Mg Tablet 75 Mg PO BID 30 Days Klor-Con 10 (Potassium Chloride) 10 Meq Tablet.er 1 Tab PO DAILY 30 Days Lipitor (Atorvastatin Calcium) 40 Mg Tablet 1 Tab PO QHS 30 Days Fluoxetine Hcl 20 Mg Capsule 20 Mg PO DAILY 30 Days Carvedilol (Carvedilol) 6.25 Mg Tablet 6.25 Mg PO BIDWMEALS 30 Days Clopidogrel (Clopidogrel Bisulfate) 75 Mg Tablet 1 Tab PO DAILY 30 Days Reported Levemir (Insulin Detemir) 100 Unit/1 Ml Vial 12 Unit SQ BID Amlodipine Besylate 10 Mg Tablet 10 Mg PO DAILY Aspirin Ec (Aspirin) 81 Mg Tablet.dr 1 Tab PO DAILY Omeprazole 20 Mg Capsule.dr 20 Mg PO DAILY Flomax (Tamsulosin Hcl) 0.4 Mg Cap.er.24h 0.4 Mg PO DAILY Allergies Allergies: Coded Allergies: No Known Drug Allergies (Unverified , 06/28/20) ROS General: YES: Malaise, Appetite PSYCHOLOGICAL ROS: YES: Anxiety Eyes: Yes Decreased vision HEENT: YES: Heacaches Respiratory: YES: Cough, Orthopnea, Shortness of breath Cardiovascular: yes Orthopnea Gastrointestinal: Yes Constipation Genitourinary: YES Other (NOCTURIA) Musculoskeletal: Yes Muscular Weakness Neurological: Yes Weakness Skin: Yes Dry Skin Physical Exam General: Alert, Oriented X3, Cooperative, No acute distress HEENT: Atraumatic Lungs: Other (DECREASED AT BASES) Abdomen: Normal bowel sounds Extremities: No clubbing Neuro: Normal speech Psych/Mental Status: Mood NL MUSCULOSKELETAL: No joint tenderness, No deformity, No swelling Vitals VITALS Vital Signs Date Time Temp Pulse Resp B/P (MAP) Pulse Ox O2 Delivery O2 Flow Rate FiO2 02/08/21 11:47 98 Nasal Cannula 2.0 02/08/21 09:28 55 141/68 02/08/21 07:00 97.7 24 97.7 Labs Labs Laboratory Tests Test 02/06/21 16:46 02/06/21 20:43 02/07/21 04:30 02/07/21 07:40 Glucose (Fingerstick) 149 mg/dL (70-99) 222 mg/dL (70-99) 160 mg/dL (70-99) White Blood Count 5.5 x10^3/uL (4.0-11.0) Red Blood Count 2.75 x10^6/uL (4.30-5.70) Hemoglobin 8.5 g/dL (13.0-17.5) Hematocrit 24.9 % (39.0-53.0) Mean Corpuscular Volume 90 fL (79-100) Mean Corpuscular Hemoglobin 31 pg (25-35) Mean Corpuscular Hemoglobin Concent 34 g/dL (31-37) Red Cell Distribution Width 13.9 % (11.5-14.5) Platelet Count 291 x10^3/uL (140-400) Neutrophils (%) (Auto) 69 % (31-73) Lymphocytes (%) (Auto) 16 % (24-48) Monocytes (%) (Auto) 12 % (0-9) Eosinophils (%) (Auto) 2 % (0-3) Basophils (%) (Auto) 1 % (0-3) Neutrophils # (Auto) 3.8 x10^3/uL (1.8-7.7) Lymphocytes # (Auto) 0.9 x10^3/uL (1.0-4.8) Monocytes # (Auto) 0.7 x10^3/uL (0.0-1.1) Eosinophils # (Auto) 0.1 x10^3/uL (0.0-0.7) Basophils # (Auto) 0.0 x10^3/uL (0.0-0.2) Sodium Level 140 mmol/L (136-145) Potassium Level 3.8 mmol/L (3.5-5.1) Chloride Level 102 mmol/L (98-107) Carbon Dioxide Level 29 mmol/L (21-32) Anion Gap 9 (6-14) Blood Urea Nitrogen 44 mg/dL (8-26) Creatinine 2.2 mg/dL (0.7-1.3) Estimated GFR (Cockcroft-Gault) 29.7 Glucose Level 176 mg/dL (70-99) Calcium Level 8.4 mg/dL (8.5-10.1) Test 02/07/21 12:14 02/07/21 16:42 02/07/21 19:59 02/08/21 03:00 Glucose (Fingerstick) 143 mg/dL (70-99) 294 mg/dL (70-99) 250 mg/dL (70-99) White Blood Count 5.6 x10^3/uL (4.0-11.0) Red Blood Count 2.59 x10^6/uL (4.30-5.70) Hemoglobin 8.0 g/dL (13.0-17.5) Hematocrit 23.4 % (39.0-53.0) Mean Corpuscular Volume 90 fL (79-100) Mean Corpuscular Hemoglobin 31 pg (25-35) Mean Corpuscular Hemoglobin Concent 34 g/dL (31-37) Red Cell Distribution Width 14.6 % (11.5-14.5) Platelet Count 281 x10^3/uL (140-400) Neutrophils (%) (Auto) 63 % (31-73) Lymphocytes (%) (Auto) 21 % (24-48) Monocytes (%) (Auto) 13 % (0-9) Eosinophils (%) (Auto) 2 % (0-3) Basophils (%) (Auto) 1 % (0-3) Neutrophils # (Auto) 3.5 x10^3/uL (1.8-7.7) Lymphocytes # (Auto) 1.2 x10^3/uL (1.0-4.8) Monocytes # (Auto) 0.7 x10^3/uL (0.0-1.1) Eosinophils # (Auto) 0.1 x10^3/uL (0.0-0.7) Basophils # (Auto) 0.0 x10^3/uL (0.0-0.2) Sodium Level 140 mmol/L (136-145) Potassium Level 3.8 mmol/L (3.5-5.1) Chloride Level 103 mmol/L (98-107) Carbon Dioxide Level 30 mmol/L (21-32) Anion Gap 7 (6-14) Blood Urea Nitrogen 45 mg/dL (8-26) Creatinine 2.2 mg/dL (0.7-1.3) Estimated GFR (Cockcroft-Gault) 29.7 Glucose Level 122 mg/dL (70-99) Calcium Level 7.9 mg/dL (8.5-10.1) Test 02/08/21 08:24 02/08/21 11:57 Glucose (Fingerstick) 123 mg/dL (70-99) 163 mg/dL (70-99) Laboratory Tests Test 02/07/21 16:42 02/07/21 19:59 02/08/21 03:00 02/08/21 08:24 Glucose (Fingerstick) 294 mg/dL (70-99) 250 mg/dL (70-99) 123 mg/dL (70-99) White Blood Count 5.6 x10^3/uL (4.0-11.0) Red Blood Count 2.59 x10^6/uL (4.30-5.70) Hemoglobin 8.0 g/dL (13.0-17.5) Hematocrit 23.4 % (39.0-53.0) Mean Corpuscular Volume 90 fL (79-100) Mean Corpuscular Hemoglobin 31 pg (25-35) Mean Corpuscular Hemoglobin Concent 34 g/dL (31-37) Red Cell Distribution Width 14.6 % (11.5-14.5) Platelet Count 281 x10^3/uL (140-400) Neutrophils (%) (Auto) 63 % (31-73) Lymphocytes (%) (Auto) 21 % (24-48) Monocytes (%) (Auto) 13 % (0-9) Eosinophils (%) (Auto) 2 % (0-3) Basophils (%) (Auto) 1 % (0-3) Neutrophils # (Auto) 3.5 x10^3/uL (1.8-7.7) Lymphocytes # (Auto) 1.2 x10^3/uL (1.0-4.8) Monocytes # (Auto) 0.7 x10^3/uL (0.0-1.1) Eosinophils # (Auto) 0.1 x10^3/uL (0.0-0.7) Basophils # (Auto) 0.0 x10^3/uL (0.0-0.2) Sodium Level 140 mmol/L (136-145) Potassium Level 3.8 mmol/L (3.5-5.1) Chloride Level 103 mmol/L (98-107) Carbon Dioxide Level 30 mmol/L (21-32) Anion Gap 7 (6-14) Blood Urea Nitrogen 45 mg/dL (8-26) Creatinine 2.2 mg/dL (0.7-1.3) Estimated GFR (Cockcroft-Gault) 29.7 Glucose Level 122 mg/dL (70-99) Calcium Level 7.9 mg/dL (8.5-10.1) Test 02/08/21 11:57 Glucose (Fingerstick) 163 mg/dL (70-99) Assessment/Plan Assessment/Plan IMP CKD STAGE 3B WITH STABLE CR OF 2.2 ACUTE SYSTOLIC CHF WITH EF OF 25% ACUTE ON CHRONIC HYPOXIC RESP FAILRUE CAD WITH HX OF PTCA AND STENT BPH-HAS DONE WELL WITH FLOMAX IN PAST DM II HTN PLAN CONT WITH DIURETICS PULM AND CARDIOLOGY EVAL AND TX AVOID NEPHROTOXINS CONT FLOMAX WILL FOLLOW RADHA PATEL MD Feb 08, 2021 12:24
--- NOTE | 2021-02-08 14:28 | NUR ---
SS following up with discharge planning. SS reviewed pt chart and discussed with pt RN. Pt is from home and is currently requiring oxygen at two liters nasal canula. Pt has home oxygen and home nebulizer. COVID19 negative. Pt had services with [facility], ; fax [phone]. PT/OT recommended home. Anticipate discharge to home today with [facility]. Physician notified. SS will continue to follow for discharge planning.
[2021-02-08 14:50] LABS: BILIRUBIN,URINE NEGATIVE (NEG); CLARITY,URINE CLEAR; COLOR,URINE YELLOW; NITRITE,URINE NEGATIVE (NEG); PH,URINE 5.5 (<5.0-8.0); PROTEIN,URINE 100 mg/dL (NEG-TRACE)
[2021-02-08 15:00] VITALS: BP 133/82
[2021-02-08 15:01] LABS: BACTERIA,URINE 0 /HPF (0-FEW); HYALINE CASTS, URINE MODERATE /HPF
--- NOTE | 2021-02-08 15:28 | PDOC3 ---
Discharge Summary Date of Admission: Feb 02, 2021 Date of Discharge: Feb 08, 2021 Follow-Up: Other (3 weeks) Admitting Diagnosis comment: Chief Complaint Chief Complaint HPI HISTORY OF PRESENT ILLNESS: The patient is a pleasant elderly male who was just sent home a few days ago. Once again, he presents with heart failure. He is short of breath. He was hypoxic with a sat in the 88% range. He states he has been following his diet and he increased his home meds but that did not work. His symptoms are worse with moving, better with sitting still, rated at 9/10. It makes him very anxious. I discussed the case with ER physician. We have placed him on BiPAP. We have also given him 40 of IV Lasix. We are also consulting Cardiology. The patient WAS quite ill. BUT improved on discharge today PAST MEDICAL HISTORY: CHF, arrhythmia, anxiety, depression, CAD, diabetes, hypertension, hyperlipidemia, myocardial infarction, left BKA, BPH, pulmonary edema, neuropathy. discharge DX CONSULTS NEPHROLOGY, CARDIOLOGY, PULMONARY COMPLICATIONS NONE D/C MEDS SEE MAR D/C CONDITION GOOD, HOME WITH HOME HEALTH Acute hypoxic respiratory failure Acute on chronic CHF exacerbation Acute volume overload SOPHIE due to vasomotor nephropathy, possible cardiorenal syndrome Pt reported he required dialysis in the past (has been many years), Elevated troponins suggestive of demand ischemia History of pulmonary arterial hypertension Anemia of chronic disease Severe protein malnutrition plan Admit to medicine for further management Continue BiPAP as needed Cardiology consult appreciated recommendationsLasix IV daily continue BiPAP nephrology consult Strict I's and O's Salt and fluid restriction to less than 2 g and less than 2 L/day, respectively History of Present Illness History of Present Illness 02/08/2021 Afebrile. Breathing on BiPAP overnight, currently on 3 L nasal cannula. States BiPAP really helps him at night. Kidney function slow to improve , still consistent with CKD 3b. Left heart cath 02-05 with findings of acute on chronic systolic and diastolic heart failure, two-vessel coronary artery disease with severe in-stent restenosis of the proximal LAD and distal LAD stents, and successful balloon angioplasty of the proximal and distal LAD stents. Recommended to continue aspirin and Plavix. Continue to DuoNebs as needed and inhaled steroid. CR 2.2 GFR 29.7, CONSULT NEPHROLOGY, TREND RENAL FUNCTION D/W RN CKD STAGE 3B WITH STABLE CR OF 2.2 ACUTE SYSTOLIC CHF WITH EF OF 25% High dose statin Risk stratification modification Outpatient sleep study Supportive care Follow up with Dr Melo as scheduled see dr sotelo 3-4 weeks d/c planning 38 min 02/07/2021 Afebrile. Breathing on BiPAP overnight, currently on 3 L nasal cannula. States BiPAP really helps him at night. Kidney function slow to improve , still consistent with CKD 3b. Left heart cath 02-05 with findings of acute on chronic systolic and diastolic heart failure, two-vessel coronary artery disease with severe in-stent restenosis of the proximal LAD and distal LAD stents, and successful balloon angioplasty of the proximal and distal LAD stents. Recommended to continue aspirin and Plavix. Continue to DuoNebs as needed and inhaled steroid. GFR 29.7, CONSULT NEPHROLOGY, NAT RENAL FUNCTION D/W RN \ 02/06/2021 Afebrile. Breathing on BiPAP overnight, currently on 3 L nasal cannula. States BiPAP really helps him at night. 1120 mL net fluid output overnight. Kidney function slightly improved today, still consistent with CKD 3b. Left heart cath yesterday with findings of acute on chronic systolic and diastolic heart failure, two-vessel coronary artery disease with severe in-stent restenosis of the proximal LAD and distal LAD stents, and successful balloon angioplasty of the proximal and distal LAD stents. Recommended to continue aspirin and Plavix. Continue to DuoNebs as needed and inhaled steroid. 02/05/2021 Afebrile, currently breathing on BiPAP. Weight fluctuating, but roughly 565 mL urine off overnight. Pulmonology has been consulted due to probable COPD. Continue duo nebs and Lasix. Continue to monitor kidney function. 02/04/2021 No acute events overnight. Patient currently saturating 97% on 3 L nasal cannula. Taken off of BiPAP. We will continue BiPAP as needed. Appreciate cardiology recommendation for possible left heart cath. Patient's chart, labs, images were reviewed and discussed with RN 02/03/2021 No acute events overnight. Patient was placed on BiPAP. Lasix IV was given. Evaluated by cardiology and will increase his IV Lasix to 40 mg twice daily. Patient's chart, labs, images were reviewed and discussed with RN A total of 33 minutes of critical care time was spent in reviewing chart, labs, and images. Discussed with RN and SW. elderly male who was just sent home a few days ago. Once again, he presents with heart failure. He is short of breath. He was hypoxic with a sat in the 88% range. He states he has been following his diet and he increased his home meds but that did not work. His symptoms are worse with moving, better with sitting still, rated at 9/10. It makes him very anxious. I discussed the case with ER physician. We have placed him on BiPAP. We have also given him 40 of IV Lasix. We are also consulting Cardiology. The patient is quite ill. Vitals Vitals Vital Signs Date Time Temp Pulse Resp B/P (MAP) Pulse Ox O2 Delivery O2 Flow Rate FiO2 02/08/21 08:27 Nasal Cannula 2.0 02/08/21 04:35 100 02/08/21 02:22 97.9 59 19 129/61 (83) 97.9 Physical Exam General: Alert, Oriented X3, Cooperative Heart: Regular rate, Normal S1, No murmurs Lungs: Clear, Wheezing (resolved) Abdomen: No tenderness Extremities: Other (Pedal edema) Skin: No rashes, No breakdown Labs LABS Examination: Ultrasound kidneys HISTORY: History of renal failure COMPARISON: None available. FINDINGS: The right kidney measures 12.1 x 5.5 x 5.0 cm. The left kidney measures 13.2 x 5.7 x 5.9 cm. Urinary bladder is mildly distended. Partially visualized left pleural effusion. IMPRESSION: 1. No evidence of hydronephrosis. Electronically signed by: El Fagan MD (06/30/2020 2:24 AM) [id number] FINAL DIAGNOSIS Problems Medical Problems: (1) CHF (congestive heart failure) Status: Acute (2) Elevated troponin I level Status: Acute (3) Renal insufficiency Status: Acute Brief Hospital Course Mr. Monroe is a 70 old [sex] who presented with [ ] CONDITION AT DISCHARGE: Improved Discharge Medications Current Medications Ondansetron HCl (Zofran) 4 mg PRN Q8HRS PRN IV NAUSEA/VOMITING; Start 02/02/21 at 11:15; Stop 02/03/21 at 11:14; Status DC Furosemide (Lasix) 40 mg 1X ONCE IVP Last administered on 02/02/21 11:55; Start 02/02/21 at 11:30; Stop 02/02/21 at 11:31; Status DC Amlodipine Besylate (Norvasc) 10 mg DAILY PO Last administered on 02/08/21 09:25; Start 02/03/21 at 09:00 Aspirin (Ecotrin) 81 mg DAILY PO Last administered on 02/08/21 09:25; Start 02/03/21 at 09:00 Atorvastatin Calcium (Lipitor) 40 mg QHS PO Last administered on 02/07/21 22:11; Start 02/02/21 at 21:00 Carvedilol (Coreg) 6.25 mg BIDWMEALS PO Last administered on 02/08/21 09:26; Start 02/03/21 at 08:00 Clopidogrel Bisulfate (Plavix) 75 mg DAILY PO Last administered on 02/08/21 09 :26; Start 02/03/21 at 09:00 Fluoxetine HCl (PROzac) 20 mg DAILY PO Last administered on 02/08/21 09:25; Start 02/03/21 at 09:00 Furosemide (Lasix) 40 mg DAILY PO Last administered on 02/08/21 09:25; Start 02/03/21 at 09:00 Hydralazine HCl (Apresoline) 75 mg BID PO Last administered on 02/08/21 09:26; Start 02/02/21 at 21:00 Potassium Chloride (Klor-Con) 10 meq DAILY PO Last administered on 02/08/21 09:26; Start 02/03/21 at 09:00 Tamsulosin HCl (Flomax) 0.4 mg DAILY PO Last administered on 02/08/21 09:26; Start 02/03/21 at 09:00 Insulin Glargine (Lantus Syringe) 12 unit BID SQ Last administered on 02/08/21 09:31; Start 02/02/21 at 21:00 Isosorbide Mononitrate (Imdur) 60 mg DAILY PO Last administered on 02/08/21 09:28; Start 02/03/21 at 09:00 Pantoprazole Sodium (Protonix) 40 mg DAILYAC PO Last administered on 02/08/21at 06:07; Start 02/03/21 at 07:30 Acetaminophen/ Hydrocodone Bitart (Lortab 5/325) 1 tab PRN Q6HRS PRN PO PAIN; Start 02/02/21 at 19:15 Albuterol/ Ipratropium (Duoneb) 3 ml RTQID NEB Last administered on 02/08/21at 11:47; Start 02/03/21 at 08:30 Furosemide (Lasix) 40 mg 1X ONCE IVP Last administered on 02/03/21at 08:35; Start 02/03/21 at 09:00; Stop 02/03/21 at 09:01; Status DC Alprazolam (Xanax) 0.25 mg PRN Q8HRS PRN PO ANXIETY / AGITATION Last administered on 02/05/21at 08:51; Start 02/03/21 at 10:45 Magnesium Sulfate 50 ml @ 25 mls/hr 1X ONCE IV Last administered on 02/04/21at 14:18; Start 02/04/21 at 14:00; Stop 02/04/21 at 15:59; Status DC Budesonide (Pulmicort) 0.5 mg RTBID NEB Last administered on 02/08/21at 08:59; Start 02/05/21 at 12:00 Iodixanol (Visipaque 320) 100 ml STK-MED ONCE .ROUTE ; Start 02/05/21 at 14:50; Stop 02/05/21 at 14:50; Status DC Lidocaine HCl (Lidocaine 1% 20ml Vial) 20 ml STK-MED ONCE .ROUTE ; Start 02/05/21 at 14:50; Stop 02/05/21 at 14:50; Status DC Heparin Sodium/ Sodium Chloride 1,000 ml @ As Directed STK-MED ONCE .ROUTE ; Start 02/05/21 at 14:50; Stop 02/05/21 at 14:51; Status DC Fentanyl Citrate (Fentanyl 2ml Vial) 100 mcg STK-MED ONCE .ROUTE ; Start 02/05/21 at 15:19; Stop 02/05/21 at 15:19; Status DC Midazolam HCl (Versed) 2 mg STK-MED ONCE .ROUTE ; Start 02/05/21 at 15:19; Stop 02/05/21 at 15:19; Status DC Iodixanol (Visipaque 320) 100 ml STK-MED ONCE .ROUTE ; Start 02/05/21 at 15:35; Stop 02/05/21 at 15:35; Status DC Heparin Sodium (Porcine) (Heparin Sodium) 10,000 unit STK-MED ONCE .ROUTE ; Start 02/05/21 at 15:35; Stop 02/05/21 at 15:36; Status DC Heparin Sodium/ Sodium Chloride (HEPARIN for ARTERIAL LINE FLUSH) 1,000 unit 1X ONCE IART Last administered on 02/05/21at 16:18; Start 02/05/21 at 15:45; Stop 02/05/21 at 15:46; Status DC Heparin Sodium/ Sodium Chloride (HEPARIN for ARTERIAL LINE FLUSH) 1,000 unit 1X ONCE IART Last administered on 02/05/21at 16:19; Start 02/05/21 at 15:45; Stop 02/05/21 at 15:46; Status DC Midazolam HCl (Versed) 2 mg 1X ONCE IV Last administered on 02/05/21at 16:19; Start 02/05/21 at 15:45; Stop 02/05/21 at 15:46; Status DC Fentanyl Citrate (Fentanyl 2ml Vial) 100 mcg 1X ONCE IV Last administered on 02/05/21at 16:20; Start 02/05/21 at 15:45; Stop 02/05/21 at 15:46; Status DC Iodixanol (Visipaque 320) 100 ml 1X ONCE IART Last administered on 02/05/21at 16:20; Start 02/05/21 at 15:45; Stop 02/05/21 at 15:46; Status DC Heparin Sodium (Porcine) (Heparin Sodium) 5,000 unit 1X ONCE IV Last administered on 02/05/21at 16:28; Start 02/05/21 at 15:45; Stop 02/05/21 at 15:46; Status DC Lidocaine HCl (Lidocaine 1% 20ml Vial) 20 ml 1X ONCE INJ Last administered on 02/05/21at 16:20; Start 02/05/21 at 15:45; Stop 02/05/21 at 15:46; Status DC Info (CONTRAST GIVEN -- Rx MONITORING) 1 each PRN DAILY PRN MC SEE COMMENTS; Start 02/05/21 at 15:45; Stop 02/07/21 at 15:44; Status DC Nitroglycerin (Nitroglycerin) 200 mcg STK-MED ONCE .ROUTE ; Start 02/05/21 at 15:58; Stop 02/05/21 at 15:58; Status DC Nitroglycerin (Nitroglycerin) 200 mcg 1X ONCE ICAR Last administered on 02/05/21at 16:19; Start 02/05/21 at 16:15; Stop 02/05/21 at 16:16; Status DC Clopidogrel Bisulfate (Plavix) 300 mg 1X ONCE PO Last administered on at 16:21; Start 02/05/21 at 16:15; Stop 02/05/21 at 16:16; Status DC Clopidogrel Bisulfate (Plavix) 75 mg STK-MED ONCE .ROUTE ; Start 02/05/21 at 16:10; Stop 02/05/21 at 16:10; Status DC Active Scripts Active Isosorbide Mononitrate Er (Isosorbide Mononitrate) 60 Mg Tab.er.24h 1 Tab PO DAILY 30 Days Furosemide 40 Mg Tablet 40 Mg PO QD Hydralazine Hcl 25 Mg Tablet 75 Mg PO BID 30 Days Klor-Con 10 (Potassium Chloride) 10 Meq Tablet.er 1 Tab PO DAILY 30 Days Lipitor (Atorvastatin Calcium) 40 Mg Tablet 1 Tab PO QHS 30 Days Fluoxetine Hcl 20 Mg Capsule 20 Mg PO DAILY 30 Days Carvedilol (Carvedilol) 6.25 Mg Tablet 6.25 Mg PO BIDWMEALS 30 Days Clopidogrel (Clopidogrel Bisulfate) 75 Mg Tablet 1 Tab PO DAILY 30 Days Reported Levemir (Insulin Detemir) 100 Unit/1 Ml Vial 12 Unit SQ BID Amlodipine Besylate 10 Mg Tablet 10 Mg PO DAILY Aspirin Ec (Aspirin) 81 Mg Tablet.dr 1 Tab PO DAILY Omeprazole 20 Mg Capsule.dr 20 Mg PO DAILY Flomax (Tamsulosin Hcl) 0.4 Mg Cap.er.24h 0.4 Mg PO DAILY Vital Signs Vital Signs Date Time Temp Pulse Resp B/P (MAP) Pulse Ox O2 Delivery O2 Flow Rate FiO2 02/08/21 11:47 98 Nasal Cannula 2.0 02/08/21 11:00 97.5 58 18 138/69 (92) 97.5 Labs Laboratory Tests Test 02/06/21 16:46 02/06/21 20:43 02/07/21 04:30 02/07/21 07:40 Glucose (Fingerstick) 149 mg/dL (70-99) 222 mg/dL (70-99) 160 mg/dL (70-99) White Blood Count 5.5 x10^3/uL (4.0-11.0) Red Blood Count 2.75 x10^6/uL (4.30-5.70) Hemoglobin 8.5 g/dL (13.0-17.5) Hematocrit 24.9 % (39.0-53.0) Mean Corpuscular Volume 90 fL (79-100) Mean Corpuscular Hemoglobin 31 pg (25-35) Mean Corpuscular Hemoglobin Concent 34 g/dL (31-37) Red Cell Distribution Width 13.9 % (11.5-14.5) Platelet Count 291 x10^3/uL (140-400) Neutrophils (%) (Auto) 69 % (31-73) Lymphocytes (%) (Auto) 16 % (24-48) Monocytes (%) (Auto) 12 % (0-9) Eosinophils (%) (Auto) 2 % (0-3) Basophils (%) (Auto) 1 % (0-3) Neutrophils # (Auto) 3.8 x10^3/uL (1.8-7.7) Lymphocytes # (Auto) 0.9 x10^3/uL (1.0-4.8) Monocytes # (Auto) 0.7 x10^3/uL (0.0-1.1) Eosinophils # (Auto) 0.1 x10^3/uL (0.0-0.7) Basophils # (Auto) 0.0 x10^3/uL (0.0-0.2) Sodium Level 140 mmol/L (136-145) Potassium Level 3.8 mmol/L (3.5-5.1) Chloride Level 102 mmol/L (98-107) Carbon Dioxide Level 29 mmol/L (21-32) Anion Gap 9 (6-14) Blood Urea Nitrogen 44 mg/dL (8-26) Creatinine 2.2 mg/dL (0.7-1.3) Estimated GFR (Cockcroft-Gault) 29.7 Glucose Level 176 mg/dL (70-99) Calcium Level 8.4 mg/dL (8.5-10.1) Test 02/07/21 12:14 02/07/21 16:42 02/07/21 19:59 02/08/21 03:00 Glucose (Fingerstick) 143 mg/dL (70-99) 294 mg/dL (70-99) 250 mg/dL (70-99) White Blood Count 5.6 x10^3/uL (4.0-11.0) Red Blood Count 2.59 x10^6/uL (4.30-5.70) Hemoglobin 8.0 g/dL (13.0-17.5) Hematocrit 23.4 % (39.0-53.0) Mean Corpuscular Volume 90 fL (79-100) Mean Corpuscular Hemoglobin 31 pg (25-35) Mean Corpuscular Hemoglobin Concent 34 g/dL (31-37) Red Cell Distribution Width 14.6 % (11.5-14.5) Platelet Count 281 x10^3/uL (140-400) Neutrophils (%) (Auto) 63 % (31-73) Lymphocytes (%) (Auto) 21 % (24-48) Monocytes (%) (Auto) 13 % (0-9) Eosinophils (%) (Auto) 2 % (0-3) Basophils (%) (Auto) 1 % (0-3) Neutrophils # (Auto) 3.5 x10^3/uL (1.8-7.7) Lymphocytes # (Auto) 1.2 x10^3/uL (1.0-4.8) Monocytes # (Auto) 0.7 x10^3/uL (0.0-1.1) Eosinophils # (Auto) 0.1 x10^3/uL (0.0-0.7) Basophils # (Auto) 0.0 x10^3/uL (0.0-0.2) Sodium Level 140 mmol/L (136-145) Potassium Level 3.8 mmol/L (3.5-5.1) Chloride Level 103 mmol/L (98-107) Carbon Dioxide Level 30 mmol/L (21-32) Anion Gap 7 (6-14) Blood Urea Nitrogen 45 mg/dL (8-26) Creatinine 2.2 mg/dL (0.7-1.3) Estimated GFR (Cockcroft-Gault) 29.7 Glucose Level 122 mg/dL (70-99) Calcium Level 7.9 mg/dL (8.5-10.1) Test 02/08/21 08:24 02/08/21 11:57 02/08/21 14:41 Glucose (Fingerstick) 123 mg/dL (70-99) 163 mg/dL (70-99) Urine Collection Type Unknown Urine Color Yellow Urine Clarity Clear Urine pH 5.5 (<5.0-8.0) Urine Specific Thornton 1.015 (1.000-1.030) Urine Protein 100 mg/dL (NEG-TRACE) Urine Glucose (UA) Negative mg/dL (NEG) Urine Ketones (Stick) Negative mg/dL (NEG) Urine Blood Negative (NEG) Urine Nitrite Negative (NEG) Urine Bilirubin Negative (NEG) Urine Urobilinogen Dipstick 1.0 mg/dL (0.2 mg/dL) Urine Leukocyte Esterase Trace (NEG) Urine RBC 1-2 /HPF (0-2) Urine WBC 1-4 /HPF (0-4) Urine Bacteria 0 /HPF (0-FEW) Urine Hyaline Casts Moderate /HPF Urine Mucus Mod /LPF Laboratory Tests Test 02/07/21 16:42 02/07/21 19:59 02/08/21 03:00 02/08/21 08:24 Glucose (Fingerstick) 294 mg/dL (70-99) 250 mg/dL (70-99) 123 mg/dL (70-99) White Blood Count 5.6 x10^3/uL (4.0-11.0) Red Blood Count 2.59 x10^6/uL (4.30-5.70) Hemoglobin 8.0 g/dL (13.0-17.5) Hematocrit 23.4 % (39.0-53.0) Mean Corpuscular Volume 90 fL (79-100) Mean Corpuscular Hemoglobin 31 pg (25-35) Mean Corpuscular Hemoglobin Concent 34 g/dL (31-37) Red Cell Distribution Width 14.6 % (11.5-14.5) Platelet Count 281 x10^3/uL (140-400) Neutrophils (%) (Auto) 63 % (31-73) Lymphocytes (%) (Auto) 21 % (24-48) Monocytes (%) (Auto) 13 % (0-9) Eosinophils (%) (Auto) 2 % (0-3) Basophils (%) (Auto) 1 % (0-3) Neutrophils # (Auto) 3.5 x10^3/uL (1.8-7.7) Lymphocytes # (Auto) 1.2 x10^3/uL (1.0-4.8) Monocytes # (Auto) 0.7 x10^3/uL (0.0-1.1) Eosinophils # (Auto) 0.1 x10^3/uL (0.0-0.7) Basophils # (Auto) 0.0 x10^3/uL (0.0-0.2) Sodium Level 140 mmol/L (136-145) Potassium Level 3.8 mmol/L (3.5-5.1) Chloride Level 103 mmol/L (98-107) Carbon Dioxide Level 30 mmol/L (21-32) Anion Gap 7 (6-14) Blood Urea Nitrogen 45 mg/dL (8-26) Creatinine 2.2 mg/dL (0.7-1.3) Estimated GFR (Cockcroft-Gault) 29.7 Glucose Level 122 mg/dL (70-99) Calcium Level 7.9 mg/dL (8.5-10.1) Test 02/08/21 11:57 02/08/21 14:41 Glucose (Fingerstick) 163 mg/dL (70-99) Urine Collection Type Unknown Urine Color Yellow Urine Clarity Clear Urine pH 5.5 (<5.0-8.0) Urine Specific Thornton 1.015 (1.000-1.030) Urine Protein 100 mg/dL (NEG-TRACE) Urine Glucose (UA) Negative mg/dL (NEG) Urine Ketones (Stick) Negative mg/dL (NEG) Urine Blood Negative (NEG) Urine Nitrite Negative (NEG) Urine Bilirubin Negative (NEG) Urine Urobilinogen Dipstick 1.0 mg/dL (0.2 mg/dL) Urine Leukocyte Esterase Trace (NEG) Urine RBC 1-2 /HPF (0-2) Urine WBC 1-4 /HPF (0-4) Urine Bacteria 0 /HPF (0-FEW) Urine Hyaline Casts Moderate /HPF Urine Mucus Mod /LPF Allergies Allergies Coded Allergies Type Severity Reaction Last Updated Verified No Known Drug Allergies 06/28/20 No Disposition/Orders: D/C to Home w/ HH Justicifation of Admission Dx: Justifications for Admission: Justification of Admission Dx: Yes MARGARITO CABEZAS MD Feb 08, 2021 15:28
[2021-02-08] MEDS ORDERED: IPRA3AMP29 NEB (15:33)
[2021-02-08] MEDS ORDERED: BUDE0.5A NEB (15:33)
--- NOTE | 2021-02-08 15:34 | SNU/HH DC ---
DISCHARGE WITH HOME HEALTH DISCHARGE INFORMATION: Discharge Date: Feb 08, 2021 Final Diagnosis: Problems Medical Problems: (1) CHF (congestive heart failure) Status: Acute (2) Elevated troponin I level Status: Acute (3) Renal insufficiency Status: Acute Condition on Discharge: Stable CODE STATUS: Code Status: Full HOME HEALTH: Face to Face: I certify this patient is under my care and that I, or a nurse practitioner or physician's emergency room physician assistant working with me, had a face to face encounter that meets the physician face to face encounter requirements with this patient on []. Medical Complications: CHF, COPD Longterm For: Assess Cardiopulm Status, Assess & Educate Safety, Assess/Skilled Observatio, Medication Management RN For Eval/Treatment: Yes Physical Therapy For: Evalulation/Treatment Occupational Therapy For: Evaluation/Treatment Speech Language Pathology For: Evaluation/Treatment Home Health Aide For: Self-care AUTO B[employer] TECHNICIAN For: Community Resources Pt Meets Homebound Status: Fatigue w/ amb., Limited distance walking POST DISCHARGE ORDERS: Activity Instructions for Disc: Activity as tolerated, Other, see below Weight Bearing Status after Di: As tolerated Bathing Instructions: No Tub Bath until see DIET AFTER DISCHARGE: Cardiac Wound/Incision Care: Other, see below CHECKS AFTER DISCHARGE: Checks after discharge: Check blood press - daily, Check blood sugar, ac/hs, Weigh Yourself Daily FOLLOW-UP: PCP to follow Home Health: pcp one week CARDIOLOGY 3 WEEKS NEPHROLOGY 3 TO 4 WEEKS TREATMENT/EQUIPMENT ORDERS: Adaptive Equipment Issued: Cane, Commode, Walker Discharge Respiratory Equipmen: Oxygen, Nebulizer CERTIFICATION STATEMENT: Certification Statement: Certification Statement: Based on the above finding, I certify that this patient is confined to the home and needs intermittent group home care, physical therapy and/or speech therapy, or continues to need occupational therapy.~ This patient is under my care, and I have initiated the establishment of the plan of care.~ This patient will be followed by myself or a community physician who will periodically review the plan of care. Home Meds Active Scripts Ipratropium/Albuterol Sulfate (DUONEB 0.5-3(2.5) MG/3 ML) 3 Ml Ampul.neb, 3 ML NEB RTQID for copd for 30 Days, #120 EACH Prov:MARGARITO CABEZAS MD 02/08/21 Budesonide (BUDESONIDE) 0.5 Mg/2 Ml Ampul.neb, 0.5 MG NEB RTBID for copd for 30 Days, #60 EACH Prov:MARGARITO CABEZAS MD 02/08/21 Isosorbide Mononitrate (ISOSORBIDE MONONITRATE ER) 60 Mg Tab.er.24h, 1 TAB PO DAILY for coronary artery disease for 30 Days, #30 TAB 2 Refills Prov:CHAVA BUCHANAN APRN 01/31/21 Furosemide (FUROSEMIDE) 40 Mg Tablet, 40 MG PO QD for diuretic, #30 TAB 1 Refill Prov:SARAH COLLINS MD 12/17/20 Hydralazine Hcl (HYDRALAZINE HCL) 25 Mg Tablet, 75 MG PO BID for BLOOD PRESSURE for 30 Days, #180 TAB Prov:MARGARITO CABEZAS MD 07/17/20 Potassium Chloride (KLOR-CON 10) 10 Meq Tablet.er, 1 TAB PO DAILY for potassium supplement for 30 Days, #30 TAB 2 Refills Prov:SARAH COLLINS MD 07/11/20 Atorvastatin Calcium (LIPITOR) 40 Mg Tablet, 1 TAB PO QHS for cholesterol, CAD for 30 Days, #30 TAB 2 Refills Prov:CHAVA BUCHANAN APRN 07/04/20 Fluoxetine Hcl (FLUOXETINE HCL) 20 Mg Capsule, 20 MG PO DAILY for depression for 30 Days, #30 CAP Prov:RENETTA DUTTON MD 07/04/20 Carvedilol (CARVEDILOL ) 6.25 Mg Tablet, 6.25 MG PO BIDWMEALS for chf for 30 Days, #60 TAB Prov:RENETTA DUTTON MD 07/04/20 Clopidogrel Bisulfate (CLOPIDOGREL) 75 Mg Tablet, 1 TAB PO DAILY for blood thinner for 30 Days, #30 TAB 1 Refill Prov:RENETTA DUTTON MD 07/04/20 Reported Medications Insulin Detemir (LEVEMIR) 100 Unit/1 Ml Vial, 12 UNIT SQ BID for blood sugar, VIAL 07/18/20 Amlodipine Besylate (AMLODIPINE BESYLATE) 10 Mg Tablet, 10 MG PO DAILY for heart/blood pressure, TAB 07/04/20 Aspirin (ASPIRIN EC) 81 Mg Tablet.dr, 1 TAB PO DAILY for blood thinner, #30 TAB 3 Refills 07/04/20 Omeprazole (OMEPRAZOLE) 20 Mg Capsule.dr, 20 MG PO DAILY for gerd, CAP 06/28/20 Tamsulosin Hcl (FLOMAX) 0.4 Mg Cap.er.24h, 0.4 MG PO DAILY for retention, TAB 06/28/20 MARGARITO CABEZAS MD Feb 08, 2021 15:34
--- NOTE | 2021-02-08 16:25 | NUR ---
SS following up with discharge planning. Discharge orders for home healthcare received and sent to [facility], ; fax [phone]. Pt's RN notified.
[2021-02-08 18:43] VITALS: BP 139/63
--- NOTE | 2021-02-08 19:15 | NUR ---
Discharge Note: JOVANNI SOLIS [address] Discharge instructions and discharge home medications reviewed with Patient and a copy given. All questions have been answered and understanding verbalized. The following instructions and handouts were given: Oxygen use at home, shortness of breath, heart failure, pleural effusion, Sodium and fluid restriction. Report given to FLORIDALMA Monique due to patient not having a ride until 1999. IV out, monitor off and placed at nursing station.
--- NOTE | 2021-02-08 19:32 | NUR ---
Advised patient to call Dr. Chamberlain and schedule an appointment in 4-6 weeks. Also advised to call Dr. Altamirano's office to schedule an outpatient sleep study.
--- NOTE | 2021-02-08 20:50 | NUR ---
Patient discharged to home accompanied by his daughter. Patient transported to emergency room exit per wheelchair with this RN. Patient on O2 at 3 liters nasal canula for transport to daughters car. Patient's daughter had his home oxygen tank and set oxygen at 3 liters prior to changing out oxygen tanks. Patient verbalized comfort with oxygen. Patient verbalized having all belongings with him on discharge. Patient's saline locks discontinued per Sirisha RN on day shift, no bleeding noted, bandages intact. Patient was given discharge teaching instructions per Sirisha RN prior to shift change and denies any further questions/concerns regarding discharge instructions.
[2021-02-09 13:13] LABS: IMMUNOGLOBULIN A 317 mg/dL (61-437); IMMUNOGLOBULIN G 777 mg/dL (603-1613); IMMUNOGLOBULIN M 75 mg/dL (15-143)
== END 2021-02-08 21:03 | disposition home health service (06) | DRG 250 ==
LOC: ER 09:58 → 2 SOUTH 11:15
PROVIDERS: ADMIT Internal Medicine; ATTEND Internal Medicine
PROC: 5A09357 Assistance with Respiratory Ventilation, Less than 24 Consecutive Hours, Continuous Positive Airway Pressure (ICD-10-PCS; 2021-02-03)
PROC: 5A09357 Assistance with Respiratory Ventilation, Less than 24 Consecutive Hours, Continuous Positive Airway Pressure (ICD-10-PCS; 2021-02-04)
PROC: 02703ZZ Dilation of Coronary Artery, One Artery, Percutaneous Approach (ICD-10-PCS; principal; 2021-02-05)
PROC: 4A023N7 Measurement of Cardiac Sampling and Pressure, Left Heart, Percutaneous Approach (ICD-10-PCS; 2021-02-05)
PROC: B211YZZ Fluoroscopy of Multiple Coronary Arteries using Other Contrast (ICD-10-PCS; 2021-02-05)
PROC: 5A09357 Assistance with Respiratory Ventilation, Less than 24 Consecutive Hours, Continuous Positive Airway Pressure (ICD-10-PCS; 2021-02-05)
PROC: 5A09357 Assistance with Respiratory Ventilation, Less than 24 Consecutive Hours, Continuous Positive Airway Pressure (ICD-10-PCS; 2021-02-06)
PROC: 5A09357 Assistance with Respiratory Ventilation, Less than 24 Consecutive Hours, Continuous Positive Airway Pressure (ICD-10-PCS; 2021-02-07)
PROC: 5A09357 Assistance with Respiratory Ventilation, Less than 24 Consecutive Hours, Continuous Positive Airway Pressure (ICD-10-PCS; 2021-02-08)
DX: T82.855A Stenosis of coronary artery stent, initial encounter (principal); N17.0 Acute kidney failure with tubular necrosis; I21.4 Non-ST elevation (NSTEMI) myocardial infarction; I50.43 Acute on chronic combined systolic (congestive) and diastolic (congestive) heart failure; E43 Unspecified severe protein-calorie malnutrition; J96.21 Acute and chronic respiratory failure with hypoxia; I13.0 Hypertensive heart and chronic kidney disease with heart failure and stage 1 through stage 4 chronic kidney disease, or unspecified chronic kidney disease; I47.2 Ventricular tachycardia; J44.1 Chronic obstructive pulmonary disease with (acute) exacerbation; I42.9 Cardiomyopathy, unspecified; D63.8 Anemia in other chronic diseases classified elsewhere; E11.22 Type 2 diabetes mellitus with diabetic chronic kidney disease; E11.40 Type 2 diabetes mellitus with diabetic neuropathy, unspecified; E78.00 Pure hypercholesterolemia, unspecified; E78.5 Hyperlipidemia, unspecified; F32.9 Major depressive disorder, single episode, unspecified; F41.9 Anxiety disorder, unspecified; I25.10 Atherosclerotic heart disease of native coronary artery without angina pectoris; I25.2 Old myocardial infarction; I27.21 Secondary pulmonary arterial hypertension; N18.32 Chronic kidney disease, stage 3b; N40.0 Benign prostatic hyperplasia without lower urinary tract symptoms; Y83.1 Surgical operation with implant of artificial internal device as the cause of abnormal reaction of the patient, or of later complication, without mention of misadventure at the time of the procedure; Z51.5 Encounter for palliative care; Z82.49 Family history of ischemic heart disease and other diseases of the circulatory system; Z83.3 Family history of diabetes mellitus; Z89.512 Acquired absence of left leg below knee; Z90.49 Acquired absence of other specified parts of digestive tract; K21.9 Gastro-esophageal reflux disease without esophagitis; Z68.24 Body mass index [BMI] 24.0-24.9, adult; Z20.822 Contact with and (suspected) exposure to COVID-19
CPT/HCPCS: 92920; 93458; 96374; 99285; G0269; 36415; 36600; 71045; 76770; 80048; 80053; 81001; 82784; 82805; 82962; 83605; 83735; 83880; 84484; 85025; 86334; 86335; 87040; 87086; 93005; 93306; 94640; 94660; 99152; 99153; C1892; J1644; J1815; J1940; J2250; J3010; J3475; J3490; Q9967; U0003; U0005; G0378; J7626

== ENCOUNTER 2021-06-05 00:39 | Emergency (ER) | payer MEDICARE ==
[~2021-06-05] VITALS: Ht 182.9 cm; Wt 84.0 kg
[~2021-06-05 00:39] MED LIST changes: +BUDE0.5A NEB; +IPRA3AMP29 NEB
--- NOTE | 2021-06-05 01:33 | PHYS DOC ---
Past Medical History Past Medical History: Anxiety, Arrhythmia, CAD, CHF, Depression, Diabetes-Type II, GERD, High Cholesterol, Hypertension, [place], Other Additional Past Medical Histor: L BKA, DIALYSIS, PERIPHERAL NEUROPATHY, BPH, AND PULMONARY EDEMA Past Surgical History: Appendectomy, Tonsillectomy Additional Past Surgical Histo: HEART STENTS, L BKA, AND CATARACT Smoking Status: Never Smoker Alcohol Use: None General Adult EDM: Chief Complaint: SHORTNESS OF BREATH HPI: HPI: Patient is a 70 year old male with history of CHF, COPD on 2 L/min nasal cannula at baseline who presents with shortness of breath starting at 10 PM tonight. Is now feeling back to his baseline. States that he started to get anxious, which makes things worse. He checked his home oxygen on 2 L/min, and was as low as 90% on room air. He denies any chest pain. No fevers, chills. Denies any lower extremity edema or weight gain recently. States that he has been sleeping propped up on a pillow for the last 6 months, and this has not changed recently. He is now feeling essentially at his normal baseline. Review of Systems: Review of Systems: Constitutional: Denies fever or chills. [] Eyes: Denies change in visual acuity. [] HENT: Denies nasal congestion or sore throat. [] Respiratory: Reports shortness of breath. [] Cardiovascular: Denies chest pain or edema. [] GI: Denies abdominal pain, nausea, vomiting, bloody stools or diarrhea. [] : Denies dysuria. [] Musculoskeletal: Denies back pain or joint pain. [] Integument: Denies rash. [] Neurologic: Denies headache, focal weakness or sensory changes. [] Endocrine: Denies polyuria or polydipsia. [] Lymphatic: Denies swollen glands. [] Psychiatric: Denies depression or anxiety. [] Heart Score: C/O Chest Pain: No Risk Factors: Risk Factors: DM, Current or recent (<one month) smoker, HTN, HLP, family history of CAD, obesity. Risk Scores: Score 0 - 3: 2.5% MACE over next 6 weeks - Discharge Home Score 4 - 6: 20.3% MACE over next 6 weeks - Admit for Clinical Observation Score 7 - 10: 72.7% MACE over next 6 weeks - Early Invasive Strategies Allergies: Allergies: Allergies Coded Allergies Type Severity Reaction Last Updated Verified No Known Drug Allergies 06/28/20 No Physical Exam: PE: Constitutional: Well developed, well nourished, no acute distress, non-toxic appearance. [] HENT: Normocephalic, atraumatic, bilateral external ears normal, oropharynx moist, no oral exudates, nose normal. [] Eyes: PERRLA, EOMI, conjunctiva normal, no discharge. [] Neck: Normal range of motion, no tenderness, supple, no stridor. [] Cardiovascular:Heart rate regular rhythm, no murmur [] Lungs & Thorax: distant breath sounds bilaterally, faint crackles in bases. [] Abdomen: Bowel sounds normal, soft, no tenderness, no masses, no pulsatile masses. [] Skin: Warm, dry, no erythema, no rash. [] Back: No tenderness, no CVA tenderness. [] Extremities: LLE amputated, RLE without appreciable edema. [] Neurologic: Alert and oriented X 3, normal motor function, normal sensory function, no focal deficits noted. [] Psychologic: Affect normal, judgement normal, mood normal. [] Current Patient Data: Vital Signs: Vital Signs Date Time Temp Pulse Resp B/P (MAP) Pulse Ox O2 Delivery O2 Flow Rate FiO2 06/05/21 00:50 98.3 95 18 153/49 (67) 95 Room Air 98.3 EKG: EKG: Sinus rhythm. Left axis deviation. Prolonged HI interval. Inferior Q waves. No acute ST changes. No T wave inversions. [] Radiology/Procedures: Radiology/Procedures: [] Impression: [facility] [address] [place], [place] [id number] IMAGING REPORT Signed PATIENT: JOVANNI SOLIS ACCOUNT: [id number] : 1950 LOCATION: ER AGE: 70 SEX: M EXAM STATUS: REG ER ORD. PHYSICIAN: TYLER YU MD REASON: sob, hx of chf and copd PROCEDURE: CHEST AP ONLY Site ID: [id number] EXAMINATION: XR CHEST 1V. HISTORY: 70 years Male Reason: sob, hx of chf and copd / Spl. Instructions: / History: . . COMPARISON: March 30, 2021. Findings: Slight chronic appearing interstitial prominence similar to the previous exam with no focal consolidation. The heart size is enlarged. There is no effusion or pneumothorax. The mediastinum and radha appear unremarkable. Impression: Cardiomegaly with no significant congestion. Electronically signed by: Bobo Multani MD (06/05/2021 2:48 AM) [id number] DICTATED and SIGNED BY: BOBO MULTANI MD DATE: 06/05/21 [id number] Course & Med Decision Making: Course & Med Decision Making Pertinent Labs and Imaging studies reviewed. (See chart for details) Patient is 70-year-old male with history of CHF, COPD on 2 L/min nasal cannula at baseline who presents with a few hours of shortness of breath, that is now resolved. States that it initially felt like a heart failure exacerbation to him. On arrival is afebrile, hemodynamically stable. Satting in the upper 90s on his home 2 L/min nasal cannula. We will check work-up including EKG, CBC, CMP, BNP, and chest x-ray. ddx includes mild volume overload as most likely etiology, worsened by anxiety. No wheezes to suggest COPD exacerbation. No chest pain to suggest cardiac ischemia. He is fully vaccinated and does not exhibit any infectious symptoms at this time to suggest pna or covid. If he remains stable; at this time feel that he could likely be managed as an outpatient. Amrik Disclaimer: Amrik Disclaimer: This electronic medical record was generated, in whole or in part, using a voice recognition dictation system. Departure Departure Impression: Primary Impression: Shortness of breath Disposition: HOME / SELF CARE / HOMELESS Condition: STABLE Referrals: YANNICK BAR MD (PCP) Schedule appointment with your PCP this week. Additional Instructions: Your labs and chest x-ray were reassuring. There is no evidence of pneumonia or significant fluid buildup in your lungs. Please follow-up with your PCP this week to ensure your symptoms are improving. If your symptoms are worsening, or you develop new symptoms such as chest pain, fever/chills, or other new/concerning symptoms please return to the emergency department for reevaluation. TYLER YU MD Jun 05, 2021 01:33
[2021-06-05 01:44] LABS: BASO # 0.1 x10^3/uL (0.0-0.2); BASO % 1 % (0-3); EOS # 0.1 x10^3/uL (0.0-0.7); EOS % 2 % (0-3); HEMATOCRIT 27.3 % (39.0-53.0); HEMOGLOBIN 9.5 g/dL (13.0-17.5); LYMPH # 1.3 x10^3/uL (1.0-4.8); LYMPH % 22 % (24-48); MEAN CORPUSCULAR HEMOGLOBIN 30 pg (25-35); MEAN CORPUSCULAR HGB CONC 35 g/dL (31-37); MEAN CORPUSCULAR VOLUME 87 fL (79-100); MONO # 0.6 x10^3/uL (0.0-1.1); MONO % 10 % (0-9); NEUT # 3.9 x10^3/uL (1.8-7.7); NEUT % 65 % (31-73); PLATELET COUNT 233 x10^3/uL (140-400); RED BLOOD COUNT 3.14 x10^6/uL (4.30-5.70); RED CELL DISTRIBUTION WIDTH 14.2 % (11.5-14.5); WHITE BLOOD COUNT 5.9 x10^3/uL (4.0-11.0)
[2021-06-05 01:55] LABS: CALCIUM 8.4 mg/dL (8.5-10.1); CREATININE 2.2 mg/dL (0.7-1.3); GFR 29.7; POTASSIUM 4.2 mmol/L (3.5-5.1)
[2021-06-05 02:01] LABS: ALBUMIN 2.6 g/dL (3.4-5.0); ALBUMIN/GLOBULIN RATIO 0.7 (1.0-1.7); TOTAL BILIRUBIN 0.4 mg/dL (0.2-1.0); TOTAL PROTEIN 6.5 g/dL (6.4-8.2)
--- NOTE | 2021-06-05 02:50 | RAD ---
Site ID: [id number] EXAMINATION: XR CHEST 1V. HISTORY: 70 years Male Reason: sob, hx of chf and copd / Spl. Instructions: / History: . . COMPARISON: March 30, 2021. Findings: Slight chronic appearing interstitial prominence similar to the previous exam with no focal consolidation. The heart size is enlarged. There is no effusion or pneumothorax. The mediastinum and radha appear unremarkable. Impression: Cardiomegaly with no significant congestion. Electronically signed by: Cale Multani MD (06/05/2021 2:48 AM) [id number]
[2021-06-05 04:00] VITALS: BP 145/67
--- NOTE | 2021-06-05 05:19 | EKG ---
[facility] [address] [place] [address] Test Date: 2021-06-05 Test Time: 02:07:36 Pat Name: JOVANNI SOLIS Department: Room: Gender: M Incident Response Analyst: : 1950 Requested By: TYLER YU Order Number: [id number] Reading MD: Measurements Intervals [place] Rate: 59 P: 1 MN: 304 QRS: -46 QRSD: 84 T: 28 QT: 380 QTc: 380 Interpretive Statements SINUS RHYTHM PROLONGED MN INTERVAL ABNORMAL LEFT AXIS DEVIATION R-S TRANSITION ZONE IN V LEADS DISPLACED TO THE LEFT QRS(T) CONTOUR ABNORMALITY CONSISTENT WITH INFERIOR INFARCT AGE UNDETERMINED ABNORMAL ECG RI6.02 No previous ECG available for comparison
== END 2021-06-05 04:00 | disposition home or self-care (01) ==
LOC: ER 00:39
DX: R06.02 Shortness of breath (principal); E11.40 Type 2 diabetes mellitus with diabetic neuropathy, unspecified; I11.0 Hypertensive heart disease with heart failure; I50.9 Heart failure, unspecified; K21.9 Gastro-esophageal reflux disease without esophagitis; I25.10 Atherosclerotic heart disease of native coronary artery without angina pectoris; I25.2 Old myocardial infarction; Z95.5 Presence of coronary angioplasty implant and graft; Z99.2 Dependence on renal dialysis
CPT/HCPCS: 36415; 71045; 80053; 83880; 85025; 93005; 99285-25

== ENCOUNTER 2021-06-14 23:41 | Inpatient (IN) | payer MEDICARE ==
[~2021-06-14] VITALS: Ht 182.9 cm; Wt 86.1 kg
--- NOTE | 2021-06-15 02:20 | RAD ---
EXAM: XR CHEST 1V 06/15/2021 1:27 AM CLINICAL INDICATION: Shortness of air COMPARISON: Chest radiograph 06/05/2021 TECHNIQUE: AP upright view of the chest FINDINGS: The cardiac silhouette is unchanged. There are coronary artery stents. Lungs are well-expa nded. There is no consolidation, pleural effusion, or pneumothorax. No acute osseous abnormality. IMPRESSION: No acute cardiopulmonary abnormality. Electronically signed by: Cecilia Holt MD (06/15/2021 2:18 AM) [id number]
[2021-06-15 02:26] LABS: BASO # 0.1 x10^3/uL (0.0-0.2); BASO % 1 % (0-3); EOS # 0.1 x10^3/uL (0.0-0.7); EOS % 2 % (0-3); HEMATOCRIT 28.6 % (39.0-53.0); HEMOGLOBIN 9.8 g/dL (13.0-17.5); LYMPH # 0.9 x10^3/uL (1.0-4.8); LYMPH % 17 % (24-48); MEAN CORPUSCULAR HEMOGLOBIN 30 pg (25-35); MEAN CORPUSCULAR HGB CONC 34 g/dL (31-37); MEAN CORPUSCULAR VOLUME 87 fL (79-100); MONO # 0.8 x10^3/uL (0.0-1.1); MONO % 14 % (0-9); NEUT # 3.8 x10^3/uL (1.8-7.7); NEUT % 67 % (31-73); PLATELET COUNT 256 x10^3/uL (140-400); RED BLOOD COUNT 3.31 x10^6/uL (4.30-5.70); RED CELL DISTRIBUTION WIDTH 14.2 % (11.5-14.5); WHITE BLOOD COUNT 5.7 x10^3/uL (4.0-11.0)
[2021-06-15 02:33] LABS: CALCIUM 8.4 mg/dL (8.5-10.1); CREATININE 1.7 mg/dL (0.7-1.3); GFR 39.9; POTASSIUM 3.7 mmol/L (3.5-5.1)
[2021-06-15 02:38] LABS: ALBUMIN 2.7 g/dL (3.4-5.0); ALBUMIN/GLOBULIN RATIO 0.7 (1.0-1.7); MAGNESIUM 1.4 mg/dL (1.8-2.4); TOTAL BILIRUBIN 0.5 mg/dL (0.2-1.0); TOTAL PROTEIN 6.6 g/dL (6.4-8.2)
--- NOTE | 2021-06-15 02:38 | PHYS DOC ---
Past Medical History Past Medical History: Anxiety, Arrhythmia, CAD, CHF, Depression, Diabetes-Type II, GERD, High Cholesterol, Hypertension, [place], Other Additional Past Medical Histor: L BKA, PERIPHERAL NEUROPATHY, BPH, AND PULMONARY EDEMA Past Surgical History: Appendectomy, Tonsillectomy Additional Past Surgical Histo: HEART STENTS, L BKA, AND CATARACT Smoking Status: Never Smoker Alcohol Use: None General Adult EDM: Chief Complaint: DYSPNEA/RESPIRATORY DISTRESS HPI: HPI: Patient is a 70 year old male who present to ER for evaluation of trouble breathing. Patient says he been having trouble breathing with exertion or whenever he lay down flat on his back. Patient was not able to sleep tonight so he came in for evaluation. Patient denies any cough or fever, patient denies any chest pain. Patient says he was vaccinated for COVID-19 in December. Patient has history of CHF, diabetic, coronary artery disease. Patient had left BKA history. Patient said he has history of COPD, he is on 2 L oxygen at home. Review of Systems: Review of Systems: Constitutional: Denies fever or chills. [] Eyes: Denies change in visual acuity. [] HENT: Denies nasal congestion or sore throat. [] Respiratory: Denies cough, positive for shortness of air. Cardiovascular: Denies chest pain or edema. [] GI: Denies abdominal pain, nausea, vomiting, bloody stools or diarrhea. [] : Denies dysuria. [] Musculoskeletal: Denies back pain or joint pain. [] Integument: Denies rash. [] Neurologic: Denies headache, focal weakness or sensory changes. [] Endocrine: Denies polyuria or polydipsia. [] Lymphatic: Denies swollen glands. [] Psychiatric: Denies depression or anxiety. [] Heart Score: C/O Chest Pain: N/A Risk Factors: Risk Factors: DM, Current or recent (<one month) smoker, HTN, HLP, family history of CAD, obesity. Risk Scores: Score 0 - 3: 2.5% MACE over next 6 weeks - Discharge Home Score 4 - 6: 20.3% MACE over next 6 weeks - Admit for Clinical Observation Score 7 - 10: 72.7% MACE over next 6 weeks - Early Invasive Strategies Allergies: Allergies: Allergies Coded Allergies Type Severity Reaction Last Updated Verified No Known Drug Allergies 06/28/20 No Physical Exam: PE: Constitutional: Well developed, well nourished, no acute distress, non-toxic appearance. [] HENT: Normocephalic, atraumatic, bilateral external ears normal, oropharynx moist, no oral exudates, nose normal. [] Eyes: PERRLA, EOMI, conjunctiva normal, no discharge. [] Neck: Normal range of motion, no tenderness, supple, no stridor. [] Cardiovascular:Heart rate regular rhythm, no murmur [] Lungs & Thorax: Bilateral breath sounds with rales to auscultation Abdomen: Bowel sounds normal, soft, no tenderness, no masses, no pulsatile ma sses. [] Skin: Warm, dry, no erythema, no rash. [] Back: No tenderness, no CVA tenderness. [] Extremities: No tenderness, no cyanosis, no clubbing, ROM intact, no edema. Left BKA Neurologic: Alert and oriented X 3, normal motor function, normal sensory function, no focal deficits noted. [] Psychologic: Affect normal, judgement normal, mood normal. [] Current Patient Data: Labs: Laboratory Tests Test 06/15/21 02:14 White Blood Count 5.7 x10^3/uL (4.0-11.0) Red Blood Count 3.31 x10^6/uL (4.30-5.70) L Hemoglobin 9.8 g/dL (13.0-17.5) L Hematocrit 28.6 % (39.0-53.0) L Mean Corpuscular Volume 87 fL (79-100) Mean Corpuscular Hemoglobin 30 pg (25-35) Mean Corpuscular Hemoglobin Concent 34 g/dL (31-37) Red Cell Distribution Width 14.2 % (11.5-14.5) Platelet Count 256 x10^3/uL (140-400) Neutrophils (%) (Auto) 67 % (31-73) Lymphocytes (%) (Auto) 17 % (24-48) L Monocytes (%) (Auto) 14 % (0-9) H Eosinophils (%) (Auto) 2 % (0-3) Basophils (%) (Auto) 1 % (0-3) Neutrophils # (Auto) 3.8 x10^3/uL (1.8-7.7) Lymphocytes # (Auto) 0.9 x10^3/uL (1.0-4.8) L Monocytes # (Auto) 0.8 x10^3/uL (0.0-1.1) Eosinophils # (Auto) 0.1 x10^3/uL (0.0-0.7) Basophils # (Auto) 0.1 x10^3/uL (0.0-0.2) Laboratory Tests 06/15/21 02:14 Vital Signs: Vital Signs Date Time Temp Pulse Resp B/P (MAP) Pulse Ox O2 Delivery O2 Flow Rate FiO2 06/15/21 00:45 98.4 76 18 163/64 (93) 96 Room Air 98.4 EKG: EKG: EKG was done at 129, heart rate 68 bpm, sinus rhythm, no ST segment elevation, first-degree heart block. Radiology/Procedures: Radiology/Procedures: [][facility] [address] [place] [address] IMAGING REPORT Signed PATIENT: JOVANNI SOLIS ACCOUNT: [id number] : 1950 LOCATION: ER AGE: 70 SEX: M EXAM STATUS: REG ER ORD. PHYSICIAN: GIANFRANCO GARCIA DO REASON: SOA PROCEDURE: PORTABLE CHEST 1V EXAM: XR CHEST 1V 06/15/2021 1:27 AM CLINICAL INDICATION: Shortness of air COMPARISON: Chest radiograph 06/05/2021 TECHNIQUE: AP upright view of the chest FINDINGS: The cardiac silhouette is unchanged. There are coronary artery stents. Lungs are well-expanded. There is no consolidation, pleural effusion, or pneumothorax. No acute osseous abnormality. IMPRESSION: No acute cardiopulmonary abnormality. Electronically signed by: Cecilia Holt MD (06/15/2021 2:18 AM) [id number] DICTATED and SIGNED BY: CECILIA HOLT MD DATE: 06/15/21 [id number] 0 Course & Med Decision Making: Course & Med Decision Making Pertinent Labs and Imaging studies reviewed. (See chart for details) Patient is a 70-year-old male who presented to ER due to trouble breathing with exertion on laying down flat. Patient was found to have CHF exacerbation. His cardiac enzymes elevated. Patient had no chest pain. It is most likely due to oxygen demand patient will be admitted to hospital for further evaluation and treatment. Patient was given 60 of Lasix IV in ER. Dragon Disclaimer: Dragon Disclaimer: This electronic medical record was generated, in whole or in part, using a voice recognition dictation system. Departure Departure Impression: Primary Impression: Acute exacerbation of CHF (congestive heart failure) Additional Impression: Hypomagnesemia Disposition: ADMITTED INPATIENT Admitting Physician: TRUDI (Dr. DYKES) Condition: STABLE Referrals: YANNICK BAR MD (PCP) GIANFRANCO GARCIA DO Jun 15, 2021 02:38
[2021-06-15] MEDS ORDERED: MAGNESIUM SULFATE 2GM 50 ML IV ONE (03:00)
[2021-06-15] MEDS ORDERED: ONDANSETRON PF 4 MG/2 ML VIAL. IVP PRN (04:30)
[2021-06-15] MEDS ORDERED: FUROSEMIDE 40 MG/4 ML VIAL. IVP ONE (04:30)
[2021-06-15] MEDS ORDERED: hydrALAZINE 20 MG/ML VIAL. IVP PRN (10:00)
--- NOTE | 2021-06-15 10:07 | PDOC2 ---
JOSE EDUARDO GRANT PLATE GRAINER 06/15/21 1007: CARDIAC CONSULT DATE OF CONSULT Date of Consult DATE: 06/15/21 TIME: 09:53 REASON FOR CONSULT Reason for Consult: CHF exacerbation REFERRING PHYSICIAN Referring Physician: Sam SOURCE Source: Chart review, Patient HISTORY OF PRESENT ILLNESS HISTORY OF PRESENT ILLNESS This is a pleasant 70 yo male admitted for complains of shortness of breath. His SOA is mainly when he lays flat. This started last night and has not been able to go to sleep. No significant peripheral edema. No fever, chills, cough. He has been vaccinated for the covid-19 last December. Denies any chest pain. He may have been drinking more that usual on fluids. His SBP has been ruinning 140-160s at home. 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 He does not weight himself daily. He is compliant with his medications including ASA/plavix and lasix. He has LBKA but does not ambulate and uses WC for the most part. No PND or significnat peripheral edema. PAST MEDICAL HISTORY Past Medical History Cardiovascular: HTN, Hyperlipidemia, CAD Pulmonary: Other (CHERISE), COPD CENTRAL NERVOUS SYSTEM: Peripheral neuropathy GI: GERD Heme/Onc: anemia Hepatobiliary: No pertinent hx Psych: Depression Musculoskeletal: Osteoarthritis Rheumatologic: No pertinent hx Infectious disease: Other (MRSA) ENT: Other (cataract) Renal/: Chronic renal insuff (past HD), Benign prostatic enlarg. Endocrine: Diabetes (2) Dermatology: No pertinent hx Rheumatologic: Rheumatoid arthritis Endocrine: Osteopenia PAST SURGICAL HISTORY Past Surgical History Cataract Removal, Tonsillectomy, Other (LBKA due to gangrene) FAMILY HISTORY Family History: Diabetes SOCIAL HISTORY Smoke: No ALCOHOL: none Drugs: None Lives: with Family CURRENT MEDICATIONS CURRENT MEDICATIONS Current Medications Medications (Trade) Dose Ordered Sig/Ruddy Route PRN Reason Start Time Stop Time Status Last Admin Dose Admin Magnesium Sulfate 50 ml @ 25 mls/hr 1X ONCE IV 06/15/21 03:00 06/15/21 04:59 DC 06/15/21 03:23 Furosemide (Lasix) 60 mg 1X ONCE IVP 06/15/21 04:30 06/15/21 04:35 DC 06/15/21 05:57 ALLERGIES ALLERGIES: Coded Allergies: No Known Drug Allergies (Unverified , 06/28/20) ROS Review of System 14 point ROS evaluated with pertinent positives noted per HPI PHYSICAL EXAM General: Alert, Oriented X3, Cooperative, No acute distress HEENT: Atraumatic, Mucous membr. moist/pink Lungs: Other (dimnished bases with crackles) Heart: Regular rate (SR with first degree AV block) Extremities: No cyanosis, No edema, Other (LBKA) Skin: No breakdown, No significant lesion Neuro: Normal speech, Sensation intact Psych/Mental Status: Mental status NL, Mood NL MUSCULOSKELETAL: Osteoarthritic changes both hands VITALS/I&O VITALS/I&O: Vital Signs Date Time Temp Pulse Resp B/P (MAP) Pulse Ox O2 Delivery O2 Flow Rate FiO2 06/15/21 08:00 72 16 161/74 (103) 98 Nasal Cannula 2.0 06/15/21 00:45 98.4 98.4 I & O 06/14/21 06/14/21 06/15/21 15:00 23:00 07:00 Intake Total 50 ml Balance 50 ml LABS Lab: Laboratory Tests Test 06/15/21 02:14 06/15/21 06:00 06/15/21 07:18 06/15/21 09:38 White Blood Count 5.7 x10^3/uL (4.0-11.0) Red Blood Count 3.31 x10^6/uL (4.30-5.70) L Hemoglobin 9.8 g/dL (13.0-17.5) L Hematocrit 28.6 % (39.0-53.0) L Mean Corpuscular Volume 87 fL (79-100) Mean Corpuscular Hemoglobin 30 pg (25-35) Mean Corpuscular Hemoglobin Concent 34 g/dL (31-37) Red Cell Distribution Width 14.2 % (11.5-14.5) Platelet Count 256 x10^3/uL (140-400) Neutrophils (%) (Auto) 67 % (31-73) Lymphocytes (%) (Auto) 17 % (24-48) L Monocytes (%) (Auto) 14 % (0-9) H Eosinophils (%) (Auto) 2 % (0-3) Basophils (%) (Auto) 1 % (0-3) Neutrophils # (Auto) 3.8 x10^3/uL (1.8-7.7) Lymphocytes # (Auto) 0.9 x10^3/uL (1.0-4.8) L Monocytes # (Auto) 0.8 x10^3/uL (0.0-1.1) Eosinophils # (Auto) 0.1 x10^3/uL (0.0-0.7) Basophils # (Auto) 0.1 x10^3/uL (0.0-0.2) Sodium Level 138 mmol/L (136-145) Potassium Level 3.7 mmol/L (3.5-5.1) Chloride Level 102 mmol/L (98-107) Carbon Dioxide Level 31 mmol/L (21-32) Anion Gap 5 (6-14) L Blood Urea Nitrogen 26 mg/dL (8-26) Creatinine 1.7 mg/dL (0.7-1.3) H Estimated GFR (Cockcroft-Gault) 39.9 BUN/Creatinine Ratio 15 (6-20) Glucose Level 64 mg/dL (70-99) L Calcium Level 8.4 mg/dL (8.5-10.1) L Magnesium Level 1.4 mg/dL (1.8-2.4) L Total Bilirubin 0.5 mg/dL (0.2-1.0) Aspartate Amino Transferase (AST) 20 U/L (15-37) Alanine Aminotransferase (ALT) 16 U/L (16-63) Alkaline Phosphatase 101 U/L (46-116) Troponin I Quantitative 0.286 ng/mL (0.000-0.055) 0.335 ng/mL (0.000-0.055) WX-Von-V-Type Natriuretic Peptide 37452 pg/mL (0-124) H Total Protein 6.6 g/dL (6.4-8.2) Albumin 2.7 g/dL (3.4-5.0) L Albumin/Globulin Ratio 0.7 (1.0-1.7) L SARS-CoV-2 Antigen (Rapid) Negative (NEGATIVE) Glucose (Fingerstick) 88 mg/dL (70-99) Laboratory Tests 06/15/21 02:14 Laboratory Tests 06/15/21 02:14 ECHOCARDIOGRAM ECHOCARDIOGRAM <Conclusion> Left ventricle systolic function is severely impaired. The Ejection Fraction is 25%. The mid to distal half of the LV is severely hypokinetic. Limited TTE for EF only. DATE: 02/04/21 [id number] 0 HEART CATH HEART CATH Conclusion 1. Acute on chronic systolic and diastolic heart failure. LVEDP 25 at end expiration, 12 mean 2. Two-vessel coronary artery disease with severe in-stent restenosis of the proximal LAD and distal LAD stents 3. Successful balloon angioplasty of the proximal and distal LAD stents Recommendations 1. Aspirin 81 g daily 2. Plavix 75 mg daily 3. Withhold further diuresis given contrast load today and near normal mean left ventricular end-diastolic pressure. 4. Aggressive medical therapy including cardiac rehabilitation as tolerated. DATE: 02/05/21 [id number] 0 ASSESSMENT/PLAN ASSESSMENT/PLAN 1. Acute on chronic combined diastolic/systolic CHF: likely from labile BP 2. ICM; Recent echo with LVEF 25%. 3. HTN: labile 4. Mild troponin elevation; highest 0.33. suspect type 2 5. CAD; recent cath showed two-vessel disease with severe in-stent restenosis of the proximal LAD and distal LAD stents. S/p successful balloon angioplasty of the proximal and distal LAD stents 6. CKD; Cr stable 7. Diabetes, II 8. COPD Recommendations Lasix therapy Resume home antiHTN therapy. with imdur increae hydralazine and coreg and note trend. HBPM and daily 2L FR Continue secondary prevention measures; ASA/plavix, statin, Discussed compliance he has been missing his clinic appointments. Discuss this and this time he would follow up. Supportive care Anticipate DC tomorrow. PEARL CARDOZA MD 06/19/21 0317: CARDIAC CONSULT ASSESSMENT/PLAN ASSESSMENT/PLAN Late entry for 06/15/21 Pt. seen and examined. Agree with above ACID PATROLLER note. JOSE EDUARDO GRANT APRN Jun 15, 2021 10:07 PEARL CARDOZA MD Jun 19, 2021 03:17
[2021-06-15] MEDS ORDERED: CARVEDILOL 6.25 MG TABLET. PO SCH (10:30)
[2021-06-15] MEDS ORDERED: hydrALAZINE 25 MG TABLET PO SCH (11:00)
[2021-06-15] MEDS: ASPIRIN ENTERIC COATED 81 MG TABLET.DR. PO SCH (11:21)
[2021-06-15] MEDS: ISOSORBIDE MONONITRATE ER 30 MG TAB.ER.24H PO SCH (11:22)
[2021-06-15] MEDS: CLOPIDOGREL BISULFATE 75 MG TABLET PO SCH (11:23)
[2021-06-15] MEDS: POTASSIUM CHLORIDE 10 MEQ TABLET.ER. PO SCH (11:23)
[2021-06-15] MEDS ORDERED: CARVEDILOL 6.25 MG TABLET. PO ONE (11:45)
--- NOTE | 2021-06-15 13:43 | HP ---
ADMIT DATE: 06/15/2021 CHIEF COMPLAINT: Shortness of breath. HISTORY OF PRESENT ILLNESS: The patient is a pleasant 70-year-old male who presents with shortness of breath. He has known history of heart failure and coronary artery disease. While in the ER, we have noticed that his BNP is high at 12,399. His troponin is also high at 0.3. I discussed the case with ER physician. The patient has acute on chronic systolic, diastolic heart failure. We are going to admit the patient, consult Cardiology and get him diuresed. PAST MEDICAL HISTORY: CAD, CHF, hypertension, hyperlipidemia, obstructive sleep apnea, COPD, neuropathy, GERD, anemia, osteoarthritis, depression, chronic renal insufficiency, BPH, diabetes, osteopenia and rheumatoid arthritis, left [id number] amputation, cataract removal and tonsillectomy. ALLERGIES: None. FAMILY HISTORY: Diabetes. SOCIAL HISTORY: He does not drink, smoke or take drugs. MEDICATIONS: Reviewed, please refer to the MRAD. REVIEW OF SYSTEMS: GENERAL: No history of weight change, weakness or fevers. SKIN: No bruising, hair changes or rashes. EYES: No blurred, double or loss of vision. NOSE AND THROAT: No history of nosebleeds, hoarseness or sore throat. HEART: No history of palpitations, chest pain or shortness of breath on exertion. LUNGS: He complains of shortness of breath. GASTROINTESTINAL: Denies changes in appetite, nausea, vomiting, diarrhea or constipation. GENITOURINARY: No history of frequency, urgency, hesitancy or nocturia. NEUROLOGIC: Denies history of numbness, tingling, tremor or weakness. PSYCHIATRIC: No history of panic, anxiety or depression. ENDOCRINE: No history of heat or cold intolerance, polyuria or polydipsia. EXTREMITIES: Denies muscle weakness, joint pain, pain on walking or stiffness. . PHYSICAL EXAMINATION: VITALS: Within normal limits and are stable. GENERAL: No apparent distress. Alert and oriented. HEENT: Normal cephalic atraumatic, external auditory canals are patent. EYES: Extraocular muscles are intact, pupils are equally round and reactive to light and accommodation. MUSCULOSKELETAL: Well developed, well nourished, good range of motion. ENDOCRINE: No thyromegaly was palpated. LYMPHATICS: No cervical chain or axillary nodes were noted. HEMATOPOIETIC: No bruising. NECK: Supple, no JVD, no thyromegaly was noted. LUNGS: He has bibasilar crackles. HEART: RRR, S1, S2 present. Peripheral pulses intact, no obvious murmurs were noted. ABDOMEN: Soft, nontender. Positive bowel sounds no organomegaly, normal bowel sounds. EXTREMITIES: He has left [id number]-zbu-[id number] amputation. NEUROLOGIC: Normal speech, normal tone. A and O x 3, moves all extremities, no obvious focal deficits. PSYCHIATRIC: Normal affect, normal mood. Stable. SKIN: No ulcerations or rashes, good skin turgor, no jaundice. VASCULAR: Good capillary refill, neurovascular bundle appears to be intact. LABORATORY DATA: BNP 12,399. ASSESSMENT AND PLAN: Acute on chronic systolic, diastolic heart failure. The patient will be admitted. We will consult Cardiology. Serial enzymes, serial EKGs. Home meds. DVT prophylaxis. Full code. Echocardiogram. Cardiac monitoring. IV Lasix. PROGNOSIS: Guarded. RALPH DR: Salo TID: [id number]
[2021-06-15 15:59] VITALS: BP 153/72
[2021-06-15] MEDS: CARVEDILOL 12.5 MG TABLET. PO SCH (17:00)
[2021-06-15 19:00] VITALS: BP 161/70
[2021-06-15] MEDS: ATORVASTATIN CALCIUM 40 MG TABLET. PO SCH (21:19)
[2021-06-15 23:00] VITALS: BP 151/62
[2021-06-16 03:00] VITALS: BP 142/77
[2021-06-16 05:07] LABS: CALCIUM 8.5 mg/dL (8.5-10.1); GFR 33.1; MAGNESIUM 1.8 mg/dL (1.8-2.4); POTASSIUM 3.8 mmol/L (3.5-5.1)
[2021-06-16 07:00] VITALS: BP 186/77
[2021-06-16] MEDS ORDERED: FUROSEMIDE 40 MG TABLET. PO SCH (09:00)
[2021-06-16] MEDS: CARVEDILOL 12.5 MG TABLET. PO SCH ×2 (09:01→17:25)
[2021-06-16] MEDS: POTASSIUM CHLORIDE 10 MEQ TABLET.ER. PO SCH (09:01)
[2021-06-16] MEDS: CLOPIDOGREL BISULFATE 75 MG TABLET PO SCH (09:01)
[2021-06-16] MEDS: ASPIRIN ENTERIC COATED 81 MG TABLET.DR. PO SCH (09:02)
[2021-06-16] MEDS: ISOSORBIDE MONONITRATE ER 30 MG TAB.ER.24H PO SCH (09:02)
[2021-06-16 11:24] VITALS: BP 152/70
--- NOTE | 2021-06-16 12:27 | PDOC ---
PROGRESS NOTES Date of Service: DATE: 06/16/21 TIME: 12:24 Subjective Subjective Patient had an episode of dyspnea earlier today that resolved after he received IV Lasix. He denied any chest pain. Objective Objective Vital Signs Date Time Temp Pulse Resp B/P (MAP) Pulse Ox O2 Delivery O2 Flow Rate FiO2 06/16/21 11:24 97.2 79 20 152/70 (97) 96 Nasal Cannula 2.0 97.2 Intake and Output 06/16/21 07:00 Intake Total 340 ml Output Total 625 ml Balance -285 ml Intake Oral 340 ml Output Urine Total 625 ml # Voids 2 Physical Exam Heart: Regular rate (SR with first degree AV block) Extremities: No cyanosis, No edema, Other (LBKA) General: Alert, Oriented X3, Cooperative, No acute distress HEENT: Atraumatic, Mucous membr. moist/pink Lungs: Other (dimnished bases with crackles) Neuro: Normal speech, Sensation intact Psych/Mental Status: Mental status NL, Mood NL Skin: No breakdown, No significant lesion Assessment Assessment 1. Acute on chronic combined systolic CHF: Better compensated after diuresis. 2. ICM; Recent echo with LVEF 25%. 3. HTN: labile but better controlled. Continue current medical regimen. 4. Mild troponin elevation; highest 0.33. suspect type 2/demand ischemia 5. CAD; recent cath showed two-vessel disease with severe in-stent restenosis of the proximal LAD and distal LAD stents. S/p successful balloon angioplasty of the proximal and distal LAD stents. Patient is currently stable and chest pain- free. Continue current secondary prevention measures. 6. CKD; Cr stable 7. Diabetes, II: Treat per IM 8. COPD: Clinically stable Possible DC home later today Plan Plan of Care Problems Medical Problems: (1) Acute exacerbation of CHF (congestive heart failure) Status: Acute (2) Hypomagnesemia Status: Acute Comment Review of Relevant I have reviewed the following items coral (where applicable) has been applied. Labs Laboratory Tests Test 06/15/21 17:50 06/16/21 04:00 Troponin I Quantitative 0.337 ng/mL (0.000-0.055) Sodium Level 137 mmol/L (136-145) Potassium Level 3.8 mmol/L (3.5-5.1) Chloride Level 101 mmol/L (98-107) Carbon Dioxide Level 29 mmol/L (21-32) Anion Gap 7 (6-14) Blood Urea Nitrogen 39 mg/dL (8-26) Creatinine 2.0 mg/dL (0.7-1.3) Estimated GFR (Cockcroft-Gault) 33.1 Glucose Level 166 mg/dL (70-99) Calcium Level 8.5 mg/dL (8.5-10.1) Magnesium Level 1.8 mg/dL (1.8-2.4) Medications Current Medications Atorvastatin Calcium (Lipitor) 40 mg QHS PO Last administered on 06/15/21at 21:19; Start 06/15/21 at 21:00 Carvedilol (Coreg) 12.5 mg BIDWMEALS PO Last administered on 06/16/21 09:01; Start 06/15/21 at 17:00 Furosemide (Lasix) 40 mg DAILY PO Last administered on 06/16/21at 09:01; Start 06/16/21 at 09:00 Hydralazine HCl (Apresoline) 100 mg BID PO Last administered on 06/16/21at 09:02; Start 06/15/21 at 21:00 Vitals/I & O Vital Sign - Last 24 Hours 06/15/21 06/15/21 06/15/21 06/15/21 13:00 15:59 16:00 17:00 Temp 98.7 98.7 Pulse 68 69 69 Resp 18 18 B/P (MAP) 144/68 (93) 153/72 (99) 153/72 Pulse Ox 99 97 O2 Delivery Nasal Cannula Nasal Cannula Nasal Cannula O2 Flow Rate 2.0 2.0 2.0 06/15/21 06/15/21 06/15/21 06/15/21 19:00 19:41 21:19 23:00 Temp 98.2 97.9 98.2 97.9 Pulse 67 67 65 Resp 20 20 B/P (MAP) 161/70 (100) 161/70 151/62 (91) Pulse Ox 98 96 O2 Delivery Nasal Cannula Nasal Cannula Nasal Cannula O2 Flow Rate 2.0 2.0 2.0 06/16/21 06/16/21 06/16/21 06/16/21 03:00 07:00 08:00 09:01 Temp 98.9 98.2 98.9 98.2 Pulse 62 73 73 Resp 20 20 B/P (MAP) 142/77 (98) 186/77 (113) 186/77 Pulse Ox 93 96 O2 Delivery Nasal Cannula Nasal Cannula Nasal Cannula O2 Flow Rate 2.0 2.0 2.0 06/16/21 06/16/21 06/16/21 09:02 09:02 11:24 Temp 97.2 97.2 Pulse 73 73 79 Resp 20 B/P (MAP) 186/77 186/77 152/70 (97) Pulse Ox 96 O2 Delivery Nasal Cannula O2 Flow Rate 2.0 Intake and Output 06/15/21 06/15/21 06/16/21 15:00 23:00 07:00 Intake Total 340 ml Output Total 250 ml 375 ml Balance -250 ml 340 ml -375 ml BARBRA EVANS MD Jun 16, 2021 12:27
--- NOTE | 2021-06-16 12:57 | PDOC ---
[employer] PROGRESS NOTE Date of Service DOS: DATE: 06/16/21 TIME: 12:56 Chief Complaint Chief Complaint ASSESSMENT/PLAN 1. Acute on chronic combined diastolic/systolic CHF: likely from labile BP 2. ICM; Recent echo with LVEF 25%. 3. HTN: labile 4. Mild troponin elevation; highest 0.33. suspect type 2 5. CAD; recent cath showed two-vessel disease with severe in-stent restenosis of the proximal LAD and distal LAD stents. S/p successful balloon angioplasty of the proximal and distal LAD stents 6. CKD; Cr stable 7. Diabetes, II 8. COPD History of Present Illness History of Present Illness cont the IV Lasix therapy Resume home antiHTN therapy ASA/plavix, statin, Discussed compliance [facility] CV team [place] Vitals/I&O Vitals/I&O: Vital Signs Date Time Temp Pulse Resp B/P (MAP) Pulse Ox O2 Delivery O2 Flow Rate FiO2 06/16/21 11:24 97.2 79 20 152/70 (97) 96 Nasal Cannula 2.0 97.2 I & O 06/15/21 06/15/21 06/16/21 14:59 22:59 06:59 Intake Total 340 ml Output Total 250 ml 375 ml Balance -250 ml 340 ml -375 ml Physical Exam General: Alert, Oriented X3, Cooperative, No acute distress Heart: Regular rate (SR with first degree AV block) Lungs: Clear Extremities: No cyanosis, No edema, Other (LBKA) Skin: No breakdown, No significant lesion Labs Labs: Laboratory Tests Test 06/15/21 17:50 06/16/21 04:00 Troponin I Quantitative 0.337 ng/mL (0.000-0.055) Sodium Level 137 mmol/L (136-145) Potassium Level 3.8 mmol/L (3.5-5.1) Chloride Level 101 mmol/L (98-107) Carbon Dioxide Level 29 mmol/L (21-32) Anion Gap 7 (6-14) Blood Urea Nitrogen 39 mg/dL (8-26) Creatinine 2.0 mg/dL (0.7-1.3) Estimated GFR (Cockcroft-Gault) 33.1 Glucose Level 166 mg/dL (70-99) Calcium Level 8.5 mg/dL (8.5-10.1) Magnesium Level 1.8 mg/dL (1.8-2.4) Assessment and Plan Assessmemt and Plan Problems Medical Problems: (1) Acute exacerbation of CHF (congestive heart failure) Status: Acute (2) Hypomagnesemia Status: Acute Comment Review of Relevant I have reviewed the following items coral (where applicable) has been applied. Medications: Current Medications Medications (Trade) Dose Ordered Sig/Ruddy Route PRN Reason Start Time Stop Time Status Last Admin Dose Admin Atorvastatin Calcium (Lipitor) 40 mg QHS PO 06/15/21 21:00 06/15/21 21:19 Carvedilol (Coreg) 12.5 mg BIDWMEALS PO 06/15/21 17:00 06/16/21 09:01 Hydralazine HCl (Apresoline) 100 mg BID PO 06/15/21 21:00 06/16/21 09:02 Furosemide (Lasix) 40 mg DAILY PO 06/16/21 09:00 06/16/21 09:01 Justifications for Admission Other Justification Acute hypoxic respiratory failure, acute CHF exacerbation ASHLY SHAVER MD Jun 16, 2021 12:57
[2021-06-16] MEDS ORDERED: FUROSEMIDE 40 MG/4 ML VIAL. IVP ONE (14:30)
[2021-06-16 15:54] VITALS: BP 170/73
[2021-06-16 19:00] VITALS: BP 157/75
[2021-06-16] MEDS: ATORVASTATIN CALCIUM 40 MG TABLET. PO SCH (20:14)
[2021-06-16 22:37] VITALS: BP 171/74
[2021-06-17 02:36] VITALS: BP 169/76
[2021-06-17 07:00] VITALS: BP 196/89
[2021-06-17] MEDS: CLOPIDOGREL BISULFATE 75 MG TABLET PO SCH (08:23)
[2021-06-17] MEDS: ISOSORBIDE MONONITRATE ER 30 MG TAB.ER.24H PO SCH (08:23)
[2021-06-17] MEDS: POTASSIUM CHLORIDE 10 MEQ TABLET.ER. PO SCH (08:23)
[2021-06-17] MEDS: FUROSEMIDE 40 MG/4 ML VIAL. IVP SCH (08:24)
[2021-06-17] MEDS: CARVEDILOL 12.5 MG TABLET. PO SCH ×2 (08:24→17:02)
[2021-06-17] MEDS: ASPIRIN ENTERIC COATED 81 MG TABLET.DR. PO SCH (08:24)
[2021-06-17 11:42] VITALS: BP 153/69
--- NOTE | 2021-06-17 12:16 | PDOC ---
PROGRESS NOTES Date of Service: DATE: 06/17/21 TIME: 12:15 Subjective Subjective Feeling better with improvement in dyspnea, denied any chest pain. Objective Objective Vital Signs Date Time Temp Pulse Resp B/P (MAP) Pulse Ox O2 Delivery O2 Flow Rate FiO2 06/17/21 11:42 98.3 64 20 153/69 (97) 98 Nasal Cannula 2.0 98.3 Intake and Output 06/17/21 07:00 Intake Total 140 ml Output Total 250 ml Balance -110 ml Intake Oral 140 ml Output Urine Total 250 ml # Bowel Movements 3 Physical Exam Heart: Regular rate (SR with first degree AV block) Extremities: No cyanosis, No edema, Other (LBKA) General: Alert, Oriented X3, Cooperative, No acute distress HEENT: Atraumatic, Mucous membr. moist/pink Lungs: Other (dimnished bases with crackles) Neuro: Normal speech, Sensation intact Psych/Mental Status: Mental status NL, Mood NL Skin: No breakdown, No significant lesion Assessment Assessment 1. Acute on chronic combined systolic CHF: Better compensated after diuresis. 2. ICM; Recent echo with LVEF 25%. 3. HTN: labile but better controlled. Continue current medical regimen. 4. Mild troponin elevation; highest 0.33. suspect type 2/demand ischemia 5. CAD; recent cath showed two-vessel disease with severe in-stent restenosis of the proximal LAD and distal LAD stents. S/p successful balloon angioplasty of the proximal and distal LAD stents. Patient is currently stable and chest pain- free. Continue current secondary prevention measures. 6. CKD; Cr stable 7. Diabetes, II: Treat per IM 8. COPD: Clinically stable Plan Plan of Care Problems Medical Problems: (1) Acute exacerbation of CHF (congestive heart failure) Status: Acute (2) Hypomagnesemia Status: Acute Comment Review of Relevant I have reviewed the following items coral (where applicable) has been applied. Medications Current Medications Furosemide (Lasix) 40 mg 1X ONCE IVP Last administered on 06/16/21at 14:36; Start 06/16/21 at 14:30; Stop 06/16/21 at 14:31; Status DC Furosemide (Lasix) 40 mg DAILY IVP Last administered on 06/17/21at 08:24; Start 06/17/21 at 09:00 Vitals/I & O Vital Sign - Last 24 Hours 9/4/06/16/21 06/16/21 06/16/21 15:54 17:25 19:00 19:53 Temp 98.4 98.0 98.4 98.0 Pulse 75 75 67 Resp 18 18 B/P (MAP) 170/73 (105) 170/73 157/75 (102) Pulse Ox 96 95 O2 Delivery Nasal Cannula Nasal Cannula Nasal Cannula O2 Flow Rate 2.0 2.0 2.0 06/16/21 06/16/21 06/17/21 06/17/21 20:15 22:37 02:36 07:00 Temp 98.1 98.1 98.1 98.1 98.1 98.1 Pulse 75 74 63 71 Resp 18 18 20 B/P (MAP) 170/73 171/74 (106) 169/76 (107) 196/89 (124) Pulse Ox 94 98 96 O2 Delivery Nasal Cannula Nasal Cannula Nasal Cannula O2 Flow Rate 2.0 2.0 2.0 06/17/21 06/17/21 06/17/21 06/17/21 08:00 08:23 08:23 08:24 Pulse 63 63 63 B/P (MAP) 169/76 169/76 169/76 O2 Delivery Nasal Cannula O2 Flow Rate 2.0 06/17/21 11:42 Temp 98.3 98.3 Pulse 64 Resp 20 B/P (MAP) 153/69 (97) Pulse Ox 98 O2 Delivery Nasal Cannula O2 Flow Rate 2.0 Intake and Output 06/16/21 06/16/21 06/17/21 15:00 23:00 07:00 Intake Total 140 ml 0 ml Output Total 250 ml Balance -250 ml 140 ml 0 ml BARBRA EVANS MD Jun 17, 2021 12:16
--- NOTE | 2021-06-17 12:21 | PDOC ---
[employer] PROGRESS NOTE Date of Service DOS: DATE: 06/17/21 TIME: 12:21 Chief Complaint Chief Complaint 1. Acute on chronic combined diastolic/systolic CHF: likely from labile BP 2. ICM; Recent echo with LVEF 25%. 3. HTN: labile 4. Mild troponin elevation; highest 0.33. suspect type 2 5. CAD; recent cath showed two-vessel disease with severe in-stent restenosis of the proximal LAD and distal LAD stents. S/p successful balloon angioplasty of the proximal and distal LAD stents 6. CKD; Cr stable 7. Diabetes, II 8. COPD History of Present Illness History of Present Illness cont the IV Lasix therapy Resume home antiHTN therapy ASA/plavix, statin, Discussed compliance [facility] [place] Vitals/I&O Vitals/I&O: Vital Signs Date Time Temp Pulse Resp B/P (MAP) Pulse Ox O2 Delivery O2 Flow Rate FiO2 06/17/21 11:42 98.3 64 20 153/69 (97) 98 Nasal Cannula 2.0 98.3 I & O 06/16/21 06/16/21 06/17/21 15:00 23:00 07:00 Intake Total 140 ml 0 ml Output Total 250 ml Balance -250 ml 140 ml 0 ml Physical Exam General: Alert, Oriented X3, Cooperative, No acute distress Heart: Regular rate (SR with first degree AV block) Lungs: Clear Extremities: No cyanosis, No edema, Other (LBKA) Skin: No breakdown, No significant lesion Review of Systems Review of Systems: no nv.d still weak, PO intake better today Assessment and Plan Assessmemt and Plan Problems Medical Problems: (1) Acute exacerbation of CHF (congestive heart failure) Status: Acute (2) Hypomagnesemia Status: Acute Comment Review of Relevant I have reviewed the following items coral (where applicable) has been applied. Medications: Current Medications Medications (Trade) Dose Ordered Sig/Ruddy Route PRN Reason Start Time Stop Time Status Last Admin Dose Admin Furosemide (Lasix) 40 mg 1X ONCE IVP 06/16/21 14:30 06/16/21 14:31 DC 06/16/21 14:36 Furosemide (Lasix) 40 mg DAILY IVP 06/17/21 09:00 06/17/21 08:24 Justifications for Admission Other Justification Acute hypoxic respiratory failure, acute CHF exacerbation ASHLY SHAVER MD Jun 17, 2021 12:21
[2021-06-17 14:57] VITALS: BP 168/74
[2021-06-17 19:12] VITALS: BP 180/80
[2021-06-17] MEDS: ATORVASTATIN CALCIUM 40 MG TABLET. PO SCH (19:30)
[2021-06-17 22:56] VITALS: BP 168/70
[2021-06-18 02:30] VITALS: BP 181/77
[2021-06-18 07:00] VITALS: BP 189/84
[2021-06-18] MEDS: POTASSIUM CHLORIDE 10 MEQ TABLET.ER. PO SCH (08:03)
[2021-06-18] MEDS: ASPIRIN ENTERIC COATED 81 MG TABLET.DR. PO SCH (08:03)
[2021-06-18] MEDS: CLOPIDOGREL BISULFATE 75 MG TABLET PO SCH (08:04)
[2021-06-18] MEDS: CARVEDILOL 12.5 MG TABLET. PO SCH ×2 (08:05→17:01)
[2021-06-18] MEDS: FUROSEMIDE 40 MG/4 ML VIAL. IVP SCH (08:05)
[2021-06-18] MEDS: ISOSORBIDE MONONITRATE ER 30 MG TAB.ER.24H PO SCH (08:05)
[2021-06-18 11:00] VITALS: BP 164/73
[2021-06-18] MEDS: IPRATRPIUM/ALBUTEROL 0.5/2.5MG 3 ML NEBU. NEB SCH ×3 (12:00→21:13)
--- NOTE | 2021-06-18 12:51 | PDOC ---
PROGRESS NOTES Date of Service: DATE: 06/18/21 TIME: 12:49 Subjective Subjective c/o dyspnea but saturating well on room air. Denied any chest pain. Objective Objective Vital Signs Date Time Temp Pulse Resp B/P (MAP) Pulse Ox O2 Delivery O2 Flow Rate FiO2 06/18/21 08:05 79 189/84 06/18/21 08:00 Nasal Cannula 2.0 06/18/21 07:00 97.9 18 93 97.9 Intake and Output 06/18/21 07:00 Intake Total 1140 ml Output Total 2975 ml Balance -1835 ml Intake Oral 1140 ml Output Urine Total 2875 ml Emesis 100 ml # Voids 1 # Bowel Movements 1 Physical Exam Heart: Regular rate (SR with first degree AV block) Extremities: No cyanosis, No edema, Other (LBKA) General: Alert, Oriented X3, Cooperative, No acute distress HEENT: Atraumatic, Mucous membr. moist/pink Lungs: Other (dimnished bases with crackles) Neuro: Normal speech, Sensation intact Psych/Mental Status: Mental status NL, Mood NL Skin: No breakdown, No significant lesion Assessment Assessment 1. Acute on chronic combined systolic CHF: Better compensated after diuresis. 2. ICM; Recent echo with LVEF 25%. 3. HTN: Blood pressure elevated. Increase hydralazine dose to 100 mg 3 times daily. Continue other medications 4. Mild troponin elevation; highest 0.33. suspect type 2/demand ischemia 5. CAD; recent cath showed two-vessel disease with severe in-stent restenosis of the proximal LAD and distal LAD stents. S/p successful balloon angioplasty of the proximal and distal LAD stents. Patient is currently stable and chest pain-free. Continue current secondary prevention measures. 6. CKD; Cr stable 7. Diabetes, II: Treat per IM 8. COPD: Clinically stable Plan Plan of Care Problems Medical Problems: (1) Acute exacerbation of CHF (congestive heart failure) Status: Acute (2) Hypomagnesemia Status: Acute Comment Review of Relevant I have reviewed the following items coral (where applicable) has been applied. Medications Current Medications Albuterol/ Ipratropium (Duoneb) 3 ml RTQID NEB ; Start 06/18/21 at 12:00 Vitals/I & O Vital Sign - Last 24 Hours 06/17/21 06/17/21 06/17/21 06/17/21 14:57 17:02 19:12 19:31 Temp 98.3 98.3 98.3 98.3 Pulse 68 68 70 Resp 18 18 B/P (MAP) 168/74 (105) 168/74 180/80 (113) 180/80 Pulse Ox 98 97 O2 Delivery Nasal Cannula Nasal Cannula O2 Flow Rate 2.0 2.0 06/17/21 06/17/21 06/18/21 06/18/21 19:44 22:56 02:30 07:00 Temp 97.9 99.3 97.9 97.9 99.3 97.9 Pulse 64 64 79 Resp 16 18 18 B/P (MAP) 168/70 (102) 181/77 (111) 189/84 (119) Pulse Ox 98 96 93 O2 Delivery Nasal Cannula Nasal Cannula Nasal Cannula Nasal Cannula O2 Flow Rate 2.0 2.0 2.0 2.0 06/18/21 06/18/21 06/18/21 06/18/21 08:00 08:04 08:05 08:05 Pulse 79 79 79 B/P (MAP) 189/84 189/84 189/84 O2 Delivery Nasal Cannula O2 Flow Rate 2.0 Intake and Output 06/17/21 06/17/21 06/18/21 15:00 23:00 07:00 Intake Total 360 ml 240 ml 540 ml Output Total 2350 ml 300 ml 325 ml Balance -1990 ml -60 ml 215 ml BARBRA EVANS MD Jun 18, 2021 12:51
[2021-06-18 15:00] VITALS: BP 127/61
--- NOTE | 2021-06-18 15:14 | PDOC ---
[employer] PROGRESS NOTE Date of Service DOS: DATE: 06/18/21 TIME: 15:13 Chief Complaint Chief Complaint 1. Acute on chronic combined diastolic/systolic CHF: likely from labile BP 2. ICM; Recent echo with LVEF 25%. 3. HTN: labile 4. Mild troponin elevation; highest 0.33. suspect type 2 5. CAD; recent cath showed two-vessel disease with severe in-stent restenosis of the proximal LAD and distal LAD stents. S/p successful balloon angioplasty of the proximal and distal LAD stents 6. CKD; Cr stable 7. Diabetes, II 8. COPD History of Present Illness History of Present Illness cont the IV Lasix therapy Resume home antiHTN therapy ASA/plavix, statin, Discussed compliance [facility] [place] 06/18/2021 No acute events overnight. Patient seen and examined bedside. Patient complains of feeling extremely weak. Cardiology has evaluated feels like he is well compensated. Upon looking back at his weight about 6 months ago he was at 88 kg and today he is 92 kg. Unsure of the accuracy of the weights however we will continue with low-salt diet and fluid restriction. Continue with IV diuresis. Patient's chart, labs, images were reviewed and discussed with RN Vitals/I&O Vitals/I&O: Vital Signs Date Time Temp Pulse Resp B/P (MAP) Pulse Ox O2 Delivery O2 Flow Rate FiO2 06/18/21 13:45 75 164/73 06/18/21 11:00 98.0 16 93 Nasal Cannula 2.0 98.0 I & O 06/17/21 06/17/21 06/18/21 15:00 23:00 07:00 Intake Total 360 ml 240 ml 540 ml Output Total 2350 ml 300 ml 325 ml Balance -1990 ml -60 ml 215 ml Physical Exam General: Alert, Oriented X3, Cooperative, No acute distress Heart: Regular rate (SR with first degree AV block) Lungs: Clear Extremities: No cyanosis, No edema, Other (LBKA) Skin: No breakdown, No significant lesion Assessment and Plan Assessmemt and Plan Problems Medical Problems: (1) Acute exacerbation of CHF (congestive heart failure) Status: Acute (2) Hypomagnesemia Status: Acute Comment Review of Relevant I have reviewed the following items coral (where applicable) has been applied. Medications: Current Medications Medications (Trade) Dose Ordered Sig/Ruddy Route PRN Reason Start Time Stop Time Status Last Admin Dose Admin Hydralazine HCl (Apresoline) 100 mg TID PO 06/18/21 14:00 06/18/21 13:45 Justifications for Admission Other Justification Acute hypoxic respiratory failure, acute CHF exacerbation RENETTA DUTTON MD Jun 18, 2021 15:14
[2021-06-18] MEDS: ATORVASTATIN CALCIUM 40 MG TABLET. PO SCH (18:55)
[2021-06-18 19:11] VITALS: BP 179/82
[2021-06-18] MEDS: BUDESONIDE 0.5 MG/2 ML NEBU. NEB SCH (21:13)
[2021-06-18 22:36] VITALS: BP 178/79
[2021-06-19 03:00] VITALS: BP 167/73
[2021-06-19 07:00] VITALS: BP 190/86
[2021-06-19] MEDS: BUDESONIDE 0.5 MG/2 ML NEBU. NEB SCH ×2 (07:36→20:00)
[2021-06-19] MEDS: IPRATRPIUM/ALBUTEROL 0.5/2.5MG 3 ML NEBU. NEB SCH ×5 (07:36→20:54)
[2021-06-19] MEDS: POTASSIUM CHLORIDE 10 MEQ TABLET.ER. PO SCH (09:12)
[2021-06-19] MEDS: FUROSEMIDE 40 MG/4 ML VIAL. IVP SCH (09:12)
[2021-06-19] MEDS: ASPIRIN ENTERIC COATED 81 MG TABLET.DR. PO SCH (09:13)
[2021-06-19] MEDS: CARVEDILOL 12.5 MG TABLET. PO SCH ×2 (09:13→16:57)
[2021-06-19] MEDS: ISOSORBIDE MONONITRATE ER 30 MG TAB.ER.24H PO SCH (09:13)
[2021-06-19] MEDS: CLOPIDOGREL BISULFATE 75 MG TABLET PO SCH (09:13)
[2021-06-19 09:55] LABS: BASO % 1 % (0-3); EOS # 0.1 x10^3/uL (0.0-0.7); EOS % 2 % (0-3); HEMATOCRIT 29.8 % (39.0-53.0); HEMOGLOBIN 10.4 g/dL (13.0-17.5); LYMPH # 0.5 x10^3/uL (1.0-4.8); LYMPH % 12 % (24-48); MEAN CORPUSCULAR HEMOGLOBIN 30 pg (25-35); MEAN CORPUSCULAR HGB CONC 35 g/dL (31-37); MEAN CORPUSCULAR VOLUME 87 fL (79-100); MONO # 0.5 x10^3/uL (0.0-1.1); MONO % 12 % (0-9); NEUT # 3.1 x10^3/uL (1.8-7.7); NEUT % 74 % (31-73); PLATELET COUNT 231 x10^3/uL (140-400); RED BLOOD COUNT 3.44 x10^6/uL (4.30-5.70); RED CELL DISTRIBUTION WIDTH 13.9 % (11.5-14.5); WHITE BLOOD COUNT 4.1 x10^3/uL (4.0-11.0)
[2021-06-19 10:14] LABS: CALCIUM 8.7 mg/dL (8.5-10.1); CREATININE 1.9 mg/dL (0.7-1.3); GFR 35.1; MAGNESIUM 1.8 mg/dL (1.8-2.4); PHOSPHORUS 3.3 mg/dL (2.6-4.7); POTASSIUM 3.9 mmol/L (3.5-5.1)
--- NOTE | 2021-06-19 10:54 | PDOC ---
CHAVA BUCHANAN [employer]AS[employer] WORKER 06/19/21 1054: CARDIO Progress Notes Date and Time Date of Service 06/19/21 Time of Evaluation 1120 Subjective Subjective: No Chest Pain, No shortness of breath, No Palpitations, Other (Doesn't feel well today) Vitals Vitals Vital Signs Date Time Temp Pulse Resp B/P (MAP) Pulse Ox O2 Delivery O2 Flow Rate FiO2 06/19/21 09:14 74 190/86 06/19/21 07:37 96 Nasal Cannula 2.0 06/19/21 07:00 98.6 16 98.6 Weight Weight [ ] Input and Output Intake and Output Intake and Output 06/19/21 07:00 Intake Total 540 ml Output Total 1125 ml Balance -585 ml Intake Oral 540 ml Output Urine Total 1125 ml # Voids 1 # Bowel Movements 1 Laboratory Labs Laboratory Tests Test 06/19/21 09:35 White Blood Count 4.1 x10^3/uL (4.0-11.0) Red Blood Count 3.44 x10^6/uL (4.30-5.70) Hemoglobin 10.4 g/dL (13.0-17.5) Hematocrit 29.8 % (39.0-53.0) Mean Corpuscular Volume 87 fL (79-100) Mean Corpuscular Hemoglobin 30 pg (25-35) Mean Corpuscular Hemoglobin Concent 35 g/dL (31-37) Red Cell Distribution Width 13.9 % (11.5-14.5) Platelet Count 231 x10^3/uL (140-400) Neutrophils (%) (Auto) 74 % (31-73) Lymphocytes (%) (Auto) 12 % (24-48) Monocytes (%) (Auto) 12 % (0-9) Eosinophils (%) (Auto) 2 % (0-3) Basophils (%) (Auto) 1 % (0-3) Neutrophils # (Auto) 3.1 x10^3/uL (1.8-7.7) Lymphocytes # (Auto) 0.5 x10^3/uL (1.0-4.8) Monocytes # (Auto) 0.5 x10^3/uL (0.0-1.1) Eosinophils # (Auto) 0.1 x10^3/uL (0.0-0.7) Basophils # (Auto) 0.0 x10^3/uL (0.0-0.2) Sodium Level 137 mmol/L (136-145) Potassium Level 3.9 mmol/L (3.5-5.1) Chloride Level 97 mmol/L (98-107) Carbon Dioxide Level 34 mmol/L (21-32) Anion Gap 6 (6-14) Blood Urea Nitrogen 40 mg/dL (8-26) Creatinine 1.9 mg/dL (0.7-1.3) Estimated GFR (Cockcroft-Gault) 35.1 Glucose Level 170 mg/dL (70-99) Calcium Level 8.7 mg/dL (8.5-10.1) Phosphorus Level 3.3 mg/dL (2.6-4.7) Magnesium Level 1.8 mg/dL (1.8-2.4) Physical Exam HEENT: Neck Supple W Full Motion Chest: Symmetric LUNGS: Other (diminished bases) Heart: RRR Abdomen: Soft N/T Extremities: No Edema Neurology: alert, oriented, follow commands Assessment Assessment 1. Acute on chronic combined systolic CHF: Better compensated after diuresis. 2. ICM; Recent echo with LVEF 25%. 3. HTN: labile 4. Mild troponin elevation; highest 0.33. suspect type 2, demand ischemia 5. CAD; recent cath showed two-vessel disease with severe in-stent restenosis of the proximal LAD and distal LAD stents. S/p successful balloon angioplasty of the proximal and distal LAD stents. 6. CKD; Cr stable 7. Diabetes, II: Treat per IM 8. COPD: Clinically stable Recommendations Secondary prevention including DAPT with ASA/Plavix and statin therapy Resume oral diuretics Start Losartan Supportive care Justicifation of Admission Dx: Justifications for Admission: Justification of Admission Dx: Yes PEARL CARDOZA MD 06/20/21 0837: CARDIO Progress Notes Plan Plan Late entry for 06/19/21 Pt. seen and examined. Agree with above [employer]ER note. He likely needs a discussion with family about goals of care, consideration of hospice. CHAVA BUCHANAN APRN Jun 19, 2021 10:54 PEARL CARDOZA MD Jun 20, 2021 08:37
[2021-06-19 11:00] VITALS: BP 122/59
--- NOTE | 2021-06-19 12:20 | NUR ---
SS following for discharge planning. SS reviewed pt chart and discussed with pt RN. Pt is from home and is currently requiring oxygen at two liters nasal canula. COVID19 negative. Pt on IV Lasix. Pt has home oxygen and home nebulizer machine. No PT needs at this time. SS will continue to follow for discharge planning.
[2021-06-19 15:00] VITALS: BP 163/71
--- NOTE | 2021-06-19 15:00 | PDOC ---
[employer] PROGRESS NOTE Date of Service DOS: DATE: 06/19/21 TIME: 14:58 Chief Complaint Chief Complaint 1. Acute on chronic combined diastolic/systolic CHF: likely from labile BP 2. ICM; Recent echo with LVEF 25%. 3. HTN: labile 4. Mild troponin elevation; highest 0.33. suspect type 2 5. CAD; recent cath showed two-vessel disease with severe in-stent restenosis of the proximal LAD and distal LAD stents. S/p successful balloon angioplasty of the proximal and distal LAD stents 6. CKD; Cr stable 7. Diabetes, II 8. COPD History of Present Illness History of Present Illness cont the IV Lasix therapy Resume home antiHTN therapy ASA/plavix, statin, Discussed compliance [facility] CV team yesteday 06/18/2021 No acute events overnight. Patient seen and examined bedside. Patient complains of feeling extremely weak. Cardiology has evaluated feels like he is well compensated. Upon looking back at his weight about 6 months ago he was at 88 kg and today he is 92 kg. Unsure of the accuracy of the weights however we will continue with low-salt diet and fluid restriction. Continue with IV diuresis. Patient's chart, labs, images were reviewed and discussed with RN 06/19/2021 No acute events overnight. Patient saturating 96% on 2 L nasal cannula. Patient is very close to his dry weight but he continues to have some dyspnea upon rest. He does feel somewhat improved compared to yesterday. According to the patient urine output has been minimal. He is negative and his urine output in the last 24 hours of 585 cc. Day before he did have 1.8 L urine output. We will continue to observe as patient is a high risk for readmission. Continue blood pressure control after recent medication change. Vitals/I&O Vitals/I&O: Vital Signs Date Time Temp Pulse Resp B/P (MAP) Pulse Ox O2 Delivery O2 Flow Rate FiO2 06/19/21 11:54 94 Nasal Cannula 2.0 06/19/21 11:00 98.4 66 18 122/59 (80) 98.4 I & O 06/18/21 06/18/21 06/19/21 15:00 23:00 07:00 Intake Total 240 ml 300 ml Output Total 650 ml 250 ml 225 ml Balance -650 ml -10 ml 75 ml Physical Exam General: Alert, Oriented X3, Cooperative, No acute distress Heart: Regular rate (SR with first degree AV block) Lungs: Clear Extremities: No cyanosis, No edema, Other (LBKA) Skin: No breakdown, No significant lesion Labs Labs: Laboratory Tests Test 06/19/21 09:35 White Blood Count 4.1 x10^3/uL (4.0-11.0) Red Blood Count 3.44 x10^6/uL (4.30-5.70) Hemoglobin 10.4 g/dL (13.0-17.5) Hematocrit 29.8 % (39.0-53.0) Mean Corpuscular Volume 87 fL (79-100) Mean Corpuscular Hemoglobin 30 pg (25-35) Mean Corpuscular Hemoglobin Concent 35 g/dL (31-37) Red Cell Distribution Width 13.9 % (11.5-14.5) Platelet Count 231 x10^3/uL (140-400) Neutrophils (%) (Auto) 74 % (31-73) Lymphocytes (%) (Auto) 12 % (24-48) Monocytes (%) (Auto) 12 % (0-9) Eosinophils (%) (Auto) 2 % (0-3) Basophils (%) (Auto) 1 % (0-3) Neutrophils # (Auto) 3.1 x10^3/uL (1.8-7.7) Lymphocytes # (Auto) 0.5 x10^3/uL (1.0-4.8) Monocytes # (Auto) 0.5 x10^3/uL (0.0-1.1) Eosinophils # (Auto) 0.1 x10^3/uL (0.0-0.7) Basophils # (Auto) 0.0 x10^3/uL (0.0-0.2) Sodium Level 137 mmol/L (136-145) Potassium Level 3.9 mmol/L (3.5-5.1) Chloride Level 97 mmol/L (98-107) Carbon Dioxide Level 34 mmol/L (21-32) Anion Gap 6 (6-14) Blood Urea Nitrogen 40 mg/dL (8-26) Creatinine 1.9 mg/dL (0.7-1.3) Estimated GFR (Cockcroft-Gault) 35.1 Glucose Level 170 mg/dL (70-99) Calcium Level 8.7 mg/dL (8.5-10.1) Phosphorus Level 3.3 mg/dL (2.6-4.7) Magnesium Level 1.8 mg/dL (1.8-2.4) Assessment and Plan Assessmemt and Plan Problems Medical Problems: (1) Acute exacerbation of CHF (congestive heart failure) Status: Acute (2) Hypomagnesemia Status: Acute Comment Review of Relevant I have reviewed the following items coral (where applicable) has been applied. Medications: Current Medications Medications (Trade) Dose Ordered Sig/Ruddy Route PRN Reason Start Time Stop Time Status Last Admin Dose Admin Budesonide (Pulmicort) 0.5 mg RTBID NEB 06/18/21 20:00 06/19/21 07:36 Justifications for Admission Other Justification Acute hypoxic respiratory failure, acute CHF exacerbation RENETTA DUTTON MD Jun 19, 2021 14:59
[2021-06-19] MEDS: LOSARTAN POTASSIUM 50 MG TABLET. PO SCH (16:56)
[2021-06-19 19:31] VITALS: BP 142/67
[2021-06-19] MEDS: ATORVASTATIN CALCIUM 40 MG TABLET. PO SCH (19:47)
[2021-06-19 22:51] VITALS: BP 139/65
[2021-06-20 03:15] VITALS: BP 179/81
[2021-06-20 07:00] VITALS: BP 175/81
[2021-06-20] MEDS: BUDESONIDE 0.5 MG/2 ML NEBU. NEB SCH ×2 (07:47→20:37)
[2021-06-20] MEDS: IPRATRPIUM/ALBUTEROL 0.5/2.5MG 3 ML NEBU. NEB SCH ×4 (07:49→20:37)
[2021-06-20] MEDS: CLOPIDOGREL BISULFATE 75 MG TABLET PO SCH (09:09)
[2021-06-20] MEDS: CARVEDILOL 12.5 MG TABLET. PO SCH ×2 (09:09→17:46)
[2021-06-20] MEDS: LOSARTAN POTASSIUM 50 MG TABLET. PO SCH (09:10)
[2021-06-20] MEDS: FUROSEMIDE 40 MG TABLET. PO SCH (09:10)
[2021-06-20] MEDS: POTASSIUM CHLORIDE 10 MEQ TABLET.ER. PO SCH (09:10)
[2021-06-20] MEDS: ISOSORBIDE MONONITRATE ER 30 MG TAB.ER.24H PO SCH (09:11)
[2021-06-20] MEDS: ASPIRIN ENTERIC COATED 81 MG TABLET.DR. PO SCH (09:36)
[2021-06-20 11:00] VITALS: BP 104/57
--- NOTE | 2021-06-20 11:39 | PDOC ---
ISIDORO BUCHANANILY DORON 06/20/21 1139: CARDIO Progress Notes Date and Time Date of Service 06/20/21 Time of Evaluation 1130 Subjective Subjective: No Chest Pain, No shortness of breath, No Palpitations, Other (feels tired, weak ) Vitals Vitals Vital Signs Date Time Temp Pulse Resp B/P (MAP) Pulse Ox O2 Delivery O2 Flow Rate FiO2 06/20/21 09:11 74 175/81 06/20/21 08:00 Nasal Cannula 2.0 06/20/21 07:49 97 06/20/21 07:00 98.1 20 98.1 Weight Weight [ ] Input and Output Intake and Output Intake and Output 06/20/21 07:00 Intake Total 500 ml Output Total 750 ml Balance -250 ml Intake Oral 500 ml Output Urine Total 750 ml Physical Exam HEENT: Neck Supple W Full Motion Chest: Symmetric LUNGS: Other (diminished bases) Heart: RRR Abdomen: Soft N/T Extremities: No Edema Neurology: alert, oriented, follow commands Assessment Assessment 1. Acute on chronic combined systolic CHF: Better compensated after diuresis. 2. ICM; Recent echo with LVEF 25%. 3. HTN: labile 4. Mild troponin elevation; highest 0.33. suspect type 2, demand ischemia. CP free 5. CAD; recent cath showed two-vessel disease with severe in-stent restenosis of the proximal LAD and distal LAD stents. S/p successful balloon angioplasty of the proximal and distal LAD stents. 6. CKD; Cr stable 7. Diabetes, II: Treat per IM 8. COPD: Clinically stable Recommendations Secondary prevention including DAPT with ASA/Plavix and statin therapy Supportive care Family meeting today at 6:30pm to discuss goals or care, consider Hospice. Justicifation of Admission Dx: Justifications for Admission: Justification of Admission Dx: Yes PEARL CARDOZA MD 06/20/21 1727: CARDIO Progress Notes Plan Plan Pt. seen and examined. Agree with above [employer]ER note. Discussed with family at bedside regarding goals of care. CHAVA BUCHANAN APRN Jun 20, 2021 11:39 PEARL CARDOZA MD Jun 20, 2021 17:27
--- NOTE | 2021-06-20 13:39 | NUR ---
SS following up with discharge planning. SS reviewed pt chart and discussed with pt RN. Pt is currently requiring oxygen. COVID19 negative. Pt has home oxygen and home nebulizer. No PT needs at this time. Cardiology reaching out to pt's family to discuss goals of care and CODE status. SS will continue to follow for discharge planning.
[2021-06-20 15:00] VITALS: BP 140/63
[2021-06-20 19:19] VITALS: BP 131/66
[2021-06-20] MEDS: ATORVASTATIN CALCIUM 40 MG TABLET. PO SCH (20:35)
--- NOTE | 2021-06-20 21:30 | PDOC ---
[employer] [facility] PROGRESS NOTE Date of Service DOS: DATE: 06/20/21 TIME: 21:26 Chief Complaint Chief Complaint 1. Acute on chronic combined diastolic/systolic CHF: likely from labile BP 2. ICM; Recent echo with LVEF 25%. 3. HTN: labile 4. Mild troponin elevation; highest 0.33. suspect type 2 5. CAD; recent cath showed two-vessel disease with severe in-stent restenosis of the proximal LAD and distal LAD stents. S/p successful balloon angioplasty of the proximal and distal LAD stents 6. CKD; Cr stable 7. Diabetes, II 8. COPD History of Present Illness History of Present Illness cont the IV Lasix therapy Resume home antiHTN therapy ASA/plavix, statin, Discussed compliance [facility] CV team yesteday 06/18/2021 No acute events overnight. Patient seen and examined bedside. Patient complains of feeling extremely weak. Cardiology has evaluated feels like he is well compensated. Upon looking back at his weight about 6 months ago he was at 88 kg and today he is 92 kg. Unsure of the accuracy of the weights however we will continue with low-salt diet and fluid restriction. Continue with IV diuresis. Patient's chart, labs, images were reviewed and discussed with RN 06/19/2021 No acute events overnight. Patient saturating 96% on 2 L nasal cannula. Patient is very close to his dry weight but he continues to have some dyspnea upon rest. He does feel somewhat improved compared to yesterday. According to the patient urine output has been minimal. He is negative and his urine output in the last 24 hours of 585 cc. Day before he did have 1.8 L urine output. We will continue to observe as patient is a high risk for readmission. Continue blood pressure control after recent medication change. 06/20/21 No acute events overnight. Pt resting comfortably on bed. Will consider hospice as an option for the patient. Vitals/I&O Vitals/I&O: Vital Signs Date Time Temp Pulse Resp B/P (MAP) Pulse Ox O2 Delivery O2 Flow Rate FiO2 06/20/21 20:39 Nasal Cannula 2.0 06/20/21 20:36 70 131/66 06/20/21 19:19 98.7 18 97 98.7 I & O 06/19/21 06/19/21 06/20/21 15:00 23:00 07:00 Intake Total 200 ml 300 ml Output Total 200 ml 550 ml Balance 0 ml -550 ml 300 ml Physical Exam General: Alert, Oriented X3, Cooperative, No acute distress Heart: Regular rate (SR with first degree AV block) Lungs: Crackles Extremities: No cyanosis, No edema, Other (LBKA. No pitting edema.) Skin: No breakdown, No significant lesion Assessment and Plan Assessmemt and Plan Problems Medical Problems: (1) Acute exacerbation of CHF (congestive heart failure) Status: Acute (2) Hypomagnesemia Status: Acute Comment Review of Relevant I have reviewed the following items coral (where applicable) has been applied. Medications: Current Medications Medications (Trade) Dose Ordered Sig/Ruddy Route PRN Reason Start Time Stop Time Status Last Admin Dose Admin Furosemide (Lasix) 40 mg DAILY PO 06/20/21 09:00 06/20/21 09:10 Justifications for Admission Other Justification Acute hypoxic respiratory failure, acute CHF exacerbation RENETTA DUTTON MD Jun 20, 2021 21:30
[2021-06-20 22:02] VITALS: BP 138/67
[2021-06-21 03:10] VITALS: BP 183/88
[2021-06-21 06:30] VITALS: BP 176/74
[2021-06-21] MEDS: IPRATRPIUM/ALBUTEROL 0.5/2.5MG 3 ML NEBU. NEB SCH ×4 (07:19→19:55)
[2021-06-21] MEDS: BUDESONIDE 0.5 MG/2 ML NEBU. NEB SCH ×2 (07:20→19:55)
[2021-06-21] MEDS: POTASSIUM CHLORIDE 10 MEQ TABLET.ER. PO SCH (08:32)
[2021-06-21] MEDS: CARVEDILOL 12.5 MG TABLET. PO SCH ×2 (08:33→16:57)
[2021-06-21] MEDS: LOSARTAN POTASSIUM 50 MG TABLET. PO SCH (08:33)
[2021-06-21] MEDS: FUROSEMIDE 40 MG TABLET. PO SCH (08:33)
[2021-06-21] MEDS: ISOSORBIDE MONONITRATE ER 30 MG TAB.ER.24H PO SCH (08:34)
[2021-06-21] MEDS: ASPIRIN ENTERIC COATED 81 MG TABLET.DR. PO SCH (08:34)
[2021-06-21] MEDS: CLOPIDOGREL BISULFATE 75 MG TABLET PO SCH (08:35)
[2021-06-21 11:09] VITALS: BP 182/77
--- NOTE | 2021-06-21 11:33 | PDOC ---
CARDIO Progress Notes Date and Time Date of Service 06/21/21 Time of Evaluation 1130 Subjective Subjective: No Chest Pain, No shortness of breath, No Palpitations, Other (wanting Hospice services ) Vitals Vitals Vital Signs Date Time Temp Pulse Resp B/P (MAP) Pulse Ox O2 Delivery O2 Flow Rate FiO2 06/21/21 11:09 97.5 66 16 182/77 (112) 99 Nasal Cannula 2.0 97.5 Weight Weight [ ] Input and Output Intake and Output Intake and Output 06/21/21 07:00 Intake Total 200 ml Balance 200 ml Intake Oral 200 ml # Voids 1 Physical Exam HEENT: Neck Supple W Full Motion Chest: Symmetric LUNGS: Other (diminished bases) Heart: RRR Abdomen: Soft N/T Extremities: No Edema Neurology: alert, oriented, follow commands Assessment Assessment 1. Acute on chronic combined systolic CHF: improved s/p IV diuresis. appears compensated 2. ICM; Recent echo with LVEF 25%. 3. HTN: labile 4. Mild troponin elevation; highest 0.33. suspect type 2, demand ischemia. CP free 5. CAD; recent cath showed two-vessel disease with severe in-stent restenosis of the proximal LAD and distal LAD stents. S/p successful balloon angioplasty of the proximal and distal LAD stents. 6. CKD; Cr stable 7. Diabetes, II: Treat per IM 8. COPD: Clinically stable Recommendations Increase losartan for BP control SS to arranged Hospice upon discharge Supportive care Justicifation of Admission Dx: Justifications for Admission: Justification of Admission Dx: Yes CHAVA BUCHANAN APRN Jun 21, 2021 11:32
--- NOTE | 2021-06-21 12:43 | PDOC ---
[employer] PROGRESS NOTE Date of Service DOS: DATE: 06/21/21 TIME: 12:40 Chief Complaint Chief Complaint 1. Acute on chronic combined diastolic/systolic CHF: likely from labile BP 2. ICM; Recent echo with LVEF 25%. 3. HTN: labile 4. Mild troponin elevation; highest 0.33. suspect type 2 5. CAD; recent cath showed two-vessel disease with severe in-stent restenosis of the proximal LAD and distal LAD stents. S/p successful balloon angioplasty of the proximal and distal LAD stents 6. CKD; Cr stable 7. Diabetes, II 8. COPD History of Present Illness History of Present Illness cont the IV Lasix therapy Resume home antiHTN therapy ASA/plavix, statin, Discussed compliance [facility] CV team yesteday 06/18/2021 No acute events overnight. Patient seen and examined bedside. Patient complains of feeling extremely weak. Cardiology has evaluated feels like he is well compensated. Upon looking back at his weight about 6 months ago he was at 88 kg and today he is 92 kg. Unsure of the accuracy of the weights however we will continue with low-salt diet and fluid restriction. Continue with IV diuresis. Patient's chart, labs, images were reviewed and discussed with RN 06/19/2021 No acute events overnight. Patient saturating 96% on 2 L nasal cannula. Patient is very close to his dry weight but he continues to have some dyspnea upon rest. He does feel somewhat improved compared to yesterday. According to the patient urine output has been minimal. He is negative and his urine output in the last 24 hours of 585 cc. Day before he did have 1.8 L urine output. We will continue to observe as patient is a high risk for readmission. Continue blood pressure control after recent medication change. 06/20/21 No acute events overnight. Pt resting comfortably on bed. Will consider hospice as an option for the patient. 06/21/2021 No acute events overnight. Patient continues to feel very fatigued and l ethargic. Family meeting held last night at 630 with cardiology and decision was made to proceed with hospice. Pending hospice placement at this time. Patient's chart, labs, images were reviewed and discussed with RN In addition to my E/M visit, advance care planning done with A total time of 20 minutes was spent from 950 to 1010 face to face in discussion with the patient regarding their goals of care, CODE STATUS. Vitals/I&O Vitals/I&O: Vital Signs Date Time Temp Pulse Resp B/P (MAP) Pulse Ox O2 Delivery O2 Flow Rate FiO2 06/21/21 11:43 Nasal Cannula 2.0 06/21/21 11:09 97.5 66 16 182/77 (112) 99 97.5 I & O 06/20/21 06/20/21 06/21/21 15:00 23:00 07:00 Intake Total 200 ml 0 ml Balance 200 ml 0 ml Physical Exam General: Alert, Oriented X3, Cooperative, No acute distress Heart: Regular rate (SR with first degree AV block) Lungs: Crackles Extremities: No cyanosis, No edema, Other (LBKA. No pitting edema.) Skin: No breakdown, No significant lesion Assessment and Plan Assessmemt and Plan Problems Medical Problems: (1) Acute exacerbation of CHF (congestive heart failure) Status: Acute (2) Hypomagnesemia Status: Acute Comment Review of Relevant I have reviewed the following items coral (where applicable) has been applied. Justifications for Admission Other Justification Acute hypoxic respiratory failure, acute CHF exacerbation RENETTA DUTTON MD Jun 21, 2021 12:43
[2021-06-21] MEDS ORDERED: LOSARTAN POTASSIUM 50 MG TABLET. PO ONE (14:00)
--- NOTE | 2021-06-21 14:56 | NUR ---
SS following up with discharge planning. SS reviewed pt chart and discussed with pt RN. Pt is currently requiring oxygen at two liters nasal canula. COVID19 negative. Pt has home oxygen and home nebulizer. PT reported no needs. Cardiology had family meeting with family last night. SS met with pt this morning and left voicemail for pt's daughter. Pt reported that he and family are agreeable to hospice. CODE status discussed and pt requesting to be DNR at this time. RN notified. Pt reported having no preference of hospice company. Referral was phoned and faxed to [facility], ; fax [phone]. Sylvia from [facility] reaching out to pt and pt's family. SS will continue to follow for discharge planning.
[2021-06-21 15:08] VITALS: BP 167/79
[2021-06-21 19:18] VITALS: BP 170/79
[2021-06-21] MEDS: ATORVASTATIN CALCIUM 40 MG TABLET. PO SCH (20:37)
[2021-06-21 22:38] VITALS: BP 192/85
[2021-06-22 03:02] VITALS: BP 191/84
[2021-06-22] MEDS: IPRATRPIUM/ALBUTEROL 0.5/2.5MG 3 ML NEBU. NEB SCH ×4 (07:42→18:20)
[2021-06-22] MEDS: BUDESONIDE 0.5 MG/2 ML NEBU. NEB SCH ×2 (07:42→18:20)
[2021-06-22 07:48] VITALS: BP 210/89
[2021-06-22] MEDS: LOSARTAN POTASSIUM 50 MG TABLET. PO SCH (07:57)
[2021-06-22] MEDS: CARVEDILOL 12.5 MG TABLET. PO SCH ×2 (07:57→17:20)
[2021-06-22] MEDS: ASPIRIN ENTERIC COATED 81 MG TABLET.DR. PO SCH (07:58)
[2021-06-22] MEDS: POTASSIUM CHLORIDE 10 MEQ TABLET.ER. PO SCH (07:58)
[2021-06-22] MEDS: ISOSORBIDE MONONITRATE ER 30 MG TAB.ER.24H PO SCH (07:58)
[2021-06-22] MEDS: CLOPIDOGREL BISULFATE 75 MG TABLET PO SCH (07:58)
[2021-06-22] MEDS: FUROSEMIDE 40 MG TABLET. PO SCH (07:59)
[2021-06-22 10:36] VITALS: BP 158/74
--- NOTE | 2021-06-22 10:45 | NUR ---
SS following up with discharge planning. SS reviewed pt chart and discussed with pt RN. Pt is currently requiring oxygen at two liters nasal canula. COVID19 negative. [facility] spoke with daughter last night and pt's daughter reported that she is available at 1630 today for phone meeting with hospice. [facility] met with pt in room to discuss hospice. Pt agreeable and DPOA and consents signed. Pt expressed concern about needing some private duty care in the home because his daughters work for 12 hours/day 6 days/week. SS and hospice discussed options of care with pt. [facility] to discuss options of care with pt's daughters at 1630. SS was notified that contract law specialist for [employer] and this weekend is See, . [facility] reported that they would notify staff when plan for hospice at home has been put in place. Pt did not qualify for inpatient hospice. SS will continue to follow for discharge planning.
--- NOTE | 2021-06-22 14:14 | PDOC ---
[facility] [facility] PROGRESS NOTE Date of Service DOS: DATE: 06/22/21 TIME: 14:13 Chief Complaint Chief Complaint 1. Acute on chronic combined diastolic/systolic CHF: likely from labile BP 2. ICM; Recent echo with LVEF 25%. 3. HTN: labile 4. Mild troponin elevation; highest 0.33. suspect type 2 5. CAD; recent cath showed two-vessel disease with severe in-stent restenosis of the proximal LAD and distal LAD stents. S/p successful balloon angioplasty of the proximal and distal LAD stents 6. CKD; Cr stable 7. Diabetes, II 8. COPD History of Present Illness History of Present Illness 06/18/2021 No acute events overnight. Patient seen and examined bedside. Patient complains of feeling extremely weak. Cardiology has evaluated feels like he is well compensated. Upon looking back at his weight about 6 months ago he was at 88 kg and today he is 92 kg. Unsure of the accuracy of the weights however we will continue with low-salt diet and fluid restriction. Continue with IV diuresis. Patient's chart, labs, images were reviewed and discussed with RN 06/19/2021 No acute events overnight. Patient saturating 96% on 2 L nasal cannula. Patient is very close to his dry weight but he continues to have some dyspnea upon rest. He does feel somewhat improved compared to yesterday. According to the patient urine output has been minimal. He is negative and his urine output in the last 24 hours of 585 cc. Day before he did have 1.8 L urine output. We will continue to observe as patient is a high risk for readmission. Continue blood pressure control after recent medication change. 06/20/21 No acute events overnight. Pt resting comfortably on bed. Will consider hospice as an option for the patient. 06/21/2021 No acute events overnight. Patient continues to feel very fatigued and lethargic. Family meeting held last night at 630 with cardiology and decision was made to proceed with hospice. Pending hospice placement at this time. Patient's chart, labs, images were reviewed and discussed with RN In addition to my E/M visit, advance care planning done with A total time of 20 minutes was spent from 950 to 1010 face to face in discussion with the patient regarding their goals of care, CODE STATUS. 06/22/2021 No acute events overnight. Pending hospice meeting for home with hospice versus long-term care. Patient's chart, labs, images were reviewed and discussed with RN Vitals/I&O Vitals/I&O: Vital Signs Date Time Temp Pulse Resp B/P (MAP) Pulse Ox O2 Delivery O2 Flow Rate FiO2 06/22/21 11:11 Nasal Cannula 2.0 06/22/21 10:36 97.9 62 16 158/74 (102) 97 97.9 I & O 06/21/21 06/21/21 06/22/21 15:00 23:00 07:00 Intake Total 660 ml 280 ml 200 ml Balance 660 ml 280 ml 200 ml Physical Exam General: Alert, Oriented X3, Cooperative, No acute distress Heart: Regular rate (SR with first degree AV block) Lungs: Crackles Extremities: No cyanosis, No edema, Other (LBKA. No pitting edema.) Skin: No breakdown, No significant lesion Assessment and Plan Assessmemt and Plan Problems Medical Problems: (1) Acute exacerbation of CHF (congestive heart failure) Status: Acute (2) Hypomagnesemia Status: Acute Comment Review of Relevant I have reviewed the following items coral (where applicable) has been applied. Medications: Current Medications Medications (Trade) Dose Ordered Sig/Ruddy Route PRN Reason Start Time Stop Time Status Last Admin Dose Admin Losartan Potassium (Cozaar) 100 mg DAILY PO 06/22/21 09:00 06/22/21 07:57 Justifications for Admission Other Justification Acute hypoxic respiratory failure, acute CHF exacerbation RENETTA DUTTON MD Jun 22, 2021 14:14
[2021-06-22 14:31] VITALS: BP 173/81
[2021-06-22 19:00] VITALS: BP 179/84
[2021-06-22] MEDS: ATORVASTATIN CALCIUM 40 MG TABLET. PO SCH (20:59)
[2021-06-22 23:00] VITALS: BP 184/61
[2021-06-23 02:43] VITALS: BP 160/72
[2021-06-23 07:00] VITALS: BP 194/88
[2021-06-23] MEDS: BUDESONIDE 0.5 MG/2 ML NEBU. NEB SCH ×2 (08:14→20:13)
[2021-06-23] MEDS: IPRATRPIUM/ALBUTEROL 0.5/2.5MG 3 ML NEBU. NEB SCH ×4 (08:14→20:13)
[2021-06-23] MEDS: FUROSEMIDE 40 MG TABLET. PO SCH (08:37)
[2021-06-23] MEDS: CLOPIDOGREL BISULFATE 75 MG TABLET PO SCH (08:37)
[2021-06-23] MEDS: ASPIRIN ENTERIC COATED 81 MG TABLET.DR. PO SCH (08:37)
[2021-06-23] MEDS: CARVEDILOL 12.5 MG TABLET. PO SCH ×2 (08:38→18:07)
[2021-06-23] MEDS: ISOSORBIDE MONONITRATE ER 30 MG TAB.ER.24H PO SCH (08:39)
[2021-06-23] MEDS: POTASSIUM CHLORIDE 10 MEQ TABLET.ER. PO SCH (08:39)
[2021-06-23] MEDS: LOSARTAN POTASSIUM 50 MG TABLET. PO SCH (08:40)
[2021-06-23 11:00] VITALS: BP 139/69
--- NOTE | 2021-06-23 12:59 | PDOC ---
[facility] [facility] PROGRESS NOTE Date of Service DOS: DATE: 06/23/21 TIME: 12:56 Chief Complaint Chief Complaint 1. Acute on chronic combined diastolic/systolic CHF: likely from labile BP 2. ICM; Recent echo with LVEF 25%. 3. HTN: labile 4. Mild troponin elevation; highest 0.33. suspect type 2 5. CAD; recent cath showed two-vessel disease with severe in-stent restenosis of the proximal LAD and distal LAD stents. S/p successful balloon angioplasty of the proximal and distal LAD stents 6. CKD; Cr stable 7. Diabetes, II 8. COPD History of Present Illness History of Present Illness 06/18/2021 No acute events overnight. Patient seen and examined bedside. Patient complains of feeling extremely weak. Cardiology has evaluated feels like he is well compensated. Upon looking back at his weight about 6 months ago he was at 88 kg and today he is 92 kg. Unsure of the accuracy of the weights however we will continue with low-salt diet and fluid restriction. Continue with IV diuresis. Patient's chart, labs, images were reviewed and discussed with RN 06/19/2021 No acute events overnight. Patient saturating 96% on 2 L nasal cannula. Patient is very close to his dry weight but he continues to have some dyspnea upon rest. He does feel somewhat improved compared to yesterday. According to the patient urine output has been minimal. He is negative and his urine output in the last 24 hours of 585 cc. Day before he did have 1.8 L urine output. We will continue to observe as patient is a high risk for readmission. Continue blood pressure control after recent medication change. 06/20/21 No acute events overnight. Pt resting comfortably on bed. Will consider hospice as an option for the patient. 06/21/2021 No acute events overnight. Patient continues to feel very fatigued and lethargic. Family meeting held last night at 630 with cardiology and decision was made to proceed with hospice. Pending hospice placement at this time. Patient's chart, labs, images were reviewed and discussed with RN In addition to my E/M visit, advance care planning done with A total time of 20 minutes was spent from 950 to 1010 face to face in discussion with the patient regarding their goals of care, CODE STATUS. 06/22/2021 No acute events overnight. Pending hospice meeting for home with hospice versus long-term care. Patient's chart, labs, images were reviewed and discussed with RN 06/23/2021 No acute events overnight. Patient seen and examined bedside and resting comfortably. Pending hospice placement. This will be either inpatient hospice versus home hospice. Will discuss further with hospitalist Mike who is discussing with the family on how they will arrange this. Patient's chart, labs, images were reviewed and discussed with RN Vitals/I&O Vitals/I&O: Vital Signs Date Time Temp Pulse Resp B/P (MAP) Pulse Ox O2 Delivery O2 Flow Rate FiO2 06/23/21 11:37 Nasal Cannula 2.0 06/23/21 11:00 98.0 58 19 139/69 (92) 100 98.0 I & O 06/22/21 06/22/21 06/23/21 15:00 23:00 07:00 Intake Total 440 ml 100 ml Output Total 500 ml Balance 440 ml -500 ml 100 ml Physical Exam General: Alert, Oriented X3, Cooperative, No acute distress Heart: Regular rate (SR with first degree AV block) Lungs: Crackles Extremities: No cyanosis, No edema, Other (LBKA. No pitting edema.) Skin: No breakdown, No significant lesion Assessment and Plan Assessmemt and Plan Problems Medical Problems: (1) Acute exacerbation of CHF (congestive heart failure) Status: Acute (2) Hypomagnesemia Status: Acute Comment Review of Relevant I have reviewed the following items coral (where applicable) has been applied. Justifications for Admission Other Justification Acute hypoxic respiratory failure, acute CHF exacerbation RENETTA DUTTON MD Jun 23, 2021 12:59
[2021-06-23 15:00] VITALS: BP 175/76
[2021-06-23 19:12] VITALS: BP 136/63
[2021-06-23] MEDS: ATORVASTATIN CALCIUM 40 MG TABLET. PO SCH (20:22)
[2021-06-23 22:30] VITALS: BP 129/63
[2021-06-24 02:31] VITALS: BP 126/63
[2021-06-24 06:00] VITALS: BP 184/84
[2021-06-24] MEDS: ASPIRIN ENTERIC COATED 81 MG TABLET.DR. PO SCH (08:33)
[2021-06-24] MEDS: CARVEDILOL 12.5 MG TABLET. PO SCH ×2 (08:33→17:13)
[2021-06-24] MEDS: CLOPIDOGREL BISULFATE 75 MG TABLET PO SCH (08:34)
[2021-06-24] MEDS: POTASSIUM CHLORIDE 10 MEQ TABLET.ER. PO SCH (08:34)
[2021-06-24] MEDS: ISOSORBIDE MONONITRATE ER 30 MG TAB.ER.24H PO SCH (08:34)
[2021-06-24] MEDS: LOSARTAN POTASSIUM 50 MG TABLET. PO SCH (08:34)
[2021-06-24] MEDS: FUROSEMIDE 40 MG TABLET. PO SCH (08:34)
[2021-06-24] MEDS: IPRATRPIUM/ALBUTEROL 0.5/2.5MG 3 ML NEBU. NEB SCH ×4 (08:55→21:00)
[2021-06-24] MEDS: BUDESONIDE 0.5 MG/2 ML NEBU. NEB SCH ×2 (08:56→21:00)
[2021-06-24 10:40] VITALS: BP 144/65
--- NOTE | 2021-06-24 11:51 | PDOC ---
[facility] PROGRESS NOTE Date of Service DOS: DATE: 06/24/21 TIME: 11:48 Chief Complaint Chief Complaint 1. Acute on chronic combined diastolic/systolic CHF: likely from labile BP 2. ICM; Recent echo with LVEF 25%. 3. HTN: labile 4. Mild troponin elevation; highest 0.33. suspect type 2 5. CAD; recent cath showed two-vessel disease with severe in-stent restenosis of the proximal LAD and distal LAD stents. S/p successful balloon angioplasty of the proximal and distal LAD stents 6. CKD; Cr stable 7. Diabetes, II 8. COPD History of Present Illness History of Present Illness 06/18/2021 No acute events overnight. Patient seen and examined bedside. Patient complains of feeling extremely weak. Cardiology has evaluated feels like he is well compensated. Upon looking back at his weight about 6 months ago he was at 88 kg and today he is 92 kg. Unsure of the accuracy of the weights however we will continue with low-salt diet and fluid restriction. Continue with IV diuresis. Patient's chart, labs, images were reviewed and discussed with RN 06/19/2021 No acute events overnight. Patient saturating 96% on 2 L nasal cannula. Patient is very close to his dry weight but he continues to have some dyspnea upon rest. He does feel somewhat improved compared to yesterday. According to the patient urine output has been minimal. He is negative and his urine output in the last 24 hours of 585 cc. Day before he did have 1.8 L urine output. We will continue to observe as patient is a high risk for readmission. Continue blood pressure control after recent medication change. 06/20/21 No acute events overnight. Pt resting comfortably on bed. Will consider hospice as an option for the patient. 06/21/2021 No acute events overnight. Patient continues to feel very fatigued and lethargic. Family meeting held last night at 630 with cardiology and decision was made to proceed with hospice. Pending hospice placement at this time. Patient's chart, labs, images were reviewed and discussed with RN In addition to my E/M visit, advance care planning done with A total time of 20 minutes was spent from 950 to 1010 face to face in discussion with the patient regarding their goals of care, CODE STATUS. 06/22/2021 No acute events overnight. Pending hospice meeting for home with hospice versus long-term care. Patient's chart, labs, images were reviewed and discussed with RN 06/23/2021 No acute events overnight. Patient seen and examined bedside and resting comfortably. Pending hospice placement. This will be either inpatient hospice versus home hospice. Will discuss further with hospitalist Mike who is discussing with the family on how they will arrange this. Patient's chart, labs, images were reviewed and discussed with RN 06/24/2021 No acute events overnight. Patient seen and examined resting in bed again. Pending hospice placement. Patient's chart, labs, images were reviewed and discussed with RN Vitals/I&O Vitals/I&O: Vital Signs Date Time Temp Pulse Resp B/P (MAP) Pulse Ox O2 Delivery O2 Flow Rate FiO2 06/24/21 08:59 99 Nasal Cannula 2.0 06/24/21 08:34 64 184/84 06/24/21 06:00 98.2 16 98.2 I & O 06/23/21 06/23/21 06/24/21 15:00 23:00 07:00 Intake Total 180 ml 0 ml Output Total 300 ml Balance -120 ml 0 ml Physical Exam General: Alert, Oriented X3, Cooperative, No acute distress Heart: Regular rate (SR with first degree AV block) Lungs: Crackles Extremities: No cyanosis, No edema, Other (LBKA. No pitting edema.) Skin: No breakdown, No significant lesion Labs Labs: Laboratory Tests Test 06/24/21 11:45 Glucose (Fingerstick) 119 mg/dL (70-99) Assessment and Plan Assessmemt and Plan Problems Medical Problems: (1) Acute exacerbation of CHF (congestive heart failure) Status: Acute (2) Hypomagnesemia Status: Acute Comment Review of Relevant I have reviewed the following items coral (where applicable) has been applied. Justifications for Admission Other Justification Acute hypoxic respiratory failure, acute CHF exacerbation RENETTA DUTTON MD Jun 24, 2021 11:50
[2021-06-24 15:15] VITALS: BP 171/59
[2021-06-24 19:36] VITALS: BP 193/88
[2021-06-24] MEDS: ATORVASTATIN CALCIUM 40 MG TABLET. PO SCH (20:09)
[2021-06-24 23:07] VITALS: BP 132/62
[2021-06-25 02:33] VITALS: BP 149/65
[2021-06-25 07:00] VITALS: BP 175/79
[2021-06-25] MEDS: IPRATRPIUM/ALBUTEROL 0.5/2.5MG 3 ML NEBU. NEB SCH ×3 (07:29→16:04)
[2021-06-25] MEDS: BUDESONIDE 0.5 MG/2 ML NEBU. NEB SCH (07:29)
[2021-06-25] MEDS: ASPIRIN ENTERIC COATED 81 MG TABLET.DR. PO SCH (08:38)
[2021-06-25] MEDS: CARVEDILOL 12.5 MG TABLET. PO SCH ×2 (08:40→17:03)
[2021-06-25] MEDS: FUROSEMIDE 40 MG TABLET. PO SCH (08:40)
[2021-06-25] MEDS: CLOPIDOGREL BISULFATE 75 MG TABLET PO SCH (08:40)
[2021-06-25] MEDS: POTASSIUM CHLORIDE 10 MEQ TABLET.ER. PO SCH (08:40)
[2021-06-25] MEDS: ISOSORBIDE MONONITRATE ER 30 MG TAB.ER.24H PO SCH (08:41)
[2021-06-25] MEDS: LOSARTAN POTASSIUM 50 MG TABLET. PO SCH (08:41)
--- NOTE | 2021-06-25 10:12 | PDOC ---
PROGRESS NOTES Date of Service: DATE: 06/25/21 TIME: 10:11 Chief Complaint Chief Complaint 1. Acute on chronic combined diastolic/systolic CHF: likely from labile BP 2. ICM; Recent echo with LVEF 25%. 3. HTN: labile 4. Mild troponin elevation; highest 0.33. suspect type 2 5. CAD; recent cath showed two-vessel disease with severe in-stent restenosis of the proximal LAD and distal LAD stents. S/p successful balloon angioplasty of the proximal and distal LAD stents 6. CKD; Cr stable 7. Diabetes, II 8. COPD History of Present Illness History of Present Illness 06/18/2021 No acute events overnight. Patient seen and examined bedside. Patient complains of feeling extremely weak. Cardiology has evaluated feels like he is well compensated. Upon looking back at his weight about 6 months ago he was at 88 kg and today he is 92 kg. Unsure of the accuracy of the weights however we will continue with low-salt diet and fluid restriction. Continue with IV diuresis. Patient's chart, labs, images were reviewed and discussed with RN 06/19/2021 No acute events overnight. Patient saturating 96% on 2 L nasal cannula. Patient is very close to his dry weight but he continues to have some dyspnea upon rest. He does feel somewhat improved compared to yesterday. According to the patient urine output has been minimal. He is negative and his urine output in the last 24 hours of 585 cc. Day before he did have 1.8 L urine output. We will continue to observe as patient is a high risk for readmission. Continue blood pressure control after recent medication change. 06/20/21 No acute events overnight. Pt resting comfortably on bed. Will consider hospice as an option for the patient. 06/21/2021 No acute events overnight. Patient continues to feel very fatigued and lethargic. Family meeting held last night at 630 with cardiology and decision was made to proceed with hospice. Pending hospice placement at this time. Patient's chart, labs, images were reviewed and discussed with RN In addition to my E/M visit, advance care planning done with A total time of 20 minutes was spent from 950 to 1010 face to face in discussion with the patient regarding their goals of care, CODE STATUS. 06/22/2021 No acute events overnight. Pending hospice meeting for home with hospice versus long-term care. Patient's chart, labs, images were reviewed and discussed with RN 06/23/2021 No acute events overnight. Patient seen and examined bedside and resting comfortably. Pending hospice placement. This will be either inpatient hospice versus home hospice. Will discuss further with hospitalist Mike who is discussing with the family on how they will arrange this. Patient's chart, lab s, images were reviewed and discussed with RN 06/24/2021 No acute events overnight. Patient seen and examined resting in bed again. Pending hospice placement. Patient's chart, labs, images were reviewed and discussed with RN 06/25/2021 Acute on chronic combined diastolic/systolic CHF: likely from labile BP ICM; Recent echo with LVEF 25%. HTN: labile Mild troponin elevation; highest 0.33. suspect type 2 CAD; recent cath showed two-vessel disease with severe in-stent restenosis of the proximal LAD and distal LAD stents. S/p successful balloon angioplasty of the proximal and distal LAD stents CKD; Cr stable Diabetes, II COPD D/C HOME WITH HOSPICE No acute events overnight. D/C PLANNING 33 MIN Patient seen and examined resting in bed hospice placement. D/W SOCIAL WORK Patient's chart, labs, images were reviewed and discussed with RN Vitals Vitals Vital Signs Date Time Temp Pulse Resp B/P (MAP) Pulse Ox O2 Delivery O2 Flow Rate FiO2 06/25/21 08:41 66 175/79 06/25/21 07:30 99 Nasal Cannula 2.0 06/25/21 07:00 98.0 16 98.0 Physical Exam General: Alert, Oriented X3, Cooperative, No acute distress Heart: Regular rate (SR with first degree AV block) Lungs: Clear, Crackles Abdomen: Normal bowel sounds, Soft, No tenderness Extremities: No clubbing, No cyanosis, No edema, Other (LBKA. No pitting edema.) Skin: No breakdown, No significant lesion Labs LABS talk about your own wishes for healthcare in case youre ever not able to tell your loved ones or healthcare team what your wishes are. If you became really sick tomorrow, would your loved ones or healthcare team know what your wishes were? Here are some examples of different sets of goals and health care directives for your conversations: My wish is to use all medical therapies including resuscitation (such as CPR) and artificial life-sustaining treatments (such as machines and medicine) in an intensive care unit, to keep me alive if at all possible. My wish is to live as long as possible, but I dont want attempts to bring me back to life if my heart and breathing stop. I would like full medical care but without using resuscitation or artificial life-sustaining intensive treatments, if these are unlikely to make me live longer or restore me to a certain quality of life. I will accept treatments that try to fix medical problems, but if Im not getting better or going to have a certain quality of life, I would want to switch to focusing only on my comfort and letting my happen naturally. My wish is for healthcare to focus on my comfort and lessen suffering. I would like medical care that focuses only on my quality of life and that allows me to naturally. Consider: What does a good quality of life mean for me? For many people, it is the ability to live independently and tell their own story. I may define it differently. Under what circumstances would I not want to be kept alive by medical treatments, resuscitation, or intensive care? What kind of changes to my health or life might make me change my mind? If I clearly am facing the last chapter of my life, how do I want the story to end? Who do I want to speak for me if I cant speak for myself? Do they understand my preferences? Are they willing to assume the role of my Durable Power of Gun Numberer? Can I change my Goals of Care Designation? Yes, your Goals of Care Designation can be changed at any time. It should be reviewed if: your health condition changes your circumstances change (such as new understanding) you are transferred or admitted to another healthcare setting dpoa review, to pt portal 18 min and question review Laboratory Tests Test 06/24/21 11:45 Glucose (Fingerstick) 119 mg/dL (70-99) Assessment and Plan Assessmemt and Plan Problems Medical Problems: (1) Acute exacerbation of CHF (congestive heart failure) Status: Acute (2) Hypomagnesemia Status: Acute Comment Review of Relevant I have reviewed the following items coral (where applicable) has been applied. Labs Laboratory Tests Test 06/24/21 11:45 Glucose (Fingerstick) 119 mg/dL (70-99) Laboratory Tests Test 06/24/21 11:45 Glucose (Fingerstick) 119 mg/dL (70-99) Medications Current Medications Magnesium Sulfate 50 ml @ 25 mls/hr 1X ONCE IV Last administered on 06/15/21 03:23; Start 06/15/21 at 03:00; Stop 06/15/21 at 04:59; Status DC Ondansetron HCl (Zofran) 4 mg PRN Q8HRS PRN IVP NAUSEA/VOMITING; Start 06/15/21 at 04:30; Stop 06/16/21 at 04:29; Status DC Furosemide (Lasix) 60 mg 1X ONCE IVP Last administered on 06/15/21 05:57; Start 06/15/21 at 04:30; Stop 06/15/21 at 04:35; Status DC Aspirin (Ecotrin) 81 mg DAILY PO Last administered on 06/25/21 08:38; Start 06/15/21 at 11:00 Atorvastatin Calcium (Lipitor) 40 mg QHS PO Last administered on 06/24/21 20:09; Start 06/15/21 at 21:00 Carvedilol (Coreg) 6.25 mg BIDWMEALS PO Last administered on 06/15/21 10:32; Start 06/15/21 at 10:30; Stop 06/15/21 at 11:32; Status DC Clopidogrel Bisulfate (Plavix) 75 mg DAILY PO Last administered on 06/25/21 08:40; Start 06/15/21 at 11:00 Hydralazine HCl (Apresoline) 75 mg BID PO Last administered on 06/15/21 11:23; Start 06/15/21 at 11:00; Stop 06/15/21 at 11:32; Status DC Potassium Chloride (Klor-Con) 10 meq DAILY PO Last administered on 06/25/21 08:40; Start 06/15/21 at 11:00 Isosorbide Mononitrate (Imdur) 60 mg DAILY PO Last administered on 06/25/21 08:41; Start 06/15/21 at 11:00 Hydralazine HCl (Apresoline Inj) 10 mg PRN Q4HRS PRN IVP ELEVATED BP, SEE COMMENTS Last administered on 06/21/21 03:20; Start 06/15/21 at 10:00 Carvedilol (Coreg) 12.5 mg BIDWMEALS PO Last administered on 06/25/21 08:40; Start 06/15/21 at 17:00 Hydralazine HCl (Apresoline) 100 mg BID PO Last administered on 06/18/21at 08:04; Start 06/15/21 at 21:00; Stop 06/18/21 at 12:52; Status DC Furosemide (Lasix) 40 mg DAILY PO Last administered on 06/16/21at 09:01; Start 06/16/21 at 09:00; Stop 06/16/21 at 14:04; Status DC Carvedilol (Coreg) 6.25 mg 1X ONCE PO ; Start 06/15/21 at 11:45; Stop 06/15/21 at 11:46; Status DC Furosemide (Lasix) 40 mg 1X ONCE IVP Last administered on 06/16/21at 14:36; Start 06/16/21 at 14:30; Stop 06/16/21 at 14:31; Status DC Furosemide (Lasix) 40 mg DAILY IVP Last administered on 06/19/21at 09:12; Start 06/17/21 at 09:00; Stop 06/19/21 at 15:33; Status DC Albuterol/ Ipratropium (Duoneb) 3 ml RTQID NEB Last administered on 06/25/21at 07:29; Start 06/18/21 at 12:00 Hydralazine HCl (Apresoline) 100 mg TID PO Last administered on 06/25/21at 08:39; Start 06/18/21 at 14:00 Budesonide (Pulmicort) 0.5 mg RTBID NEB Last administered on 06/25/21at 07:29; Start 06/18/21 at 20:00 Furosemide (Lasix) 40 mg DAILY PO Last administered on 06/25/21at 08:40; Start 06/20/21 at 09:00 Losartan Potassium (Cozaar) 50 mg DAILY PO Last administered on 06/21/21at 08:33; Start 06/19/21 at 16:00; Stop 06/21/21 at 13:54; Status DC Losartan Potassium (Cozaar) 100 mg DAILY PO Last administered on 06/25/21at 08:41; Start 06/22/21 at 09:00 Losartan Potassium (Cozaar) 50 mg 1X ONCE PO Last administered on 06/21/21at 14:07; Start 06/21/21 at 14:00; Stop 06/21/21 at 14:01; Status DC Active Scripts Active Duoneb 0.5-3(2.5) Mg/3 Ml (Albuterol/Ipratropium) 3 Ml Ampul.neb 3 Ml NEB RTQID 30 Days Budesonide 0.5 Mg/2 Ml Ampul.neb 0.5 Mg NEB RTBID 30 Days Isosorbide Mononitrate Er (Isosorbide Mononitrate) 60 Mg Tab.er.24h 1 Tab PO DAILY 30 Days Furosemide 40 Mg Tablet 40 Mg PO QD Hydralazine Hcl 25 Mg Tablet 75 Mg PO BID 30 Days Klor-Con 10 (Potassium Chloride) 10 Meq Tablet.er 1 Tab PO DAILY 30 Days Lipitor (Atorvastatin Calcium) 40 Mg Tablet 1 Tab PO QHS 30 Days Fluoxetine Hcl 20 Mg Capsule 20 Mg PO DAILY 30 Days Carvedilol (Carvedilol) 6.25 Mg Tablet 6.25 Mg PO BIDWMEALS 30 Days Clopidogrel (Clopidogrel Bisulfate) 75 Mg Tablet 1 Tab PO DAILY 30 Days Reported Levemir (Insulin Detemir) 100 Unit/1 Ml Vial 12 Unit SQ BID Amlodipine Besylate 10 Mg Tablet 10 Mg PO DAILY Aspirin Ec (Aspirin) 81 Mg Tablet.dr 1 Tab PO DAILY Omeprazole 20 Mg Capsule.dr 20 Mg PO DAILY Flomax (Tamsulosin Hcl) 0.4 Mg Cap.er.24h 0.4 Mg PO DAILY Vitals/I & O Vital Sign - Last 24 Hours 06/24/21 06/24/21 06/24/21 06/24/21 10:40 12:29 15:15 15:52 Temp 98.6 98.8 98.6 98.8 Pulse 69 63 64 Resp 20 20 B/P (MAP) 144/65 (91) 171/59 (96) 171/59 Pulse Ox 95 99 98 O2 Delivery Nasal Cannula Nasal Cannula Nasal Cannula O2 Flow Rate 2.0 2.0 2.0 06/24/21 06/24/21 06/24/21 06/24/21 16:54 17:13 19:36 20:00 Temp 97.8 97.8 Pulse 64 67 Resp 16 B/P (MAP) 171/59 193/88 (123) Pulse Ox 100 98 O2 Delivery Nasal Cannula Nasal Cannula Nasal Cannula O2 Flow Rate 2.0 2.0 2.0 06/24/21 06/24/21 06/24/21 06/25/21 20:09 21:05 23:07 02:33 Temp 97.9 98.1 97.9 98.1 Pulse 67 58 58 Resp 16 16 B/P (MAP) 193/88 132/62 (85) 149/65 (93) Pulse Ox 100 98 97 O2 Delivery Nasal Cannula Nasal Cannula Nasal Cannula O2 Flow Rate 2.0 2.0 2.0 06/25/21 06/25/21 06/25/21 06/25/21 07:00 07:30 08:39 08:40 Temp 98.0 98.0 Pulse 66 62 66 Resp 16 B/P (MAP) 175/79 (111) 175/79 175/79 Pulse Ox 97 99 O2 Delivery Nasal Cannula Nasal Cannula O2 Flow Rate 2.0 2.0 06/25/21 06/25/21 08:41 08:41 Pulse 66 66 B/P (MAP) 175/79 175/79 Intake and Output 06/24/21 06/24/21 06/25/21 15:00 23:00 07:00 Intake Total 300 ml 0 ml Output Total 275 ml 200 ml Balance -275 ml 100 ml 0 ml Justicifation of Admission Dx: Justifications for Admission: Justification of Admission Dx: Yes MARGARITO CABEZAS MD Jun 25, 2021 10:11
--- NOTE | 2021-06-25 10:53 | PDOC3 ---
Discharge Summary Date of Admission: Jun 15, 2021 Date of Discharge: Jun 25, 2021 Follow-Up: 1-2 days Admitting Diagnosis comment: HPI HISTORY OF PRESENT ILLNESS: The patient is a pleasant 70-year-old male who presents with shortness of breath. He has known history of heart failure and coronary artery disease. While in the ER, we have noticed that his BNP is high at 12,399. His troponin is also high at 0.3. The patient has acute on chronic systolic, diastolic heart failure. We are going to admit the patient, consult Cardiology and get him diuresed. PAST MEDICAL HISTORY: CAD, CHF, hypertension, hyperlipidemia, obstructive sleep apnea, COPD, neuropathy, GERD, anemia, osteoarthritis, depression, chronic renal insufficiency, BPH, diabetes, osteopenia and rheumatoid arthritis, left [id number] amputation, cataract removal and tonsillectomy. ALLERGIES: None. FAMILY HISTORY: Diabetes. SOCIAL HISTORY: He does not drink, smoke or take drugs. MEDICATIONS: Reviewed, please refer to the MRAD. COMPLICATIONS NONE D/C HOME WITH HOSPICE PROGNOSIS POOR DISCHARGE DX Chief Complaint 1. Acute on chronic combined diastolic/systolic CHF: likely from labile BP 2. ICM; Recent echo with LVEF 25%. 3. HTN: labile 4. Mild troponin elevation; highest 0.33. suspect type 2 5. CAD; recent cath showed two-vessel disease with severe in-stent restenosis of the proximal LAD and distal LAD stents. S/p successful balloon angioplasty of the proximal and distal LAD stents 6. CKD; Cr stable 7. Diabetes, II 8. COPD History of Present Illness History of Present Illness 06/18/2021 No acute events overnight. Patient seen and examined bedside. Patient complains of feeling extremely weak. Cardiology has evaluated feels like he is well compensated. Upon looking back at his weight about 6 months ago he was at 88 kg and today he is 92 kg. Unsure of the accuracy of the weights however we will continue with low-salt diet and fluid restriction. Continue with IV diuresis. Patient's chart, labs, images were reviewed and discussed with RN 06/19/2021 No acute events overnight. Patient saturating 96% on 2 L nasal cannula. Patient is very close to his dry weight but he continues to have some dyspnea upon rest. He does feel somewhat improved compared to yesterday. According to the patient urine output has been minimal. He is negative and his urine output in the last 24 hours of 585 cc. Day before he did have 1.8 L urine output. We will continue to observe as patient is a high risk for readmission. Continue blood pressure control after recent medication change. 06/20/21 No acute events overnight. Pt resting comfortably on bed. Will consider hospice as an option for the patient. 06/21/2021 No acute events overnight. Patient continues to feel very fatigued and lethargic. Family meeting held last night at 630 with cardiology and decision was made to proceed with hospice. Pending hospice placement at this time. Patient's chart, labs, images were reviewed and discussed with RN In addition to my E/M visit, advance care planning done with A total time of 20 minutes was spent from 950 to 1010 face to face in discussion with the patient regarding their goals of care, CODE STATUS. 06/22/2021 No acute events overnight. Pending hospice meeting for home with hospice versus long-term care. Patient's chart, labs, images were reviewed and discussed with RN 06/23/2021 No acute events overnight. Patient seen and examined bedside and resting comfortably. Pending hospice placement. This will be either inpatient hospice versus home hospice. Will discuss further with hospitalist Mike who is discussing with the family on how they will arrange this. Patient's chart, labs, images were reviewed and discussed with RN 06/24/2021 No acute events overnight. Patient seen and examined resting in bed again. Pending hospice placement. Patient's chart, labs, images were reviewed and discussed with RN 06/25/2021 Acute on chronic combined diastolic/systolic CHF: likely from labile BP ICM; Recent echo with LVEF 25%. HTN: labile Mild troponin elevation; highest 0.33. suspect type 2 CAD; recent cath showed two-vessel disease with severe in-stent restenosis of the proximal LAD and distal LAD stents. S/p successful balloon angioplasty of the proximal and distal LAD stents CKD; Cr stable Diabetes, II COPD D/C HOME WITH HOSPICE No acute events overnight. D/C PLANNING 33 MIN Patient seen and examined resting in bed hospice placement. D/W SOCIAL WORK Patient's chart, labs, images were reviewed and discussed with RN Vitals Vitals Vital Signs Date Time Temp Pulse Resp B/P (MAP) Pulse Ox O2 Delivery O2 Flow Rate FiO2 06/25/21 08:41 66 175/79 06/25/21 07:30 99 Nasal Cannula 2.0 06/25/21 07:00 98.0 16 98.0 Physical Exam General: Alert, Oriented X3, Cooperative, No acute distress Heart: Regular rate (SR with first degree AV block) Lungs: Clear, Crackles Abdomen: Normal bowel sounds, Soft, No tenderness Extremities: No clubbing, No cyanosis, No edema, Other (LBKA. No pitting edema.) Skin: No breakdown, No significant lesion FINAL DIAGNOSIS Problems Medical Problems: (1) Acute exacerbation of CHF (congestive heart failure) Status: Acute (2) Hypomagnesemia Status: Acute Brief Hospital Course Mr. Monroe is a 71 old [sex] who presented with [ ] CONDITION AT DISCHARGE: Comment (GUARDED) Discharge Medications Current Medications Magnesium Sulfate 50 ml @ 25 mls/hr 1X ONCE IV Last administered on 06/15/21at 03:23; Start 06/15/21 at 03:00; Stop 06/15/21 at 04:59; Status DC Ondansetron HCl (Zofran) 4 mg PRN Q8HRS PRN IVP NAUSEA/VOMITING; Start 06/15/21 at 04:30; Stop 06/16/21 at 04:29; Status DC Furosemide (Lasix) 60 mg 1X ONCE IVP Last administered on 06/15/21at 05:57; Start 06/15/21 at 04:30; Stop 06/15/21 at 04:35; Status DC Aspirin (Ecotrin) 81 mg DAILY PO Last administered on 06/25/21at 08:38; Start 06/15/21 at 11:00 Atorvastatin Calcium (Lipitor) 40 mg QHS PO Last administered on 06/24/21at 20:09; Start 06/15/21 at 21:00 Carvedilol (Coreg) 6.25 mg BIDWMEALS PO Last administered on 06/15/21at 10:32; Start 06/15/21 at 10:30; Stop 06/15/21 at 11:32; Status DC Clopidogrel Bisulfate (Plavix) 75 mg DAILY PO Last administered on 06/25/21at 08:40; Start 06/15/21 at 11:00 Hydralazine HCl (Apresoline) 75 mg BID PO Last administered on 06/15/21at 11:23; Start 06/15/21 at 11:00; Stop 06/15/21 at 11:32; Status DC Potassium Chloride (Klor-Con) 10 meq DAILY PO Last administered on 06/25/21at 08:40; Start 06/15/21 at 11:00 Isosorbide Mononitrate (Imdur) 60 mg DAILY PO Last administered on 06/25/21at 08:41; Start 06/15/21 at 11:00 Hydralazine HCl (Apresoline Inj) 10 mg PRN Q4HRS PRN IVP ELEVATED BP, SEE COMMENTS Last administered on 06/21/21at 03:20; Start 06/15/21 at 10:00 Carvedilol (Coreg) 12.5 mg BIDWMEALS PO Last administered on 06/25/21at 08:40; Start 06/15/21 at 17:00 Hydralazine HCl (Apresoline) 100 mg BID PO Last administered on 06/18/21at 08:04; Start 06/15/21 at 21:00; Stop 06/18/21 at 12:52; Status DC Furosemide (Lasix) 40 mg DAILY PO Last administered on 06/16/21at 09:01; Start 06/16/21 at 09:00; Stop 06/16/21 at 14:04; Status DC Carvedilol (Coreg) 6.25 mg 1X ONCE PO ; Start 06/15/21 at 11:45; Stop 06/15/21 at 11:46; Status DC Furosemide (Lasix) 40 mg 1X ONCE IVP Last administered on 06/16/21at 14:36; Start 06/16/21 at 14:30; Stop 06/16/21 at 14:31; Status DC Furosemide (Lasix) 40 mg DAILY IVP Last administered on 06/19/21at 09:12; Start 06/17/21 at 09:00; Stop 06/19/21 at 15:33; Status DC Albuterol/ Ipratropium (Duoneb) 3 ml RTQID NEB Last administered on 06/25/21at 07:29; Start 06/18/21 at 12:00 Hydralazine HCl (Apresoline) 100 mg TID PO Last administered on 06/25/21at 08:39; Start 06/18/21 at 14:00 Budesonide (Pulmicort) 0.5 mg RTBID NEB Last administered on 06/25/21at 07:29; Start 06/18/21 at 20:00 Furosemide (Lasix) 40 mg DAILY PO Last administered on 06/25/21at 08:40; Start 06/20/21 at 09:00 Losartan Potassium (Cozaar) 50 mg DAILY PO Last administered on 06/21/21at 08:33; Start 06/19/21 at 16:00; Stop 06/21/21 at 13:54; Status DC Losartan Potassium (Cozaar) 100 mg DAILY PO Last administered on 06/25/21at 08:41; Start 06/22/21 at 09:00 Losartan Potassium (Cozaar) 50 mg 1X ONCE PO Last administered on 06/21/21at 14:07; Start 06/21/21 at 14:00; Stop 06/21/21 at 14:01; Status DC Active Scripts Active Duoneb 0.5-3(2.5) Mg/3 Ml (Albuterol/Ipratropium) 3 Ml Ampul.neb 3 Ml NEB RTQID 30 Days Budesonide 0.5 Mg/2 Ml Ampul.neb 0.5 Mg NEB RTBID 30 Days Isosorbide Mononitrate Er (Isosorbide Mononitrate) 60 Mg Tab.er.24h 1 Tab PO DAILY 30 Days Furosemide 40 Mg Tablet 40 Mg PO QD Hydralazine Hcl 25 Mg Tablet 75 Mg PO BID 30 Days Klor-Con 10 (Potassium Chloride) 10 Meq Tablet.er 1 Tab PO DAILY 30 Days Lipitor (Atorvastatin Calcium) 40 Mg Tablet 1 Tab PO QHS 30 Days Fluoxetine Hcl 20 Mg Capsule 20 Mg PO DAILY 30 Days Carvedilol (Carvedilol) 6.25 Mg Tablet 6.25 Mg PO BIDWMEALS 30 Days Clopidogrel (Clopidogrel Bisulfate) 75 Mg Tablet 1 Tab PO DAILY 30 Days Reported Levemir (Insulin Detemir) 100 Unit/1 Ml Vial 12 Unit SQ BID Amlodipine Besylate 10 Mg Tablet 10 Mg PO DAILY Aspirin Ec (Aspirin) 81 Mg Tablet.dr 1 Tab PO DAILY Omeprazole 20 Mg Capsule.dr 20 Mg PO DAILY Flomax (Tamsulosin Hcl) 0.4 Mg Cap.er.24h 0.4 Mg PO DAILY Vital Signs Vital Signs Date Time Temp Pulse Resp B/P (MAP) Pulse Ox O2 Delivery O2 Flow Rate FiO2 06/25/21 08:41 66 175/79 06/25/21 07:30 99 Nasal Cannula 2.0 06/25/21 07:00 98.0 16 98.0 Labs Laboratory Tests Test 06/24/21 11:45 Glucose (Fingerstick) 119 mg/dL (70-99) Laboratory Tests Test 06/24/21 11:45 Glucose (Fingerstick) 119 mg/dL (70-99) Allergies Allergies Coded Allergies Type Severity Reaction Last Updated Verified No Known Drug Allergies 06/28/20 No Disposition/Orders: D/C to Home w/ Hospice Justicifation of Admission Dx: Justifications for Admission: Justification of Admission Dx: Yes MARGARITO CABEZAS MD Jun 25, 2021 10:53
[2021-06-25] MEDS ORDERED: LOSA-73 PO (10:56)
--- NOTE | 2021-06-25 10:58 | SNU/HH DC ---
DISCHARGE ORDERS DISCHARGE INFORMATION: DISCHARGE DATE: Jun 25, 2021 FINAL DIAGNOSIS Problems Medical Problems: (1) Acute exacerbation of CHF (congestive heart failure) Status: Acute (2) Hypomagnesemia Status: Acute CONDITION ON DISCHARGE: Guarded CODE STATUS: Code Status: DNR/DNI INTERMEDIATE: SNF STAY <30 DAYS: No HOSPICE: HOSPICE: Yes HOSPICE EVAL & TREAT: Yes LTAC: ADMIT TO LTAC: No POST DISCHARGE ORDERS: ACTIVITY ORDERS: Resume previous activity WEIGHT BEARING STATUS: No restrictions BATHING ORDERS: No Tub Bath until see Dr. PATEL AFTER DISCHARGE: Cardiac WOUND/INCISION CARE: Other, see below CHECKS AFTER DISCHARGE: CHECKS AFTER DISCHARGE: Check blood press - daily, Check blood sugar, ac/hs, Weigh Yourself Daily FOLLOW-UP: PHYSICIAN FOLLOW-UP: HOSPICE PCP TODAY TREATMENT/EQUIPMENT ORDERS: ADAPTIVE EQUIPMENT NEEDED: Commode, Front wheeled walker, Land Surveying Survey Worker, Wheelchair RESPIRATORY EQUIPMENT NEEDED: Oxygen Physical Therapy For: Evalulation/Treatment Occupational Therapy For: Evaluation/Treatment Speech Language Pathology For: Evaluation/Treatment DISCHARGE MEDICATIONS: Home Meds Active Scripts Losartan Potassium (COZAAR ) 50 Mg Tablet, 100 MG PO DAILY for BLOOD PRESSURE for 30 Days, #60 TAB Prov:MARGARITO CABEZAS MD 06/25/21 Ipratropium/Albuterol Sulfate (DUONEB 0.5-3(2.5) MG/3 ML) 3 Ml Ampul.neb, 3 ML NEB RTQID for copd for 30 Days, #120 EACH Prov:MARGARITO CABEZAS MD 02/08/21 Budesonide (BUDESONIDE) 0.5 Mg/2 Ml Ampul.neb, 0.5 MG NEB RTBID for copd for 30 Days, #60 EACH Prov:MARGARITO CABEZAS MD 02/08/21 Isosorbide Mononitrate (ISOSORBIDE MONONITRATE ER) 60 Mg Tab.er.24h, 1 TAB PO DAILY for coronary artery disease for 30 Days, #30 TAB 2 Refills Prov:CHAVA BUCHANAN APRN 01/31/21 Furosemide (FUROSEMIDE) 40 Mg Tablet, 40 MG PO QD for diuretic, #30 TAB 1 Refill Prov:SARAH COLLINS MD 12/17/20 Hydralazine Hcl (HYDRALAZINE HCL) 25 Mg Tablet, 75 MG PO BID for BLOOD PRESSURE for 30 Days, #180 TAB Prov:MARGARITO CABEZAS MD 07/17/20 Potassium Chloride (KLOR-CON 10) 10 Meq Tablet.er, 1 TAB PO DAILY for potassium supplement for 30 Days, #30 TAB 2 Refills Prov:SARAH COLLINS MD 07/11/20 Atorvastatin Calcium (LIPITOR) 40 Mg Tablet, 1 TAB PO QHS for cholesterol, CAD for 30 Days, #30 TAB 2 Refills Prov:CHAVA BUCHANAN APRN 07/04/20 Fluoxetine Hcl (FLUOXETINE HCL) 20 Mg Capsule, 20 MG PO DAILY for depression for 30 Days, #30 CAP Prov:RENETTA DUTTON MD 07/04/20 Carvedilol (CARVEDILOL ) 6.25 Mg Tablet, 6.25 MG PO BIDWMEALS for chf for 30 Days, #60 TAB Prov:RENETTA DUTTON MD 07/04/20 Clopidogrel Bisulfate (CLOPIDOGREL) 75 Mg Tablet, 1 TAB PO DAILY for blood thinner for 30 Days, #30 TAB 1 Refill Prov:RENETTA DUTTON MD 07/04/20 Reported Medications Aspirin (ASPIRIN EC) 81 Mg Tablet.dr, 1 TAB PO DAILY for blood thinner, #30 TAB 3 Refills 07/04/20 Omeprazole (OMEPRAZOLE) 20 Mg Capsule.dr, 20 MG PO DAILY for gerd, CAP 06/28/20 Tamsulosin Hcl (FLOMAX) 0.4 Mg Cap.er.24h, 0.4 MG PO DAILY for retention, TAB 06/28/20 Discontinued Reported Medications Insulin Detemir (LEVEMIR) 100 Unit/1 Ml Vial, 12 UNIT SQ BID for blood sugar, VIAL 07/18/20 Amlodipine Besylate (AMLODIPINE BESYLATE) 10 Mg Tablet, 10 MG PO DAILY for heart/blood pressure, TAB 07/04/20 MARGARITO CABEZAS MD Jun 25, 2021 10:58
[2021-06-25 11:00] VITALS: BP 167/78
--- NOTE | 2021-06-25 11:07 | NUR ---
SS following up with discharge planning. SS reviewed pt chart and discussed with pt RN. Pt is currently requiring oxygen at two liters nasal canula. COVID19 negative. Pt has home oxygen. Pt accepted on services with [facility], ; fax [phone]. Hospice was able to contact pt's daughter this morning. Consents signed. Equipment to be delivered this afternoon. Discharge orders and DNR received and phoned and faxed to [facility]. Pt will discharge today and return to home with hospice. Pt's family to provide transportation. Packet placed on chart. RN notified.
[2021-06-25 15:00] VITALS: BP 151/66
[2021-06-25 17:03] VITALS: BP 151/66
== END 2021-06-25 17:45 | disposition hospice, home (50) | DRG 291 ==
LOC: ER 23:41 → ED HOLD 06-15 04:05 → 6 SOUTH 06-15 15:44
PROVIDERS: ADMIT Internal Medicine; ATTEND Internal Medicine
DX: I13.0 Hypertensive heart and chronic kidney disease with heart failure and stage 1 through stage 4 chronic kidney disease, or unspecified chronic kidney disease (principal); I50.43 Acute on chronic combined systolic (congestive) and diastolic (congestive) heart failure; E11.22 Type 2 diabetes mellitus with diabetic chronic kidney disease; Z66 Do not resuscitate; Z51.5 Encounter for palliative care; E78.00 Pure hypercholesterolemia, unspecified; E78.5 Hyperlipidemia, unspecified; E83.42 Hypomagnesemia; I25.10 Atherosclerotic heart disease of native coronary artery without angina pectoris; J44.9 Chronic obstructive pulmonary disease, unspecified; M06.9 Rheumatoid arthritis, unspecified; N18.9 Chronic kidney disease, unspecified; I25.5 Ischemic cardiomyopathy; N40.0 Benign prostatic hyperplasia without lower urinary tract symptoms; Z20.822 Contact with and (suspected) exposure to COVID-19; F32.9 Major depressive disorder, single episode, unspecified; F41.9 Anxiety disorder, unspecified; G47.33 Obstructive sleep apnea (adult) (pediatric); E11.42 Type 2 diabetes mellitus with diabetic polyneuropathy; K21.9 Gastro-esophageal reflux disease without esophagitis; M19.90 Unspecified osteoarthritis, unspecified site; Z83.3 Family history of diabetes mellitus; Z89.512 Acquired absence of left leg below knee; Z90.49 Acquired absence of other specified parts of digestive tract; Z95.5 Presence of coronary angioplasty implant and graft; I25.2 Old myocardial infarction
CPT/HCPCS: 36415; 71045; 80048; 80053; 82962; 83735; 83880; 84100; 84484; 85025; 87426; 94640; 94760; 96365; J0360; J1940; J3475; U0003; U0005; 99285-25; G0378; J7626

== ENCOUNTER 2021-10-07 16:16 | Observation (INO) | payer MEDICARE ==
[~2021-10-07] VITALS: Ht 182.9 cm; Wt 85.3 kg
[~2021-10-07 16:16] MED LIST changes: -FLUO20CA20 PO; +FLUO20CA22 PO; +LOSA-73 PO
--- NOTE | 2021-10-07 16:58 | PHYS DOC ---
Past Medical History Past Medical History: Anxiety, Arrhythmia, CAD, CHF, Depression, Diabetes-Type II, GERD, High Cholesterol, Hypertension, [place], Other Additional Past Medical Histor: L BKA, PERIPHERAL NEUROPATHY, BPH, AND PULMONARY EDEMA Past Surgical History: Appendectomy, Other Additional Past Surgical Histo: Stents Heart Smoking Status: Never Smoker Alcohol Use: None General Adult EDM: Chief Complaint: WEAKNESS/GENERALIZED HPI: HPI: Patient is a 71-year-old male that presents today via [facility] with weakness. Patient states that over the last couple days has had increased weakness, and has also noticed that his blood pressure has been elevated c urrently is 205/82, patient also has the bottom of his great toe on his right foot is blackened and the toe is reddened itself, and he says that has been going on for about 1 month. Patient denies chest pain or shortness of breath at this time, does have a history of congestive heart failure and coronary disease, also has a history of diabetes with a left BKA and is currently staying with his daughter in her home. Patient does state his blood sugars have been under 200 recently. Review of Systems: Review of Systems: Constitutional: Denies fever or chills. [] Eyes: Denies change in visual acuity. [] HENT: Denies nasal congestion or sore throat. [] Respiratory: Denies cough or shortness of breath. [] Cardiovascular: Denies chest pain or edema. [] GI: Denies abdominal pain, nausea, vomiting, bloody stools or diarrhea. [] : Denies dysuria. [] Musculoskeletal: Right great toe pressure ulcer Integument: Denies rash. [] Neurologic: Generalized weakness denies headache, focal weakness or sensory changes. [] Endocrine: Denies polyuria or polydipsia. [] Lymphatic: Denies swollen glands. [] Psychiatric: Denies depression or anxiety. [] Heart Score: C/O Chest Pain: N/A Risk Factors: Risk Factors: DM, Current or recent (<one month) smoker, HTN, HLP, family history of CAD, obesity. Risk Scores: Score 0 - 3: 2.5% MACE over next 6 weeks - Discharge Home Score 4 - 6: 20.3% MACE over next 6 weeks - Admit for Clinical Observation Score 7 - 10: 72.7% MACE over next 6 weeks - Early Invasive Strategies Current Medications: Losartan 50 mg once daily Aspirin 81 mg once daily Atorvastatin 40 mg at bedtime Budesonide 0.5/2mL BID Carvedilol 6.25 mg twice daily Plavix 75 mg 1 tablet daily Fluoxetine 20mg take one tablet daily 40 mg once daily Hydralazine 75 mg twice daily DuoNeb 4 times daily Imdur 60 mg once daily Omeprazole 20 mg once daily Potassium chloride 10 mEq once daily Flomax 0.4 mg once daily Oxygen daily Allergies: Allergies: Allergies Coded Allergies Type Severity Reaction Last Updated Verified No Known Drug Allergies 06/28/20 No Physical Exam: PE: Constitutional: Well developed, well nourished, no acute distress, non-toxic appearance. [] HENT: Normocephalic, atraumatic, bilateral external ears normal, oropharynx moist, no oral exudates, nose normal. [] Eyes: PERRLA, EOMI, conjunctiva normal, no discharge. [] Neck: Normal range of motion, no tenderness, supple, no stridor. [] Cardiovascular:Heart rate regular rhythm, no murmur [] Lungs & Thorax: Bilateral breath sounds clear to auscultation [] Abdomen: Bowel sounds normal, soft, no tenderness, no masses, no pulsatile masses. [] Skin: Warm, dry, no erythema, no rash. [] Back: No tenderness, no CVA tenderness. [] Extremities: Left BKA noted, incision well healed, right great toe noted to be blackened on the bottom, cap refill < 2 seconds on toes, decrease sensation noted, [] Neurologic: Alert and oriented X 3, normal motor function, normal sensory f unction, no focal deficits noted. [] Psychologic: Affect normal, judgement normal, mood normal. [] Current Patient Data: Labs: Laboratory Tests Test 10/07/21 17:05 10/07/21 17:43 White Blood Count 8.5 x10^3/uL Red Blood Count 2.79 x10^6/uL Hemoglobin 8.4 g/dL Hematocrit 24.4 % Mean Corpuscular Volume 87 fL Mean Corpuscular Hemoglobin 30 pg Mean Corpuscular Hemoglobin Concent 34 g/dL Red Cell Distribution Width 13.0 % Platelet Count 366 x10^3/uL Neutrophils (%) (Auto) 81 % Lymphocytes (%) (Auto) 9 % Monocytes (%) (Auto) 8 % Eosinophils (%) (Auto) 1 % Basophils (%) (Auto) 1 % Neutrophils # (Auto) 6.9 x10^3/uL Lymphocytes # (Auto) 0.8 x10^3/uL Monocytes # (Auto) 0.7 x10^3/uL Eosinophils # (Auto) 0.1 x10^3/uL Basophils # (Auto) 0.1 x10^3/uL Sodium Level 134 mmol/L Potassium Level 4.2 mmol/L Chloride Level 98 mmol/L Carbon Dioxide Level 30 mmol/L Anion Gap 6 Blood Urea Nitrogen 38 mg/dL Creatinine 1.8 mg/dL Estimated GFR (Cockcroft-Gault) 37.3 BUN/Creatinine Ratio 21 Glucose Level 174 mg/dL Calcium Level 8.3 mg/dL Total Bilirubin 0.4 mg/dL Aspartate Amino Transf (AST/SGOT) 15 U/L Alanine Aminotransferase (ALT/SGPT) 13 U/L Alkaline Phosphatase 93 U/L Troponin I High Sensitivity 399 ng/L QS-Bmm-S-Type Natriuretic Peptide > 61262 pg/mL Total Protein 7.2 g/dL Albumin 2.4 g/dL Albumin/Globulin Ratio 0.5 Influenza Type A Antigen Negative Influenza Type B Antigen Negative SARS-CoV-2 Antigen (Rapid) Negative Current Medications Medications (Trade) Dose Ordered Sig/Ruddy Route PRN Reason Start Time Stop Time Status Last Admin Dose Admin Furosemide (Lasix) 40 mg BID92 IVP 10/08/21 09:00 UNV Furosemide (Lasix) 40 mg 1X ONCE IVP 10/07/21 18:30 10/07/21 18:31 UNV Vital Signs: Vital Signs Date Time Temp Pulse Resp B/P (MAP) Pulse Ox O2 Delivery O2 Flow Rate FiO2 10/07/21 18:45 68 18 231/91 (137) 100 Nasal Cannula 2.0 10/07/21 18:16 59 18 210/124 (152) 99 Nasal Cannula 2.0 10/07/21 17:37 56 18 196/115 (142) 100 Nasal Cannula 2.0 10/07/21 17:00 60 18 220/134 (162) 100 2.0 10/07/21 16:40 64 20 203/81 (121) 100 Nasal Cannula 2.0 10/07/21 16:26 98.5 75 22 179/79 (112) 100 Nasal Cannula 3.0 98.5 Vital Signs Date Time Temp Pulse Resp B/P (MAP) Pulse Ox O2 Delivery O2 Flow Rate FiO2 10/07/21 16:40 64 20 203/81 (121) 100 Nasal Cannula 2.0 10/07/21 16:26 98.5 98.5 EKG: EKG: EKG done at [address] Urbina at 1711 no STEMI sinus rhythm WV interval of 2 66 ms with a QT interval of 460 ms rate of 65 [] Radiology/Procedures: Radiology/Procedures: [REASON: pressure ulcer bottom of foot PROCEDURE: TOES RIGHT AP chest portable 10/07/2021. Reason for exam: Weakness. Comparison is made with an exam of 06/15/2021. There are some increased markings bilaterally that seem more prominent. No consolidation or large effusion is seen. There may be a small amount of subpulmonic fluid. The heart remains enlarged. IMPRESSION: Continued cardiomegaly. Possible small effusions. Possible early infiltrate or edema on each side. Right toes 3 views: Reason for exam: Pressure ulcer. No acute fracture or dislocation is seen. There are mild arthritic changes at the first MTP joint. There is diffuse arterial calcification. No bony destructive process or foreign body is seen. IMPRESSION: No apparent acute bony abnormality. Electronically signed by: Alfredo Pepe Jr., MD (10/07/2021 8:40 PM) [facility] ] Course & Med Decision Making: Course & Med Decision Making Pertinent Labs and Imaging studies reviewed. (See chart for details) 180 called patient's family spoke to Armani who are the daughters they state they sent their father to the hospital because of the right great toe wound, they were informed at that time that he has congestive heart failure and his troponin levels were indeed bumped. Because the patient is on hospice care did discuss the plan of care for him they are requesting patient be admitted to the hospital for further management of congestive heart failure and the wound on his foot. They did request that the patient be a DNR as previously ordered and previous hospitalizations they also are requesting at this time that no surgeries be done without their permission. Spoke to Dr. Meredith with the [facility] physician group and he has agreed to admission. Amrik Disclaimer: Dragon Disclaimer: This electronic medical record was generated, in whole or in part, using a voice recognition dictation system. Departure Departure Impression: Primary Impression: Acute exacerbation of CHF (congestive heart failure) Qualified Codes: I50.9 - Heart failure, unspecified Additional Impressions: Elevated troponin Weakness Pressure ulcer of toe of right foot, unstageable Disposition: ADMITTED INPATIENT Admitting Physician: TRUDI Condition: GUARDED Referrals: YANNICK BAR MD (PCP) YOGI GUDINO APRN Oct 07, 2021 16:58
[2021-10-07 17:12] LABS: BASO # 0.1 x10^3/uL (0.0-0.2); BASO % 1 % (0-3); EOS # 0.1 x10^3/uL (0.0-0.7); EOS % 1 % (0-3); HEMATOCRIT 24.4 % (39.0-53.0); HEMOGLOBIN 8.4 g/dL (13.0-17.5); LYMPH # 0.8 x10^3/uL (1.0-4.8); LYMPH % 9 % (24-48); MEAN CORPUSCULAR HEMOGLOBIN 30 pg (25-35); MEAN CORPUSCULAR HGB CONC 34 g/dL (31-37); MEAN CORPUSCULAR VOLUME 87 fL (79-100); MONO # 0.7 x10^3/uL (0.0-1.1); MONO % 8 % (0-9); NEUT # 6.9 x10^3/uL (1.8-7.7); NEUT % 81 % (31-73); PLATELET COUNT 366 x10^3/uL (140-400); RED BLOOD COUNT 2.79 x10^6/uL (4.30-5.70); WHITE BLOOD COUNT 8.5 x10^3/uL (4.0-11.0)
[2021-10-07 17:23] LABS: CALCIUM 8.3 mg/dL (8.5-10.1); CREATININE 1.8 mg/dL (0.7-1.3); GFR 37.3; POTASSIUM 4.2 mmol/L (3.5-5.1)
[2021-10-07 17:29] LABS: ALBUMIN 2.4 g/dL (3.4-5.0); ALBUMIN/GLOBULIN RATIO 0.5 (1.0-1.7); TOTAL BILIRUBIN 0.4 mg/dL (0.2-1.0); TOTAL PROTEIN 7.2 g/dL (6.4-8.2)
[2021-10-07 18:05] LABS: INFLUENZA A PATIENT NEGATIVE (NEGATIVE); INFLUENZA B PATIENT NEGATIVE (NEGATIVE)
--- NOTE | 2021-10-07 18:21 | EKG ---
[facility] [address] [place] [address] Test Date: 2021-10-07 Test Time: 17:08:02 Pat Name: JOVANNI SOLIS Department: Room: Gender: M Amalgamator: : 1950 Requested By: YOGI GUDINO Order Number: [id number] Reading MD: Derrek Melo MD Measurements Intervals [place] Rate: 65 P: 0 MD: 266 QRS: -34 QRSD: 94 T: 31 QT: 442 QTc: 460 Interpretive Statements SINUS RHYTHM 1ST DEGREE AVB PAC Electronically Signed On 10-08-2021 9:19:41 VAN LOADER by Derrek eMlo MD
[2021-10-07] MEDS ORDERED: FUROSEMIDE 40 MG/4 ML VIAL. IVP ONE (18:30)
[2021-10-07] MEDS: BUDESONIDE 0.5 MG/2 ML NEBU. NEB SCH (19:33)
[2021-10-07] MEDS: IPRATRPIUM/ALBUTEROL 0.5/2.5MG 3 ML NEBU. NEB SCH (19:33)
--- NOTE | 2021-10-07 19:37 | PDOC1 ---
History and Physical Date of Admission Date of Admission DATE: 10/07/21 TIME: 19:30 Source Source: Chart review, Patient History of Present Illness History of Present Illness MR. Quan is a 71-year-old male, he called ambulance [facility] for shortness of breath and wweakenss. He was here in june, and DC then on hospice for his CHF. Recently now noted over the last couple days has had increased weakness, with increased blood pressure and currently is 205/82. Also, he complains of his right great toe on his right foot is blackened and the toe is reddened itself, and he says that has been going on for about 1 month Some dyspnea and some LE edema, IV lasix given in ER already. He does have a history of congestive heart failure and coronary disease, also has a history of diabetes with a left BKA and is currently staying with his daughter in her home. Patient does state his blood sugars have been under 200 recently. Past Medical History Cardiovascular: CAD, HTN, Hyperlipidemia Pulmonary: Other CENTRAL NERVOUS SYSTEM: Periperal neuropathy GI: GERD Heme/Onc: No pertinent hx Hepatobiliary: No pertinent hx Psych: Depression Rheumatologic: Rheumatoid arthritis Infectious disease: Other Renal/: Benign prostatic enlarg. Endocrine: Osteopenia Past Surgical History Past Surgical History: Cataract Removal, Tonsillectomy, Other Family History Family History: Diabetes Social History Smoke: No ALCOHOL: none Drugs: None Current Problem List Problem List Problems Medical Problems: (1) Acute exacerbation of CHF (congestive heart failure) Status: Acute (2) Elevated troponin Status: Acute (3) Pressure ulcer of toe of right foot, unstageable Status: Acute (4) Weakness Status: Acute Current Medications Current Medications Current Medications Furosemide (Lasix) 40 mg BID92 IVP ; Start 10/08/21 at 09:00 Furosemide (Lasix) 40 mg 1X ONCE IVP Last administered on 10/07/21at 18:42; Start 10/07/21 at 18:30; Stop 10/07/21 at 18:31; Status DC Active Scripts Active Cozaar (Losartan Potassium) 50 Mg Tablet 100 Mg PO DAILY 30 Days Duoneb 0.5-3(2.5) Mg/3 Ml (Albuterol/Ipratropium) 3 Ml Ampul.neb 3 Ml NEB RTQID 30 Days Budesonide 0.5 Mg/2 Ml Ampul.neb 0.5 Mg NEB RTBID 30 Days Isosorbide Mononitrate Er (Isosorbide Mononitrate) 60 Mg Tab.er.24h 1 Tab PO DAILY 30 Days Furosemide 40 Mg Tablet 40 Mg PO QD Hydralazine Hcl 25 Mg Tablet 75 Mg PO BID 30 Days Klor-Con 10 (Potassium Chloride) 10 Meq Tablet.er 1 Tab PO DAILY 30 Days Lipitor (Atorvastatin Calcium) 40 Mg Tablet 1 Tab PO QHS 30 Days Fluoxetine Hcl 20 Mg Capsule 20 Mg PO DAILY 30 Days Carvedilol (Carvedilol) 6.25 Mg Tablet 6.25 Mg PO BIDWMEALS 30 Days Clopidogrel (Clopidogrel Bisulfate) 75 Mg Tablet 1 Tab PO DAILY 30 Days Reported Aspirin Ec (Aspirin) 81 Mg Tablet.dr 1 Tab PO DAILY Omeprazole 20 Mg Capsule.dr 20 Mg PO DAILY Flomax (Tamsulosin Hcl) 0.4 Mg Cap.er.24h 0.4 Mg PO DAILY Allergies Allergies: Coded Allergies: No Known Drug Allergies (Unverified , 06/28/20) ROS General: YES: Fatigue; No: Chills, Night Sweats, Malaise, Appetite, Other PSYCHOLOGICAL ROS: YES: Anxiety, Sleep disturbances; No: Behavioral Disorder, Concentration difficultie, Decreased libido, Depression, Disorientation, Hallucinations, Hostility, Irritablity, Memory difficulties, Mood Swings, Obsessive thoughts, Physical abuse, Sexual abuse, Suicidal ideation, Other Eyes: No Blurry vision, No Decreased vision, No Double vision, No Dry eyes, No Excessive tearing, No Eye Pain, No Itchy Eyes, No Loss of vision, No Photophobia, No Scotomata, No Uses contacts, No Uses glasses, No Other HEENT: YES: Heacaches; No: Visual Changes, Hearing change, Nasal congestion, Nasal discharge, Oral lesions, Sinus pain, Sore Throat, Epistaxis, Sneezing, Snoring, Tinnitus, Vertigo, Vocal changes, Other Respiratory: No: Cough, Hemoptysis, Orthopnea, Pleuritic Pain, Shortness of breath, SOB with excertion, Sputum Changes, Stridor, Tachypnea, Wheezing, Other Cardiovascular: No Chest Pain, No Palpitations, No Orthopnea, No Paroxysmal Noc. Dyspnea, No Edema, No Lt Headedness, No Other Gastrointestinal: Yes Nausea Genitourinary: No Dysuria, No Frequency, No Incontinence, No Hematuria, No Retention, No Discharge, No Urgency, No Pain, No Flank Pain, No Other, No , No , No , No , No , No , No Musculoskeletal: Yes Muscular Weakness Neurological: No Behavorial Changes, No Bowel/Bladder ControlChng, No Confusion, No Dizziness, No Gait Disturbance, No Headaches, No Impaired Coord/balance, No Memory Loss, No Numbness/Tingling, No Seizures, No Speech Problems, No Tremors, No Visual Changes, No Weakness, No Other Skin: No Dry Skin, No Eczema, No Hair Changes, No Lumps, No Mole Changes, No Mottling, No Nail Changes, No Pruritus, No Rash, No Skin Lesion Changes, No Other, No Acne Physical Exam Physical Exam wants to watch [employer] football General: Alert, Oriented X3, Cooperative, mild distress HEENT: Atraumatic, PERRLA Heart: no thrills, no murmurs Extremities: No cyanosis, Normal pulses, Other (1+ RLE edmea, poor pulses, left BKA) Skin: No breakdown Neuro: Normal speech, Normal tone, Other (diminished sensation to right foot) Psych/Mental Status: Mental status NL, Mood NL Vitals Vitals Vital Signs Date Time Temp Pulse Resp B/P (MAP) Pulse Ox O2 Delivery O2 Flow Rate FiO2 10/07/21 18:45 68 18 231/91 (137) 100 Nasal Cannula 2.0 10/07/21 16:26 98.5 98.5 Labs Labs Laboratory Tests Test 10/07/21 17:05 10/07/21 17:43 White Blood Count 8.5 x10^3/uL (4.0-11.0) Red Blood Count 2.79 x10^6/uL (4.30-5.70) Hemoglobin 8.4 g/dL (13.0-17.5) Hematocrit 24.4 % (39.0-53.0) Mean Corpuscular Volume 87 fL (79-100) Mean Corpuscular Hemoglobin 30 pg (25-35) Mean Corpuscular Hemoglobin Concent 34 g/dL (31-37) Red Cell Distribution Width 13.0 % (11.5-14.5) Platelet Count 366 x10^3/uL (140-400) Neutrophils (%) (Auto) 81 % (31-73) Lymphocytes (%) (Auto) 9 % (24-48) Monocytes (%) (Auto) 8 % (0-9) Eosinophils (%) (Auto) 1 % (0-3) Basophils (%) (Auto) 1 % (0-3) Neutrophils # (Auto) 6.9 x10^3/uL (1.8-7.7) Lymphocytes # (Auto) 0.8 x10^3/uL (1.0-4.8) Monocytes # (Auto) 0.7 x10^3/uL (0.0-1.1) Eosinophils # (Auto) 0.1 x10^3/uL (0.0-0.7) Basophils # (Auto) 0.1 x10^3/uL (0.0-0.2) Sodium Level 134 mmol/L (136-145) Potassium Level 4.2 mmol/L (3.5-5.1) Chloride Level 98 mmol/L (98-107) Carbon Dioxide Level 30 mmol/L (21-32) Anion Gap 6 (6-14) Blood Urea Nitrogen 38 mg/dL (8-26) Creatinine 1.8 mg/dL (0.7-1.3) Estimated GFR (Cockcroft-Gault) 37.3 BUN/Creatinine Ratio 21 (6-20) Glucose Level 174 mg/dL (70-99) Calcium Level 8.3 mg/dL (8.5-10.1) Total Bilirubin 0.4 mg/dL (0.2-1.0) Aspartate Amino Transf (AST/SGOT) 15 U/L (15-37) Alanine Aminotransferase (ALT/SGPT) 13 U/L (16-63) Alkaline Phosphatase 93 U/L (46-116) Troponin I High Sensitivity 399 ng/L (4-75) WB-Bpk-O-Type Natriuretic Peptide > 77437 pg/mL (0-124) Total Protein 7.2 g/dL (6.4-8.2) Albumin 2.4 g/dL (3.4-5.0) Albumin/Globulin Ratio 0.5 (1.0-1.7) Influenza Type A Antigen Negative (NEGATIVE) Influenza Type B Antigen Negative (NEGATIVE) SARS-CoV-2 Antigen (Rapid) Negative (NEGATIVE) Laboratory Tests Test 10/07/21 17:05 10/07/21 17:43 White Blood Count 8.5 x10^3/uL (4.0-11.0) Red Blood Count 2.79 x10^6/uL (4.30-5.70) Hemoglobin 8.4 g/dL (13.0-17.5) Hematocrit 24.4 % (39.0-53.0) Mean Corpuscular Volume 87 fL (79-100) Mean Corpuscular Hemoglobin 30 pg (25-35) Mean Corpuscular Hemoglobin Concent 34 g/dL (31-37) Red Cell Distribution Width 13.0 % (11.5-14.5) Platelet Count 366 x10^3/uL (140-400) Neutrophils (%) (Auto) 81 % (31-73) Lymphocytes (%) (Auto) 9 % (24-48) Monocytes (%) (Auto) 8 % (0-9) Eosinophils (%) (Auto) 1 % (0-3) Basophils (%) (Auto) 1 % (0-3) Neutrophils # (Auto) 6.9 x10^3/uL (1.8-7.7) Lymphocytes # (Auto) 0.8 x10^3/uL (1.0-4.8) Monocytes # (Auto) 0.7 x10^3/uL (0.0-1.1) Eosinophils # (Auto) 0.1 x10^3/uL (0.0-0.7) Basophils # (Auto) 0.1 x10^3/uL (0.0-0.2) Sodium Level 134 mmol/L (136-145) Potassium Level 4.2 mmol/L (3.5-5.1) Chloride Level 98 mmol/L (98-107) Carbon Dioxide Level 30 mmol/L (21-32) Anion Gap 6 (6-14) Blood Urea Nitrogen 38 mg/dL (8-26) Creatinine 1.8 mg/dL (0.7-1.3) Estimated GFR (Cockcroft-Gault) 37.3 BUN/Creatinine Ratio 21 (6-20) Glucose Level 174 mg/dL (70-99) Calcium Level 8.3 mg/dL (8.5-10.1) Total Bilirubin 0.4 mg/dL (0.2-1.0) Aspartate Amino Transf (AST/SGOT) 15 U/L (15-37) Alanine Aminotransferase (ALT/SGPT) 13 U/L (16-63) Alkaline Phosphatase 93 U/L (46-116) Troponin I High Sensitivity 399 ng/L (4-75) ZX-Smk-A-Type Natriuretic Peptide > 68937 pg/mL (0-124) Total Protein 7.2 g/dL (6.4-8.2) Albumin 2.4 g/dL (3.4-5.0) Albumin/Globulin Ratio 0.5 (1.0-1.7) Influenza Type A Antigen Negative (NEGATIVE) Influenza Type B Antigen Negative (NEGATIVE) SARS-CoV-2 Antigen (Rapid) Negative (NEGATIVE) VTE Prophylaxis Ordered VTE Prophylaxis Devices: No VTE Pharmacological Prophylaxi: Yes Assessment/Plan Assessment/Plan Acute on chronic combined CHF, IV lasix BID NSTEMI 2, demand accelerated HTN, add NOrvac, weakness, debility, has been on hospice for CAD and CHF, Ischemic right great toe, consult podiatry, PVD, DM2 severe malnutrition acute on chronic renal failure anemia of CKD 3 admit, seen in ICU DNR reveiwed Justifications for Admission Other Justification Acute hypoxic respiratory failure, acute CHF exacerbation ASHLY SHAVER MD Oct 07, 2021 19:37
[2021-10-07] MEDS ORDERED: DEXTROSE 50% 25 GM / 50ML DISP.SYRIN. IV PRN (19:45)
[2021-10-07 19:47] LABS: BILIRUBIN,URINE NEGATIVE (NEG); CLARITY,URINE CLEAR; COLOR,URINE YELLOW; NITRITE,URINE NEGATIVE (NEG); PROTEIN,URINE >=300 mg/dL (NEG-TRACE)
[2021-10-07 19:58] LABS: BACTERIA,URINE 0 /HPF (0-FEW); HYALINE CASTS, URINE FEW /HPF; WBC,URINE 0 /HPF (0-4)
--- NOTE | 2021-10-07 20:42 | RAD ---
AP chest portable 10/07/2021. Reason for exam: Weakness. Comparison is made with an exam of 06/15/2021. There are some increased markings bilaterally that seem more prominent. No consolidation or large eff usion is seen. There may be a small amount of subpulmonic fluid. The heart remains enlarged. IMPRESSION: Continued cardiomegaly. Possible small effusions. Possible early infiltrate or edema on e ach side. Right toes 3 views: Reason for exam: Pressure ulcer. No acute fracture or dislocation is seen. There are mild arthritic changes at the first MTP joint. Th ere is diffuse arterial calcification. No bony destructive process or foreign body is seen. IMPRESSION: No apparent acute bony abnormality. Electronically signed by: Alfredo Pepe Jr., MD (10/07/2021 8:40 PM) [facility]
[2021-10-07] MEDS: ATORVASTATIN CALCIUM 40 MG TABLET. PO SCH (21:23)
[2021-10-08] MEDS: hydrALAZINE 25 MG TABLET PO SCH ×3 (02:53→21:01)
[2021-10-08 03:39] LABS: BASO # 0.1 x10^3/uL (0.0-0.2); BASO % 1 % (0-3); EOS # 0.1 x10^3/uL (0.0-0.7); EOS % 1 % (0-3); HEMATOCRIT 23.5 % (39.0-53.0); HEMOGLOBIN 8.1 g/dL (13.0-17.5); LYMPH # 0.9 x10^3/uL (1.0-4.8); LYMPH % 14 % (24-48); MEAN CORPUSCULAR HEMOGLOBIN 30 pg (25-35); MEAN CORPUSCULAR HGB CONC 34 g/dL (31-37); MEAN CORPUSCULAR VOLUME 87 fL (79-100); MONO # 0.6 x10^3/uL (0.0-1.1); MONO % 10 % (0-9); NEUT # 4.7 x10^3/uL (1.8-7.7); NEUT % 74 % (31-73); PLATELET COUNT 351 x10^3/uL (140-400); RED BLOOD COUNT 2.72 x10^6/uL (4.30-5.70); RED CELL DISTRIBUTION WIDTH 13.2 % (11.5-14.5); WHITE BLOOD COUNT 6.3 x10^3/uL (4.0-11.0)
[2021-10-08 03:59] LABS: ALBUMIN 2.2 g/dL (3.4-5.0); ALBUMIN/GLOBULIN RATIO 0.6 (1.0-1.7); CREATININE 1.7 mg/dL (0.7-1.3); GFR 39.8; POTASSIUM 4.1 mmol/L (3.5-5.1); TOTAL BILIRUBIN 0.4 mg/dL (0.2-1.0); TOTAL PROTEIN 6.1 g/dL (6.4-8.2)
[2021-10-08] MEDS: IPRATRPIUM/ALBUTEROL 0.5/2.5MG 3 ML NEBU. NEB SCH ×4 (05:39→20:11)
[2021-10-08] MEDS: BUDESONIDE 0.5 MG/2 ML NEBU. NEB SCH ×2 (05:39→20:11)
[2021-10-08] MEDS: INSULIN LISPRO 300 UNITS/3 ML VIAL. SQ SCH ×3 (08:00→18:00)
[2021-10-08] MEDS: FUROSEMIDE 40 MG/4 ML VIAL. IVP SCH ×2 (08:49→14:51)
[2021-10-08] MEDS: POTASSIUM CHLORIDE 10 MEQ TABLET.ER. PO SCH (08:53)
[2021-10-08] MEDS: ISOSORBIDE MONONITRATE ER 30 MG TAB.ER.24H PO SCH (08:53)
[2021-10-08] MEDS: CARVEDILOL 6.25 MG TABLET. PO SCH ×2 (08:54→17:59)
[2021-10-08] MEDS: LOSARTAN POTASSIUM 50 MG TABLET. PO SCH (08:58)
[2021-10-08] MEDS: FLUoxetine HCL 20 MG CAPSULE PO SCH (09:00)
[2021-10-08] MEDS: TAMSULOSIN 0.4 MG CAP.ER.24H. PO SCH (09:04)
--- NOTE | 2021-10-08 12:41 | PDOC ---
[employer] PROGRESS NOTE Date of Service DOS: DATE: 10/08/21 TIME: 12:34 Chief Complaint Chief Complaint Acute on chronic combined CHF, IV lasix BID NSTEMI 2, demand accelerated HTN, add NOrvac, weakness, debility, has been on hospice for CAD and CHF, Ischemic right great toe, consult podiatry, PVD, DM2 severe malnutrition acute on chronic renal failure anemia of CKD 3 History of Present Illness History of Present Illness 71-year-old male, he called ambulance [facility] for shortness of breath and wweakenss. He was here in june, and DC then on hospice for his CHF. Recently now noted over the last couple days has had increased weakness, with increased blood pressure and currently is 205/82. Also, he complains of his right great toe on his right foot is blackened and the toe is reddened itself, and he says that has been going on for about 1 month Some dyspnea and some LE edema, IV lasix given in ER already. He does have a history of congestive heart failure and coronary disease, also has a history of diabetes with a left BKA and is currently staying with his daughter in her home. Patient does state his blood sugars have been under 200 recently. 10/08/2021 No acute events overnight. Patient seen and examined bedside. Patient not complaining of any pain or discomfort in his right lower extremity. Pending podiatry evaluation. Patient's chart, labs, images were reviewed and discussed with RN In addition to my E/M visit, advance care planning done with A total time of 20 minutes was spent from 1130 to 1150 face to face in discussion regarding the patient's goals of care, CODE STATUS I have recommended for the patient to consider without any aggressive surgical interventions and focus on pain management and bedside wound care as needed. Patient was not having any pain from the wound. Therefore I believe he can still stay on home with home hospice. Vitals/I&O Vitals/I&O: Vital Signs Date Time Temp Pulse Resp B/P (MAP) Pulse Ox O2 Delivery O2 Flow Rate FiO2 10/08/21 09:58 59 18 172/72 (105) 97 Nasal Cannula 2.0 10/07/21 16:26 98.5 98.5 Physical Exam General: Alert, Oriented X3, Cooperative, mild distress Lungs: Clear, Crackles Extremities: No cyanosis, Normal pulses, Other (1+ RLE edmea, poor pulses, left BKA) Skin: No breakdown Labs Labs: Laboratory Tests Test 10/07/21 17:05 10/07/21 17:43 10/07/21 19:27 10/08/21 02:35 White Blood Count 8.5 x10^3/uL (4.0-11.0) 6.3 x10^3/uL (4.0-11.0) Red Blood Count 2.79 x10^6/uL (4.30-5.70) 2.72 x10^6/uL (4.30-5.70) Hemoglobin 8.4 g/dL (13.0-17.5) 8.1 g/dL (13.0-17.5) Hematocrit 24.4 % (39.0-53.0) 23.5 % (39.0-53.0) Mean Corpuscular Volume 87 fL (79-100) 87 fL (79-100) Mean Corpuscular Hemoglobin 30 pg (25-35) 30 pg (25-35) Mean Corpuscular Hemoglobin Concent 34 g/dL (31-37) 34 g/dL (31-37) Red Cell Distribution Width 13.0 % (11.5-14.5) 13.2 % (11.5-14.5) Platelet Count 366 x10^3/uL (140-400) 351 x10^3/uL (140-400) Neutrophils (%) (Auto) 81 % (31-73) 74 % (31-73) Lymphocytes (%) (Auto) 9 % (24-48) 14 % (24-48) Monocytes (%) (Auto) 8 % (0-9) 10 % (0-9) Eosinophils (%) (Auto) 1 % (0-3) 1 % (0-3) Basophils (%) (Auto) 1 % (0-3) 1 % (0-3) Neutrophils # (Auto) 6.9 x10^3/uL (1.8-7.7) 4.7 x10^3/uL (1.8-7.7) Lymphocytes # (Auto) 0.8 x10^3/uL (1.0-4.8) 0.9 x10^3/uL (1.0-4.8) Monocytes # (Auto) 0.7 x10^3/uL (0.0-1.1) 0.6 x10^3/uL (0.0-1.1) Eosinophils # (Auto) 0.1 x10^3/uL (0.0-0.7) 0.1 x10^3/uL (0.0-0.7) Basophils # (Auto) 0.1 x10^3/uL (0.0-0.2) 0.1 x10^3/uL (0.0-0.2) Urine Collection Type Unknown Urine Color Yellow Urine Clarity Clear Urine pH 6.0 (<5.0-8.0) Urine Specific [place]oun 1.015 (1.000-1.030) Urine Protein >=300 mg/dL (NEG-TRACE) Urine Glucose (UA) 100 mg/dL (NEG) Urine Ketones (Stick) Negative mg/dL (NEG) Urine Blood Negative (NEG) Urine Nitrite Negative (NEG) Urine Bilirubin Negative (NEG) Urine Urobilinogen Dipstick 1.0 mg/dL (0.2 mg/dL) Urine Leukocyte Esterase Negative (NEG) Urine RBC 1-2 /HPF (0-2) Urine WBC 0 /HPF (0-4) Urine Bacteria 0 /HPF (0-FEW) Urine Hyaline Casts Few /HPF Sodium Level 134 mmol/L (136-145) 135 mmol/L (136-145) Potassium Level 4.2 mmol/L (3.5-5.1) 4.1 mmol/L (3.5-5.1) Chloride Level 98 mmol/L (98-107) 98 mmol/L (98-107) Carbon Dioxide Level 30 mmol/L (21-32) 30 mmol/L (21-32) Anion Gap 6 (6-14) 7 (6-14) Blood Urea Nitrogen 38 mg/dL (8-26) 37 mg/dL (8-26) Creatinine 1.8 mg/dL (0.7-1.3) 1.7 mg/dL (0.7-1.3) Estimated GFR (Cockcroft-Gault) 37.3 39.8 BUN/Creatinine Ratio 21 (6-20) 22 (6-20) Glucose Level 174 mg/dL (70-99) 137 mg/dL (70-99) Calcium Level 8.3 mg/dL (8.5-10.1) 8.0 mg/dL (8.5-10.1) Total Bilirubin 0.4 mg/dL (0.2-1.0) 0.4 mg/dL (0.2-1.0) Aspartate Amino Transf (AST/SGOT) 15 U/L (15-37) 15 U/L (15-37) Alanine Aminotransferase (ALT/SGPT) 13 U/L (16-63) 15 U/L (16-63) Alkaline Phosphatase 93 U/L (46-116) 87 U/L (46-116) Troponin I High Sensitivity 399 ng/L (4-75) 403 ng/L (4-75) SR-Ymm-I-Type Natriuretic Peptide > 07716 pg/mL (0-124) Total Protein 7.2 g/dL (6.4-8.2) 6.1 g/dL (6.4-8.2) Albumin 2.4 g/dL (3.4-5.0) 2.2 g/dL (3.4-5.0) Albumin/Globulin Ratio 0.5 (1.0-1.7) 0.6 (1.0-1.7) Influenza Type A Antigen Negative (NEGATIVE) Influenza Type B Antigen Negative (NEGATIVE) SARS-CoV-2 Antigen (Rapid) Negative (NEGATIVE) Test 10/08/21 08:35 10/08/21 12:20 Glucose (Fingerstick) 134 mg/dL (70-99) 146 mg/dL (70-99) Assessment and Plan Assessmemt and Plan Problems Medical Problems: (1) Acute exacerbation of CHF (congestive heart failure) Status: Acute (2) Elevated troponin Status: Acute (3) Pressure ulcer of toe of right foot, unstageable Status: Acute (4) Weakness Status: Acute Comment Review of Relevant I have reviewed the following items coral (where applicable) has been applied. Medications: Current Medications Medications (Trade) Dose Ordered Sig/Ruddy Route PRN Reason Start Time Stop Time Status Last Admin Dose Admin Furosemide (Lasix) 40 mg BID92 IVP 10/08/21 09:00 10/08/21 08:49 Furosemide (Lasix) 40 mg 1X ONCE IVP 10/07/21 18:30 10/07/21 18:31 DC 10/07/21 18:42 Atorvastatin Calcium (Lipitor) 40 mg QHS PO 10/07/21 21:00 10/07/21 21:23 Carvedilol (Coreg) 6.25 mg BIDWMEALS PO 10/08/21 08:00 10/08/21 08:54 Fluoxetine HCl (PROzac) 20 mg DAILY PO 10/08/21 09:00 10/08/21 09:00 Hydralazine HCl (Apresoline) 75 mg BID PO 10/07/21 21:00 10/08/21 08:59 Losartan Potassium (Cozaar) 100 mg DAILY PO 10/08/21 09:00 10/08/21 08:58 Potassium Chloride (Klor-Con) 10 meq DAILYWBKFT PO 10/08/21 08:00 10/08/21 08:53 Tamsulosin HCl (Flomax) 0.4 mg DAILY PO 10/08/21 09:00 10/08/21 09:04 Isosorbide Mononitrate (Imdur) 60 mg DAILY PO 10/08/21 09:00 10/08/21 08:53 Amlodipine Besylate (Norvasc) 10 mg DAILY PO 10/07/21 19:30 10/08/21 09:01 Justifications for Admission Other Justification Acute hypoxic respiratory failure, acute CHF exacerbation RENETTA DUTTON MD Oct 08, 2021 12:41
[2021-10-08] MEDS ORDERED: hydrALAZINE 20 MG/ML VIAL. IVP PRN (12:45)
[2021-10-08 13:15] VITALS: BP 144/67
[2021-10-08 15:00] VITALS: BP 166/75
[2021-10-08 19:15] VITALS: BP 124/63
[2021-10-08] MEDS: ATORVASTATIN CALCIUM 40 MG TABLET. PO SCH (21:01)
[2021-10-08 23:00] VITALS: BP 138/60
[2021-10-09 03:00] VITALS: BP 134/63
[2021-10-09 07:00] VITALS: BP 177/83
[2021-10-09] MEDS: BUDESONIDE 0.5 MG/2 ML NEBU. NEB SCH (07:33)
[2021-10-09] MEDS: IPRATRPIUM/ALBUTEROL 0.5/2.5MG 3 ML NEBU. NEB SCH ×3 (07:33→16:15)
[2021-10-09] MEDS: INSULIN LISPRO 300 UNITS/3 ML VIAL. SQ SCH ×2 (08:00→12:00)
[2021-10-09 10:00] VITALS: BP 190/76
[2021-10-09] MEDS: FLUoxetine HCL 20 MG CAPSULE PO SCH (10:12)
[2021-10-09] MEDS: hydrALAZINE 25 MG TABLET PO SCH (10:12)
[2021-10-09] MEDS: CARVEDILOL 6.25 MG TABLET. PO SCH (10:13)
[2021-10-09] MEDS: TAMSULOSIN 0.4 MG CAP.ER.24H. PO SCH (10:13)
[2021-10-09] MEDS: POTASSIUM CHLORIDE 10 MEQ TABLET.ER. PO SCH (10:13)
[2021-10-09] MEDS: LOSARTAN POTASSIUM 50 MG TABLET. PO SCH (10:14)
[2021-10-09] MEDS: ISOSORBIDE MONONITRATE ER 30 MG TAB.ER.24H PO SCH (10:14)
[2021-10-09] MEDS: FUROSEMIDE 40 MG/4 ML VIAL. IVP SCH ×2 (10:14→14:00)
--- NOTE | 2021-10-09 12:26 | NUR ---
SS following for discharge planning. SS reviewed pt chart and discussed with pt RN. Pt is from home and is currently requiring oxygen at two liters nasal canula. COVID19 negative. Pt on IV Lasix. Podiatry consulted. Pt was on services with [facility], ; fax [phone], at home and revoked to come into the hospital. Pt wishes to return to home with [facility] when discharged. Pt's RN notified. SS will continue to follow for discharge planning.
--- NOTE | 2021-10-09 13:35 | PDOC2 ---
CONSULT Date of Consult Date of Consult DATE: 10/09/21 TIME: 13:29 Reason for Consult Reason for Consult: Right hallux eschar Source Source: Patient History of Present Illness Reason for Visit: Patient with history of diabetes, CKD 3, s/p left BKA, who was admitted for CHF. Patient relates a subacute dark discoloration to the right big toe without any inciting events in the last few weeks. Patient denies any drainage or dressing change. Throughout hospitalization, patient has remained aleukocytosis and afebrile without any antibiotic therapy. At baseline, patient denies pain likely due to peripheral neuropathy to right lower extremity. He is wheelchair- bound at baseline and uses the right foot to propel him with a slipper. Patient is a hospice resident, DNR. Past Medical History Cardiovascular: CAD, HTN, Hyperlipidemia Pulmonary: Other CENTRAL NERVOUS SYSTEM: Periperal neuropathy GI: GERD Heme/Onc: No pertinent hx Hepatobiliary: No pertinent hx Psych: Depression Rheumatologic: Rheumatoid arthritis Infectious disease: Other Renal/: Benign prostatic enlarg. Endocrine: Osteopenia Past Surgical History Past Surgical History: Cataract Removal, Tonsillectomy, Other Family History Family History: Diabetes Social History No ALCOHOL: none Drugs: None Lives: with Family Current Problem List Problem List Problems Medical Problems: (1) Acute exacerbation of CHF (congestive heart failure) Status: Acute (2) Elevated troponin Status: Acute (3) Pressure ulcer of toe of right foot, unstageable Status: Acute (4) Weakness Status: Acute Current Medications Current Medications Current Medications Furosemide (Lasix) 40 mg BID92 IVP Last administered on 10/09/21at 10:14; Start 10/08/21 at 09:00 Furosemide (Lasix) 40 mg 1X ONCE IVP Last administered on 10/07/21at 18:42; Start 10/07/21 at 18:30; Stop 10/07/21 at 18:31; Status DC Atorvastatin Calcium (Lipitor) 40 mg QHS PO Last administered on 10/08/21at 21:01; Start 10/07/21 at 21:00 Budesonide (Pulmicort) 0.5 mg RTBID NEB Last administered on 10/09/21at 07:33; Start 10/07/21 at 20:00 Carvedilol (Coreg) 6.25 mg BIDWMEALS PO Last administered on 10/09/21at 10:13; Start 10/08/21 at 08:00 Fluoxetine HCl (PROzac) 20 mg DAILY PO Last administered on 10/09/21at 10:12; Start 10/08/21 at 09:00 Hydralazine HCl (Apresoline) 75 mg BID PO Last administered on 10/09/21at 10:12; Start 10/07/21 at 21:00 Albuterol/ Ipratropium (Duoneb) 3 ml RTQID NEB Last administered on 10/09/21at 11:19; Start 10/07/21 at 20:00 Losartan Potassium (Cozaar) 100 mg DAILY PO Last administered on 10/09/21at 10:14; Start 10/08/21 at 09:00 Potassium Chloride (Klor-Con) 10 meq DAILYWBKFT PO Last administered on 10/09/21at 10:13; Start 10/08/21 at 08:00 Tamsulosin HCl (Flomax) 0.4 mg DAILY PO Last administered on 10/09/21at 10:13; Start 10/08/21 at 09:00 Isosorbide Mononitrate (Imdur) 60 mg DAILY PO Last administered on 10/09/21at 10:14; Start 10/08/21 at 09:00 Amlodipine Besylate (Norvasc) 10 mg DAILY PO Last administered on 10/09/21at 10:13; Start 10/07/21 at 19:30 Insulin Human Lispro (HumaLOG) 0-7 UNITS TIDWMEALS SQ Last administered on 10/08/21at 18:00; Start 10/08/21 at 08:00 Dextrose (Dextrose 50%-Water Syringe) 12.5 gm PRN Q15MIN PRN IV SEE COMMENTS; Start 10/07/21 at 19:45 Hydralazine HCl (Apresoline Inj) 10 mg PRN Q4HRS PRN IVP ELEVATED BP, SEE COMMENTS; Start 10/08/21 at 12:45 Active Scripts Active Cozaar (Losartan Potassium) 50 Mg Tablet 100 Mg PO DAILY 30 Days Duoneb 0.5-3(2.5) Mg/3 Ml (Albuterol/Ipratropium) 3 Ml Ampul.neb 3 Ml NEB RTQID 30 Days Budesonide 0.5 Mg/2 Ml Ampul.neb 0.5 Mg NEB RTBID 30 Days Isosorbide Mononitrate Er (Isosorbide Mononitrate) 60 Mg Tab.er.24h 1 Tab PO DAILY 30 Days Furosemide 40 Mg Tablet 40 Mg PO QD Hydralazine Hcl 25 Mg Tablet 75 Mg PO BID 30 Days Klor-Con 10 (Potassium Chloride) 10 Meq Tablet.er 1 Tab PO DAILY 30 Days Lipitor (Atorvastatin Calcium) 40 Mg Tablet 1 Tab PO QHS 30 Days Fluoxetine Hcl 20 Mg Capsule 20 Mg PO DAILY 30 Days Carvedilol (Carvedilol) 6.25 Mg Tablet 6.25 Mg PO BIDWMEALS 30 Days Clopidogrel (Clopidogrel Bisulfate) 75 Mg Tablet 1 Tab PO DAILY 30 Days Reported Aspirin Ec (Aspirin) 81 Mg Tablet.dr 1 Tab PO DAILY Omeprazole 20 Mg Capsule.dr 20 Mg PO DAILY Flomax (Tamsulosin Hcl) 0.4 Mg Cap.er.24h 0.4 Mg PO DAILY Allergies Allergies: Coded Allergies: No Known Drug Allergies (Unverified , 06/28/20) ROS Review of System CONSTITUTIONAL: No fever. No chills. No dizziness. No weakness. CARDIOVASCULAR: No chest pain. No palpitations. No lower extremity edema. RESPIRATORY: No shortness of breath, cough, pain with respiration. No hemoptysis. No dyspnea. GASTROINTESTINAL: Normal appetite. No nausea, vomiting, diarrhea. GENITOURINARY: No frequency, urgency, nocturia. No hematuria or dysuria. MUSCULOSKELETAL: No arthralgias or myalgias. INTEGUMENTARY: Refer to HPI NEUROLOGIC: No numbness or tingling of the extremities. No weakness. PSYCHIATRIC: No confusion. ENDOCRINE: No fatigue. No weakness. HEMATOLOGICAL: No bleeding. No petechiae. No bruising. ALLERGIES: No asthma. No urticaria Physical Exam Physical Exam General: Pleasant without apparent distress, AOx3 Right lower extremity focused Dermatology: -Stable eschar overlying the entire plantar aspect of the right hallux without any fluctuance, discharge, proximal streaking. -A patch of eschar, measures approximately 6 x 8 mm to the medial aspect of the distal second digit with the nail plate intact Vascular: -Nonpalpable DP, thready PT -Hallux is slightly cold to touch Neurology: -Light touch sensation diminished to the level of digits 1 through 5 MSK: -Semirigid hammertoe contracture 1 through 3 -Able to move digits -Muscle strength 5 out of 5 across ankle joint -Calf is soft and nontender -S/p left BKA Vitals VITALS Vital Signs Date Time Temp Pulse Resp B/P (MAP) Pulse Ox O2 Delivery O2 Flow Rate FiO2 10/09/21 11:20 Nasal Cannula 2.0 10/09/21 10:14 60 177/83 10/09/21 10:00 78.7 18 78.7 10/09/21 07:35 96 Labs Labs Laboratory Tests Test 10/07/21 17:05 10/07/21 17:43 10/07/21 19:27 10/08/21 02:35 White Blood Count 8.5 x10^3/uL (4.0-11.0) 6.3 x10^3/uL (4.0-11.0) Red Blood Count 2.79 x10^6/uL (4.30-5.70) 2.72 x10^6/uL (4.30-5.70) Hemoglobin 8.4 g/dL (13.0-17.5) 8.1 g/dL (13.0-17.5) Hematocrit 24.4 % (39.0-53.0) 23.5 % (39.0-53.0) Mean Corpuscular Volume 87 fL (79-100) 87 fL (79-100) Mean Corpuscular Hemoglobin 30 pg (25-35) 30 pg (25-35) Mean Corpuscular Hemoglobin Concent 34 g/dL (31-37) 34 g/dL (31-37) Red Cell Distribution Width 13.0 % (11.5-14.5) 13.2 % (11.5-14.5) Platelet Count 366 x10^3/uL (140-400) 351 x10^3/uL (140-400) Neutrophils (%) (Auto) 81 % (31-73) 74 % (31-73) Lymphocytes (%) (Auto) 9 % (24-48) 14 % (24-48) Monocytes (%) (Auto) 8 % (0-9) 10 % (0-9) Eosinophils (%) (Auto) 1 % (0-3) 1 % (0-3) Basophils (%) (Auto) 1 % (0-3) 1 % (0-3) Neutrophils # (Auto) 6.9 x10^3/uL (1.8-7.7) 4.7 x10^3/uL (1.8-7.7) Lymphocytes # (Auto) 0.8 x10^3/uL (1.0-4.8) 0.9 x10^3/uL (1.0-4.8) Monocytes # (Auto) 0.7 x10^3/uL (0.0-1.1) 0.6 x10^3/uL (0.0-1.1) Eosinophils # (Auto) 0.1 x10^3/uL (0.0-0.7) 0.1 x10^3/uL (0.0-0.7) Basophils # (Auto) 0.1 x10^3/uL (0.0-0.2) 0.1 x10^3/uL (0.0-0.2) Urine Collection Type Unknown Urine Color Yellow Urine Clarity Clear Urine pH 6.0 (<5.0-8.0) Urine Specific [place] 1.015 (1.000-1.030) Urine Protein >=300 mg/dL (NEG-TRACE) Urine Glucose (UA) 100 mg/dL (NEG) Urine Ketones (Stick) Negative mg/dL (NEG) Urine Blood Negative (NEG) Urine Nitrite Negative (NEG) Urine Bilirubin Negative (NEG) Urine Urobilinogen Dipstick 1.0 mg/dL (0.2 mg/dL) Urine Leukocyte Esterase Negative (NEG) Urine RBC 1-2 /HPF (0-2) Urine WBC 0 /HPF (0-4) Urine Bacteria 0 /HPF (0-FEW) Urine Hyaline Casts Few /HPF Sodium Level 134 mmol/L (136-145) 135 mmol/L (136-145) Potassium Level 4.2 mmol/L (3.5-5.1) 4.1 mmol/L (3.5-5.1) Chloride Level 98 mmol/L (98-107) 98 mmol/L (98-107) Carbon Dioxide Level 30 mmol/L (21-32) 30 mmol/L (21-32) Anion Gap 6 (6-14) 7 (6-14) Blood Urea Nitrogen 38 mg/dL (8-26) 37 mg/dL (8-26) Creatinine 1.8 mg/dL (0.7-1.3) 1.7 mg/dL (0.7-1.3) Estimated GFR (Cockcroft-Gault) 37.3 39.8 BUN/Creatinine Ratio 21 (6-20) 22 (6-20) Glucose Level 174 mg/dL (70-99) 137 mg/dL (70-99) Calcium Level 8.3 mg/dL (8.5-10.1) 8.0 mg/dL (8.5-10.1) Total Bilirubin 0.4 mg/dL (0.2-1.0) 0.4 mg/dL (0.2-1.0) Aspartate Amino Transf (AST/SGOT) 15 U/L (15-37) 15 U/L (15-37) Alanine Aminotransferase (ALT/SGPT) 13 U/L (16-63) 15 U/L (16-63) Alkaline Phosphatase 93 U/L (46-116) 87 U/L (46-116) Troponin I High Sensitivity 399 ng/L (4-75) 403 ng/L (4-75) HR-Vlc-X-Type Natriuretic Peptide > 83423 pg/mL (0-124) Total Protein 7.2 g/dL (6.4-8.2) 6.1 g/dL (6.4-8.2) Albumin 2.4 g/dL (3.4-5.0) 2.2 g/dL (3.4-5.0) Albumin/Globulin Ratio 0.5 (1.0-1.7) 0.6 (1.0-1.7) Influenza Type A Antigen Negative (NEGATIVE) Influenza Type B Antigen Negative (NEGATIVE) SARS-CoV-2 RNA (CAITY) Negative (Negative) SARS-CoV-2 Antigen (Rapid) Negative (NEGATIVE) Test 10/08/21 08:35 10/08/21 12:20 10/08/21 16:55 10/08/21 21:05 Glucose (Fingerstick) 134 mg/dL (70-99) 146 mg/dL (70-99) 196 mg/dL (70-99) 138 mg/dL (70-99) Test 10/09/21 07:19 10/09/21 11:35 Glucose (Fingerstick) 110 mg/dL (70-99) 167 mg/dL (70-99) Laboratory Tests Test 10/08/21 16:55 10/08/21 21:05 10/09/21 07:19 10/09/21 11:35 Glucose (Fingerstick) 196 mg/dL (70-99) 138 mg/dL (70-99) 110 mg/dL (70-99) 167 mg/dL (70-99) Assessment/Plan Assessment/Plan Dry gangrene without cellulitis or constitutional symptoms to the right hallux and second toe PAD DNR -[place] with Betadine solution to the hallux and second digit over the eschar, twice daily. Otherwise, keep it clean, dry and intact Dressing changes above at the hospice -No antibiotic therapy indicated -Weightbearing restriction: Weight-bear as tolerated but avoid mechanical irritation to the right hallux and second digit especially in wheelchair -Physical therapy: Weight-bear as tolerated, eval and treat -Nurse communication: -Monitor for signs of infection return with caution Dispo: The primary recommendation is to keep the right hallux and second digit dry and infection free. The gangrene will demarcate with time, weeks to months. Because patient is DNR, patient is more interested in conservative care over surgical intervention at this point. Dressing change as above. I will schedule wound care clinic follow-up as an outpatient in 1 to 2 weeks. RENÉ WOLF DPM Oct 09, 2021 13:35
--- NOTE | 2021-10-09 14:19 | DISCH ---
DISCHARGE INSTRUCTIONS Condition on Discharge Condition on Discharge: Guarded Activity After Discharge Activity Instructions for Disc: Resume previous activity Bathing Instructions: No Tub Bath until see Lifting Instructions after Dis: No heavy lifting Driving Instructions after Dis: Do not drive, Do not drive today Weight Bearing Status after Di: No restrictions Diet after Discharge Diet after Discharge: Cardiac Diet Texture: Regular Liquid Texture: Thin Liquid Swallowing Supervision: None needed Wound Incision Care Wound/Incision Care: Other, see below Checks after Discharge Checks after discharge: Check blood press - daily, Check blood sugar, ac/hs, Weigh Yourself Daily Contacting the [facility] after DC Call your doctor for: If your condition worsens Follow-Up Follow up with: Continue with hospice care at home Follow Up With: Wound care clinic and podiatry Treatment/Equipment after DC Adaptive Equipment Issued: Commode, Front wheeled walker, Assistant Store Manager Sales, Wheelchair Discharge Respiratory Equipmen: Oxygen RENETTA DUTTON MD Oct 09, 2021 14:19
--- NOTE | 2021-10-09 14:22 | SNU/HH DC ---
DISCHARGE ORDERS DISCHARGE INFORMATION: DISCHARGE DATE: Oct 09, 2021 FINAL DIAGNOSIS Problems Medical Problems: (1) Acute exacerbation of CHF (congestive heart failure) Status: Acute (2) Elevated troponin Status: Acute (3) Pressure ulcer of toe of right foot, unstageable Status: Acute (4) Weakness Status: Acute CONDITION ON DISCHARGE: Guarded CODE STATUS: Code Status: DNR/DNI HOSPICE: HOSPICE: Yes HOSPICE EVAL & TREAT: Yes POST DISCHARGE ORDERS: ACTIVITY ORDERS: Resume previous activity WEIGHT BEARING STATUS: No restrictions BATHING ORDERS: No Tub Bath until see Dr. PATEL AFTER DISCHARGE: Cardiac WOUND/INCISION CARE: Other, see below CHECKS AFTER DISCHARGE: CHECKS AFTER DISCHARGE: Check blood press - daily, Check blood sugar, ac/hs, Weigh Yourself Daily FOLLOW-UP: PHYSICIAN FOLLOW-UP: Continue with hospice care at home ADDITIONAL FOLLOW-UP: Wound care clinic and podiatry TREATMENT/EQUIPMENT ORDERS: ADAPTIVE EQUIPMENT NEEDED: Commode, Front wheeled walker, Tube Coverer, Wheelchair RESPIRATORY EQUIPMENT NEEDED: Oxygen DISCHARGE MEDICATIONS: Home Meds Active Scripts Losartan Potassium (COZAAR ) 50 Mg Tablet, 100 MG PO DAILY for BLOOD PRESSURE for 30 Days, #60 TAB Prov:MARGARITO CABEZAS MD 06/25/21 Ipratropium/Albuterol Sulfate (DUONEB 0.5-3(2.5) MG/3 ML) 3 Ml Ampul.neb, 3 ML NEB RTQID for copd for 30 Days, #120 EACH Prov:MARGARITO CABEZAS MD 02/08/21 Budesonide (BUDESONIDE) 0.5 Mg/2 Ml Ampul.neb, 0.5 MG NEB RTBID for copd for 30 Days, #60 EACH Prov:MARGARITO CABEZAS MD 02/08/21 Isosorbide Mononitrate (ISOSORBIDE MONONITRATE ER) 60 Mg Tab.er.24h, 1 TAB PO DAILY for coronary artery disease for 30 Days, #30 TAB 2 Refills Prov:CHAVA BUCHANAN APRN 01/31/21 Furosemide (FUROSEMIDE) 40 Mg Tablet, 40 MG PO QD for diuretic, #30 TAB 1 Refill Prov:SARAH COLLINS MD 12/17/20 Hydralazine Hcl (HYDRALAZINE HCL) 25 Mg Tablet, 75 MG PO BID for BLOOD PRESSURE for 30 Days, #180 TAB Prov:MARGARITO CABEZAS MD 07/17/20 Potassium Chloride (KLOR-CON 10) 10 Meq Tablet.er, 1 TAB PO DAILY for potassium supplement for 30 Days, #30 TAB 2 Refills Prov:SARAH OCLLINS MD 07/11/20 Atorvastatin Calcium (LIPITOR) 40 Mg Tablet, 1 TAB PO QHS for cholesterol, CAD for 30 Days, #30 TAB 2 Refills Prov:CHAVA BUCHANAN APRN 07/04/20 Fluoxetine Hcl (FLUOXETINE HCL) 20 Mg Capsule, 20 MG PO DAILY for depression for 30 Days, #30 CAP Prov:RENETTA DUTTON MD 07/04/20 Carvedilol (CARVEDILOL ) 6.25 Mg Tablet, 6.25 MG PO BIDWMEALS for chf for 30 Days, #60 TAB Prov:RENETTA DUTTON MD 07/04/20 Clopidogrel Bisulfate (CLOPIDOGREL) 75 Mg Tablet, 1 TAB PO DAILY for blood thinner for 30 Days, #30 TAB 1 Refill Prov:RENETTA DUTTON MD 07/04/20 Reported Medications Aspirin (ASPIRIN EC) 81 Mg Tablet.dr, 1 TAB PO DAILY for blood thinner, #30 TAB 3 Refills 07/04/20 Omeprazole (OMEPRAZOLE) 20 Mg Capsule.dr, 20 MG PO DAILY for gerd, CAP 06/28/20 Tamsulosin Hcl (FLOMAX) 0.4 Mg Cap.er.24h, 0.4 MG PO DAILY for retention, TAB 06/28/20 RENETTA DUTTON MD Oct 09, 2021 14:22
[2021-10-09 15:00] VITALS: BP 142/65
--- NOTE | 2021-10-09 15:02 | NUR ---
Wound/Ostomy Care Wound Type/Assessment: Patient seen per wound care consult. See wound assessment. 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 These are chronic wounds for this patient. He is on Hospice at home where he resides with his daughter. wound cleansed and assessed. These wounds are blackened with eschar, there is no sensation or palpable pulse. However these findings are not new. Coccyx is reddened but remains blanchable. Patient is confused at times and he is a poor historian when discussing his healthcare. Treatment Recommendations/Plan: [place] wound daily with Betadine soaked gauze. Education provided: Patient educated on PU prevention with some confusion. Offloading surface/device: Bilateral heels elevated using pillows. Recommended Referrals/Tests: N/A patient will discharge home with Hospice as previously. Discharge Recommendations for dressings: continue to paint with Betadine daily. No other wounds noted. Wound care will follow up on 10/17/21.
[2021-10-09] MEDS ORDERED: FUROSEMIDE 40 MG TABLET. PO SCH (17:00)
--- NOTE | 2021-10-09 18:59 | NUR ---
Pt discharged home with hospice in stable condition.
--- NOTE | 2021-10-12 18:42 | PDOC3 ---
[facility]-Discharge Summary Date of Admission: Date of Admission: Oct 07, 2021 Date of Discharge: Date of Discharge: Oct 09, 2021 Discharge Diagnosis: Discharge Diagnosis: Acute on chronic combined CHF, IV lasix BID NSTEMI 2, demand accelerated HTN, add NOrvac, weakness, debility, has been on hospice for CAD and CHF, Ischemic right great toe, consult podiatry, PVD, DM2 severe malnutrition acute on chronic renal failure anemia of CKD 3 Consults: Consults: per Podiatry: The primary recommendation is to keep the right hallux and second digit dry and infection free. The gangrene will demarcate with time, weeks to months. Because patient is DNR, patient is more interested in conservative care over surgical intervention at this point. Dressing change as above. I will schedule wound care clinic follow-up as an outpatient in 1 to 2 weeks. Hospital Course: Hospital Course: 71-year-old male, [facility] shortness of breath and wweakenss. He was here in june, and DC then on hospice for his CHF. Recently now noted over the last couple days has had increased weakness, with increased blood pressure and currently is 205/82. Also, he complains of his right great toe on his right foot is blackened and the toe is reddened itself, and he says that has been going on for about 1 month Some dyspnea and some LE edema, IV lasix given in ER already. He does have a history of congestive heart failure and coronary disease, also has a history of diabetes with a left BKA and is currently staying with his daughter in her home. Patient does state his blood sugars have been under 200 recently. 10/08/2021 No acute events overnight. Patient seen and examined bedside. Patient not complaining of any pain or discomfort in his right lower extremity. Pending podiatry evaluation. Patient's chart, labs, images were reviewed and discussed with RN Conservative therapy offered for patient on hospice with podiatry. Please see above. Rest of hospital course was uneventful. Disposition: Disposition/Orders: D/C to Home w/ Hospice Activity: Activity: Resume previous activity Diet: Diet: Cardiac Medications: Home Meds Active Scripts Losartan Potassium (COZAAR ) 50 Mg Tablet, 100 MG PO DAILY for BLOOD PRESSURE for 30 Days, #60 TAB Prov:MARGARITO CABEZAS MD 06/25/21 Ipratropium/Albuterol Sulfate (DUONEB 0.5-3(2.5) MG/3 ML) 3 Ml Ampul.neb, 3 ML NEB RTQID for copd for 30 Days, #120 EACH Prov:MARGARITO CABEZAS MD 02/08/21 Budesonide (BUDESONIDE) 0.5 Mg/2 Ml Ampul.neb, 0.5 MG NEB RTBID for copd for 30 Days, #60 EACH Prov:MARGARITO CABEZAS MD 02/08/21 Isosorbide Mononitrate (ISOSORBIDE MONONITRATE ER) 60 Mg Tab.er.24h, 1 TAB PO DAILY for coronary artery disease for 30 Days, #30 TAB 2 Refills Prov:CHAVA BUCHANAN APRN 01/31/21 Furosemide (FUROSEMIDE) 40 Mg Tablet, 40 MG PO QD for diuretic, #30 TAB 1 Refill Prov:SARAH COLLINS MD 12/17/20 Hydralazine Hcl (HYDRALAZINE HCL) 25 Mg Tablet, 75 MG PO BID for BLOOD PRESSURE for 30 Days, #180 TAB Prov:MARGARITO CABEZAS MD 07/17/20 Potassium Chloride (KLOR-CON 10) 10 Meq Tablet.er, 1 TAB PO DAILY for potassium supplement for 30 Days, #30 TAB 2 Refills Prov:SARAH COLLINS MD 07/11/20 Atorvastatin Calcium (LIPITOR) 40 Mg Tablet, 1 TAB PO QHS for cholesterol, CAD for 30 Days, #30 TAB 2 Refills Prov:CHAVA BUCHANAN APRN 07/04/20 Fluoxetine Hcl (FLUOXETINE HCL) 20 Mg Capsule, 20 MG PO DAILY for depression for 30 Days, #30 CAP Prov:RENETTA DUTTON MD 07/04/20 Carvedilol (CARVEDILOL ) 6.25 Mg Tablet, 6.25 MG PO BIDWMEALS for chf for 30 Days, #60 TAB Prov:RENETTA DUTTON MD 07/04/20 Clopidogrel Bisulfate (CLOPIDOGREL) 75 Mg Tablet, 1 TAB PO DAILY for blood thinner for 30 Days, #30 TAB 1 Refill Prov:RENETTA DUTTON MD 07/04/20 Reported Medications Aspirin (ASPIRIN EC) 81 Mg Tablet.dr, 1 TAB PO DAILY for blood thinner, #30 TAB 3 Refills 07/04/20 Omeprazole (OMEPRAZOLE) 20 Mg Capsule.dr, 20 MG PO DAILY for gerd, CAP 06/28/20 Tamsulosin Hcl (FLOMAX) 0.4 Mg Cap.er.24h, 0.4 MG PO DAILY for retention, TAB 06/28/20 Scheduled Aspirin (Aspirin Ec), 1 TAB PO DAILY, (Reported) Atorvastatin Calcium (Lipitor), 1 TAB PO QHS Budesonide (Budesonide), 0.5 MG NEB RTBID Carvedilol (Carvedilol ), 6.25 MG PO BIDWMEALS Clopidogrel Bisulfate (Clopidogrel), 1 TAB PO DAILY Fluoxetine Hcl (Fluoxetine Hcl), 20 MG PO DAILY Furosemide (Furosemide), 40 MG PO QD Hydralazine Hcl (Hydralazine Hcl), 75 MG PO BID Ipratropium/Albuterol Sulfate (Duoneb 0.5-3(2.5) Mg/3 Ml), 3 ML NEB RTQID Isosorbide Mononitrate (Isosorbide Mononitrate Er), 1 TAB PO DAILY Losartan Potassium (Cozaar ), 100 MG PO DAILY Omeprazole (Omeprazole), 20 MG PO DAILY, (Reported) Potassium Chloride (Klor-Con 10), 1 TAB PO DAILY Tamsulosin Hcl (Flomax), 0.4 MG PO DAILY, (Reported) Total Time: Total Time: Total time spent was 33 minutes in preparing scripts and discharge planning with SW and RN Patient seen and examined on day of Discharge. Justicifation of Admission Dx: Justifications for Admission: Justification of Admission Dx: Yes RENETTA DUTTON MD Oct 12, 2021 18:42
== END 2021-10-09 17:00 | disposition still patient (30) ==
LOC: ER 16:16 → ED HOLD 19:46 → INTOOBSV 19:46 → 6 SOUTH 10-08 13:55
PROVIDERS: ADMIT Internal Medicine; ATTEND Internal Medicine
DX: I13.0 Hypertensive heart and chronic kidney disease with heart failure and stage 1 through stage 4 chronic kidney disease, or unspecified chronic kidney disease (principal); I50.33 Acute on chronic diastolic (congestive) heart failure; Z20.822 Contact with and (suspected) exposure to COVID-19; N18.30 Chronic kidney disease, stage 3 unspecified; I21.4 Non-ST elevation (NSTEMI) myocardial infarction; J96.01 Acute respiratory failure with hypoxia; E11.22 Type 2 diabetes mellitus with diabetic chronic kidney disease; D63.1 Anemia in chronic kidney disease; N17.9 Acute kidney failure, unspecified; R77.8 Other specified abnormalities of plasma proteins; R53.1 Weakness; E78.00 Pure hypercholesterolemia, unspecified; E78.5 Hyperlipidemia, unspecified; G57.91 Unspecified mononeuropathy of right lower limb; I25.10 Atherosclerotic heart disease of native coronary artery without angina pectoris; L89.890 Pressure ulcer of other site, unstageable; M06.9 Rheumatoid arthritis, unspecified; M85.80 Other specified disorders of bone density and structure, unspecified site; N40.0 Benign prostatic hyperplasia without lower urinary tract symptoms; Z51.5 Encounter for palliative care; Z66 Do not resuscitate; Z89.512 Acquired absence of left leg below knee; Z90.49 Acquired absence of other specified parts of digestive tract; Z79.899 Other long term (current) drug therapy; Z98.890 Other specified postprocedural states; Z98.49 Cataract extraction status, unspecified eye; Z79.82 Long term (current) use of aspirin; Z95.1 Presence of aortocoronary bypass graft
CPT/HCPCS: 36415; 71045; 73660; 80053; 81001; 82962; 83880; 84484; 85025; 87426; 87804; 93005; 94640; 94760; 96374; 96375; 96376; 99285; G0378; J1815; J1940; J7626; U0003; U0005; G0379

== ENCOUNTER 2021-12-04 12:19 | Inpatient (IN) | payer MEDICARE, OTHER ==
[~2021-12-04] VITALS: Ht 182.9 cm; Wt 85.3 kg
[2021-12-04] MEDS ORDERED: IV NORMAL SALINE 1000ML BAG 1,000 ML IV ONE (13:30)
[2021-12-04 13:44] LABS: BASO % 0 % (0-3); EOS % 0 % (0-3); HEMATOCRIT 21.1 % (39.0-53.0); LYMPH # 0.5 x10^3/uL (1.0-4.8); LYMPH % 5 % (24-48); MEAN CORPUSCULAR HEMOGLOBIN 28 pg (25-35); MEAN CORPUSCULAR HGB CONC 33 g/dL (31-37); MEAN CORPUSCULAR VOLUME 82 fL (79-100); MONO # 0.4 x10^3/uL (0.0-1.1); MONO % 4 % (0-9); NEUT % 90 % (31-73); PLATELET COUNT 379 x10^3/uL (140-400); RED BLOOD COUNT 2.56 x10^6/uL (4.30-5.70); RED CELL DISTRIBUTION WIDTH 15.1 % (11.5-14.5); WHITE BLOOD COUNT 9.9 x10^3/uL (4.0-11.0)
--- NOTE | 2021-12-04 13:54 | PHYS DOC ---
Past Medical History Past Medical History: Anxiety, Arrhythmia, CAD, CHF, Depression, Diabetes-Type II, GERD, High Cholesterol, Hypertension, OH, Other Additional Past Medical Histor: L BKA, PERIPHERAL NEUROPATHY, BPH, AND PULMONARY EDEMA Past Surgical History: Other Additional Past Surgical Histo: left BKA Smoking Status: Former Smoker Alcohol Use: None General Adult EDM: Chief Complaint: WEAKNESS/GENERALIZED HPI: HPI: Patient is a 71 year old M who presents with weakness for 9 weeks. Patient reports that he is on hospice care for chronic heart failure and that his [facility] pice nurses visits him once a week. He reports that he lives with his daughter who helps manage his medications. Patient reports that he first noticed gangrene of his right first and second toe 9 weeks ago. However he reports that his hospice nurse told him "he would not survive another procedure like an amputation of his foot". And his doctor is doing what they can for his foot. Review of Systems: Review of Systems: Constitutional: Denies fever or chills. Reports weakness. Eyes: Denies redness or eye pain. HENT: Denies nasal congestion or sore throat. Respiratory: Denies cough or shortness of breath. Cardiovascular: Denies chest pain or palpitations. GI: Denies abdominal pain, nausea, or vomiting. : Denies dysuria or hematuria. Musculoskeletal: Denies back pain or joint pain. Integument: Denies rash or skin lesions. Reports gangrene of Right first and second toes. Neurologic: Denies headache, focal weakness. Reports loss of sensation in his Right foot. Complete systems were reviewed and found to be within normal limits, except as documented in this note. Heart Score: C/O Chest Pain: No Current Medications: Current Medications Medications (Trade) Dose Ordered Sig/Ruddy Start Time Stop Time Status Last Admin Dose Admin Sodium Chloride 1,000 ml @ 1,000 mls/hr 1X ONCE 12/04/21 13:30 12/04/21 14:29 12/04/21 13:30 1,000 MLS/HR Allergies: Allergies: Allergies Coded Allergies Type Severity Reaction Last Updated Verified No Known Drug Allergies 12/04/21 No Physical Exam: PE: Constitutional: Well developed, well nourished, mild distress, non-toxic lavonne earance. HENT: Normocephalic, atraumatic. Eyes: PERRL, EOMI, conjunctiva normal, no discharge. Neck: Normal range of motion, no tenderness, supple. jugular venous distension on Right-side up to mandible. Lungs & Thorax: No respiratory distress, equal chest rise and fall. Irregularly, irregular rhythm with rate of 65. Abdomen: Soft, distended, no tenderness, normoactive bowel sounds in all four quadrants. Skin: Warm, dry, no erythema, no rash, gangrene of big toe, second toe, and plantar surface between first and second toes. Back: No tenderness, no CVA tenderness. Extremities: No tenderness, ROM intact, no edema. +2/4 bilateral upper and lower extremity pulses. Neurologic: Alert and oriented X 3, normal motor function, no focal deficits noted. loss of sensation of first and second toes and plantar surface of right foot. Psychologic: Affect normal, judgment normal. Current Patient Data: Labs: Laboratory Tests Test 12/04/21 12:40 White Blood Count 9.9 x10^3/uL (4.0-11.0) Red Blood Count 2.56 x10^6/uL (4.30-5.70) L Hemoglobin 7.0 g/dL (13.0-17.5) *L Hematocrit 21.1 % (39.0-53.0) L Mean Corpuscular Volume 82 fL (79-100) Mean Corpuscular Hemoglobin 28 pg (25-35) Mean Corpuscular Hemoglobin Concent 33 g/dL (31-37) Red Cell Distribution Width 15.1 % (11.5-14.5) H Platelet Count 379 x10^3/uL (140-400) Neutrophils (%) (Auto) 90 % (31-73) H Lymphocytes (%) (Auto) 5 % (24-48) L Monocytes (%) (Auto) 4 % (0-9) Eosinophils (%) (Auto) 0 % (0-3) Basophils (%) (Auto) 0 % (0-3) Neutrophils # (Auto) 9.0 x10^3/uL (1.8-7.7) H Lymphocytes # (Auto) 0.5 x10^3/uL (1.0-4.8) L Monocytes # (Auto) 0.4 x10^3/uL (0.0-1.1) Eosinophils # (Auto) 0.0 x10^3/uL (0.0-0.7) Basophils # (Auto) 0.0 x10^3/uL (0.0-0.2) Laboratory Tests 12/04/21 12:40 Vital Signs: Vital Signs Date Time Temp Pulse Resp B/P (MAP) Pulse Ox O2 Delivery O2 Flow Rate FiO2 12/04/21 12:45 98.3 69 16 148/67 (94) 97 Nasal Cannula 2.0 98.3 EKG: EKG: @1228: Irregular rhythm @ [address] elevations. QRS 84 ms QTc 546 ms. Radiology/Procedures: Radiology/Procedures: PROCEDURE: CHEST AP ONLY Exam Date: 12/04/2021 1:57 PM XR CHEST 1V Indication: Reason: weakness / Spl. Instructions: / History: . Comparison: October 07, 2021 FINDINGS/ IMPRESSION: The cardiac silhouette is enlarged with congestion. Prominent interstitial markings suggest interstitial edema, though infection is not excluded. Overall findings appear similar compared to the prior exam. Mild bibasilar subsegmental atelectasis and or infiltrates are noted. There is no appreciable pleural effusion or pneumothorax. Electronically signed by: Ezekiel Arredondo MD (12/04/2021 2:09 PM) UIC-ROSALIND PROCEDURE: FOOT RIGHT 3V Exam: XR FOOT_RIGHT 3 VIEWS History: First and second toe eschar. Concern for osteomyelitis. Comparison: 10/07/2021 Findings: No fracture or dislocation is identified. There is marked cortical erosions at the lateral base of the great toe distal phalanx. Irregular contours of the second toe middle phalanx concerning for possible transverse fracture. Superimposed lucencies from subcutaneous emphysema limits evaluation. Degenerative changes greatest at the first MTP joint. Atherosclerotic vascular calcifications throughout the foot. Plantar skin defect at the level of the metatarsal heads. Bipartite lateral first MTP sesamoid. Impression: 1. New lateral great toe distal phalanx cortical erosive change concerning for osteomyelitis. 2. Irregular appearance of the middle phalanx of the second toe which may relate to osteomyelitis versus artifact of superimposed subcutaneous emphysema. However, subcutaneous emphysema in and of itself is also concerning for deep tissue infection and possible osteomyelitis. Electronically signed by: Nikko Thurston MD (12/04/2021 2:16 PM) [id number] PROCEDURE: CT HEAD WO CONTRAST EXAMINATION: CT HEAD/BRAIN WO CLINICAL HISTORY: Weakness. TECHNIQUE: Serial axial images without IV contrast were obtained from the vertex to the foramen magnum. CT Dose Reduction Employed: One or more of the following individualized dose r eduction techniques were utilized for this examination: 1. Automated exposure control 2. Adjustment of the mA and/or kV according to patient size 3. Use of iterative reconstruction technique. COMPARISON: None FINDINGS: Acute Change: No evidence of an acute infarct or other acute parenchymal process. Hemorrhage: No evidence of acute intracranial hemorrhage. Mass Lesion/Mass Effect: No evidence of intracranial mass or extraaxial fluid collection. No significant mass effect. Chronic Change: Extensive confluent foci of hypoattenuation in the supratentorial white matter, nonspecific but likely represents marked microvascular ischemia. Atherosclerotic calcification of the anterior and posterior circulation. Parenchyma: Moderate generalized volume loss. Ventricles: Ventricular enlargement concordant with degree of parenchymal volume loss. Paranasal Sinuses and Skull Base: Mild secretions in the ethmoid air cells. Visualized skull base and soft tissues unremarkable. IMPRESSION: No evidence of acute intracranial abnormality. Nonspecific supratentorial white matter changes, likely related to marked chronic white matter microvascular ischemic changes. Electronically signed by: Noel Keller DO (12/04/2021 2:17 PM) [id number] Course & Med Decision Making: Course & Med Decision Making Pertinent Labs and Imaging studies reviewed. (See chart for details) Patient presents with weakness and gangrene of first and second toe of the right foot. Patient was recently hospitalized for acute on chronic heart failure in September 2021. At the time podiatry recommended conservative management due to patient goals of care. In ED, EKG showed irregularly irregular rhythm with a rate of 63. Patient had elevated creatinine, elevated BUN, hyponatremia, hypocalcemia, hypomagnesemia, and elevated troponin x1. Patient requiring admission for further evaluation and treatment. Discussed with (hospitalist) who is in agreement with admission. Discussed findings and plan with patient, who acknowledges understanding and agreement. Amrik Disclaimer: Amrik Disclaimer: This electronic medical record was generated, in whole or in part, using a voice recognition dictation system. Departure Departure Impression: Primary Impression: Comfort measures only status Additional Impressions: NSTEMI (non-ST elevated myocardial infarction) Hypomagnesemia Osteomyelitis Qualified Codes: M86.9 - Osteomyelitis, unspecified Anemia Qualified Codes: D64.9 - Anemia, unspecified Renal insufficiency Disposition: ADMITTED INPATIENT Admitting Physician: Madi. Slaughter Condition: STABLE Referrals: YANNICK BAR MD (PCP) Critical Care Time Critical care time was 30 minutes which includes time at bedside, spent in discussion of patient's care with specialists and/or family members, with interpretation of laboratory and/or radiological studies and is exclusive of procedures. CLARI FARLEY DO Dec 04, 2021 13:54
[2021-12-04 13:56] LABS: PROTHROMBIN TIME PATIENT 16.2 SEC (11.7-14.0)
[2021-12-04 14:00] LABS: CALCIUM 7.8 mg/dL (8.5-10.1); CREATININE 2.1 mg/dL (0.7-1.3); GFR 31.2; POTASSIUM 4.2 mmol/L (3.5-5.1)
--- NOTE | 2021-12-04 14:11 | RAD ---
Exam Date: 12/04/2021 1:57 PM XR CHEST 1V Indication: Reason: weakness / Spl. Instructions: / History: . Comparison: October 07, 2021 FINDINGS/ IMPRESSION: The cardiac silhouette is enlarged with congestion. Prominent interstitial markings suggest intersti tial edema, though infection is not excluded. Overall findings appear similar compared to the prior exam. Mild bibasilar subsegmental atelectasis and or infiltrates are noted. There is no appreciable pleural effusion or pneumothorax. Electronically signed by: Ezekiel Arredondo MD (12/04/2021 2:09 PM) [email or web address]
[2021-12-04 14:14] LABS: ALBUMIN 1.8 g/dL (3.4-5.0); ALBUMIN/GLOBULIN RATIO 0.3 (1.0-1.7); CREATINE KINASE 26 U/L (39-308); MAGNESIUM 1.6 mg/dL (1.8-2.4); TOTAL BILIRUBIN 0.6 mg/dL (0.2-1.0); TOTAL PROTEIN 7.4 g/dL (6.4-8.2)
--- NOTE | 2021-12-04 14:18 | RAD ---
Exam: XR FOOT_RIGHT 3 VIEWS History: First and second toe eschar. Concern for osteomyelitis. Comparison: 10/07/2021 Findings: No fracture or dislocation is identified. There is marked cortical erosions at the lateral base of th e great toe distal phalanx. Irregular contours of the second toe middle phalanx concerning for possib le transverse fracture. Superimposed lucencies from subcutaneous emphysema limits evaluation. Degener ative changes greatest at the first MTP joint. Atherosclerotic vascular calcifications throughout the foot. Plantar skin defect at the level of the metatarsal heads. Bipartite lateral first MTP sesamoid . Impression: 1. New lateral great toe distal phalanx cortical erosive change concerning for osteomyelitis. 2. Irregular appearance of the middle phalanx of the second toe which may relate to osteomyelitis ve rsus artifact of superimposed subcutaneous emphysema. However, subcutaneous emphysema in and of itsel f is also concerning for deep tissue infection and possible osteomyelitis. Electronically signed by: Nikko Thurston MD (12/04/2021 2:16 PM) [id number]
--- NOTE | 2021-12-04 14:19 | RAD ---
EXAMINATION: CT HEAD/BRAIN WO CLINICAL HISTORY: Weakness. TECHNIQUE: Serial axial images without IV contrast were obtained from the vertex to the foramen magnu m. CT Dose Reduction Employed: One or more of the following individualized dose reduction techniques pili e utilized for this examination: 1. Automated exposure control 2. Adjustment of the mA and/or kV ac cording to patient size 3. Use of iterative reconstruction technique. COMPARISON: None FINDINGS: Acute Change: No evidence of an acute infarct or other acute parenchymal process. Hemorrhage: No evidence of acute intracranial hemorrhage. Mass Lesion/Mass Effect: No evidence of intracranial mass or extraaxial fluid collection. No signific ant mass effect. Chronic Change: Extensive confluent foci of hypoattenuation in the supratentorial white matter, nonsp ecific but likely represents marked microvascular ischemia. Atherosclerotic calcification of the ante rior and posterior circulation. Parenchyma: Moderate generalized volume loss. Ventricles: Ventricular enlargement concordant with degree of parenchymal volume loss. Paranasal Sinuses and Skull Base: Mild secretions in the ethmoid air cells. Visualized skull base and soft tissues unremarkable. IMPRESSION: No evidence of acute intracranial abnormality. Nonspecific supratentorial white matter changes, likely related to marked chronic white matter microv ascular ischemic changes. Electronically signed by: Noel Keller DO (12/04/2021 2:17 PM) [id number]
[2021-12-04] MEDS ORDERED: PIP/TAZO PER PHARMACY MC PRN (15:15)
[2021-12-04] MEDS ORDERED: ASPIRIN ENTERIC COATED 325 MG TABLET.DR. PO ONE (15:15)
[2021-12-04] MEDS ORDERED: MAGNESIUM SULFATE 2GM 50 ML IV ONE (15:15)
[2021-12-04] MEDS ORDERED: PIPERACILLIN/TAZOBACTAM 3.375 GM in IV NORMAL SALINE 50ML 50 ML IV ONE (15:30)
[2021-12-04] MEDS ORDERED: VANCOMYCIN 1.75 GM in IV NORMAL SALINE 500ML BAG 500 ML IV ONE (16:00)
[2021-12-04] MEDS ORDERED: ONDANSETRON PF 4 MG/2 ML VIAL. IVP PRN (16:30)
[2021-12-04] MEDS ORDERED: MORPHINE SULFATE 2 MG/ML INJ. IVP PRN (16:30)
[2021-12-04] MEDS ORDERED: DEXTROSE 50% 25 GM / 50ML DISP.SYRIN. IV PRN (16:30)
[2021-12-04] MEDS ORDERED: IV DEXTROSE 5% 250 ML BAG. IV PRN (16:30)
[2021-12-04] MEDS: INSULIN LISPRO 300 UNITS/3 ML VIAL. SQ SCH (17:00)
[2021-12-04] MEDS: VANCOMYCIN PER PHARMACY MC PRN ×2 (17:15→17:29)
--- NOTE | 2021-12-04 17:33 | NUR ---
Pharmacy Vancomycin Dosing Note S:Consulted to monitor and dose vancomycin started 12/04/21. O:JOVANNI SOLIS is a 71 year old M with Gangrene of right 1st and 2nd toe. . Height: 5 feet, 7 inches Weight: 75.0 kg [place] Body Weight: 66.10 Adjusted Body Weight: 69.66 Dosing Weight: Actual Other Antibiotics: Zosyn LABS: Last BUN: 33 Last Creatinine: 2.1 Creatinine Clearance: 33 mL/min Last WBC: 9.9 Last Procalcitonin: Tmax (past 24 hours): 98.3 Microbiology: I/O: Drug Levels: Last level: on at Last dose given 12/04/21 at 1645 Vancomycin Dosing: Loading Dose: 1750 mg x1 Dosing Weight: Actual Target Trough: 10-20 A: Based on weight and est. CrCl: P: 1. Give Vancomycin 1750mg, followed by Vancomycin 1000 mg IV q24h. 2. Follow up Trough level on 12/06/21 at 1630. 3. Pharmacy will continue to monitor, follow and adjust therapy as needed. Jairon Pedro [facility], 12/04/21 [id number]
[2021-12-04 19:00] VITALS: BP 145/74
[2021-12-05] MEDS: PIPERACILLIN/TAZOBACTAM 3.375 GM in IV NORMAL SALINE 50ML 50 ML IV SCH ×2 (00:07→05:47)
--- NOTE | 2021-12-05 05:43 | EKG ---
[facility] [address] [place] [address] Test Date: 2021-12-04 Test Time: 12:39:27 Pat Name: JOVANNI SOLIS Department: Room: 548 1 Gender: M Trucker: : 1950 Requested By: CLARI AFRLEY Order Number: [id number] Reading MD: Alfredo Daley Measurements Intervals [place] Rate: 68 P: [place]: QRS: 0 QRSD: 96 T: -27 QT: 458 QTc: 487 Interpretive Statements SINUS RHYTHM LEFTWARD AXIS NON SPECIFIC ST-T WAVE CHANGES Electronically Signed On 12-09-2021 18:22:53 [employer] by Alfredo Daley
[2021-12-05 07:00] VITALS: BP 159/92
[2021-12-05] MEDS: INSULIN LISPRO 300 UNITS/3 ML VIAL. SQ SCH ×3 (08:00→17:00)
[2021-12-05 08:29] LABS: BASO % 0 % (0-3); EOS % 0 % (0-3); HEMATOCRIT 20.8 % (39.0-53.0); LYMPH # 0.4 x10^3/uL (1.0-4.8); LYMPH % 4 % (24-48); MEAN CORPUSCULAR HEMOGLOBIN 27 pg (25-35); MEAN CORPUSCULAR HGB CONC 33 g/dL (31-37); MEAN CORPUSCULAR VOLUME 82 fL (79-100); MONO # 0.5 x10^3/uL (0.0-1.1); MONO % 4 % (0-9); NEUT % 91 % (31-73); PLATELET COUNT 367 x10^3/uL (140-400); RED BLOOD COUNT 2.55 x10^6/uL (4.30-5.70); RED CELL DISTRIBUTION WIDTH 15.2 % (11.5-14.5); WHITE BLOOD COUNT 10.9 x10^3/uL (4.0-11.0)
[2021-12-05 08:35] LABS: CALCIUM 7.2 mg/dL (8.5-10.1); CREATININE 2.2 mg/dL (0.7-1.3); GFR 29.6; POTASSIUM 4.6 mmol/L (3.5-5.1)
[2021-12-05 08:40] LABS: HEMOGLOBIN 6.9 g/dL (13.0-17.5)
[2021-12-05 11:00] VITALS: BP 162/84
--- NOTE | 2021-12-05 11:24 | NUR ---
SW following. Discussed with RN, pt on inpatient hospice with [facility]. [facility] trying to find respite placement for pt.
--- NOTE | 2021-12-05 12:49 | HP ---
DATE OF SERVICE: 12/05/2021 ADMIT DATE: 12/04/2021 HISTORY OF PRESENT ILLNESS: The patient is a 71-year-old male patient who was at home on hospice and who apparently presented to the Emergency Room of [facility] with weakness for 9 weeks. He reports that he is on hospice care for chronic heart failure that his hospice nurses visits him once a week. He reports that he lives with his daughter who helps manage his medication. The patient reports that he first noticed gangrene of his right first and second toe about 9 weeks ago; however, he reported that his hospice nurse told him he would not survive another procedure like an amputation of his foot and his doctor is doing what they can for his foot. He was extensively evaluated in the Emergency Room, has had lab work and imaging studies. His lab work showed his white cell count was normal at 9.9, hemoglobin 7, hematocrit 21, MCV 82 and platelet count of 379,000. His sedimentation rate was high at 131. His chemistry showed mild hyponatremia, chronic kidney disease. His troponin was high at 191. His C-reactive protein was elevated at 100.6, total protein 7.4, albumin was 1.8. His coagulation showed a prothrombin time, INR, APTT are slightly elevated. His COVID-19 by PCR was not detectable. His x-ray of the foot showed a new lateral great toe distal phalanx cortical erosive changes concerning for osteomyelitis, irregular appearance of the middle phalanx of the second toe, which may relate to osteomyelitis versus artifact, superimposed subcutaneous emphysema; however, subcutaneous emphysema itself is also concerning for deep tissue infection and possible osteomyelitis; however, the patient has multiple comorbidities and the family wanted the patient to be on comfort care only and therefore, the patient was admitted for an inpatient hospice care. PAST MEDICAL HISTORY: Significant for coronary artery disease, hypertension, hyperlipidemia, peripheral neuropathy, gastroesophageal reflux disease, depression, rheumatoid arthritis, benign prostatic hypertrophy and osteomyelitis. He is also known to have congestive heart failure. He has also severe peripheral arterial disease and underwent left below-knee amputation. PAST SURGICAL HISTORY: Significant for bilateral cataract extraction, tonsillectomy and left below-knee amputation. FAMILY HISTORY: Positive for diabetes. SOCIAL HISTORY: He lives with his daughter. He does not smoke, drink alcohol or recreational drugs. MEDICATIONS: He is currently on the following medications: He is on ipratropium bromide, albuterol sulfate by nebulizer 4 times a day, tamsulosin 0.4 mg at bedtime, Plavix 75 mg once a day, atorvastatin calcium 40 mg at bedtime, hydralazine 75 mg twice a day, isosorbide mononitrate 60 mg daily. He is on carvedilol 6.25 mg twice a day, losartan potassium 50 mg daily. He is on aspirin 81 mg once a day, fluoxetine 20 mg daily, potassium chloride 10 mEq once a day, furosemide 40 mg once a day and omeprazole 20 mg once a day. REVIEW OF SYSTEMS: The patient denied any chest pain or shortness of breath; however, the patient did complain of severe anorexia and nausea and vomiting. PHYSICAL EXAMINATION: GENERAL: On examining him on arrival to the Emergency Room, he was pale, not jaundiced or cyanosed, no lymphadenopathy, no thyromegaly, no jugular venous distention. No limb edema. VITAL SIGNS: His heart rate was 69, blood pressure 148/67, temperature was 98.3, respiratory rate was 16 and oxygen saturation was 97% on 2 liters of oxygen. HEAD, EYES, EARS, NOSE, AND THROAT: Normocephalic, atraumatic. NECK: Supple. HEART: Normal first and second heart sounds. No gallop, rub or murmur. CHEST: Clear to auscultation. No crepitation or rhonchi. ABDOMEN: Distended, soft, nontender. NEUROLOGIC: He is awake, alert, responding appropriately. All his cranial nerves are intact. He moves his upper extremities without difficulty. He has left below-knee amputation and gangrenous right big and second toe. LABORATORY DATA: On admission showed a white cell count of 9900, hemoglobin 7, hematocrit 21, MCV 82 and platelet count of 379,000 with a manual differential showed 90% polymorphs, 5% lymphocytes and 4% monocytes. His chemistry showed a serum sodium of 131, potassium 4.2, chloride 95, bicarbonate 27, anion gap of 9, BUN 44, creatinine 2.1. Estimated GFR was 51 mL per minute. His glucose 123, calcium was 7.8, magnesium was 1.6. Total bilirubin, AST, ALT, alkaline phosphatase were normal. His first set of troponin was 191. Total protein 7.4, albumin was 1.8. ASSESSMENT AND PLAN: This is a 71-year-old male patient admitted with recurrent falls and generalized weakness. He has congestive heart failure due to ischemic cardiomyopathy with an ejection fraction of only 25%. He has anemia, non-ST segment elevation myocardial infarction, hypomagnesemia, osteomyelitis and renal insufficiency. The plan is to discontinue all aggressive measures including antibiotic and continue with comfort care including morphine, Ativan, and perhaps scopolamine patches as well as Tylenol. KEN DR: Piedad TID: [id number]
--- NOTE | 2021-12-05 14:22 | PN ---
DATE: 12/05/2021 SUBJECTIVE: The patient is resting, slightly propped up in bed, in no apparent respiratory distress. On questioning him apart from nausea and anorexia, he denied any other complaint. The patient was admitted for inpatient hospice and was continued on IV morphine, Ativan, scopolamine and Tylenol. I have discontinued all his other medication. Family wanted him on comfort care only. PHYSICAL EXAMINATION: GENERAL: When I examined him, he was pale, but not jaundiced or cyanosed, no lymphadenopathy, no thyromegaly, no jugular venous distention. No limb edema. VITAL SIGNS: His heart rate was 67, blood pressure was 162/84, temperature was 98.4, respiratory rate was 20 and oxygen saturation was 96% on 2 liters of oxygen. HEAD, EYES, EARS, NOSE AND THROAT: Normocephalic, atraumatic. NECK: Supple. HEART: Showed normal first and second heart sounds. No gallop, rub or murmur. CHEST: Clear to auscultation, no crepitation or rhonchi. ABDOMEN: Distended, soft, nontender. NEUROLOGIC: He is awake, alert, responding appropriately. All cranial nerves intact. He moves upper extremities without difficulty. He has left below-knee amputation. He has infected right big toe and second toe. ASSESSMENT: Acute on chronic systolic congestive heart failure, ischemic cardiomyopathy, coronary artery disease, type 2 diabetes mellitus, severe peripheral arterial disease, peripheral neuropathy, benign prostatic hypertrophy, osteomyelitis of his right big and second toe and has also normochromic normocytic anemia and acute kidney injury. GERSON/[place]IR[place] DR: Piedad TID: [id number]
[2021-12-05 14:37] VITALS: BP 158/101
[2021-12-05] MEDS ORDERED: VANCOMYCIN 1 GM in IV NORMAL SALINE 250ML 250 ML IV SCH (17:00)
[2021-12-05 20:00] VITALS: BP 163/89
[2021-12-05] MEDS: BUDESONIDE 0.5 MG/2 ML NEBU. NEB SCH (20:00)
[2021-12-06 08:00] VITALS: BP 157/89
[2021-12-06] MEDS: INSULIN LISPRO 300 UNITS/3 ML VIAL. SQ SCH ×3 (09:23→17:48)
[2021-12-06] MEDS ORDERED: MORPHINE SULFATE 2 MG/ML INJ. IVP PRN (11:30)
[2021-12-06] MEDS: BUDESONIDE 0.5 MG/2 ML NEBU. NEB SCH ×2 (12:29→20:37)
--- NOTE | 2021-12-06 13:25 | PN ---
DATE: 12/06/2021 SUBJECTIVE: The patient is resting, slightly propped up in bed, in no apparent respiratory distress. On questioning him, he denied any complaint. Nursing staff did not voice any concerns that he had an eventful night. PHYSICAL EXAMINATION: GENERAL: When I examined him, he looked pale, not jaundiced or cyanosed, no lymphadenopathy, no thyromegaly, no jugular venous distention. No limb edema. VITAL SIGNS: His heart rate was 51, blood pressure was 157/89, temperature was 98.4, respiratory rate was 18, and oxygen saturation was 97% on 2 liters of oxygen. HEAD, EYES, EARS, NOSE, AND THROAT: Normocephalic, atraumatic. NECK: Supple. HEART: Normal first and second heart sounds. No gallop or murmur. CHEST: Clear to auscultation, no crepitation or rhonchi. ABDOMEN: Distended, soft, nontender. NEUROLOGIC: He was awake, alert, responding appropriately. All cranial nerves intact. He moves upper extremities without difficulty. He has left below-knee amputation, has also gangrenous right big and second toe with underlying osteomyelitis. ASSESSMENT: 1. Acute on chronic combined systolic and diastolic congestive heart failure. 2. Ischemic cardiomyopathy. 3. Coronary artery disease. 4. Type 2 diabetes mellitus. 5. Severe peripheral arterial disease, status post left below-knee amputation. 6. Benign prostatic hypertrophy. 7. Peripheral neuropathy. 8. Osteomyelitis of his right big and second toe. 9. Severe normochromic normocytic anemia. 10. Acute on chronic kidney injury. PLAN: To continue on comfort care in the form of morphine, Ativan as well as monitor his blood sugar and adjust insulin as needed. Apparently, the patient is scheduled to be discharged to [facility] tomorrow. GERSON/JOHNIE DR: Piedad TID: [id number]
[2021-12-06 19:00] VITALS: BP 154/98
[2021-12-07 07:00] VITALS: BP 114/46
[2021-12-07] MEDS: BUDESONIDE 0.5 MG/2 ML NEBU. NEB SCH (07:28)
[2021-12-07] MEDS: INSULIN LISPRO 300 UNITS/3 ML VIAL. SQ SCH ×3 (09:05→17:47)
--- NOTE | 2021-12-07 10:35 | SNU/HH DC ---
DISCHARGE ORDERS DISCHARGE INFORMATION: DISCHARGE DATE: Dec 07, 2021 FINAL DIAGNOSIS Problems Medical Problems: (1) Anemia Status: Acute (2) Comfort measures only status Status: Acute (3) Hypomagnesemia Status: Acute (4) Osteomyelitis Status: Acute (5) Renal insufficiency Status: Acute CONDITION ON DISCHARGE: Guarded CODE STATUS: Code Status: DNR/DNI HOSPICE: HOSPICE: Yes HOSPICE EVAL & TREAT: Yes POST DISCHARGE ORDERS: ACTIVITY ORDERS: Resume previous activity, Activity as tolerated WEIGHT BEARING STATUS: No restrictions BATHING ORDERS: No Tub Bath until see DIET AFTER DISCHARGE: Cardiac WOUND/INCISION CARE: Other, see below CHECKS AFTER DISCHARGE: CHECKS AFTER DISCHARGE: Check blood press - daily, Check blood sugar, ac/hs, Weigh Yourself Daily TREATMENT/EQUIPMENT ORDERS: ADAPTIVE EQUIPMENT NEEDED: Commode, Front wheeled walker, Instrument Lens Grinder Apprentice, Wheelchair RESPIRATORY EQUIPMENT NEEDED: Oxygen DISCHARGE MEDICATIONS: Home Meds Discontinued Reported Medications Aspirin (ASPIRIN EC) 81 Mg Tablet.dr, 1 TAB PO DAILY for blood thinner, #30 TAB 3 Refills 07/04/20 Omeprazole (OMEPRAZOLE) 20 Mg Capsule.dr, 20 MG PO DAILY for gerd, CAP 06/28/20 Tamsulosin Hcl (FLOMAX) 0.4 Mg Cap.er.24h, 0.4 MG PO DAILY for retention, TAB 06/28/20 Discontinued Scripts Losartan Potassium (COZAAR ) 50 Mg Tablet, 100 MG PO DAILY for BLOOD PRESSURE for 30 Days, #60 TAB Prov:MARGARITO CABEZAS MD 06/25/21 Ipratropium/Albuterol Sulfate (DUONEB 0.5-3(2.5) MG/3 ML) 3 Ml Ampul.neb, 3 ML NEB RTQID for copd for 30 Days, #120 EACH Prov:MARGARITO CABEZAS MD 02/08/21 Budesonide (BUDESONIDE) 0.5 Mg/2 Ml Ampul.neb, 0.5 MG NEB RTBID for copd for 30 Days, #60 EACH Prov:MARGARITO CABEZAS MD 02/08/21 Isosorbide Mononitrate (ISOSORBIDE MONONITRATE ER) 60 Mg Tab.er.24h, 1 TAB PO DAILY for coronary artery disease for 30 Days, #30 TAB 2 Refills Prov:CHAVA BUCHANAN APRN 01/31/21 Furosemide (FUROSEMIDE) 40 Mg Tablet, 40 MG PO QD for diuretic, #30 TAB 1 Refill Prov:SARAH COLLINS MD 12/17/20 Hydralazine Hcl (HYDRALAZINE HCL) 25 Mg Tablet, 75 MG PO BID for BLOOD PRESSURE for 30 Days, #180 TAB Prov:MARGARITO CABEZAS MD 07/17/20 Potassium Chloride (KLOR-CON 10) 10 Meq Tablet.er, 1 TAB PO DAILY for potassium supplement for 30 Days, #30 TAB 2 Refills Prov:SARAH COLLINS MD 07/11/20 Atorvastatin Calcium (LIPITOR) 40 Mg Tablet, 1 TAB PO QHS for cholesterol, CAD for 30 Days, #30 TAB 2 Refills Prov:CHAVA BUCHANAN APRN 07/04/20 Fluoxetine Hcl (FLUOXETINE HCL) 20 Mg Capsule, 20 MG PO DAILY for depression for 30 Days, #30 CAP Prov:RENETTA DUTTON MD 07/04/20 Carvedilol (CARVEDILOL ) 6.25 Mg Tablet, 6.25 MG PO BIDWMEALS for chf for 30 Days, #60 TAB Prov:RENETTA DUTTON MD 07/04/20 Clopidogrel Bisulfate (CLOPIDOGREL) 75 Mg Tablet, 1 TAB PO DAILY for blood thinner for 30 Days, #30 TAB 1 Refill Prov:RENETTA DUTTON MD 07/04/20 LEEANN BUCIO MD Dec 07, 2021 10:35
[2021-12-07 11:00] VITALS: BP 161/75
--- NOTE | 2021-12-07 11:55 | NUR ---
Patient did not consume lunch, sliding scale insulin held at this time.
[2021-12-07 14:28] VITALS: BP 183/78
--- NOTE | 2021-12-07 18:00 | NUR ---
SECURE TRANSPORT HERE, PATIENT ASSISTED UP TO W/C PER 2 PERSON ASSIST AND USE OF GAIT BELT, ALL PERSONAL BELONGINGS SET WITH PATIENT AT TIME OF DISCHARGE, SALINE LOCK REMOVED FROM RIGHT HAND PER PEST CONTROL SERVICE TECHNICIAN, ALL PERSONAL BELONGINGS GATHERED AND PLACED IN BAGS FOR DISCHARGE. PATIENT LEAVES THE UNIT PER W/C, EMOTIONAL SUPPORT GIVEN.
== END 2021-12-07 18:00 | DRG 280 ==
LOC: ER 12:19 → 5 SOUTH 15:45
PROVIDERS: ADMIT Internal Medicine; ATTEND Internal Medicine
DX: I21.4 Non-ST elevation (NSTEMI) myocardial infarction (principal); I50.43 Acute on chronic combined systolic (congestive) and diastolic (congestive) heart failure; I13.0 Hypertensive heart and chronic kidney disease with heart failure and stage 1 through stage 4 chronic kidney disease, or unspecified chronic kidney disease; E87.1 Hypo-osmolality and hyponatremia; J98.11 Atelectasis; M86.9 Osteomyelitis, unspecified; N17.9 Acute kidney failure, unspecified; Z79.01 Long term (current) use of anticoagulants; D64.9 Anemia, unspecified; E11.22 Type 2 diabetes mellitus with diabetic chronic kidney disease; E11.51 Type 2 diabetes mellitus with diabetic peripheral angiopathy without gangrene; E11.69 Type 2 diabetes mellitus with other specified complication; E78.00 Pure hypercholesterolemia, unspecified; E78.5 Hyperlipidemia, unspecified; E83.42 Hypomagnesemia; G62.9 Polyneuropathy, unspecified; I25.10 Atherosclerotic heart disease of native coronary artery without angina pectoris; I25.5 Ischemic cardiomyopathy; M06.9 Rheumatoid arthritis, unspecified; N18.9 Chronic kidney disease, unspecified; N40.0 Benign prostatic hyperplasia without lower urinary tract symptoms; R29.6 Repeated falls; Z51.5 Encounter for palliative care; Z83.3 Family history of diabetes mellitus; Z87.891 Personal history of nicotine dependence; Z89.512 Acquired absence of left leg below knee; Z98.41 Cataract extraction status, right eye; Z98.42 Cataract extraction status, left eye; F32.A Depression, unspecified; F41.9 Anxiety disorder, unspecified; K21.9 Gastro-esophageal reflux disease without esophagitis; Z20.822 Contact with and (suspected) exposure to COVID-19
CPT/HCPCS: 36415; 70450; 71045; 73630; 80048; 80053; 82553; 82962; 83605; 83735; 84484; 85025; 85610; 85651; 85730; 86140; 86850; 86900; 86901; 87040; 87077; 93005; 94640; 94760; 96361; 96365; 96368; J2060; J2270; J2543; J3370; J3475; J7030; J7040; U0003; 99291-25; G0378; J7626